=== PATIENT | female | born 1945 | race Caucasian/White ===

== ENCOUNTER 2019-03-18 15:30 | Observation (INO) | payer MEDICARE, SELFPAY ==
--- NOTE | 2019-03-18 | DI.RAD.S_ITS ---
PROCEDURE: XR CHEST 1V INDICATIONS: SOB, COPD TECHNIQUE: One view of the chest was acquired. COMPARISON: [facility], CR, XR CHEST 1 VIEW, 06/22/2018, 16:20. FINDINGS: Surgical changes and devices: None. Lungs and pleura: Lungs are clear. No pleural effusions or pneumothorax. Mediastinum: Mediastinal contours appear normal. Heart size is normal. Bones and chest wall: No suspicious bony lesions. Overlying soft tissues appear unremarkable. IMPRESSION: No acute cardiopulmonary findings. Dictated by: Lula Nation M.D. on 03/19/2019 at 7:17 Approved by: Lula Nation M.D. on 03/19/2019 at 7:17
[2019-03-18 16:01] VITALS: BP 115/65; PULSE 98; RESP 16; TEMP 35.9; O2SAT 94; BMI 35.5
[2019-03-18 16:50] LABS: Hematocrit 47.7 % (36-46); Hemoglobin 15.8 g/dL (12.0-16.0); Mean Corpuscular Hemoglobin 31.1 PG (26-34); Platelet Count 202 X10^3/uL (150-400); Red Blood Cell Count 5.08 X10^6/uL (4.0-5.2); Red Cell Distribution Width 14.2 % (11.6-14.8); White Blood Cell Count 6.9 X10^3/uL (4.5-11.0)
[2019-03-18 16:51] LABS: INR 1.1 (0.9-1.3); Prothrombin Time 12.3 SECONDS (10.1-12.7)
[2019-03-18 16:54] LABS: Add Manual Diff / Slide Review YES; PTT Partial Thromboplastin Tim 37 SECONDS (26.4-36.2)
[2019-03-18 16:55] LABS: Alanine Aminotransferase 43 IU/L (<35); Albumin 4.4 g/dL (3.5-5.0); Albumin Globulin Ratio 1.3 (1.0-2.8); Alkaline Phosphatase 137 U/L (38-126); Aspartate Aminotransferase 76 IU/L (14-36); BUN Creatinine Ratio 13.3 (6-22); Bilirubin Total 0.6 mg/dL (0.2-1.3); Blood Urea Nitrogen 16 mg/dL (7-17); Calcium 9.6 mg/dL (8.4-10.2); Carbon Dioxide 38 mmol/L (22-32); Chloride 88 mmol/L (98-107); Estimated Glomerular Filt Rate 43.9 mL/min (>60); Globulin 3.4 g/dL (1.7-4.1); Glucose 133 mg/dL (80-110); HEMOLYSIS < 15 (0-50); Lipase 52 U/L (23-300); Potassium 3.2 mmol/L (3.4-5.1); Sodium 136 mmol/L (137-145); Total Protein 7.8 g/dL (6.3-8.2)
[2019-03-18 17:13] LABS: Neutrophils Absolute Manual 4071 /uL (3000-5900); Total Cells Counted 100
[2019-03-18 17:14] LABS: RBC Morphology Normal Morphology
--- NOTE | 2019-03-18 17:36 | DI.US.S_ITS ---
PROCEDURE: US ABDOMEN LIMITED INDICATIONS: R quadrant pain with +funez's, nausea, fever TECHNIQUE: Real-time focused scanning was performed of the abdomen, with image documentation. COMPARISON: None. FINDINGS: Slightly nodular liver contour is seen. No discrete hepatic lesion is noted. 7 x 6 x 7 mm cyst is seen in medial right hepatic lobe. Numerous stones are seen filling gallbladder lumen withe through acoustic shadowing. There is asymmetric gallbladder wall thickening measures up to 5 mm in thickness. No pericholecystic fluid. Positive sonographic Funez's sign is noted during the study. Common bile duct size is in the upper limits of normal and measures 7 mm in diameter. No intrahepatic biliary ductal dilatation. Pancreas is obscured by overlying bowel gas. IMPRESSION: Cholelithiasis with sonographic evidence suggestive of acute cholecystitis. No definite biliary ductal dilatation. Dictated by: Nathaniel Muse M.D. on 03/18/2019 at 19:40 Approved by: Nathaniel Muse M.D. on 03/18/2019 at 19:42
[2019-03-18] MEDS: ONDANSETRON 4 MG/2 ML INJ IV (18:34)
[2019-03-18] MEDS: SODIUM CHLORIDE 0.9% 1,000 ML 1000 ML IV (18:34)
[2019-03-18] MEDS: MORPHINE 2 MG/ML INJ IV ×4 (18:34→23:30)
--- NOTE | 2019-03-18 19:38 | ED.ABDPAIN ---
HPI - Abdominal Pain <Ramy JOSSUE Pike - Last Filed: 03/18/19 21:35> General Chief Complaint: Abdominal Pain Stated Complaint: LOTS OF PAIN RIGHT LOWER PAIN TOWARDS BACK Time Seen by Provider: 03/18/19 16:55 Source: patient Mode of arrival: Wheelchair Limitations: no limitations History of Present Illness HPI narrative: This is a 73-year-old female, former smoker, who presents to ED with chief complain of right upper and mid quadrant pain which is radiating to under the rib cage and back for last 3 days. Patient had fever last couple of days with T-max of 102? last night. She reports nausea without vomiting. Patient has decreased appetite for solids but has been hydrating herself well with water. Patient has history of left sleeve surgery about 10 years ago. Patient reports pain is shooting in character and rates from constant 5 to 8/10. Patient denies diarrhea and had normal bowel movements today. Patient also has mild erythematous macular lesion on right upper quadrant region. Patient has history of AFib and on anticoagulants, Xarelto and COPD. Related Data Home Medications Medication Instructions Recorded Confirmed Anoro Ellipta 1 inh INHALATION DAILY 03/18/19 03/18/19 Azopt 1 % OPHTHALMIC (EYE) DAILY 03/18/19 03/18/19 Cequa 1 % OPHTHALMIC (EYE) BID 03/18/19 03/18/19 Cranberry W/D Mannose 1 cap PO DAILY 03/18/19 03/18/19 Florajen3 1 cap PO DAILY 03/18/19 03/18/19 Home Oxygen 03/18/19 03/18/19 Lumigan 1 % OPHTHALMIC (EYE) DAILY 03/18/19 03/18/19 Xarelto 20 mg PO DAILY 03/18/19 03/18/19 albuterol sulfate [ProAir HFA] 2 puff INHALATION BID 03/18/19 03/18/19 alprazolam 0.5 mg PO DAILY 03/18/19 03/18/19 ascorbic acid (vitamin C) [Vitamin 500 mg PO DAILY 03/18/19 03/18/19 C] cholecalciferol (vitamin D3) 1,000 unit PO DAILY 03/18/19 03/18/19 [Vitamin D3] cholecalciferol (vitamin D3) 2,000 unit PO DAILY 03/18/19 03/18/19 [Vitamin D3] dicyclomine 10 mg PO DAILY 03/18/19 03/18/19 duloxetine [Cymbalta] 60 mg PO BID 03/18/19 03/18/19 estradiol 1 mg PO DAILY 03/18/19 03/18/19 ferrous sulfate 325 mg PO DAILY 03/18/19 03/18/19 flecainide 50 mg PO Q12H 03/18/19 03/18/19 ipratropium bromide 2 puff INHALATION QID 03/18/19 03/18/19 magnesium oxide 400 mg PO DAILY 03/18/19 03/18/19 multivitamin 2 tab PO DAILY 03/18/19 03/18/19 omeprazole 40 mg PO DAILY 03/18/19 03/18/19 ranitidine HCl 300 mg PO BEDTIME 03/18/19 03/18/19 torsemide 20 mg PO BID 03/18/19 03/18/19 tramadol 50 mg PO Q4H PRN 03/18/19 03/18/19 trazodone 100 mg PO BEDTIME PRN 03/18/19 03/18/19 Previous Rx's Medication Instructions Recorded acetaminophen 650 mg PO Q6HR PRN #30 tab 03/21/19 Allergies Allergy/AdvReac Type Severity Reaction Status Date / Time oxycodone Allergy Mild makes her Verified 03/20/19 08:04 'loopy' ceftriaxone Allergy Unknown Rash Verified 03/20/19 08:04 clarithromycin Allergy Unknown Rash Verified 03/20/19 08:04 Review of Systems <JOSSUE Escudero - Last Filed: 03/18/19 21:35> Review of Systems Narrative: General: See HPI HEENT: Denies sinus pain, ear pain, sore throat, difficulty swallowing, dizziness. Respiratory: Denies dyspnea, cough, wheezing, hemoptysis, sputum. Cardiovascular: Denies chest pain, palpitations, orthopnea, edema. Gastrointestinal: See HPI : Denies dysuria, frequency, incontinence, hematuria, urinary retention. Musculoskeletal: Denies weakness, joint pain or bony pain. Skin: Denies rash, skin lesions, or other. Neurologic: Denies weakness, headache, numbness, change in speech, confusion, seizures, incoordination. Psychiatric: No concerning psychosocial issues. 12-point review of systems is negative except for those stated above. Patient History <AMELIA EscuderoP - Last Filed: 03/18/19 21:35> Medical History Chronic kidney disease, stage III (moderate) (Acute) COPD (chronic obstructive pulmonary disease) (Inactive) Depression (Acute) Glaucoma (Acute) Lung nodule (Acute) Obesity (BMI 30-39.9) (Acute) Osteoarthritis (Acute) Paroxysmal atrial fibrillation (Acute) Surgical History H/O foot surgery (Acute) H/O neck surgery (Acute) H/O rotator cuff surgery (Acute) History of hysterectomy (Acute) Hx of cataract surgery (Acute) Knee joint replacement by other means (Acute) S/P laparoscopic sleeve gastrectomy (Acute) Family History Father Alcoholic Mother Arthritis Renal failure Cancer Brother Alcoholic Social History household members: spouse Smoking Status: Former smoker alcohol intake: current Smoking Status: Unknown if ever smoked alcohol intake frequency: holidays/special occasions only Substance Use Type: does not use Exam <AMELIA EscuderoP - Last Filed: 03/18/19 21:35> Narrative Exam Narrative: GEN: Alert, oriented x 3, well appearing and nourished, and appears to be in discomfort and restless. Head: Normal cephalic, atraumatic. No scalp or temporal tenderness, palpable mass or rash. EYES: Pupils are equal, round, and reactive to light and accommodation. Extraocular muscles are intact bilaterally. There is no subconjunctival hemorrhage, exudate and sclera non-icteric. ENT: Bilateral auditory canals and tympanic membranes clear. Hearing grossly intact. Nose without bleeding, purulent discharge or deviation. Facial sinuses nontender to palpate. Mucous membrane moist, no mucosal lesion. Throat without erythema, tonsillar hypertrophy or exudate. Uvula in midline, airway patent. Neck: Trachea in midline. No JVD, non-tender without lymphadenopathy. No masses or thyroid megaly. Supple, non-tender and no meningeal signs. CARDIAC: Normal regular rate and rhythm without murmurs, gallops, or rubs. No chest wall tenderness. No peripheral edema, cyanosis or pallor. Capillary refill is less than 2 seconds. RESPIRATORY: Lungs are clear to auscultate bilaterally. No cough, wheezes, rales, or rhonchi. No stridor, respiratory distress, increase work of breathing, or accessary muscle used. ABD: Very tender to palpate in right upper quadrant with positive Funez's sign. Abdomen soft and non-distended. No guarding or rebound tenderness to palpate. Bowel sounds are normal in all 4 quadrants. There is no palpable masses or organomegaly. EXT: Full painless ROM of all extremities with no loss of sensation, strength, effusion or edema. SKIN: erythematous macules on RUQ in abdomen. Warm, dry, normal color for patient. No erythema, lesions or rash over visible areas. BACK: Nontender without deformity or crepitance. No flank tenderness. NEUROLOGICAL: Alert and oriented to place, time and person. Sensation and motor function intact bilaterally. No facial droops, dysphasia. PSYCHIATRIC: Good judgement and reason, without hallucinations, abnormal affect or abnormal behaviors during the examination. Initial Vital Signs Initial Vital Signs: Vital Signs Temperature 96.7 F L 03/18/19 16:01 Pulse Rate 98 H 03/18/19 16:01 Respiratory Rate 16 03/18/19 16:01 Blood Pressure 115/65 03/18/19 16:01 Pulse Oximetry 94 03/18/19 16:01 <Jenna Pacheco DO - Last Filed: 03/23/19 01:17> Initial Vital Signs Initial Vital Signs: Vital Signs Temperature 96.7 F L 03/18/19 16:01 Pulse Rate 98 H 03/18/19 16:01 Respiratory Rate 16 03/18/19 16:01 Blood Pressure 115/65 03/18/19 16:01 Pulse Oximetry 94 03/18/19 16:01 Course <JOSSUE Escudero - Last Filed: 03/18/19 21:35> Course Decision to Admit Date: 03/18/19 Decision to Admit time: 20:00 Orders Ordered: Discontinued Medications Acetaminophen (Tylenol) 650 mg PO Q6HR PRN PRN Reason: Fever/Mild Pain (1-3) Hydrocodone Bitart/Acetaminophen ([place] 5/325) 1 tab PO Q6HR PRN PRN Reason: Pain, Moderate (4-6) Last Admin: 03/21/19 09:07 Dose: 1 tab Documented by: EVARISTO Albuterol (Ventolin) 2.5 mg INH [id number] PRN PRN Reason: Shortness Of Breath Albuterol/Ipratropium (Duoneb) 3 ml INH RTBID REBECCA Last Admin: 03/21/19 07:13 Dose: 3 ml Documented by: Admin: 03/20/19 20:27 Dose: 3 ml Documented by: Admin: 03/20/19 09:33 Dose: Not Given Documented by: Admin: 03/19/19 14:31 Dose: 3 ml Documented by: Admin: 03/19/19 09:53 Dose: 3 ml Documented by: CHARISSE Alprazolam (Xanax) 0.5 mg PO DAILY [facility] Last Admin: 03/21/19 09:03 Dose: 0.5 mg Documented by: Admin: 03/20/19 12:16 Dose: Not Given Documented by: Admin: 03/19/19 10:52 Dose: 0.5 mg Documented by: GUDELIA Alprazolam (Xanax) 0.5 mg PO NOW ONE Stop: 03/19/19 20:14 Last Admin: 03/19/19 21:05 Dose: 0.5 mg Documented by: MARIA R Bacitracin (Bacitracin) 1 applic TOP NOW ONE Stop: 03/20/19 09:17 Last Admin: 03/20/19 09:16 Dose: 1 applic Documented by: GISEL Bimatoprost (Lumigan 0.01% Ophth Soln) 1 drops EYE-BOTH DAILY [facility] Last Admin: 03/21/19 09:06 Dose: Not Given Documented by: Admin: 03/20/19 12:17 Dose: Not Given Documented by: Admin: 03/19/19 18:16 Dose: Not Given Documented by: MARJORIE Bisoprolol Fumarate (Zebeta) 10 mg PO DAILY [facility] Last Admin: 03/21/19 09:05 Dose: Not Given Documented by: Admin: 03/20/19 13:49 Dose: Not Given Documented by: Admin: 03/19/19 10:53 Dose: 10 mg Documented by: GUDELIA Brinzolamide (Azopt) 1 drops EYE-BOTH DAILY [facility] Last Admin: 03/21/19 09:06 Dose: 1 drops Documented by: Admin: 03/20/19 12:17 Dose: Not Given Documented by: Admin: 03/19/19 18:17 Dose: Not Given Documented by: MARJORIE Bupivacaine HCl/Epinephrine Bitart (Sensorcaine 0.5% W/ Epi (Pf)) 20 ml INJ NOW ONE Stop: 03/20/19 09:07 Last Admin: 03/20/19 09:06 Dose: 20 ml Documented by: GISEL Dicyclomine HCl (Bentyl) 10 mg PO DAILY [facility] Last Admin: 03/21/19 09:04 Dose: Not Given Documented by: Admin: 03/20/19 13:49 Dose: Not Given Documented by: Admin: 03/19/19 10:56 Dose: 10 mg Documented by: GUDELIA Duloxetine HCl (Cymbalta) 60 mg PO BID [facility] Last Admin: 03/21/19 09:03 Dose: Not Given Documented by: Admin: 03/20/19 21:55 Dose: 60 mg Documented by: Admin: 03/20/19 13:50 Dose: Not Given Documented by: Admin: 03/19/19 20:05 Dose: 60 mg Documented by: Admin: 03/19/19 10:54 Dose: 60 mg Documented by: Admin: 03/18/19 23:28 Dose: 60 mg Documented by: HILTON Fentanyl (Sublimaze) 0 mcg IV Q5M PRN PRN Reason: Pain, Moderate (4-6) Flecainide Acetate (Tambocor) 50 mg PO Q12H [facility] Last Admin: 03/19/19 01:19 Dose: Not Given Documented by: MARCIN Flecainide Acetate (Tambocor) 50 mg PO 2100 [facility] Last Admin: 03/20/19 21:56 Dose: 50 mg Documented by: Admin: 03/19/19 20:07 Dose: 50 mg Documented by: MARJORIE Flecainide Acetate (Tambocor) 25 mg PO 0900 [facility] Last Admin: 03/21/19 09:03 Dose: 25 mg Documented by: Admin: 03/20/19 13:50 Dose: Not Given Documented by: Admin: 03/19/19 10:57 Dose: 25 mg Documented by: GUDELIA Furosemide (Lasix) 40 mg IV NOW ONE Stop: 03/21/19 05:15 Last Admin: 03/21/19 05:31 Dose: 40 mg Documented by: MELL Heparin Sodium (Porcine) (Heparin) 5,000 unit SUBCUT BID REBECCA Last Admin: 03/21/19 09:07 Dose: 5,000 unit Documented by: Admin: 03/20/19 21:55 Dose: 5,000 unit Documented by: Admin: 03/20/19 12:18 Dose: Not Given Documented by: Admin: 03/19/19 20:05 Dose: 5,000 unit Documented by: Admin: 03/19/19 08:47 Dose: 5,000 unit Documented by: GUDELIA Hydromorphone HCl (Dilaudid) 0.5 mg IV NOW ONE Stop: 03/19/19 01:16 Last Admin: 03/19/19 02:09 Dose: 0.5 mg Documented by: MARCIN Hydromorphone HCl (Dilaudid) 0 mg IV Q5M PRN PRN Reason: Pain, Moderate (4-6) Last Admin: 03/20/19 09:49 Dose: 0.5 mg Documented by: MIGUELANGELUNGILMAR Sodium Chloride (Normal Saline 0.9%) 1,000 mls @ 1,000 mls/hr IV BOLUS ONE Stop: 03/18/19 18:29 Last Infusion: 03/18/19 21:29 Dose: 0 mls/hr Documented by: ANMOLOTEEmerald Admin: 03/18/19 18:34 Dose: 1,000 mls/hr Documented by: MEGAONEMaikol Piperacillin/Tazobactam/Dextrose (Zosyn) 3.375 gm in 50 mls @ 100 mls/hr IV Q6H [facility] Last Admin: 03/18/19 21:29 Dose: Not Given Documented by: SHAHANA Piperacillin/Tazobactam/Dextrose (Zosyn) 2.25 gm in 50 mls @ 100 mls/hr IV Q6H [facility] Last Infusion: 03/18/19 21:16 Dose: 0 mls/hr Documented by: Admin: 03/18/19 20:36 Dose: 100 mls/hr Documented by: BTONER Lactated Ringer's (Lactated Ringers) 1,000 mls @ 100 mls/hr IV CONT REBECCA Last Admin: 03/18/19 23:34 Dose: Not Given Documented by: GPEREZ Sodium Chloride (Normal Saline 0.9%) 1,000 mls @ 75 mls/hr IV CONT REBECCA Last Infusion: 03/21/19 06:00 Dose: 75 mls/hr Documented by: Admin: 03/21/19 05:11 Dose: 75 mls/hr Documented by: Infusion: 03/21/19 03:15 Dose: 75 mls/hr Documented by: Admin: 03/20/19 13:55 Dose: 75 mls/hr Documented by: Infusion: 03/20/19 01:22 Dose: 75 mls/hr Documented by: Admin: 03/19/19 12:02 Dose: 75 mls/hr Documented by: Infusion: 03/19/19 11:19 Dose: 75 mls/hr Documented by: Admin: 03/18/19 23:28 Dose: 100 mls/hr Documented by: GPERELaw Piperacillin/Tazobactam/Dextrose (Zosyn) 3.375 gm in 50 mls @ 100 mls/hr IV Q6H REBECCA Last Admin: 03/21/19 09:33 Dose: Not Given Documented by: Infusion: 03/21/19 03:00 Dose: 0 mls/hr Documented by: Admin: 03/21/19 02:12 Dose: 100 mls/hr Documented by: Infusion: 03/20/19 22:24 Dose: 100 mls/hr Documented by: Admin: 03/20/19 21:54 Dose: 100 mls/hr Documented by: Infusion: 03/20/19 14:25 Dose: 100 mls/hr Documented by: Admin: 03/20/19 13:55 Dose: 100 mls/hr Documented by: Infusion: 03/20/19 08:20 Dose: 0 mls/hr Documented by: Admin: 03/20/19 08:18 Dose: 100 mls/hr Documented by: Infusion: 03/20/19 03:51 Dose: 100 mls/hr Documented by: Admin: 03/20/19 03:02 Dose: 100 mls/hr Documented by: Infusion: 03/19/19 21:19 Dose: 0 mls/hr Documented by: MARIA R Admin: 03/19/19 20:04 Dose: 100 mls/hr Documented by: Infusion: 03/19/19 15:20 Dose: 100 mls/hr Documented by: Admin: 03/19/19 14:50 Dose: 100 mls/hr Documented by: Infusion: 03/19/19 10:36 Dose: 0 mls/hr Documented by: Admin: 03/19/19 08:57 Dose: 100 mls/hr Documented by: Infusion: 03/19/19 02:40 Dose: 0 mls/hr Documented by: Admin: 03/19/19 02:10 Dose: 100 mls/hr Documented by: MARCIN Potassium Chloride 40 meq/ (Sodium Chloride) 520 mls @ 130 mls/hr IV NOW ONE Stop: 03/19/19 23:10 Last Admin: 03/19/19 21:16 Dose: 130 mls/hr Documented by: MARIA R Cosigned by: RHEENAN Lactated Ringer's (Lactated Ringers) 1,000 mls @ 42 mls/hr IV CONT REBECCA Last Infusion: 03/20/19 10:22 Dose: 0 mls/hr Documented by: Admin: 03/20/19 09:16 Dose: 42 mls/hr Documented by: Infusion: 03/20/19 09:16 Dose: 42 mls/hr Documented by: Admin: 03/20/19 08:03 Dose: 42 mls/hr Documented by: KAMILLA Metoprolol Tartrate (Lopressor) 5 mg IV NOW ONE Stop: 03/19/19 00:46 Last Admin: 03/19/19 01:07 Dose: Not Given Documented by: MARCIN Morphine Sulfate (Morphine) 2 mg IV NOW ONE Stop: 03/18/19 17:37 Last Admin: 03/18/19 18:34 Dose: 2 mg Documented by: RONIT Morphine Sulfate (Morphine) 2 mg IV NOW ONE Stop: 03/18/19 19:34 Last Admin: 03/18/19 19:43 Dose: 2 mg Documented by: RONIT Morphine Sulfate (Morphine) 2 mg IV NOW ONE Stop: 03/18/19 20:05 Last Admin: 03/18/19 20:36 Dose: 2 mg Documented by: RONIT Morphine Sulfate (Morphine) 2 mg IV Q4HR PRN PRN Reason: Pain, Moderate (4-6) Last Admin: 03/21/19 04:00 Dose: 2 mg Documented by: Admin: 03/20/19 22:08 Dose: 2 mg Documented by: Admin: 03/20/19 03:18 Dose: 2 mg Documented by: Admin: 03/19/19 08:48 Dose: 2 mg Documented by: Admin: 03/19/19 04:42 Dose: 2 mg Documented by: Admin: 03/18/19 23:30 Dose: 2 mg Documented by: HILTON Morphine Sulfate (Morphine) 4 mg IV Q4HR PRN PRN Reason: Pain, Severe (7-10) Naloxone HCl (Narcan) 0.2 mg IV Q2MIN PRN PRN Reason: Opiate Reversal Cyclosporine [Cequa] (1 %) 1 % EYE-BOTH BID REBECCA Last Admin: 03/21/19 09:07 Dose: Not Given Documented by: Admin: 03/20/19 21:58 Dose: Not Given Documented by: Admin: 03/20/19 14:01 Dose: Not Given Documented by: Admin: 03/20/19 14:01 Dose: Not Given Documented by: Admin: 03/20/19 13:49 Dose: Not Given Documented by: MORA Nystatin (Nystop) 1 applic TOP BID PRN PRN Reason: Rash Last Admin: 03/19/19 00:56 Dose: 1 applic Documented by: MARCIN Ondansetron HCl (Zofran) 4 mg IV NOW ONE Stop: 03/18/19 17:37 Last Admin: 03/18/19 18:34 Dose: 4 mg Documented by: RONIT Ondansetron HCl (Zofran) 4 mg IV Q8HR PRN PRN Reason: Nausea And Vomiting Last Admin: 03/20/19 10:47 Dose: 4 mg Documented by: DEQUAN Ondansetron HCl (Zofran) 4 mg IV NOW PRN PRN Reason: Nausea And Vomiting Pantoprazole Sodium (Protonix) 20 mg IV BID [facility] Last Admin: 03/19/19 08:47 Dose: 20 mg Documented by: Admin: 03/19/19 00:53 Dose: 20 mg Documented by: MARCIN Pantoprazole Sodium (Protonix) 40 mg PO 0700 [facility] Last Admin: 03/20/19 07:00 Dose: Not Given Documented by: MICHAEL Pantoprazole Sodium (Protonix) 40 mg PO 0700 [facility] Last Admin: 03/21/19 06:37 Dose: 40 mg Documented by: MELL Potassium Chloride (Klor-Con M20) 40 meq PO NOW ONE Stop: 03/18/19 19:39 Last Admin: 03/18/19 19:46 Dose: 40 meq Documented by: RONIT Sodium Chloride (Normal Saline 0.9% Flush) 10 ml IV PRN PRN PRN Reason: Flush Last Admin: 03/19/19 04:41 Dose: 10 ml Documented by: MARCIN Sodium Chloride (Normal Saline 0.9% Flush) 10 ml IV BID [facility] Last Admin: 03/19/19 08:00 Dose: Not Given Documented by: GUDELIA Torsemide (Demadex) 20 mg PO BID [facility] Umeclidinium/Vilanterol (Anoro Ellipta 62.5-25 Mcg Inh) 1 puff INH DAILY [facility] Last Admin: 03/21/19 07:12 Dose: 1 puff Documented by: Admin: 03/20/19 09:33 Dose: Not Given Documented by: Admin: 03/19/19 09:54 Dose: Not Given Documented by: CHARISSE Reevaluation(s) Reevaluation #1: pain recurring Time: 19:25 Reevaluation #2: pain mildly improved Time: 19:50 Consultations Consultation #1: Dr. Prabhakar-IV Zosyn 3.375mg Q6hr, surgical intervention in 2-3 days due to pt currently on Xarelto. Admit patient under medical services due to chronic medical hx. Will eval the patient tomorrow for consult. Time: 20:10 Consultation #2: Hospitalist RAYA Hadley kindly accepted the patient's care for inpt status with tele Time: 21:00 Vital Signs Vital signs: Vital Signs - 8 hr 03/18/19 16:01 03/18/19 20:38 Temperature 96.7 F L Pulse Rate 98 H 94 H Respiratory Rate 16 17 Blood Pressure 115/65 Blood Pressure [Right Arm] 152/68 H Pulse Oximetry 94 94 <Jenna Pacheco, DO - Last Filed: 03/23/19 01:17> Orders Ordered: Discontinued Medications Acetaminophen (Tylenol) 650 mg PO Q6HR PRN PRN Reason: Fever/Mild Pain (1-3) Hydrocodone Bitart/Acetaminophen ([place] 5/325) 1 tab PO Q6HR PRN PRN Reason: Pain, Moderate (4-6) Last Admin: 03/21/19 09:07 Dose: 1 tab Documented by: EVARISTO Albuterol (Ventolin) 2.5 mg INH [id number] PRN PRN Reason: Shortness Of Breath Albuterol/Ipratropium (Duoneb) 3 ml INH RTBID [facility] Last Admin: 03/21/19 07:13 Dose: 3 ml Documented by: Admin: 03/20/19 20:27 Dose: 3 ml Documented by: Admin: 03/20/19 09:33 Dose: Not Given Documented by: Admin: 03/19/19 14:31 Dose: 3 ml Documented by: Admin: 03/19/19 09:53 Dose: 3 ml Documented by: CHARISSE Alprazolam (Xanax) 0.5 mg PO DAILY [facility] Last Admin: 03/21/19 09:03 Dose: 0.5 mg Documented by: Admin: 03/20/19 12:16 Dose: Not Given Documented by: Admin: 03/19/19 10:52 Dose: 0.5 mg Documented by: GUDELIA Alprazolam (Xanax) 0.5 mg PO NOW ONE Stop: 03/19/19 20:14 Last Admin: 03/19/19 21:05 Dose: 0.5 mg Documented by: MARIA R Bacitracin (Bacitracin) 1 applic TOP NOW ONE Stop: 03/20/19 09:17 Last Admin: 03/20/19 09:16 Dose: 1 applic Documented by: GISEL Bimatoprost (Lumigan 0.01% Oph Soln) 1 drops EYE-BOTH DAILY [facility] Last Admin: 03/21/19 09:06 Dose: Not Given Documented by: Admin: 03/20/19 12:17 Dose: Not Given Documented by: Admin: 03/19/19 18:16 Dose: Not Given Documented by: MARJORIE Bisoprolol Fumarate (Zebeta) 10 mg PO DAILY [facility] Last Admin: 03/21/19 09:05 Dose: Not Given Documented by: Admin: 03/20/19 13:49 Dose: Not Given Documented by: Admin: 03/19/19 10:53 Dose: 10 mg Documented by: GUDELIA Brinzolamide (Azopt) 1 drops EYE-BOTH DAILY [facility] Last Admin: 03/21/19 09:06 Dose: 1 drops Documented by: Admin: 03/20/19 12:17 Dose: Not Given Documented by: Admin: 03/19/19 18:17 Dose: Not Given Documented by: MARJORIE Bupivacaine HCl/Epinephrine Bitart (Sensorcaine 0.5% W/ Epi (Pf)) 20 ml INJ NOW ONE Stop: 03/20/19 09:07 Last Admin: 03/20/19 09:06 Dose: 20 ml Documented by: GISEL Dicyclomine HCl (Bentyl) 10 mg PO DAILY [facility] Last Admin: 03/21/19 09:04 Dose: Not Given Documented by: Admin: 03/20/19 13:49 Dose: Not Given Documented by: Admin: 03/19/19 10:56 Dose: 10 mg Documented by: GUDELIA Duloxetine HCl (Cymbalta) 60 mg PO BID [facility] Last Admin: 03/21/19 09:03 Dose: Not Given Documented by: Admin: 03/20/19 21:55 Dose: 60 mg Documented by: Admin: 03/20/19 13:50 Dose: Not Given Documented by: Admin: 03/19/19 20:05 Dose: 60 mg Documented by: Admin: 03/19/19 10:54 Dose: 60 mg Documented by: Admin: 03/18/19 23:28 Dose: 60 mg Documented by: HILTON Fentanyl (Sublimaze) 0 mcg IV Q5M PRN PRN Reason: Pain, Moderate (4-6) Flecainide Acetate (Tambocor) 50 mg PO Q12H [facility] Last Admin: 03/19/19 01:19 Dose: Not Given Documented by: MARCIN Flecainide Acetate (Tambocor) 50 mg PO 2100 [facility] Last Admin: 03/20/19 21:56 Dose: 50 mg Documented by: Admin: 03/19/19 20:07 Dose: 50 mg Documented by: MARJORIE Flecainide Acetate (Tambocor) 25 mg PO 0900 [facility] Last Admin: 03/21/19 09:03 Dose: 25 mg Documented by: Admin: 03/20/19 13:50 Dose: Not Given Documented by: Admin: 03/19/19 10:57 Dose: 25 mg Documented by: GUDELIA Furosemide (Lasix) 40 mg IV NOW ONE Stop: 03/21/19 05:15 Last Admin: 03/21/19 05:31 Dose: 40 mg Documented by: MELL Heparin Sodium (Porcine) (Heparin) 5,000 unit SUBCUT BID [facility] Last Admin: 03/21/19 09:07 Dose: 5,000 unit Documented by: Admin: 03/20/19 21:55 Dose: 5,000 unit Documented by: Admin: 03/20/19 12:18 Dose: Not Given Documented by: Admin: 03/19/19 20:05 Dose: 5,000 unit Documented by: Admin: 03/19/19 08:47 Dose: 5,000 unit Documented by: GUDELIA Hydromorphone HCl (Dilaudid) 0.5 mg IV NOW ONE Stop: 03/19/19 01:16 Last Admin: 03/19/19 02:09 Dose: 0.5 mg Documented by: MARCIN Hydromorphone HCl (Dilaudid) 0 mg IV Q5M PRN PRN Reason: Pain, Moderate (4-6) Last Admin: 03/20/19 09:49 Dose: 0.5 mg Documented by: AKUNGILMAR Sodium Chloride (Normal Saline 0.9%) 1,000 mls @ 1,000 mls/hr IV BOLUS ONE Stop: 03/18/19 18:29 Last Infusion: 03/18/19 21:29 Dose: 0 mls/hr Documented by: Admin: 03/18/19 18:34 Dose: 1,000 mls/hr Documented by: RONIT Piperacillin/Tazobactam/Dextrose (Zosyn) 3.375 gm in 50 mls @ 100 mls/hr IV Q6H REBECCA Last Admin: 03/18/19 21:29 Dose: Not Given Documented by: SHAHANA Piperacillin/Tazobactam/Dextrose (Zosyn) 2.25 gm in 50 mls @ 100 mls/hr IV Q6H REBECCA Last Infusion: 03/18/19 21:16 Dose: 0 mls/hr Documented by: Admin: 03/18/19 20:36 Dose: 100 mls/hr Documented by: RONIT Lactated Ringer's (Lactated Ringers) 1,000 mls @ 100 mls/hr IV CONT REBECCA Last Admin: 03/18/19 23:34 Dose: Not Given Documented by: KIMEREZ Sodium Chloride (Normal Saline 0.9%) 1,000 mls @ 75 mls/hr IV CONT REBECCA Last Infusion: 03/21/19 06:00 Dose: 75 mls/hr Documented by: Admin: 03/21/19 05:11 Dose: 75 mls/hr Documented by: Infusion: 03/21/19 03:15 Dose: 75 mls/hr Documented by: Admin: 03/20/19 13:55 Dose: 75 mls/hr Documented by: Infusion: 03/20/19 01:22 Dose: 75 mls/hr Documented by: Admin: 03/19/19 12:02 Dose: 75 mls/hr Documented by: Infusion: 03/19/19 11:19 Dose: 75 mls/hr Documented by: Admin: 03/18/19 23:28 Dose: 100 mls/hr Documented by: KIMERELaw Piperacillin/Tazobactam/Dextrose (Zosyn) 3.375 gm in 50 mls @ 100 mls/hr IV Q6H REBECCA Last Admin: 03/21/19 09:33 Dose: Not Given Documented by: Infusion: 03/21/19 03:00 Dose: 0 mls/hr Documented by: Admin: 03/21/19 02:12 Dose: 100 mls/hr Documented by: Infusion: 03/20/19 22:24 Dose: 100 mls/hr Documented by: Admin: 03/20/19 21:54 Dose: 100 mls/hr Documented by: Infusion: 03/20/19 14:25 Dose: 100 mls/hr Documented by: Admin: 03/20/19 13:55 Dose: 100 mls/hr Documented by: Infusion: 03/20/19 08:20 Dose: 0 mls/hr Documented by: Admin: 03/20/19 08:18 Dose: 100 mls/hr Documented by: Infusion: 03/20/19 03:51 Dose: 100 mls/hr Documented by: Admin: 03/20/19 03:02 Dose: 100 mls/hr Documented by: Infusion: 03/19/19 21:19 Dose: 0 mls/hr Documented by: MARIA R Admin: 03/19/19 20:04 Dose: 100 mls/hr Documented by: Infusion: 03/19/19 15:20 Dose: 100 mls/hr Documented by: Admin: 03/19/19 14:50 Dose: 100 mls/hr Documented by: Infusion: 03/19/19 10:36 Dose: 0 mls/hr Documented by: Admin: 03/19/19 08:57 Dose: 100 mls/hr Documented by: Infusion: 03/19/19 02:40 Dose: 0 mls/hr Documented by: Admin: 03/19/19 02:10 Dose: 100 mls/hr Documented by: MARCIN Potassium Chloride 40 meq/ (Sodium Chloride) 520 mls @ 130 mls/hr IV NOW ONE Stop: 03/19/19 23:10 Last Admin: 03/19/19 21:16 Dose: 130 mls/hr Documented by: MARIA R Cosigned by: RHEENAN Lactated Ringer's (Lactated Ringers) 1,000 mls @ 42 mls/hr IV CONT REBECCA Last Infusion: 03/20/19 10:22 Dose: 0 mls/hr Documented by: Admin: 03/20/19 09:16 Dose: 42 mls/hr Documented by: Infusion: 03/20/19 09:16 Dose: 42 mls/hr Documented by: Admin: 03/20/19 08:03 Dose: 42 mls/hr Documented by: KAMILLA Metoprolol Tartrate (Lopressor) 5 mg IV NOW ONE Stop: 03/19/19 00:46 Last Admin: 03/19/19 01:07 Dose: Not Given Documented by: MARCIN Morphine Sulfate (Morphine) 2 mg IV NOW ONE Stop: 03/18/19 17:37 Last Admin: 03/18/19 18:34 Dose: 2 mg Documented by: RONIT Morphine Sulfate (Morphine) 2 mg IV NOW ONE Stop: 03/18/19 19:34 Last Admin: 03/18/19 19:43 Dose: 2 mg Documented by: RONIT Morphine Sulfate (Morphine) 2 mg IV NOW ONE Stop: 03/18/19 20:05 Last Admin: 03/18/19 20:36 Dose: 2 mg Documented by: RONIT Morphine Sulfate (Morphine) 2 mg IV Q4HR PRN PRN Reason: Pain, Moderate (4-6) Last Admin: 03/21/19 04:00 Dose: 2 mg Documented by: Admin: 03/20/19 22:08 Dose: 2 mg Documented by: Admin: 03/20/19 03:18 Dose: 2 mg Documented by: Admin: 03/19/19 08:48 Dose: 2 mg Documented by: Admin: 03/19/19 04:42 Dose: 2 mg Documented by: Admin: 03/18/19 23:30 Dose: 2 mg Documented by: HILTON Morphine Sulfate (Morphine) 4 mg IV Q4HR PRN PRN Reason: Pain, Severe (7-10) Naloxone HCl (Narcan) 0.2 mg IV Q2MIN PRN PRN Reason: Opiate Reversal Cyclosporine [Cequa] (1 %) 1 % EYE-BOTH BID REBECCA Last Admin: 03/21/19 09:07 Dose: Not Given Documented by: Admin: 03/20/19 21:58 Dose: Not Given Documented by: Admin: 03/20/19 14:01 Dose: Not Given Documented by: Admin: 03/20/19 14:01 Dose: Not Given Documented by: Admin: 03/20/19 13:49 Dose: Not Given Documented by: MORA Nystatin (Nystop) 1 applic TOP BID PRN PRN Reason: Rash Last Admin: 03/19/19 00:56 Dose: 1 applic Documented by: MARCIN Ondansetron HCl (Zofran) 4 mg IV NOW ONE Stop: 03/18/19 17:37 Last Admin: 03/18/19 18:34 Dose: 4 mg Documented by: RONIT Ondansetron HCl (Zofran) 4 mg IV Q8HR PRN PRN Reason: Nausea And Vomiting Last Admin: 03/20/19 10:47 Dose: 4 mg Documented by: DEQUAN Ondansetron HCl (Zofran) 4 mg IV NOW PRN PRN Reason: Nausea And Vomiting Pantoprazole Sodium (Protonix) 20 mg IV BID [facility] Last Admin: 03/19/19 08:47 Dose: 20 mg Documented by: Admin: 03/19/19 00:53 Dose: 20 mg Documented by: MARCIN Pantoprazole Sodium (Protonix) 40 mg PO 0700 [facility] Last Admin: 03/20/19 07:00 Dose: Not Given Documented by: MICHAEL Pantoprazole Sodium (Protonix) 40 mg PO 0700 [facility] Last Admin: 03/21/19 06:37 Dose: 40 mg Documented by: MELL Potassium Chloride (Klor-Con M20) 40 meq PO NOW ONE Stop: 03/18/19 19:39 Last Admin: 03/18/19 19:46 Dose: 40 meq Documented by: RONIT Sodium Chloride (Normal Saline 0.9% Flush) 10 ml IV PRN PRN PRN Reason: Flush Last Admin: 03/19/19 04:41 Dose: 10 ml Documented by: MARICN Sodium Chloride (Normal Saline 0.9% Flush) 10 ml IV BID [facility] Last Admin: 03/19/19 08:00 Dose: Not Given Documented by: GUDELIA Torsemide (Demadex) 20 mg PO BID [facility] Umeclidinium/Vilanterol (Anoro Ellipta 62.5-25 Mcg Inh) 1 puff INH DAILY [facility] Last Admin: 03/21/19 07:12 Dose: 1 puff Documented by: Admin: 03/20/19 09:33 Dose: Not Given Documented by: Admin: 03/19/19 09:54 Dose: Not Given Documented by: CHARISSE Vital Signs Vital signs: Vital Signs - 8 hr 03/18/19 16:01 03/18/19 20:38 Temperature 96.7 F L Pulse Rate 98 H 94 H Respiratory Rate 16 17 Blood Pressure 115/65 Blood Pressure [Right Arm] 152/68 H Pulse Oximetry 94 94 MDM - Abdominal Pain <Ramy Do-JOSSUE John - Last Filed: 03/18/19 21:35> Differential Diagnosis Differential diagnosis: Likely pancreatitis, small bowel obstruction and other (Cholecystitis, [place]) Medical Records Attestation: I reviewed the patient's medical records. Lab Data Attestation: I reviewed the patient's lab results. Result diagrams: 03/19/19 05:35 03/19/19 05:35 Labs: Lab Results 03/18/19 03/18/19 03/18/19 Range/Units 16:35 16:35 16:35 WBC 6.9 (4.5-11.0) X10^3/uL RBC 5.08 (4.0-5.2) X10^6/uL Hgb 15.8 (12.0-16.0) g/dL Hct 47.7 H (36-46) % MCV 94.0 (80-100) fL MCH 31.1 (26-34) PG MCHC 33.0 (30-36) % RDW 14.2 (11.6-14.8) % Plt Count 202 (150-400) X10^3/uL Neut % (Auto) Not Reportable Lymph % (Auto) Not Reportable [place] % (Auto) Not Reportable Eos % (Auto) Not Reportable Baso % (Auto) Not Reportable Lymph # (Auto) Not Reportable [place] # (Auto) Not Reportable Baso # (Auto) Not Reportable Total Counted 100 Seg Neutrophils % 58.0 (38-70) % Band Neutrophils % 1.0 L (3-7) % Lymphocytes % (Manual) 15.0 L (25-45) % Atypical Lymphs % 3.0 H ( - 0) % Monocytes % (Manual) 12.0 H (2-11) % Eosinophils % (Manual) 10.0 H (2-4) % Basophils % (Manual) 1.0 (0-1) % Neutrophils # (Manual) 4071 (3709-2964) /uL RBC Morphology Normal morphology PT 12.3 (10.1-12.7) SECONDS INR 1.1 (0.9-1.3) APTT 37 H (26.4-36.2) SECONDS Sodium 136 L (137-145) mmol/L Potassium 3.2 L (3.4-5.1) mmol/L Chloride 88 L (98-107) mmol/L Carbon Dioxide 38 H (22-32) mmol/L BUN 16 (7-17) mg/dL Creatinine 1.20 H (0.52-1.04) mg/dL Estimated GFR 43.9 L (>60) mL/min BUN/Creatinine Ratio 13.3 (6-22) Glucose 133 H (80-110) mg/dL Calcium 9.6 (8.4-10.2) mg/dL Magnesium (1.6-2.3) mg/dL Total Bilirubin 0.6 (0.2-1.3) mg/dL AST 76 H (14-36) IU/L ALT 43 H (<35) IU/L Alkaline Phosphatase 137 H (38-126) U/L Total Protein 7.8 (6.3-8.2) g/dL Albumin 4.4 (3.5-5.0) g/dL Globulin 3.4 (1.7-4.1) g/dL Albumin/Globulin Ratio 1.3 (1.0-2.8) Lipase 52 (23-300) U/L // Range/Units 16:35 WBC (4.5-11.0) X10^3/uL RBC (4.0-5.2) X10^6/uL Hgb (12.0-16.0) g/dL Hct (36-46) % MCV (80-100) fL MCH (26-34) PG MCHC (30-36) % RDW (11.6-14.8) % Plt Count (150-400) X10^3/uL Neut % (Auto) Lymph % (Auto) [place] % (Auto) Eos % (Auto) Baso % (Auto) Lymph # (Auto) [place] # (Auto) Baso # (Auto) Total Counted Seg Neutrophils % (38-70) % Band Neutrophils % (3-7) % Lymphocytes % (Manual) (25-45) % Atypical Lymphs % ( - 0) % Monocytes % (Manual) (2-11) % Eosinophils % (Manual) (2-4) % Basophils % (Manual) (0-1) % Neutrophils # (Manual) (6790-7327) /uL RBC Morphology PT (10.1-12.7) SECONDS INR (0.9-1.3) APTT (26.4-36.2) SECONDS Sodium (137-145) mmol/L Potassium (3.4-5.1) mmol/L Chloride (98-107) mmol/L Carbon Dioxide (22-32) mmol/L BUN (7-17) mg/dL Creatinine (0.52-1.04) mg/dL Estimated GFR (>60) mL/min BUN/Creatinine Ratio (6-22) Glucose (80-110) mg/dL Calcium (8.4-10.2) mg/dL Magnesium 2.1 (1.6-2.3) mg/dL Total Bilirubin (0.2-1.3) mg/dL AST (14-36) IU/L ALT (<35) IU/L Alkaline Phosphatase (38-126) U/L Total Protein (6.3-8.2) g/dL Albumin (3.5-5.0) g/dL Globulin (1.7-4.1) g/dL Albumin/Globulin Ratio (1.0-2.8) Lipase (23-300) U/L Point of care testing: Urine Dip Bedside Urine Glucose Negative Bedside Urine Bilirubin - Negative Bedside Urine Ketone - Negative Urine Specific [place] 1.015 Bedside Urine Occult Blood - Negative Bedside Urine pH 6.0 Bedside Urine Protein - Negative Bedside Urine Urobilinogen - Negative Bedside Urine Nitrite - Negative Bedside Urine Leukocytes - Negative Esterase Imaging Data US-Abdomen: Radiologist's impression: [address] [address] Ultrasound Report Signed Patient: Hemant Ayala#: [id number] : 5Acct:[id number] Age/Sex: 73 / FDate of Service: 03/18/19 Loc: ED Accession Number: [id number] Procedure: US abdomen limited Ordering Provider: Ramy Pike PROCEDURE: US ABDOMEN LIMITED INDICATIONS: R quadrant pain with +funez's, nausea, fever TECHNIQUE: Real-time focused scanning was performed of the abdomen, with image documentation. COMPARISON: None. FINDINGS: Slightly nodular liver contour is seen. No discrete hepatic lesion is noted. 7 x 6 x 7 mm cyst is seen in medial right hepatic lobe. Numerous stones are seen filling gallbladder lumen withe through acoustic shadowing. There is asymmetric gallbladder wall thickening measures up to 5 mm in thickness. No pericholecystic fluid. Positive sonographic Funez's sign is noted during the study. Common bile duct size is in the upper limits of normal and measures 7 mm in diameter. No intrahepatic biliary ductal dilatation. Pancreas is obscured by overlying bowel gas. IMPRESSION: Cholelithiasis with sonographic evidence suggestive of acute cholecystitis. No definite biliary ductal dilatation. Dictated by: Nathaniel Muse M.D. on 03/18/2019 at 19:40 Approved by: Nathaniel Muse M.D. on 03/18/2019 at 19:42 ECG Data Attestation: I personally reviewed and interpreted this ECG as follows: Prior ECG tracings: not available for review Interpretation: AFib rate at 95 Normal [place]. Normal QRS duration, QT/QTC 371/424 Nonspecific T-wave normalty MDM Narrative Medical decision making narrative: This is a 73-year-old female who presents to ED with 3 day duration of right upper quadrant pain radiating to back with fever, nausea, and chills. Patient has chronic medical conditions such as COPD, AFib who's on Xarelto, stage 3 kidney disease, s/p sleeve gastrectomy. Patient was referred from Dr. Gonzales for further evaluation for possible cholecystitis. Physical exam was consistent with cholecystitis with positive Funez's sound and right upper quadrant pain radiating to back. EKG showed AFib rate in 96. There was no leukocytosis today or left shift but increase in eosinophil of 10 . Patient reports T-max at home was 103. Sodium was 136 with chloride of 88. Potassium was 3.2 with CO2 of 38. Patient received 1 L of normal saline and treated with 40 mEq of potassium chloride p.o.. Creatinine today was 1.2 with GFR of 43.9. Patient was not able to provide urine sample while in ED. PTT of 37 with normal INR and PT. Ultrasound test indicated multiple gallstones with 5 mm thickening of without pericholecystic fluid. There was no definite biliary ductal dilatation appreciated. Patient was medicated with 2 mg morphine x3 doses and IV Zofran. Patient felt improve. Dr. Prabhakar was consulted and advised Zosyn 3.375 mg Q6hr and to keep the patient on NPO and patient will be evaluated in the morning. He suggested admitting patient under the medical service due to patient's chronic medical conditions. RAYA Hadley was contacted and he kindly accepted patient's care for admission with tele monitor. <Jenna Pacheco, DO - Last Filed: 03/23/19 01:17> Lab Data Labs: Lab Results 03/18/19 03/18/19 03/18/19 Range/Units 16:35 16:35 16:35 WBC 6.9 (4.5-11.0) X10^3/uL RBC 5.08 (4.0-5.2) X10^6/uL Hgb 15.8 (12.0-16.0) g/dL Hct 47.7 H (36-46) % MCV 94.0 (80-100) fL MCH 31.1 (26-34) PG MCHC 33.0 (30-36) % RDW 14.2 (11.6-14.8) % Plt Count 202 (150-400) X10^3/uL Neut % (Auto) Not Reportable Lymph % (Auto) Not Reportable [place] % (Auto) Not Reportable Eos % (Auto) Not Reportable Baso % (Auto) Not Reportable Lymph # (Auto) Not Reportable [place] # (Auto) Not Reportable Baso # (Auto) Not Reportable Total Counted 100 Seg Neutrophils % 58.0 (38-70) % Band Neutrophils % 1.0 L (3-7) % Lymphocytes % (Manual) 15.0 L (25-45) % Atypical Lymphs % 3.0 H ( - 0) % Monocytes % (Manual) 12.0 H (2-11) % Eosinophils % (Manual) 10.0 H (2-4) % Basophils % (Manual) 1.0 (0-1) % Neutrophils # (Manual) 4071 (8014-3845) /uL RBC Morphology Normal morphology PT 12.3 (10.1-12.7) SECONDS INR 1.1 (0.9-1.3) APTT 37 H (26.4-36.2) SECONDS Sodium 136 L (137-145) mmol/L Potassium 3.2 L (3.4-5.1) mmol/L Chloride 88 L (98-107) mmol/L Carbon Dioxide 38 H (22-32) mmol/L BUN 16 (7-17) mg/dL Creatinine 1.20 H (0.52-1.04) mg/dL Estimated GFR 43.9 L (>60) mL/min BUN/Creatinine Ratio 13.3 (6-22) Glucose 133 H (80-110) mg/dL Calcium 9.6 (8.4-10.2) mg/dL Magnesium (1.6-2.3) mg/dL Total Bilirubin 0.6 (0.2-1.3) mg/dL AST 76 H (14-36) IU/L ALT 43 H (<35) IU/L Alkaline Phosphatase 137 H (38-126) U/L Total Protein 7.8 (6.3-8.2) g/dL Albumin 4.4 (3.5-5.0) g/dL Globulin 3.4 (1.7-4.1) g/dL Albumin/Globulin Ratio 1.3 (1.0-2.8) Lipase 52 (23-300) U/L 12/13/19 Range/Units 16:35 WBC (4.5-11.0) X10^3/uL RBC (4.0-5.2) X10^6/uL Hgb (12.0-16.0) g/dL Hct (36-46) % MCV (80-100) fL MCH (26-34) PG MCHC (30-36) % RDW (11.6-14.8) % Plt Count (150-400) X10^3/uL Neut % (Auto) Lymph % (Auto) [place] % (Auto) Eos % (Auto) Baso % (Auto) Lymph # (Auto) [place] # (Auto) Baso # (Auto) Total Counted Seg Neutrophils % (38-70) % Band Neutrophils % (3-7) % Lymphocytes % (Manual) (25-45) % Atypical Lymphs % ( - 0) % Monocytes % (Manual) (2-11) % Eosinophils % (Manual) (2-4) % Basophils % (Manual) (0-1) % Neutrophils # (Manual) (1386-6585) /uL RBC Morphology PT (10.1-12.7) SECONDS INR (0.9-1.3) APTT (26.4-36.2) SECONDS Sodium (137-145) mmol/L Potassium (3.4-5.1) mmol/L Chloride (98-107) mmol/L Carbon Dioxide (22-32) mmol/L BUN (7-17) mg/dL Creatinine (0.52-1.04) mg/dL Estimated GFR (>60) mL/min BUN/Creatinine Ratio (6-22) Glucose (80-110) mg/dL Calcium (8.4-10.2) mg/dL Magnesium 2.1 (1.6-2.3) mg/dL Total Bilirubin (0.2-1.3) mg/dL AST (14-36) IU/L ALT (<35) IU/L Alkaline Phosphatase (38-126) U/L Total Protein (6.3-8.2) g/dL Albumin (3.5-5.0) g/dL Globulin (1.7-4.1) g/dL Albumin/Globulin Ratio (1.0-2.8) Lipase (23-300) U/L Point of care testing: Urine Dip Bedside Urine Glucose Negative Bedside Urine Bilirubin - Negative Bedside Urine Ketone - Negative Urine Specific [place] 1.015 Bedside Urine Occult Blood - Negative Bedside Urine pH 6.0 Bedside Urine Protein - Negative Bedside Urine Urobilinogen - Negative Bedside Urine Nitrite - Negative Bedside Urine Leukocytes - Negative Esterase ECG Data Attestation: I personally reviewed and interpreted this ECG as follows: Prior ECG tracings: not available for review Interpretation: Atrial fibrillation rate [address] changes Discharge Plan Departure Patient Disposition: Admitted As Inpatient Clinical Impression: Acute cholecystitis Discharge Date/Time: 03/18/19 22:00 Admit Date/Time: 03/18/19 20:59 Admit Provider: Gerry Hadley
[2019-03-18] MEDS: POTASSIUM CHLORIDE 20 MEQ TAB 40 MEQ PO (19:46)
[2019-03-18] MEDS: PIPERACILLIN-TAZO 2.25 GM/50 ML FROZ.PIGGY IV (20:36)
[2019-03-18 20:38] VITALS: BP 152/68; PULSE 94; RESP 17; O2SAT 94
[2019-03-18 22:05] VITALS: BP 146/82; PULSE 113; RESP 22; TEMP 37.1; O2SAT 75
--- NOTE | 2019-03-18 22:22 | PC.NURSE ---
Pt arrived to room 219 at approx 2200. A/O. VSS. 2L NC applied sats 94-96%. NS with small amt of IVF left. Infusion set to pump to complete. Oriented to room and call system. Hospitalist in for rounding. Bed alarm on. Call light within reach.
[2019-03-18 22:26] LABS: Magnesium 2.1 mg/dL (1.6-2.3)
[2019-03-18 22:43] VITALS: BMI 35.4
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
[2019-03-18] MEDS: SODIUM CHLORIDE 0.9% 1,000 ML 100 ML IV (23:28)
[2019-03-18] MEDS: DULOXETINE 30 MG CAPSULE 60 MG PO (23:28)
[2019-03-19] VITALS (12 sets, daily range): BP systolic 101–136; BP diastolic 58–84; PULSE 70–105; RESP 16–20; TEMP 36.1–36.9; O2SAT 87–97
[2019-03-19] MEDS: PANTOPRAZOLE 40 MG VIAL 20 MG IV ×2 (00:53→08:47)
[2019-03-19] MEDS: NYSTATIN POWDER 30 GM 1 APPLIC TOP (00:56)
[2019-03-19] MEDS: HYDROMORPHONE 0.5 MG INJ IV (02:09)
[2019-03-19] MEDS: PIPERACILLIN-TAZO 3.375 GM/50 ML FROZ.PIGGY IV ×4 (02:10→20:04)
[2019-03-19] MEDS: SODIUM CHLORIDE 0.9% FLUSH 10 ML IV (04:41)
[2019-03-19] MEDS: MORPHINE 2 MG/ML INJ IV ×2 (04:42→08:48)
[2019-03-19 06:15] LABS: Alanine Aminotransferase 36 IU/L (<35); Albumin 3.6 g/dL (3.5-5.0); Albumin Globulin Ratio 1.2 (1.0-2.8); Alkaline Phosphatase 111 U/L (38-126); Aspartate Aminotransferase 61 IU/L (14-36); BUN Creatinine Ratio 11.8 (6-22); Bilirubin Total 0.5 mg/dL (0.2-1.3); Blood Urea Nitrogen 13 mg/dL (7-17); Calcium 8.9 mg/dL (8.4-10.2); Carbon Dioxide 35 mmol/L (22-32); Chloride 98 mmol/L (98-107); Estimated Glomerular Filt Rate 48.6 mL/min (>60); Globulin 2.9 g/dL (1.7-4.1); Glucose 112 mg/dL (80-110); HEMOLYSIS < 15 (0-50); Potassium 3.4 mmol/L (3.4-5.1); Sodium 140 mmol/L (137-145); Total Protein 6.5 g/dL (6.3-8.2)
[2019-03-19 06:29] LABS: Procalcitonin 0.16 ng/mL (<0.5)
--- NOTE | 2019-03-19 06:30 | PC.NURSE ---
Pt reports ongoing pain to RUQ radiating to back, rates 7/10. Necessitated IV dilaudid x1 for breakthru pain which pt stated she found effective. Pt reported no uncontrolled pain. Pain at each reassessment improved with pt satisfaction. Strict NPO. Plan for General Surgery consult this AM. Xarelto on hold, SQ prophylaxis heparin BID. Hx Afib, none overnight on tele. Sinus tach with 1st AVB, BBB. Denies chest pain or feelings of palpitations. Pt to start Fecainide this morning, pt reported unable to tolerate beta blockers, they make me dizzy for days. IVF of NS at 100cc/hr. Nystatin for groin, under breasts rash. Denies nausea. Fall precautions reinforced, bed alarm on. OOB with 1 person SBA to BSC.
[2019-03-19 06:37] LABS: Hematocrit 41.4 % (36-46); Hemoglobin 13.9 g/dL (12.0-16.0); Mean Corpuscular HGB Conc 33.7 % (30-36); Mean Corpuscular Hemoglobin 31.4 PG (26-34); Mean Corpuscular Volume 93.2 fL (80-100); Platelet Count 154 X10^3/uL (150-400); Red Blood Cell Count 4.44 X10^6/uL (4.0-5.2); Red Cell Distribution Width 14.1 % (11.6-14.8); White Blood Cell Count 7.6 X10^3/uL (4.5-11.0)
[2019-03-19 06:38] LABS: Add Manual Diff / Slide Review YES
[2019-03-19 06:51] LABS: Neutrophils Absolute Manual 4332 /uL (3000-5900); Total Cells Counted 100
[2019-03-19 06:52] LABS: RBC Morphology Normal Morphology
[2019-03-19] MEDS: HEPARIN 5,000 UNIT/ML VIAL 5000 UNIT SUBCUT ×2 (08:47→20:05)
[2019-03-19] MEDS: ALBUTEROL/IPRATROPIUM 3 ML AMPUL INH ×2 (09:53→14:31)
[2019-03-19] MEDS: ALPRAZolam 0.5 MG TABLET PO ×2 (10:52→21:05)
[2019-03-19] MEDS: BISOPROLOL 5 MG TABLET 10 MG PO (10:53)
[2019-03-19] MEDS: DULOXETINE 30 MG CAPSULE 60 MG PO ×2 (10:54→20:05)
[2019-03-19] MEDS: DICYCLOMINE 10 MG CAPSULE PO (10:56)
--- NOTE | 2019-03-19 10:56 | PM.CN ---
History of Present Illness Consult details Date Patient Seen: 03/19/19 Time Patient Seen: 10:56 Chief complaint: LOTS OF PAIN RIGHT LOWER PAIN TOWARDS BACK Narrative: 73-year-old white female patient who has suffered from morbid obesity and has had a sleeve gastrectomy years ago. She comes in with a 3 day history of right upper quadrant abdominal pain nausea and fever at home. Ultrasound done in the emergency department confirms cholelithiasis with acute cholecystitis indicated by gallbladder wall thickening. There is no pericholecystic fluid. The patient continues to have right subcostal pain. [facility] Medical History Chronic kidney disease, stage III (moderate) (Acute) COPD (chronic obstructive pulmonary disease) (Inactive) Depression (Acute) Glaucoma (Acute) Lung nodule (Acute) Obesity (BMI 30-39.9) (Acute) Osteoarthritis (Acute) Paroxysmal atrial fibrillation (Acute) Surgical History H/O foot surgery (Acute) H/O neck surgery (Acute) H/O rotator cuff surgery (Acute) History of hysterectomy (Acute) Hx of cataract surgery (Acute) Knee joint replacement by other means (Acute) S/P laparoscopic sleeve gastrectomy (Acute) Family History Father Alcoholic Mother Arthritis Renal failure Cancer Brother Alcoholic Social History household members: spouse Smoking Status: Former smoker alcohol intake: current Meds Home Medications and Allergies Home Medications Medication Instructions Recorded Confirmed Type Cranberry W/D Mannose 1 cap PO DAILY 03/18/19 03/18/19 History Home Oxygen 03/18/19 03/18/19 History L.acidoph-B.lactis-B.longum 1 cap PO DAILY 03/18/19 03/18/19 History [Florajen3] albuterol sulfate [ProAir HFA] 2 puff INHALATION BID 03/18/19 03/18/19 History alprazolam 0.5 mg PO DAILY 03/18/19 03/18/19 History ascorbic acid (vitamin C) [Vitamin 500 mg PO DAILY 03/18/19 03/18/19 History C] bimatoprost [Lumigan] 1 % OPHTHALMIC (EYE) DAILY 03/18/19 03/18/19 History brinzolamide [Azopt] 1 % OPHTHALMIC (EYE) DAILY 03/18/19 03/18/19 History cholecalciferol (vitamin D3) 1,000 unit PO DAILY 03/18/19 03/18/19 History [Vitamin D3] cholecalciferol (vitamin D3) 2,000 unit PO DAILY 03/18/19 03/18/19 History [Vitamin D3] cyclosporine [Cequa] 1 % OPHTHALMIC (EYE) BID 03/18/19 03/18/19 History dicyclomine 10 mg PO DAILY 03/18/19 03/18/19 History duloxetine [Cymbalta] 60 mg PO BID 03/18/19 03/18/19 History estradiol 1 mg PO DAILY 03/18/19 03/18/19 History ferrous sulfate 325 mg PO DAILY 03/18/19 03/18/19 History flecainide 50 mg PO Q12H 03/18/19 03/18/19 History ipratropium bromide 2 puff INHALATION QID 03/18/19 03/18/19 History magnesium oxide 400 mg PO DAILY 03/18/19 03/18/19 History multivitamin 2 tab PO DAILY 03/18/19 03/18/19 History omeprazole 40 mg PO DAILY 03/18/19 03/18/19 History ranitidine HCl 300 mg PO BEDTIME 03/18/19 03/18/19 History rivaroxaban [Xarelto] 20 mg PO DAILY 03/18/19 03/18/19 History torsemide 20 mg PO BID 03/18/19 03/18/19 History tramadol 50 mg PO Q4H PRN 03/18/19 03/18/19 History trazodone 100 mg PO BEDTIME PRN 03/18/19 03/18/19 History umeclidinium-vilanterol [Anoro 1 inh INHALATION DAILY 03/18/19 03/18/19 History Ellipta] Allergies Allergy/AdvReac Type Severity Reaction Status Date / Time oxycodone Allergy Mild makes her Verified 03/18/19 16:01 'loopy' ceftriaxone Allergy Unknown Verified 03/18/19 16:01 clarithromycin Allergy Unknown Verified 03/18/19 16:01 Exam Vital Signs (past 8 hours): - 03/19/19 03:42 03/19/19 08:00 03/19/19 09:35 Temperature 96.9 F L 98.5 F Pulse Rate 105 H 102 H Respiratory Rate 16 18 Blood Pressure 136/84 134/72 Pulse Oximetry 94 92 92 03/19/19 09:36 03/19/19 09:53 Temperature Pulse Rate 101 H Respiratory Rate 16 Blood Pressure Pulse Oximetry 92 91 Oxygen Delivery Method Nasal Cannula Oxygen Flow Rate 1.5 Narrative Exam Narrative: Patient is afebrile he is resting comfortably in bed but complains of right subcostal abdominal pain. Patient has ongoing morbid obesity BMI is 36 Abdominal exam reveals right subcostal tenderness without signs of peritonitis. Minimal guarding certainly no rebound tenderness. Objective Labs Result Diagrams: 03/19/19 05:35 03/19/19 05:35 Labs: Laboratory Results - last 24 hr 03/18/19 03/18/19 03/18/19 16:35 16:35 16:35 WBC 6.9 RBC 5.08 Hgb 15.8 Hct 47.7 H MCV 94.0 MCH 31.1 MCHC 33.0 RDW 14.2 Plt Count 202 Neut % (Auto) Not Reportable Lymph % (Auto) Not Reportable [place] % (Auto) Not Reportable Eos % (Auto) Not Reportable Baso % (Auto) Not Reportable Lymph # (Auto) Not Reportable [place] # (Auto) Not Reportable Baso # (Auto) Not Reportable Total Counted 100 Seg Neutrophils % 58.0 Band Neutrophils % 1.0 L Lymphocytes % (Manual) 15.0 L Atypical Lymphs % 3.0 H Monocytes % (Manual) 12.0 H Eosinophils % (Manual) 10.0 H Basophils % (Manual) 1.0 Neutrophils # (Manual) 4071 RBC Morphology Normal morphology PT 12.3 INR 1.1 APTT 37 H Sodium 136 L Potassium 3.2 L Chloride 88 L Carbon Dioxide 38 H BUN 16 Creatinine 1.20 H Estimated GFR 43.9 L BUN/Creatinine Ratio 13.3 Glucose 133 H Calcium 9.6 Magnesium Total Bilirubin 0.6 AST 76 H ALT 43 H Alkaline Phosphatase 137 H Total Protein 7.8 Albumin 4.4 Globulin 3.4 Albumin/Globulin Ratio 1.3 Lipase 52 Procalcitonin 03/18/19 03/19/19 03/19/19 16:35 05:35 05:35 WBC 7.6 RBC 4.44 Hgb 13.9 Hct 41.4 MCV 93.2 MCH 31.4 MCHC 33.7 RDW 14.1 Plt Count 154 Neut % (Auto) Not Reportable Lymph % (Auto) Not Reportable [place] % (Auto) Not Reportable Eos % (Auto) Not Reportable Baso % (Auto) Not Reportable Lymph # (Auto) Not Reportable [place] # (Auto) Not Reportable Baso # (Auto) Not Reportable Total Counted 100 Seg Neutrophils % 56.0 Band Neutrophils % 1.0 L Lymphocytes % (Manual) 23.0 L Atypical Lymphs % 2.0 H Monocytes % (Manual) 9.0 Eosinophils % (Manual) 8.0 H Basophils % (Manual) 1.0 Neutrophils # (Manual) 4332 RBC Morphology Normal morphology PT INR APTT Sodium Potassium Chloride Carbon Dioxide BUN Creatinine Estimated GFR BUN/Creatinine Ratio Glucose Calcium Magnesium 2.1 Total Bilirubin AST ALT Alkaline Phosphatase Total Protein Albumin Globulin Albumin/Globulin Ratio Lipase Procalcitonin 0.16 03/19/19 05:35 WBC RBC Hgb Hct MCV MCH MCHC RDW Plt Count Neut % (Auto) Lymph % (Auto) [place] % (Auto) Eos % (Auto) Baso % (Auto) Lymph # (Auto) [place] # (Auto) Baso # (Auto) Total Counted Seg Neutrophils % Band Neutrophils % Lymphocytes % (Manual) Atypical Lymphs % Monocytes % (Manual) Eosinophils % (Manual) Basophils % (Manual) Neutrophils # (Manual) RBC Morphology PT INR APTT Sodium 140 Potassium 3.4 Chloride 98 Carbon Dioxide 35 H BUN 13 Creatinine 1.10 H Estimated GFR 48.6 L BUN/Creatinine Ratio 11.8 Glucose 112 H Calcium 8.9 Magnesium Total Bilirubin 0.5 AST 61 H ALT 36 H Alkaline Phosphatase 111 Total Protein 6.5 Albumin 3.6 Globulin 2.9 Albumin/Globulin Ratio 1.2 Lipase Procalcitonin Assessment & Plan Assessment & Plan narrative: This is a complex patient who has COPD atrial fibrillation and is on Xarelto. She is also morbidly obese. She has had a sleeve gastrectomy done laparoscopically some years ago. She has evidence of acute cholecystitis slight elevation of liver chemistries normal bilirubin normal alk-phos normal lipase normal white count. The patient last took Xarelto approximately 36 hours ago. I have discussed the half life of Xarelto with the pharmacist. it would appear that if we wait till tomorrow that is another 24 hours that she would be at minimal risk for added bleeding from the effects of Xarelto. Of course the patient's COPD and obesity maker a high risk patient. She does have gallbladder wall thickening and persistent pain and my opinion is that she will ultimately need cholecystectomy. The patient and her understand the complexity of her condition and agree to laparoscopic cholecystectomy to be done 24 hours from now. They understand the associated risks and want to proceed.
[2019-03-19] MEDS: FLECAINIDE 100 MG TABLET 25 MG PO (10:57)
--- NOTE | 2019-03-19 11:28 | PC.NURSE ---
Day Shift- Pt A&OX4, able to make needs known using call light. Slightly anxious regarding plan for possible surgery, support provided. NPO, mouth moisturizer and mouth swabs provided to pt. Dr. Prabhakar in to see pt, plan for surgery tomorrow 03/20 around 0800, Clear liquids today, NPO after midnight, IVF decreased to 75ml/hr at 1120. Pt aware of plan, consent for surgery signed and placed in chart. Pt tolerating ice water, denies nausea. Pain to RUQ abd radiating to back 6/10, decreased with PRN Morphine IV last given at 0845 with good effect.
[2019-03-19] MEDS: SODIUM CHLORIDE 0.9% 1,000 ML 75 ML IV (12:02)
--- NOTE | 2019-03-19 14:11 | P.PN_ITS ---
Subjective Subjective Date Patient Seen: 03/19/19 Interval history: Patient is a 73-year-old female with a history of chronic atrial fibrillation on Xarelto, chronic respiratory failure secondary to COPD on oxygen, admitted to the hospital with acute cholecystitis. The patient had difficulty sleeping last evening. She continues to have right upper quadrant pain. She is relieved to be able to have clear liquids. She has no nausea or vomiting. She notes without movement her pain has improved. She was seen in consultation with Dr. Prabhakar. Plans are underway for surgical treatment in the morning. Patient reports her COPD has been well controlled. She has noted to have some wheezing here in the hospital. Exam Vital Signs (past 8 hours): - 03/19/19 08:00 03/19/19 09:35 03/19/19 09:36 Temperature 98.5 F Pulse Rate 102 H Respiratory Rate 18 Blood Pressure 134/72 Pulse Oximetry 92 92 92 03/19/19 09:53 03/19/19 12:00 Temperature 98.1 F Pulse Rate 101 H 76 Respiratory Rate 16 18 Blood Pressure 118/60 Pulse Oximetry 91 91 Oxygen Delivery Method Nasal Cannula Oxygen Flow Rate 1 Narrative Exam Narrative: Pleasant female resting comfortably in no obvious distress Lungs: Decreased breath sounds with occasional end-expiratory wheezing Cardiac exam: Regular rate and rhythm normal S1-S2 Abdomen: Soft, tender in the right upper quadrant, no rebound tenderness, no board-like rigidity, Extremities: No edema Objective Labs Result Diagrams: 03/19/19 05:35 03/19/19 05:35 Labs: Laboratory Results - last 24 hr 03/18/19 03/18/19 03/18/19 16:35 16:35 16:35 WBC 6.9 RBC 5.08 Hgb 15.8 Hct 47.7 H MCV 94.0 MCH 31.1 MCHC 33.0 RDW 14.2 Plt Count 202 Neut % (Auto) Not Reportable Lymph % (Auto) Not Reportable [place] % (Auto) Not Reportable Eos % (Auto) Not Reportable Baso % (Auto) Not Reportable Lymph # (Auto) Not Reportable [place] # (Auto) Not Reportable Baso # (Auto) Not Reportable Total Counted 100 Seg Neutrophils % 58.0 Band Neutrophils % 1.0 L Lymphocytes % (Manual) 15.0 L Atypical Lymphs % 3.0 H Monocytes % (Manual) 12.0 H Eosinophils % (Manual) 10.0 H Basophils % (Manual) 1.0 Neutrophils # (Manual) 4071 RBC Morphology Normal morphology PT 12.3 INR 1.1 APTT 37 H Sodium 136 L Potassium 3.2 L Chloride 88 L Carbon Dioxide 38 H BUN 16 Creatinine 1.20 H Estimated GFR 43.9 L BUN/Creatinine Ratio 13.3 Glucose 133 H Calcium 9.6 Magnesium Total Bilirubin 0.6 AST 76 H ALT 43 H Alkaline Phosphatase 137 H Total Protein 7.8 Albumin 4.4 Globulin 3.4 Albumin/Globulin Ratio 1.3 Lipase 52 Procalcitonin 03/18/19 03/19/19 03/19/19 16:35 05:35 05:35 WBC 7.6 RBC 4.44 Hgb 13.9 Hct 41.4 MCV 93.2 MCH 31.4 MCHC 33.7 RDW 14.1 Plt Count 154 Neut % (Auto) Not Reportable Lymph % (Auto) Not Reportable [place] % (Auto) Not Reportable Eos % (Auto) Not Reportable Baso % (Auto) Not Reportable Lymph # (Auto) Not Reportable [place] # (Auto) Not Reportable Baso # (Auto) Not Reportable Total Counted 100 Seg Neutrophils % 56.0 Band Neutrophils % 1.0 L Lymphocytes % (Manual) 23.0 L Atypical Lymphs % 2.0 H Monocytes % (Manual) 9.0 Eosinophils % (Manual) 8.0 H Basophils % (Manual) 1.0 Neutrophils # (Manual) 4332 RBC Morphology Normal morphology PT INR APTT Sodium Potassium Chloride Carbon Dioxide BUN Creatinine Estimated GFR BUN/Creatinine Ratio Glucose Calcium Magnesium 2.1 Total Bilirubin AST ALT Alkaline Phosphatase Total Protein Albumin Globulin Albumin/Globulin Ratio Lipase Procalcitonin 0.16 03/19/19 05:35 WBC RBC Hgb Hct MCV MCH MCHC RDW Plt Count Neut % (Auto) Lymph % (Auto) [place] % (Auto) Eos % (Auto) Baso % (Auto) Lymph # (Auto) [place] # (Auto) Baso # (Auto) Total Counted Seg Neutrophils % Band Neutrophils % Lymphocytes % (Manual) Atypical Lymphs % Monocytes % (Manual) Eosinophils % (Manual) Basophils % (Manual) Neutrophils # (Manual) RBC Morphology PT INR APTT Sodium 140 Potassium 3.4 Chloride 98 Carbon Dioxide 35 H BUN 13 Creatinine 1.10 H Estimated GFR 48.6 L BUN/Creatinine Ratio 11.8 Glucose 112 H Calcium 8.9 Magnesium Total Bilirubin 0.5 AST 61 H ALT 36 H Alkaline Phosphatase 111 Total Protein 6.5 Albumin 3.6 Globulin 2.9 Albumin/Globulin Ratio 1.2 Lipase Procalcitonin Assessment & Plan Assessment & Plan narrative: 1. Acute cholecystitis. Patient admitted [facility] the [facility] with right upper quadrant pain. Ultrasound of the gallbladder confirms gallbladder wall thickening, as well as cholelithiasis. Patient to continue on IV Zosyn, surgical consultation obtained. Patient will be taken to the operating room tomorrow for definitive surgery. Pain well controlled. Xarelto has been held 2. Chronic respiratory failure, secondary to COPD, patient is on 1 to 1.5 L at home. She has noted to have some intermittent wheezing here. Will continue with nebulizer treatments in anticipation for surgery tomorrow 3. Obesity, patient has had a gastric bypass surgery previously. 4. GERD, continue PPI 5. Anxiety, continue usual home medication Plan anticipate surgery tomorrow as discussed above.
--- NOTE | 2019-03-19 15:32 | CM.DANOTE ---
Patient is a 73 year old female who was admitted OBS on 03/18/19 for Pain Lower Abd. Pt has MCR and [employer] for insurance and her PCP is not listed. EMR was reviewed. Per MD, Surgeon Consult ordered due to pt's pain and medical hx. Per Dr. Amanda, plan for Lap Archana tomorrow 03/20/19 around 0800. SW met bedside with pt and explained role and updated white board and pt confirms she lives at home with her spouse in [facility] and is Independent with ADL's at baseline and drives. Pt has family living in [place] and her DPOA is her spouse. Pt denies any hx of HH or SNF and is hopeful to d/c home after surgery. Plan: SW to follow after surgery in the morning to determine if pt will be safe for d/c home with spouse when stable and any further identified discharge planning needs. ALCIDES Delgado Discharge Planning/Care Management CM Discharge Assessment Start: 03/19/19 15:31 Freq: Status: Active Protocol: Document 03/19/19 15:31 BF (Rec: 03/19/19 15:32 BF [id number]) Discharge Planning Assessment Assigned Fuse Coiler ALCIDES Jackson DPOA/Assigned Designee Name Gerry Contact Information [phone] Advance Directives? Yes History Provided By Patient,Medical Record Has Patient been admitted in last 30 No days? Prior Living Arrangements House Household Members spouse Type of transporation used prior to Drives own vehicle admit Independent with ADL's Yes Is patient alert and oriented? Yes Caregiver for Another No Comment Waiting for surgery to determine d/c planning needs Discharge Plan Home Transportation Arrangement Likely spouse if pt safe for home at d/c Whiteboard Updated in Patient Room with Yes name and ext. # of Fuse Coiler Review Status In Process Please Provide Date Initial DC 03/19/19 Assessment Was Performed Next Review Type Continued Stay Review
[2019-03-19] MEDS: FLECAINIDE 100 MG TABLET 50 MG PO (20:07)
[2019-03-19] MEDS: POTASSIUM CHLORIDE 40 MEQ in SODIUM CHLORIDE 0.9% 500 ML 130 ML IV (21:16)
[2019-03-20] VITALS (17 sets, daily range): BP systolic 102–138; BP diastolic 53–86; PULSE 76–100; RESP 15–25; TEMP 36.2–37.3; O2SAT 87–97; BMI 37.0
--- NOTE | 2019-03-20 | PATH_ITS ---
[facility] Accession Number: [id number] . 01 Material submitted: . gallbladder - GALLBLADDER AND CONTENTS . 01 Clinical history: . LOTS OF PAIN RIGHT LOWER PAIN TOWARDS BACK . 02 Diagnosis: Gallbladder And Contents, Cholecystectomy: Chronic cholecystitis with cholelithiasis. Negative for dysplasia and malignancy. [facility] 03/23/2019 1440 Local . 02 Electronically signed: . Maryuri Montoya MD, Pathologist NPI- [id number] . 01 Gross description: . Received in formalin, labeled gallbladder and contents, is an intact gallbladder (length-9.5 cm, diameter-3.2 cm) with green smooth shiny serosa and a patent cystic duct. No lymph nodes are identified. The lumen contains green gelatinous bile and multiple yellow solid smooth hard calculi (7.8 x 3.5 x 2.5 cm in aggregate) with karlene cut surfaces. The mucosa is green, smooth and flat. The wall is up to 0.1 cm thick. No nodules, masses or lesions are identified. Section code: (A1) cystic duct reaction margin and two serial sections from the body; (A2) two longitudinal sections from the fundus. ([id number]) /MRV 03/22/2019 1314 Local . 02 Pathologist provided ICD-10: K80.60 . 02 CPT . 934962 Performed at: 01 [facility] [address], [place], [place] [id number] MD Bartolo Munoz MD Phone: [phone] Performed at: 02 [facility] [address] [place], [place] [id number] MD Maryuri Montoya MD Phone: [phone]
[2019-03-20] MEDS: PIPERACILLIN-TAZO 3.375 GM/50 ML FROZ.PIGGY IV ×4 (03:02→21:54)
[2019-03-20] MEDS: MORPHINE 2 MG/ML INJ IV ×2 (03:18→22:08)
--- NOTE | 2019-03-20 06:57 | PC.NURSE ---
Pt has been confused this night. Patient has had virtually no sleep that I have seen and is very tired, but afraid to sleep. Patient has been impulsive and requires a bed alarm at this time, if up in the chair. Patient previously had not been impulsive and it wasn't required. Patient has shown an increase in confusion over the night. Patient has pain 8/10, relieved to 7/10 w/ 2mg morphine Q4, denies nausea. Patient is to have surgery at 0800, NPO after midnight.
[2019-03-20] MEDS: LACTATED RINGERS 1,000 ML 42 ML IV ×2 (08:03→09:16)
--- NOTE | 2019-03-20 08:55 | SUR.OPER ---
Supine on padded OR bed, head on pillow, safety belt at thigh, left arm padded and tucked at side. Right arm secured on padded arm oard <90 degrees abduction. Legs uncrossed. Padded footboard in place. Tape over blanket to secure lower legs.
[2019-03-20] MEDS: BUPIVACAINE 0.5% W/ EPI (PF) 10 ML VIAL 20 ML INJ (09:06)
[2019-03-20] MEDS: BACITRACIN OINT 0.9 GM PCKT 1 APPLIC TOP (09:16)
--- NOTE | 2019-03-20 09:31 | PM.OP.1 ---
Operative Date/Time/Diagnoses Date of procedure: 03/20/19 Time of procedure: 09:32 Pre-op diagnosis: Acute cholecystitis cholelithiasis Post-op diagnosis: same Procedure & Clinicians Procedure: Laparoscopic cholecystectomy Same procedure as scheduled: Yes Surgeon: Darrick Prabhakar Click Yes if Unassisted: Yes Anesthesia Type: General Operative Notes Findings: Acute cholecystitis cholelithiasis Closure Type: primary Specimen(s): other (Gallbladder and stone) Estimated Blood Loss (mL): 50 Blood products transfused: none Procedure in detail: The patient was properly identified during surgical pause. She was prepped and draped in a sterile fashion exposure of the right upper abdomen under general endotracheal anesthesia. A 5 mm incision made to the right of the umbilicus and using a direct vision optical port direct entered the peritoneal cavity was obtained under direct vision and a pneumoperitoneum safely established. Three right subcostal ports were placed under direct vision. There was no visceral injury. Gallbladder was markedly distended and acutely inflamed it was grasped and elevated toward the patient's right shoulder. Noted is the patient does have extensive fatty infiltration of the liver. The cholecystoduodenal ligament dissected down the critical view of Calot's triangle clearly showing cystic duct cystic artery and Calot's node. Cystic duct isolated and closed with multiple clips divided leaving several with the patient there was no bile leak. Cystic artery closed with multiple clips divided leaving several with the patient there was no bleeding. Gallbladder was then able to be elevated further toward the patient's right shoulder and using the Bovie electric cautery the gallbladder was dissected away from the liver bed with meticulous hemostasis was with minimal bleeding. Gallbladder its contents removed I did have to extend the epigastric incision in order to remove the specimen. Operative site irrigated with a L of sterile saline aspirated dry the was no bleeding the ana are intact trocars removed under direct vision there was no bleeding epigastric fascia closed with 0 Vicryl the skin stable in all incisions start dressings applied procedure was well tolerated Complications: none Post-operative Condition: stable Disposition: PACU
[2019-03-20] MEDS: HYDROMORPHONE 2 MG INJ IV (09:49)
--- NOTE | 2019-03-20 09:52 | SUR.PHASEI ---
Pt mildly confused. Oriented to self and birthdate but not place and situation. Patient is calm and cooperative.
--- NOTE | 2019-03-20 09:58 | SUR.PHASEI ---
Patient verbalized pain improving
--- NOTE | 2019-03-20 10:10 | SUR.PHASEI ---
Dr. Amanda notified patient mildly confused.
--- NOTE | 2019-03-20 10:16 | SUR.PHASEI ---
Report called to Nicole
--- NOTE | 2019-03-20 10:37 | SUR.PHASEI ---
Patient transferred to the floor on o2. VS stable. Report given to Nicole. IV saline locked. Dressings checked with RN.
[2019-03-20] MEDS: ONDANSETRON 4 MG/2 ML INJ IV (10:47)
--- NOTE | 2019-03-20 10:52 | PC.NURSE ---
Pt is A&Ox3, she was given dilaudid 2mg po and helpful for about 2.5 hours. She can have her next dose at 1108. Dressing to r.knee with aquacel dressing. She does have 1+ edema to knee. Pt is up with 1 PA to use commode. She is working with physical therapy and is supportive with patients care. She may be discharging to SNF in [place], possibly tomorrow.
--- NOTE | 2019-03-20 11:23 | CM.MNRNOTE ---
Addendum entered by Nicole Chowdhury R.N. 03/20/19 11:27: Pt does have quite a few skin issues. Please see under skin assessment. Original Note: Pt back from surgery after having a lap wayne. She has 4 puncture sites that are covered with small dressings and tegaderm. All are cdi. Pt is groggy and a bit confused. is at bedside. Pt complained of having some nausea so zofran given. She denies pain or discomfort at this time and is has normal saline infusing at 75cc/hr.
[2019-03-20] MEDS: SODIUM CHLORIDE 0.9% 1,000 ML 75 ML IV (13:55)
--- NOTE | 2019-03-20 16:40 | PM.PN.1 ---
Subjective Subjective Date Patient Seen: 03/20/19 Interval history: The patient is a 73-year-old female who is status post laparoscopic cholecystectomy for acute cholecystitis and choledocholithiasis. Patient also has a history of atrial fibrillation on Xarelto, chronic respiratory failure secondary to COPD, anxiety, depression, GERD. Patient does report some surgical pain. She states she has some minimal pain but is improved since prior to surgery. She is resting comfortably, she has no shortness of breath, she has no other complaints Exam Vital Signs (past 8 hours): - 03/20/19 09:37 03/20/19 09:42 03/20/19 09:47 Temperature 97.1 F L Pulse Rate 76 79 84 Respiratory Rate 25 H 15 Blood Pressure 130/58 L 126/56 L 105/60 Pulse Oximetry 91 92 94 03/20/19 09:52 03/20/19 10:03 03/20/19 10:17 Temperature 98.1 F Pulse Rate 82 86 88 Respiratory Rate 16 19 15 Blood Pressure 138/65 133/72 118/59 L Pulse Oximetry 89 L 92 92 03/20/19 10:30 03/20/19 11:00 03/20/19 11:30 Temperature 98.8 F 98.8 F 98.6 F Pulse Rate 89 89 86 Respiratory Rate 20 20 18 Blood Pressure 121/86 121/63 120/58 L Pulse Oximetry 92 94 93 03/20/19 12:30 03/20/19 13:30 03/20/19 15:50 Temperature 98.5 F 98.0 F 98.4 F Pulse Rate 93 H 100 H 90 Respiratory Rate 18 16 16 Blood Pressure 137/74 102/63 135/68 Pulse Oximetry 95 97 94 Oxygen Delivery Method Nasal Cannula Oxygen Flow Rate 2 Narrative Exam Narrative: Pleasant female resting comfortably in no obvious distress Lungs: Clear to auscultation Cardiac exam: Irregularly irregular normal S1-S2 with a 2/6 systolic ejection murmur Abdomen: Soft, mildly tender, dressings in place over laparoscopic insertion sites Extremities: No edema Objective Labs Result Diagrams: 03/19/19 05:35 03/19/19 05:35 Assessment & Plan Assessment & Plan narrative: Impression 1. 73-year-old female status post laparoscopic cholecystectomy for cholelithiasis. She is recovering quite wel Per surgery the patient's diet is as tolerated Will discontinue IV fluids as the patient will be able to take in volume orally 2. Chronic atrial fibrillation, on Xarelto, this is still on hold. -will resume Xarelto at discharge 3. Chronic respiratory failure, secondary to COPD -patient to continue on her usual home oxygen and her usual inhalers 4. GERD -continue PPI 5. Depression Resume duloxetine Plan home when okay with surgery
[2019-03-20] MEDS: ALBUTEROL/IPRATROPIUM 3 ML AMPUL INH (20:27)
[2019-03-20] MEDS: HEPARIN 5,000 UNIT/ML VIAL 5000 UNIT SUBCUT (21:55)
[2019-03-20] MEDS: DULOXETINE 30 MG CAPSULE 60 MG PO (21:55)
[2019-03-20] MEDS: FLECAINIDE 100 MG TABLET 50 MG PO (21:56)
[2019-03-21 01:59] VITALS: BP 152/78; PULSE 96; RESP 16; TEMP 36.7; O2SAT 95
[2019-03-21] MEDS: PIPERACILLIN-TAZO 3.375 GM/50 ML FROZ.PIGGY IV (02:12)
[2019-03-21] MEDS: MORPHINE 2 MG/ML INJ IV (04:00)
[2019-03-21 05:00] VITALS: BP 128/56; PULSE 96; RESP 16; TEMP 36.9; O2SAT 95
[2019-03-21] MEDS: SODIUM CHLORIDE 0.9% 1,000 ML 75 ML IV (05:11)
[2019-03-21] MEDS: FUROSEMIDE 40 MG/4 ML VIAL IV (05:31)
[2019-03-21] MEDS: PANTOPRAZOLE 40 MG TABLET PO (06:37)
[2019-03-21 07:09] VITALS: PULSE 107; RESP 14; O2SAT 88
[2019-03-21] MEDS: UMECLIDINIUM/VILANTEROL 62.5/2 14 PUFF INHALER INH (07:12)
[2019-03-21] MEDS: ALBUTEROL/IPRATROPIUM 3 ML AMPUL INH (07:13)
[2019-03-21 08:00] VITALS: BP 131/63; PULSE 103; RESP 18; TEMP 36.4; O2SAT 92
--- NOTE | 2019-03-21 08:38 | P.DS_ITS ---
History of Present Illness History of Present Illness Date Patient Seen: 03/18/19 Chief complaint: LOTS OF PAIN RIGHT LOWER PAIN TOWARDS BACK Narrative: Written by Gerry MARCUM: Ms. Colleen Ayala is a 73-year-old female with a history significant for atrial fibrillation on Xarelto, COPD on home oxygen, anxiety and depression, GERD and glaucoma presents to the ER with abdominal pain. The patient states she developed right lower quadrant abdominal pain 3 days ago. The pain became progressive radiating to the back and she developed fevers with a T max of 103 with nausea but no vomiting. She rates her pain upon arrival at 8/10. She describes pain as constant sharp aching. She denies complaints of urinary symptoms. She denies headaches or dizziness and had no nails congestion or sore throat. She has had no complaints of chest pain and has chronic shortness of breath related to her COPD. She uses oxygen at night and as needed during the day at 1.5 liters/minute. She reports she had a bad pneumonia and was treated with antibiotics that resulted in kidney injury. She underwent biopsy finding a reversible condition and was translated on dialysis. She has a history of heartburn and denies complaints of constipation or diarrhea. She denies urgency or burning on urination but states she drinks a lot a water and voids frequently. Upon arrival to the ER the patient is afebrile with temperature 96.7?, heart rate of 98 blood pressure 115/65, respiratory rate is 16 saturating 94% on 2 L nasal cannula. Abdominal ultrasound is obtained finding cholelithiasis with asymmetrical gallbladder wall thickening consistent with cholecystitis without antonella cholestatic fluid, no ductal dilatation noted positive Funez sign. On laboratory analysis the patient has white count of 6.9, hemoglobin of 15.8 hematocrit 47.7 and platelets of 202. Patient has a sodium of 136 and a potassium of 3.2, chloride is 88 and CO is 38. Her BUN is 16 with a creatinine 1.2. Her nonfasting glucose is 133. She has bilirubin of 0.6, AST of 76, ALT of 43 and alkaline phosphatase of 137. Her PT is 12.3 with an INR 1.1 and PTT of 37. A surgical consult with Dr. Prabhakar is obtained through the ER. The patient is admitted to the medicine service due to her multiple comorbid conditions with surgery consult and tentative plan for surgery. Discharge Providers Provider Date of admission: 03/18/19 20:59 Discharge Date: 03/21/19 Consults: 03/18/19 20:23 Consult to General Surgery Stat Comment: Consulting Provider: Darrick Prabhakar Reason for consultation: R side abd pain, US-cholecystitis Has provider been notified: Yes 03/18/19 22:10 Consult to Discharge Planning Routine Comment: Consult to Physician Routine Comment: Consulting Provider: Darrick Prabhakar Reason for consultation: Abdominal pain, cholecystitis, wayne lithiasis Has provider been notified: Yes 03/18/19 22:15 Consult to Respiratory Therapy Evaluate & Treat Comment: COPD, home oxygen dependent Physician Instructions: Evaluate and treat Discharge provider: Dennise Hernández DO Summary Hospital Course Discharge Diagnosis: 1. Acute cholecystitis, status post laparoscopic cholecystectomy, present on admission. Resolved. 2. Paroxysmal atrial fibrillation, chronic, present on admission, active 3. Chronic obstructive pulmonary disease, emphysema, present on admission, active. 4. Chronic kidney disease stage III, present on admission. Stable. 5. Osteoarthritis, multiple joints, chronic, present on admission. Stable. 6. Glaucoma, both eyes, chronic, stable 7. GERD, chronic, present on admission. Stable. 8. Depression and anxiety, chronic, present on admission. Stable. Hospital Course: Colleen Ayala is a 73-year-old female with a past medical history significant f or atrial fibrillation on Xarelto, COPD on home oxygen, anxiety and depression, GERD and glaucoma who presented to the ED with abdominal pain for 3 days ago. 1. Acute cholecystitis, status post laparoscopic cholecystectomy, present on admission. Resolved. -Patient presented with right lower quadrant abdominal pain and nausea for 3 days. -Abdominal ultrasound demonstrated cholelithiasis with asymmetrical gallbladder wall thickening without antonella cholestatic fluid consistent with cholecystitis. -Received Zosyn 3.375 g every 6 hours until time of discharge. -Continued IV fluids until adequately hydrated then discontinued. -General surgery was consulted, Dr. Prabhakar, who performed laparoscopic cholecystectomy. Plan for follow-up with [facility] in 2 weeks. -Advanced diet as tolerated for which the patient tolerated well. -Continued supportive care with acetaminophen 650 mg every 6 hours as needed for pain. 2. Paroxysmal atrial fibrillation, chronic, present on admission, active -Held Xarelto for pending surgery and restarted at time of discharge. -Continued home flecainide 50 mg twice daily. -Continued to monitor electrolytes closely and replete as necessary. Continued magnesium oxide 400 mg daily. Received potassium chloride 40 mEq PO x1 for potassium level of 3.2.. 3. Chronic obstructive pulmonary disease, emphysema, present on admission, active. -Patient denies changes in shortness of breath, limits activity and is on home O2 1.5 L at night and as needed during the day. -Consulted respiratory therapy for evaluation treatment. Continued supplemental oxygen as needed to maintain saturation 88-92%. Continued DuoNeb twice daily, albuterol nebs every 2 hours as needed for shortness of breath and Annoro Elipta inhaler once daily. 4. Chronic kidney disease stage III, present on admission. Stable. -Patient previously sustained renal injury from antibiotics for treatment of pneumonia and was transiently treated with dialysis following biopsy demonstrating reversible condition. -Initial creatinine 1.2. -Continued to avoid nephrotoxic agents. -Continued to monitor renal function. 5. Osteoarthritis, multiple joints, chronic, present on admission. Stable. -Patient with arthritic joints of the hands and has undergone bilateral total knee arthroplasty. -Continue acetaminophen 650 mg every 6 hours as needed and tramadol for arthritic pain at time of discharge. 6. Glaucoma, both eyes, chronic, stable -Continued home regimen of bimatoprost 1% OU once daily, Brinsolamide 1% OU once daily and cyclosporin 1% OU twice daily. 7. GERD, chronic, present on admission. Stable. -Continued Protonix 40 mg daily. 8. Depression and anxiety, chronic, present on admission. Stable. -Continued duloxetine 60 mg twice daily. Exam Vital Signs (past 8 hours): - 03/21/19 01:59 03/21/19 05:00 03/21/19 07:09 Temperature 98.0 F 98.5 F Pulse Rate 96 H 96 H 107 H Respiratory Rate 16 16 14 Blood Pressure 152/78 H 128/56 L Pulse Oximetry 95 95 88 L Oxygen Delivery Method Room Air Oxygen Flow Rate 1 Narrative Exam Narrative: General: Older female lying in bed and in no acute distress, well-developed, well-nourished, appropriately interactive. HEENT: Normocephalic, atraumatic. External ears without defect. Pupils equal, round, and reactive to light. Anicteric sclerae, moist conjunctivae, and no lid lag. Neck: Supple with full range of motion. No jugular venous distension. No lymphadenopathy or thyromegaly. Cardiovascular: Regular rate and rhythm without murmurs, rubs, or gallops appreciated Pulmonary: Clear to auscultation bilaterally without crackles, wheezes, or rhonchi. Normal respiratory effort with no use of accessory muscles. Abdomen: Soft, bowel sounds present, mild tenderness to palpation right upper quadrant as anticipated, nondistended. Three dressings in place and superior dressing with serosanguineous drainage otherwise C/D/I. Ecchymosis on abdomen healing well. No hepatosplenomegaly or masses appreciated. Extremities: No clubbing, cyanosis, or edema. Skin: Normal temperature, turgor, and texture; no rash, ulcers, or subcutaneous nodules appreciated. Neurological: Cranial nerves grossly intact. Psychiatric: Mildly anxious mood and normal affect. Alert and oriented to person, place, and time. Mild intermittent confusion which patient is aware of and corrects herself. Objective Labs Result Diagrams: 03/19/19 05:35 03/19/19 05:35 Discharge Plan Discharge Plan Patient Disposition: Home Discharge comment: You are being discharged home. You had a gallbladder infection and your gallbladder has been removed. You may use Tylenol as needed for pain. You may restart your Xarelto. Please follow-up with [facility] in 2 weeks. Discharge orders & Medications Prescriptions: New acetaminophen 325 mg Tablet 650 mg PO Q6HR PRN (Reason: Fever/Mild Pain (1-3)) Qty: 30 RF: 0 Continued ascorbic acid (vitamin C) [Vitamin C] 1,000 mg Tablet 500 mg PO DAILY RF: 0 torsemide 20 mg Tablet 20 mg PO BID RF: 0 Azopt 1 % Drops,Suspension 1 % OPHTHALMIC (EYE) DAILY RF: 0 omeprazole 40 mg Capsule,Delayed Release(Dr/Ec) 40 mg PO DAILY RF: 0 tramadol 50 mg Tablet 50 mg PO Q4H PRN (Reason: Pain (Scale Score 1-3)) RF: 0 alprazolam 0.5 mg Tablet 0.5 mg PO DAILY RF: 0 estradiol 1 mg Tablet 1 mg PO DAILY RF: 0 trazodone 100 mg Tablet 100 mg PO BEDTIME PRN (Reason: Sleep) RF: 0 ferrous sulfate 325 mg (65 mg iron) Tablet 325 mg PO DAILY RF: 0 ranitidine HCl 300 mg Capsule 300 mg PO BEDTIME RF: 0 flecainide 50 mg Tablet 50 mg PO Q12H RF: 0 albuterol sulfate [ProAir HFA] 90 mcg/actuation Hfa Aerosol Inhaler 2 puff INHALATION BID RF: 0 dicyclomine 10 mg Capsule 10 mg PO DAILY RF: 0 multivitamin Tablet,Chewable 2 tab PO DAILY RF: 0 duloxetine [Cymbalta] 60 mg Capsule,Delayed Release(Dr/Ec) 60 mg PO BID RF: 0 ipratropium bromide 17 mcg/actuation Hfa Aerosol Inhaler 2 puff INHALATION QID RF: 0 cholecalciferol (vitamin D3) [Vitamin D3] 2,000 unit Tablet 2,000 unit PO DAILY RF: 0 cholecalciferol (vitamin D3) [Vitamin D3] 1,000 unit Tablet,Chewable 1,000 unit PO DAILY RF: 0 Lumigan 0.01 % Drops 1 % OPHTHALMIC (EYE) DAILY RF: 0 Florajen3 460 mg (7.5-6- 1.5 bill. cell) Capsule 1 cap PO DAILY RF: 0 Xarelto 20 mg Tablet 20 mg PO DAILY RF: 0 magnesium oxide 400 mg magnesium Capsule 400 mg PO DAILY RF: 0 Anoro Ellipta 62.5-25 mcg/actuation Blister With Device 1 inh INHALATION DAILY RF: 0 Cequa 0.09 % Dropperette 1 % OPHTHALMIC (EYE) BID RF: 0 Cranberry W/D Mannose 1 cap PO DAILY RF: 0 (DME) Home Oxygen RF: 0 Follow up/Referrals: Darrick Prabhakar MD [Physician] - 04/05/19 9:00 am (appt:04/05 @ 9:[address] hernandez [phone] please arrive 15 minutes prior to your scheduled appointment ) Diet/Activity/Treatments Diet: Diet as Tolerated, Low-fat, Low-sodium and Low-cholesterol Activity: Activity as tolerated Visit Report/Discharge Packet Instructions: DI for Cholecystectomy, DI for Laparoscopy, [facility]: Wound Care Discharge Data Attending Provider: Gerry Hadley Admit Date/Time: 03/18/19 20:59
[2019-03-21] MEDS: FLECAINIDE 100 MG TABLET 25 MG PO (09:03)
[2019-03-21] MEDS: ALPRAZolam 0.5 MG TABLET PO (09:03)
[2019-03-21] MEDS: BRINZOLAMIDE OPHTH 10 ML 1 DROPS EYE-BOTH (09:06)
[2019-03-21] MEDS: HYDROCODONE/ACET 5/325 TABLET 1 TAB PO (09:07)
[2019-03-21] MEDS: HEPARIN 5,000 UNIT/ML VIAL 5000 UNIT SUBCUT (09:07)
--- NOTE | 2019-03-21 12:07 | PC.NURSE ---
Discharge Pt states pain improved with pain medication. Unfortunately, she is convinced someone is getting in the hospital. She is hallucinating. states this has happened with medication in the past. She received 1 norco, morphine, and anesthesia from procedure. Notified Dr Hernández, she states as long as pt and feel ok going home, medication effects should wear off. Spoke with spouse, he is comfortable, notified to f/u with PCP should reaction continue. d/c instructions provided to pt and her . Aware of f/u apt on 04/[address] Prabhakar. Will contact surgeon for any additional questions or concerns r/t lap wayne. Dressing changed on upper lap site without issue. Pt and took all belongings with them. pt left in w/c with RN escort to car with .
== END 2019-03-21 11:25 | disposition home or self-care (01) ==
LOC: ED 16:55 → AC 21:31
PROVIDERS: Emergency Medicine; Surgery; Admitting Provider Nurse Practitioner Adult Health; Emergency Provider Nurse Practitioner Family; Visit Provider Nurse Practitioner Adult Health
PROC: 0FT44ZZ Resection of Gallbladder, Percutaneous Endoscopic Approach (ICD-10-PCS; CPT 47562; principal; 2019-03-20 08:00)
DX: K80.00 Calculus of gallbladder with acute cholecystitis without obstruction (principal); R10.31 Right lower quadrant pain; I48.0 Paroxysmal atrial fibrillation; Z79.01 Long term (current) use of anticoagulants; J43.9 Emphysema, unspecified; N18.3 Chronic kidney disease, stage 3 (moderate); E66.9 Obesity, unspecified; Z68.35 Body mass index [BMI] 35.0-35.9, adult
CPT/HCPCS: 47562; 36415; 71045; 76705; 80053; 81003; 83690; 83735; 84145; 85025; 85610; 85730; 93005; 93010; 94640; 94760; 94762; 96361; 96365; 96372; 96375; 96376; 99219; 99284; 99285; G0378; C9113; J0330; J1100; J1170; J1644; J1940; J2270; J2405; J2543; J2704; J3010; J3480

== ENCOUNTER → 2019-03-28 15:12 | Outpatient (CLI) | payer MEDICARE, SELFPAY ==
[2019-03-18 22:43] VITALS: BMI 35.4
--- NOTE | 2019-03-28 15:15 | DI.CT.S_ITS ---
PROCEDURE: CT ABDOMEN PELVIS W CON INDICATIONS: post lap choly fever,pain, n/v TECHNIQUE: After the administration of oral and intravenous contrast, 5 mm thick sections acquired from the diaphragms to the symphysis. 5 mm thick coronal and sagittal reformats were performed. For radiation dose reduction, the following was used: automated exposure control, adjustment of mA and/or kV according to patient size. COMPARISON: [facility], CR, XR CHEST 1V, 03/18/2019, 22:28. [facility], US, US ABDOMEN LIMITED, 03/18/2019, 18:52. [facility], US, US RENAL COMPLETE, 01/22/2018, 18:43. Report but no images from a CT of the abdomen and pelvis with contrast from 11/04/16. FINDINGS: Image quality: Excellent. ABDOMEN: Lung bases: Lung bases are clear. Heart size is normal. There is calcified plaque of the mitral valve. Solid organs: The liver enhances normally. There are small subcentimeter hypoattenuating foci within the liver which are most too small to fully characterize on this exam but most consistent with intrahepatic cysts or hemangiomas. There are postsurgical changes of recent laparoscopic cholecystectomy with surgical clips identified in the gallbladder fossa and anterior right abdominal wall at the laparoscopic trocar insertion sites. There is mild inflammatory fat stranding within the gallbladder fossa and along the anterior right abdominal wall most consistent with residual postsurgical inflammation. Low-grade inflammation secondary to infection could appear similar, but there is no significant phlegmon no drainable abscess/fluid collection identified within the abdomen and pelvis on this exam. No CT evidence of bile leak is identified on this exam. The pancreas is unremarkable. The spleen is unremarkable. There is a 1.2 cm bulky calcification within a 2.3 cm oval circumscribed cystic lesion (with the cystic lesion measuring simple in attenuation at 9 Hounsfield units) in the left upper quadrant/retroperitoneum which appears to originate from the anterior limb of the left adrenal gland. This is close to but does not appear to directly communicate with the splenic vein. There are multiple bilateral renal cysts, the largest measuring up to 2.5 cm in the left kidney. No hydronephrosis or nephrolithiasis. Peritoneum and bowel: There is a small hiatal hernia with post surgical changes of the stomach suggestive of prior partial gastrectomy. Normal appendix best seen on axial image 45 of series 2. There is colonic diverticulosis without evidence of acute diverticulitis. Nodes and vessels: No retroperitoneal or mesenteric adenopathy. Aorta and inferior vena cava are normal in caliber. There is severe calcified plaque of the abdominal aorta and branch vessels. Miscellaneous: There are postsurgical changes of the anterior right abdominal wall at the laparoscopic trocar insertion sites. There is a small 2.5 x 1.8 x 1.5 cm anterior abdominal wall fascial defect through which there is a resultant small anterior herniation of mesenteric fat. This fat demonstrates mild inflammatory fat stranding. PELVIS: Genitourinary: Bladder wall thickness is normal. Miscellaneous: No inguinal hernias or adenopathy. Bones: There are moderate multilevel degenerative changes of the imaged lower thoracic and lumbar spine with mild broad dextrocurvature centered at L3. There are postsurgical changes of posterior spinal fusion at L4-L5. IMPRESSION: 1. Postsurgical changes of recent laparoscopic cholecystectomy predominantly within the gallbladder fossa and anterior right abdominal wall. Mild inflammatory fat stranding within the gallbladder fossa and along the anterior right abdominal wall is most consistent with residual postsurgical inflammation. Low-grade inflammation secondary to infection could appear similar, but there is no significant phlegmon and no drainable abscess/fluid collection identified. No CT evidence of bile leak is identified on this exam. 2. Small 2.5 x 1.8 x 1.5 cm right anterior abdominal wall fascial defect (thought to be at a laparoscopic cholecystectomy trocar insertion site), through which there is a small anterior herniation of mesenteric fat. This fat demonstrates mild inflammatory fat stranding and could represent a source of pain. 3. 1.2 cm bulky calcification within a 2.3 cm oval circumscribed cystic lesion in the left upper quadrant/retroperitoneum which appears to originate from the anterior limb of the left adrenal gland. This is close to but does not directly appear to communicate with the splenic vein. This likely represents a complicated cyst. A follow-up CT in 3-6 months is recommended to demonstrate stability and exclude malignancy. These findings were discussed with the referring provider Dr. Ronaldo Basilio in person at approximately 4:45 PM on 03/28/19 and again by telephone at approximately 5:00 PM on 03/28/[address] Baird. Dictated by: Joe Baird M.D. on 03/28/2019 at 16:46 Approved by: Joe Baird M.D. on 03/28/2019 at 17:31
[2019-03-28 15:30] LABS: Add Manual Diff / Slide Review NO; Basophils Absolute Auto 0 /uL (0-100); Basophils Percent Auto 0.4 % (0-2); Eosinophils Absolute Auto 700 /uL (0-450); Eosinophils Percent Auto 7.5 % (2-4); Hematocrit 42.3 % (36-46); Hemoglobin 14.5 g/dL (12.0-16.0); Lymphocytes Absolute Auto 2500 /uL (1100-4500); Lymphocytes Percent Auto 26.2 % (25-40); Mean Corpuscular HGB Conc 34.2 % (30-36); Mean Corpuscular Hemoglobin 31.2 PG (26-34); Mean Corpuscular Volume 91.4 fL (80-100); Monocytes Absolute Auto 800 /uL (0-900); Monocytes Percent Auto 8.4 % (3-14); Neutrophils Absolute Auto 5400 /uL (1500-7000); Neutrophils Percent Auto 57.5 % (50-75); Platelet Count 381 X10^3/uL (150-400); Red Blood Cell Count 4.63 X10^6/uL (4.0-5.2); Red Cell Distribution Width 14.2 % (11.6-14.8); White Blood Cell Count 9.4 X10^3/uL (4.5-11.0)
[2019-03-28 15:40] LABS: Alanine Aminotransferase 22 IU/L (<35); Albumin 4.1 g/dL (3.5-5.0); Albumin Globulin Ratio 1.1 (1.0-2.8); Alkaline Phosphatase 139 U/L (38-126); Aspartate Aminotransferase 29 IU/L (14-36); Bilirubin Total 0.6 mg/dL (0.2-1.3); Blood Urea Nitrogen 15 mg/dL (7-17); Calcium 9.6 mg/dL (8.4-10.2); Carbon Dioxide 36 mmol/L (22-32); Chloride 95 mmol/L (98-107); Estimated Glomerular Filt Rate 54.2 mL/min (>60); Globulin 3.6 g/dL (1.7-4.1); Glucose 122 mg/dL (80-110); HEMOLYSIS < 15 (0-50); Potassium 3.9 mmol/L (3.4-5.1); Sodium 139 mmol/L (137-145); Total Protein 7.7 g/dL (6.3-8.2)
== END ==
PROVIDERS: Visit Provider Specialist
DX: R50.82 Postprocedural fever (principal); R11.2 Nausea with vomiting, unspecified; R10.84 Generalized abdominal pain; K57.90 Diverticulosis of intestine, part unspecified, without perforation or abscess without bleeding; K44.9 Diaphragmatic hernia without obstruction or gangrene; I70.0 Atherosclerosis of aorta; M47.814 Spondylosis without myelopathy or radiculopathy, thoracic region; M47.816 Spondylosis without myelopathy or radiculopathy, lumbar region; N28.1 Cyst of kidney, acquired; Z98.890 Other specified postprocedural states; Z98.1 Arthrodesis status
CPT/HCPCS: 36415; 74177; 80053; 85025

== ENCOUNTER → 2019-05-11 18:37 | Outpatient (CLI) | payer MEDICARE, SELFPAY ==
--- NOTE | 2019-05-11 18:40 | DI.RAD.S_ITS ---
PROCEDURE: XR CERVICAL SPINE 2V OR 3V INDICATIONS: RIGHT CERVICAL RADICULOPATHY TECHNIQUE: 4 view(s) of the cervical spine were acquired. COMPARISON: [facility], CR, XR CERVICAL SPINE 2 OR 3 VIEWS, 03/10/2017, 14:56. FINDINGS: Bones: No fractures or dislocations to the C7 level. Straightening of the normal lordotic curvature. Trace anterolisthesis of C3 on C4. Post surgical changes related to interbody cage grass at C5-C6 and C6-C7 with anterior retaining pins. There appears to be osseous fusion at both levels. Mild disc space narrowing at the remainder of the cervical spine. Multilevel degenerative endplate sclerosis and spurring. Diffuse facet arthropathy. Minimal dextrocurvature Soft tissues: No prevertebral soft tissue swelling. IMPRESSION: Postsurgical lower cervical changes as above. Mild cervical spondylosis at the remaining cervical spine. Diffuse facet arthropathy. No definite interval change since 03/10/17 Straightening of the normal lordotic curvature. Dictated by: Olivier Mallory M.D. on 05/12/2019 at 10:24 Approved by: Olivier Mallory M.D. on 05/12/2019 at 10:27
== END ==
PROVIDERS: Referring Provider Internal Medicine; Visit Provider Internal Medicine
DX: M47.22 Other spondylosis with radiculopathy, cervical region (principal)
CPT/HCPCS: 72040

== ENCOUNTER → 2019-11-15 17:53 | Outpatient (CLI) | payer MEDICARE, SELFPAY ==
--- NOTE | 2019-11-15 | DI.RAD.S_ITS ---
PROCEDURE: XR KNEE LT 3V INDICATIONS: LEFT KNEE PAIN/TENDENITIS TECHNIQUE: 3 views of the knee were acquired. COMPARISON: None. FINDINGS: Bones: Patient is status post total knee arthroplasty. Subtle lucency is noted along femoral portion prosthesis. No acute fracture or dislocation. Soft tissues: There is trace heterotopic calcification and scattered soft tissue vascular calcifications. IMPRESSION: No acute radiographic findings. Trace lucency of the femoral prosthesis which may be associated with loosening. Dictated by: Lula Nation M.D. on 11/16/2019 at 8:27 Approved by: Lula Nation M.D. on 11/16/2019 at 8:59
== END ==
PROVIDERS: PCP Internal Medicine; Referring Provider Internal Medicine; Visit Provider Internal Medicine
DX: M25.562 Pain in left knee (principal); M76.9 Unspecified enthesopathy, lower limb, excluding foot; Z96.652 Presence of left artificial knee joint
CPT/HCPCS: 73562

== ENCOUNTER → 2019-11-21 11:38 | Outpatient (CLI) | payer MEDICARE, SELFPAY ==
--- NOTE | 2019-11-21 | DI.NM.S_ITS ---
PROCEDURE: NM BONE 3 PHASE RADIOPHARMACEUTICAL: 21.4 mCi Tc-99m MDP IV. INDICATIONS: Presence of left artificial knee joint TECHNIQUE: Multiple bone scintigrams were obtained after intravenous injection of Tc-99m MDP, including flow, blood pool, and delayed images centered to the region of interest. COMPARISON: None. FINDINGS: There is expected symmetric blood flow and blood pool imaging after radioisotope administration, and on the delayed bone scan imaging a slight degree of greater tibial plateau isotope deposition is present on the right when compared to that on the left. This is a subtle finding, and not to the degree that would be expected if definite loosening or underlying infection was present. IMPRESSION: Minimal asymmetric increased bone scan deposition during the delayed bone scan phase of the study, involving the tibial plateau on the right. Underlying infection or definite loosening is not identified, however. No elevated blood flow or blood pool abnormality is seen. Dictated by: Jomar Aragon M.D. on 11/21/2019 at 15:53 Approved by: Jomar Aragon M.D. on 11/21/2019 at 15:55
== END ==
PROVIDERS: PCP Internal Medicine; Referring Provider Internal Medicine; Visit Provider Internal Medicine
DX: M25.562 Pain in left knee (principal); Z96.652 Presence of left artificial knee joint
CPT/HCPCS: 78315; A9503

== ENCOUNTER 2019-12-16 17:10 | Emergency (ER) | payer MEDICARE, SELFPAY ==
[2019-12-16 17:26] VITALS: BP 114/69; PULSE 53; RESP 22; TEMP 36.5; O2SAT 96; BMI 36.8
--- NOTE | 2019-12-16 17:26 | DI.CT.S_ITS ---
PROCEDURE: CT CERVICAL SPINE WO CON INDICATIONS: pain sp glf TECHNIQUE: Noncontrast 3 mm thick sections acquired from the skull base to the T4 level. Sagittal and coronal reformats were then constructed. For radiation dose reduction, the following was used: automated exposure control, adjustment of mA and/or kV according to patient size. COMPARISON: None. FINDINGS: Image quality: Excellent. Bones: No fractures or dislocations. There are severe degenerative changes at the right craniocervical junction, a dental interval, and in the facet joints two through four bilaterally. There are surgical changes at the C5-6 and C6-7 disc spaces resulting in anterior and nearly posterior ankylosis of the vertebral bodies. There is trace, probably degenerative anterolisthesis of C2-3, C3-4, and C4-5.. Visualized superior ribs are intact. Soft tissues: Prevertebral soft tissues are normal in thickness. No paravertebral hematomas. No apical pneumothoraces. There is heavy carotid bifurcation calcification bilaterally. IMPRESSION: 1. No CT evidence of acute cervical spine trauma. 2. Postsurgical and degenerative changes throughout the cervical spine as described. 3. Heavy carotid calcification incidentally noted. Dictated by: Lashaun Cancino M.D. on 12/16/2019 at 18:47 Approved by: Lashaun Cancino M.D. on 12/16/2019 at 18:51
--- NOTE | 2019-12-16 17:26 | DI.CT.S_ITS ---
PROCEDURE: CT HEAD/BRAIN WO CON INDICATIONS: sp glf, on thinners TECHNIQUE: Noncontrast 4.5 mm thick angled axial sections acquired from the foramen magnum to the vertex, with coronal and sagittal reformats. For radiation dose reduction, the following was used: automated exposure control, adjustment of mA and/or kV according to patient size. COMPARISON: None. FINDINGS: Image quality: Excellent. CSF spaces: Basal cisterns are patent. No extra-axial fluid collections. The ventricles are symmetric in size and shape. Brain: No intracranial bleeds or masses. There is cerebral volume loss for age, with resultant ventricular and sulcal prominence. There are periventricular and deep white matter chronic small vessel ischemic changes. There is intracranial internal carotid artery atherosclerosis. Skull and face: There is a moderate-sized focal hematoma in the left lateral frontal region measuring about 1.5 x 2.4 x 1.7 cm. Soft tissue thickening extends anteriorly and inferiorly. No underlying fracture of the calvarium. Sinuses: Visualized sinuses and mastoids are clear. IMPRESSION: 1. No CT evidence of acute intracranial trauma. 2. Left lateral frontal subcutaneous hematoma without underlying fracture. 3. Age-appropriate exam. Dictated by: Lashaun Cancino M.D. on 12/16/2019 at 18:40 Approved by: Lashaun Cancino M.D. on 12/16/2019 at 18:43
--- NOTE | 2019-12-16 17:26 | DI.CT.S_ITS ---
PROCEDURE: CT FACIAL BONES WO CON INDICATIONS: pain sp glf on thinners TECHNIQUE: Noncontrast 2.5 mm thick axial images acquired from the mandible through the frontal sinuses, with coronal and sagittal reformatting. For radiation dose reduction, the following was used: automated exposure control, adjustment of mA and/or kV according to patient size. COMPARISON: None. FINDINGS: Image quality: Excellent. Bones and teeth: Orbital givens are intact. Sinus givens show no fracture or deformity. Nasal bones and septum are intact. Visualized portions of the mandible demonstrate no fractures or subluxation. Zygomatic arches are intact. Pterygoid plates are intact. Visualized portions of the skull base and auditory canals are intact. Sinuses: Paranasal sinuses are aerated, without fluid levels, mucosal thickening, or mucoceles. Mastoid air cells are aerated. Soft tissues: Left lateral frontal soft tissue hematoma with thickening of the tissue extending caudally. No edema, masses, or fluid collections. No enlarged lymph nodes. No soft tissue lacerations or debris. Vascular: Visualized vascular structures appear normal in the absence of contrast. Bony vascular foramina and canals are intact. IMPRESSION: 1. No facial bone fractures. 2. Left frontal subcutaneous hematoma without underlying calvarial fracture. Dictated by: Lashaun Cancino M.D. on 12/16/2019 at 18:44 Approved by: Lashaun Cancino M.D. on 12/16/2019 at 18:47
--- NOTE | 2019-12-16 17:27 | DI.RAD.S_ITS ---
PROCEDURE: XR CHEST 1V INDICATIONS: syncope TECHNIQUE: One view of the chest was acquired. COMPARISON: [facility], CR, XR CHEST 1V, 03/18/2019, 22:28. FINDINGS: Surgical changes and devices: None. Lungs and pleura: Lungs are demonstrate slight coarsening of the interstitial markings but are otherwise clear. No pleural effusions or pneumothorax. Mediastinum: Mediastinal contours appear normal. Heart size is normal. Bones and chest wall: No suspicious bony lesions. Overlying soft tissues appear unremarkable. IMPRESSION: No acute cardiopulmonary disease. Dictated by: Lashaun Cancino M.D. on 12/16/2019 at 18:51 Approved by: Lashaun Cancino M.D. on 12/16/2019 at 18:54
[2019-12-16 18:33] LABS: Add Manual Diff / Slide Review NO; Basophils Absolute Auto 100 /uL (0-100); Eosinophils Absolute Auto 400 /uL (0-450); Hematocrit 43.1 % (36-46); Hemoglobin 14.2 g/dL (12.0-16.0); Lymphocytes Absolute Auto 2300 /uL (1100-4500); Lymphocytes Percent Auto 25.9 % (25-40); Mean Corpuscular Hemoglobin 31.3 PG (26-34); Mean Corpuscular Volume 94.8 fL (80-100); Monocytes Absolute Auto 900 /uL (0-900); Monocytes Percent Auto 9.8 % (3-14); Neutrophils Absolute Auto 5100 /uL (1500-7000); Neutrophils Percent Auto 58.3 % (50-75); Platelet Count 274 X10^3/uL (150-400); Red Blood Cell Count 4.54 X10^6/uL (4.0-5.2); Red Cell Distribution Width 13.7 % (11.6-14.8); White Blood Cell Count 8.8 X10^3/uL (4.5-11.0)
[2019-12-16 18:41] LABS: INR 1.1 (0.9-1.3); Prothrombin Time 12.3 SECONDS (10.1-12.7)
--- NOTE | 2019-12-16 19:09 | ED_ITS ---
HPI - Fall <Rosario Mckee GANG SAWYER-BC - Last Filed: 12/16/19 20:15> General Chief Complaint: Trauma Stated Complaint: fall 1 week ago, head injury, on blood thinners Time Seen by Provider: 12/16/19 17:16 Source: patient and family Mode of arrival: Wheelchair Limitations: no limitations History of Present Illness HPI Narrative: The patient is a 74-year-old female former smoker with history of atrial fibrillation on blood thinners who presents with a chief complaint of ground level fall last Thursday where she hit her head. She states she is not sure exactly where she fell, she may have fallen trying to get into her spinning chair, though has no recollection of the event. She thinks she lost consciousness, her found her on the floor at 1:00 a.m.. She denies any chest pain or shortness of breath. She did not seek any help care immediately after the accident. She saw her primary care provider today who referred her to the emergency department due to swelling on her head, concern of Kvng. She has some nausea, no vomiting, no lightheadedness or dizziness. She does compla in of some C-spine neck pain, but otherwise no neck pain. Denies any neurological changes or numbness or tingling. She states that she has ecchymosis and hematoma on the left side of her face, which is actually improved over a week. Given that the patient was a ground level fall on blood thinners with suspected injury over the age of 65, modified trauma was activated upon patient arrival. Related Data Home Medications Medication Instructions Recorded Confirmed Anoro Ellipta 1 inh INHALATION DAILY 03/18/19 04/05/19 Azopt 1 % OPHTHALMIC (EYE) DAILY 03/18/19 04/05/19 Cequa 1 % OPHTHALMIC (EYE) BID 03/18/19 04/05/19 Cranberry W/D Mannose 1 cap PO DAILY 03/18/19 04/05/19 Florajen3 1 cap PO DAILY 03/18/19 04/05/19 Home Oxygen 03/18/19 04/05/19 Lumigan 1 % OPHTHALMIC (EYE) DAILY 03/18/19 04/05/19 Xarelto 20 mg PO DAILY 03/18/19 04/05/19 albuterol sulfate [ProAir HFA] 2 puff INHALATION BID 03/18/19 04/05/19 alprazolam 0.5 mg PO DAILY 03/18/19 04/05/19 ascorbic acid (vitamin C) [Vitamin 500 mg PO DAILY 03/18/19 04/05/19 C] cholecalciferol (vitamin D3) 1,000 unit PO DAILY 03/18/19 04/05/19 [Vitamin D3] cholecalciferol (vitamin D3) 2,000 unit PO DAILY 03/18/19 04/05/19 [Vitamin D3] dicyclomine 10 mg PO DAILY 03/18/19 04/05/19 duloxetine [Cymbalta] 60 mg PO BID 03/18/19 04/05/19 estradiol 1 mg PO DAILY 03/18/19 04/05/19 ferrous sulfate 325 mg PO DAILY 03/18/19 04/05/19 flecainide 50 mg PO Q12H 03/18/19 04/05/19 ipratropium bromide 2 puff INHALATION QID 03/18/19 04/05/19 magnesium oxide 400 mg PO DAILY 03/18/19 04/05/19 multivitamin 2 tab PO DAILY 03/18/19 04/05/19 omeprazole 40 mg PO DAILY 03/18/19 04/05/19 ranitidine HCl 300 mg PO BEDTIME 03/18/19 04/05/19 torsemide 20 mg PO BID 03/18/19 04/05/19 tramadol 50 mg PO Q4H PRN 03/18/19 04/05/19 trazodone 100 mg PO BEDTIME PRN 03/18/19 04/05/19 Previous Rx's Medication Instructions Recorded acetaminophen 650 mg PO Q6HR PRN #30 tab 03/21/19 ondansetron 8 mg disintegrating 8 mg PO Q8H PRN #7 tab 03/28/19 tablet fluconazole 150 mg tablet 150 mg PO ONCE #1 tab 03/31/19 Allergies Allergy/AdvReac Type Severity Reaction Status Date / Time oxycodone Allergy Mild makes her Verified 12/16/19 17:26 'loopy' ceftriaxone Allergy Unknown Rash Verified 12/16/19 17:26 clarithromycin Allergy Unknown Rash Verified 12/16/19 17:26 Review of Systems <TONNY Odonnell - Last Filed: 12/16/19 20:15> Review of Systems Narrative: GENERAL: Denies chills, fatigue, malaise, fever, sweats. HEENT: Denies sinus pain, ear pain, sore throat, difficulty swallowing, dizziness. RESPIRATORY: Denies dyspnea, cough, wheezing, hemoptysis, sputum. CARDIOVASCULAR: Denies chest pain, palpitations, orthopnea, edema, GASTROINTESTINAL: Denies nausea, vomiting, abdominal pain, diarrhea, constipation, melena. : Denies dysuria, frequency, incontinence, hematuria, urinary retention. MUSCULOSKELETAL: See HPI SKIN: Denies rash, skin lesions, or other NEUROLOGIC: See HPI PSYCHIATRIC: See HPI 12 point review of systems is negative except for those stated above Patient History <TONNY Odonnell - Last Filed: 12/16/19 20:15> Medical History Chronic kidney disease, stage III (moderate) (Acute) COPD (chronic obstructive pulmonary disease) (Inactive) Depression (Acute) Glaucoma (Acute) Lung nodule (Acute) Obesity (BMI 30-39.9) (Acute) Osteoarthritis (Acute) Paroxysmal atrial fibrillation (Acute) Surgical History H/O foot surgery (Acute) H/O neck surgery (Acute) H/O rotator cuff surgery (Acute) History of hysterectomy (Acute) Hx of cataract surgery (Acute) Knee joint replacement by other means (Acute) S/P laparoscopic sleeve gastrectomy (Acute) Family History Father Alcoholic Mother Arthritis Renal failure Cancer Brother Alcoholic Social History household members: spouse Smoking Status: Former smoker alcohol intake: current Smoking Status: Former smoker alcohol intake frequency: holidays/special occasions only Substance Use Type: does not use Exam <TONNY Odonnell - Last Filed: 12/16/19 20:15> Narrative Exam Narrative: GENERAL: This is a well-nourished, well-developed patient, in no acute distress HEAD: See skin exam. Airway and ecchymosis noted left side, left-sided forehead hematoma. EYES: Pupils equal round and reactive. Extraocular motions intact. No scleral icterus. No injection or drainage. ENT: Nose without bleeding, purulent drainage or septal hematoma. Throat without erythema, tonsillar hypertrophy or exudate. Uvula midline. Airway patent. NECK: Trachea midline. No JVD or lymphadenopathy. Supple, nontender, no meningeal signs. CARDIOVASCULAR: Regular rate and rhythm RESPIRATORY: Clear to auscultation. Breath sounds equal bilaterally. No wheezes, rales, or rhonchi. No cough. No increased respiratory effort. No accessory muscle use. The GASTROINTESTINAL: Abdomen soft, non-tender, nondistended. No hepato- splenomegaly, or palpable masses. No guarding. EXTREMITIES: No clubbing, cyanosis, or edema. No joint tenderness, effusion, or edema noted. BACK: T and L-spine are nontender without deformity or crepitance. No flank tenderness. Pain to midline C-spine palpation. NEURO: AOx3. Using all extremities equally. SKIN: No Paredes signs noted on exam, left-sided periorbital ecchymosis noted, left-sided scalp hematoma noted. No active bleeding no abrasion or laceration noted. A 4 cm circular area of ecchymosis noted on lateral aspect of left hum erus. Initial Vital Signs Initial Vital Signs: Vital Signs Temperature 97.7 F 12/16/19 17:26 Pulse Rate 53 L 12/16/19 17:26 Respiratory Rate 22 12/16/19 17:26 Blood Pressure 114/69 12/16/19 17:26 Pulse Oximetry 96 12/16/19 17:26 <Nicolas Rajan MD - Last Filed: 12/24/19 04:58> Initial Vital Signs Initial Vital Signs: Vital Signs Temperature 97.7 F 12/16/19 17:26 Pulse Rate 53 L 12/16/19 17:26 Respiratory Rate 22 12/16/19 17:26 Blood Pressure 114/69 12/16/19 17:26 Pulse Oximetry 96 12/16/19 17:26 Scores <TONNY Odonnell - Last Filed: 12/16/19 20:15> GCS Alea coma scale eye opening: Spontaneous [place] coma scale verbal response: Orientated [place] coma scale motor response: Obey commands [place] coma scale total score: 15 Nexus Score for C-Spine Focal Neurologic deficit present: No Midline spinal tenderness present: Yes Altered level of conciousness present: No Intoxication present: No Distracting Injury Present: Yes Nexus Criteria for C-spine: 2 Course <TONNY Odonnell - Last Filed: 12/16/19 20:15> Orders Ordered: ED Orders 12/16/19 17:26 CT cervical spine wo con Stat CT facial bones wo con Stat CT head/brain wo con Stat 12/16/19 17:27 XR chest 1V Stat 12/16/19 17:29 EKG-12 Lead Stat 12/16/19 18:15 Complete Blood Count AUTO DIFF Stat Prothrombin Time INR Stat 12/16/19 18:55 Comprehensive Metabolic Panel Stat Magnesium Stat NT-proBNP (BNP-Adult 18+) Stat Troponin & CK Cardiac Panel Stat Vital Signs Vital signs: Vital Signs - 8 hr 12/16/19 17:26 12/16/19 19:17 12/16/19 19:19 Temperature 97.7 F Pulse Rate 53 L 76 Respiratory Rate 22 22 Blood Pressure 114/69 140/63 Pulse Oximetry 96 94 <Nicolas Rajan MD - Last Filed: 12/24/19 04:58> Orders Ordered: ED Orders 12/16/19 17:26 CT cervical spine wo con Stat CT facial bones wo con Stat CT head/brain wo con Stat 12/16/19 17:27 XR chest 1V Stat 12/16/19 17:29 EKG-12 Lead Stat 12/16/19 18:15 Complete Blood Count AUTO DIFF Stat Prothrombin Time INR Stat 12/16/19 18:55 Comprehensive Metabolic Panel Stat Magnesium Stat NT-proBNP (BNP-Adult 18+) Stat Troponin & CK Cardiac Panel Stat Vital Signs Vital signs: Vital Signs - 8 hr 12/16/19 17:26 12/16/19 19:17 12/16/19 19:19 Temperature 97.7 F Pulse Rate 53 L 76 Respiratory Rate 22 22 Blood Pressure 114/69 140/63 Pulse Oximetry 96 94 MDM - Fall <TONNY Odonnell - Last Filed: 12/16/19 20:15> Lab Data Attestation: I reviewed the patient's lab results. Result diagrams: 12/16/19 18:15 12/16/19 18:55 Labs: Lab Results 12/16/19 12/16/19 12/16/19 Range/Units 18:15 18:15 18:55 WBC 8.8 (4.5-11.0) X10^3/uL RBC 4.54 (4.0-5.2) X10^6/uL Hgb 14.2 (12.0-16.0) g/dL Hct 43.1 (36-46) % MCV 94.8 (80-100) fL MCH 31.3 (26-34) PG MCHC 33.0 (30-36) % RDW 13.7 (11.6-14.8) % Plt Count 274 (150-400) X10^3/uL Neut % (Auto) 58.3 (50-75) % Lymph % (Auto) 25.9 (25-40) % [place] % (Auto) 9.8 (3-14) % Eos % (Auto) 5.0 H (2-4) % Baso % (Auto) 1.0 (0-2) % Neut # (Auto) 5100 (7873-5660) /uL Lymph # (Auto) 2300 (4691-4494) /uL [place] # (Auto) 900 (0-900) /uL Eos # (Auto) 400 (0-450) /uL Baso # (Auto) 100 (0-100) /uL PT 12.3 (10.1-12.7) SECONDS INR 1.1 (0.9-1.3) Sodium (137-145) mmol/L Potassium (3.4-5.1) mmol/L Chloride (98-107) mmol/L Carbon Dioxide (22-32) mmol/L BUN (7-17) mg/dL Creatinine (0.52-1.04) mg/dL Estimated GFR (>60) mL/min BUN/Creatinine Ratio (6-22) Glucose (80-110) mg/dL Calcium (8.4-10.2) mg/dL Magnesium 2.4 H (1.6-2.3) mg/dL Total Bilirubin (0.2-1.3) mg/dL AST (14-36) IU/L ALT (<35) IU/L Alkaline Phosphatase (38-126) U/L Total Creatine Kinase (30-135) U/L CK-MB (CK-2) CK-MB (CK-2) Rel Index Troponin I (0.01-0.034) ng/mL NT-Pro-B Natriuret Pep 1250 H (<450) pg/mL Total Protein (6.3-8.2) g/dL Albumin (3.5-5.0) g/dL Globulin (1.7-4.1) g/dL Albumin/Globulin Ratio (1.0-2.8) 12/16/19 Range/Units 18:55 WBC (4.5-11.0) X10^3/uL RBC (4.0-5.2) X10^6/uL Hgb (12.0-16.0) g/dL Hct (36-46) % MCV (80-100) fL MCH (26-34) PG MCHC (30-36) % RDW (11.6-14.8) % Plt Count (150-400) X10^3/uL Neut % (Auto) (50-75) % Lymph % (Auto) (25-40) % [place] % (Auto) (3-14) % Eos % (Auto) (2-4) % Baso % (Auto) (0-2) % Neut # (Auto) (3667-1273) /uL Lymph # (Auto) (4019-9322) /uL [place] # (Auto) (0-900) /uL Eos # (Auto) (0-450) /uL Baso # (Auto) (0-100) /uL PT (10.1-12.7) SECONDS INR (0.9-1.3) Sodium 137 (137-145) mmol/L Potassium 3.8 (3.4-5.1) mmol/L Chloride 99 (98-107) mmol/L Carbon Dioxide 35 H (22-32) mmol/L BUN 17 (7-17) mg/dL Creatinine 0.98 (0.52-1.04) mg/dL Estimated GFR 55.3 L (>60) mL/min BUN/Creatinine Ratio 17.3 (6-22) Glucose 103 (80-110) mg/dL Calcium 8.8 (8.4-10.2) mg/dL Magnesium (1.6-2.3) mg/dL Total Bilirubin 0.4 (0.2-1.3) mg/dL AST 19 (14-36) IU/L ALT 8 (<35) IU/L Alkaline Phosphatase 70 (38-126) U/L Total Creatine Kinase 23 L (30-135) U/L CK-MB (CK-2) TNP CK-MB (CK-2) Rel Index TNP Troponin I < 0.012 (0.01-0.034) ng/mL NT-Pro-B Natriuret Pep (<450) pg/mL Total Protein 7.2 (6.3-8.2) g/dL Albumin 3.9 (3.5-5.0) g/dL Globulin 3.3 (1.7-4.1) g/dL Albumin/Globulin Ratio 1.2 (1.0-2.8) Imaging Data Chest x-ray: Radiologist's Impression: [address] [place] [id number] XRay Report Signed Patient: Colleen Ayala KMR#: [id number] : 5Acct:[id number] Age/Sex: 74 / FDate of Service: 12/16/19 Loc: ED Accession Number: [id number] Procedure: XR chest 1V Ordering Provider: Rosario Mckee GANG SAWYER- PROCEDURE: XR CHEST 1V INDICATIONS: syncope TECHNIQUE: One view of the chest was acquired. COMPARISON: [facility], , XR CHEST 1V, 03/18/2019, 22:28. FINDINGS: Surgical changes and devices: None. Lungs and pleura: Lungs are demonstrate slight coarsening of the interstitial markings but are otherwise clear. No pleural effusions or pneumothorax. Mediastinum: Mediastinal contours appear normal. Heart size is normal. Bones and chest wall: No suspicious bony lesions. Overlying soft tissues appear unremarkable. IMPRESSION: No acute cardiopulmonary disease. Dictated by: Lashaun Cancino M.D. on 12/16/2019 at 18:51 Approved by: Lashaun Cancino M.D. on 12/16/2019 at 18:54 CT scan - head: Radiologist's Impression: [address] [place] [id number] Scan Report Signed Patient: Colleen Ayala KMR#: [id number] : 5Acct:[id number] Age/Sex: 74 / FDate of Service: 12/16/19 Loc: ED Accession Number: [id number] Procedure: CT head/brain wo con Ordering Provider: Rosario Mckee GANG SAWYER- PROCEDURE: CT HEAD/BRAIN WO CON INDICATIONS: sp glf, on thinners TECHNIQUE: Noncontrast 4.5 mm thick angled axial sections acquired from the foramen magnum to the vertex, with coronal and sagittal reformats. For radiation dose reduction, the following was used: automated exposure control, adjustment of mA and/or kV according to patient size. COMPARISON: None. FINDINGS: Image quality: Excellent. CSF spaces: Basal cisterns are patent. No extra-axial fluid collections. The ventricles are symmetric in size and shape. Brain: No intracranial bleeds or masses. There is cerebral volume loss for age, with resultant ventricular and sulcal prominence. There are periventricular and deep white matter chronic small vessel ischemic changes. There is intracranial internal carotid artery atherosclerosis. Skull and face: There is a moderate-sized focal hematoma in the left lateral frontal region measuring about 1.5 x 2.4 x 1.7 cm. Soft tissue thickening extends anteriorly and inferiorly. No underlying fracture of the calvarium. Sinuses: Visualized sinuses and mastoids are clear. IMPRESSION: 1. No CT evidence of acute intracranial trauma. 2. Left lateral frontal subcutaneous hematoma without underlying fracture. 3. Age-appropriate exam. Dictated by: Lashaun Cancino M.D. on 12/16/2019 at 18:40 Approved by: Lashaun Cancino M.D. on 12/16/2019 at 18:43 CT - cervical spine: Radiologist's Impression: [address] [place] [address] CT Scan Report Signed Patient: Colleen Ayala KMR#: [id number] : 5Acct:[id number] Age/Sex: 74 / FDate of Service: 12/16/19 Loc: ED Accession Number: [id number] Procedure: CT cervical spine wo con Ordering Provider: Rosario Mckee- PROCEDURE: CT CERVICAL SPINE WO CON INDICATIONS: pain sp glf TECHNIQUE: Noncontrast 3 mm thick sections acquired from the skull base to the T4 level. Sagittal and coronal reformats were then constructed. For radiation dose reduction, the following was used: automated exposure control, adjustment of mA and/or kV according to patient size. COMPARISON: None. FINDINGS: Image quality: Excellent. Bones: No fractures or dislocations. There are severe degenerative changes at the right craniocervical junction, a dental interval, and in the facet joints two through four bilaterally. There are surgical changes at the C5-6 and C6-7 disc spaces resulting in anterior and nearly posterior ankylosis of the vertebral bodies. There is trace, probably degenerative anterolisthesis of C2-3, C3-4, and C4-5.. Visualized superior ribs are intact. Soft tissues: Prevertebral soft tissues are normal in thickness. No paravertebral hematomas. No apical pneumothoraces. There is heavy carotid bifurcation calcification bilaterally. IMPRESSION: 1. No CT evidence of acute cervical spine trauma. 2. Postsurgical and degenerative changes throughout the cervical spine as described. 3. Heavy carotid calcification incidentally noted. Dictated by: Lashaun Cancino M.D. on 12/16/2019 at 18:47 Approved by: Lashaun Cancino M.D. on 12/16/2019 at 18:[address]: Radiologist's Impression: [address] [place] [address] CT Scan Report Signed Patient: Colleen Ayala KMR#: [id number] : 5Acct:[id number] Age/Sex: 74 / FDate of Service: 12/16/19 Loc: ED Accession Number: [id number] Procedure: CT facial bones wo con Ordering Provider: Rosario Mckee PROCEDURE: CT FACIAL BONES WO CON INDICATIONS: pain sp glf on thinners TECHNIQUE: Noncontrast 2.5 mm thick axial images acquired from the mandible through the fr ontal sinuses, with coronal and sagittal reformatting. For radiation dose reduction, the following was used: automated exposure control, adjustment of mA and/or kV according to patient size. COMPARISON: None. FINDINGS: Image quality: Excellent. Bones and teeth: Orbital givens are intact. Sinus gievns show no fracture or deformity. Nasal bones and septum are intact. Visualized portions of the mandible demonstrate no fractures or subluxation. Zygomatic arches are intact. Pterygoid plates are intact. Visualized portions of the skull base and auditory canals are intact. Sinuses: Paranasal sinuses are aerated, without fluid levels, mucosal thickening, or mucoceles. Mastoid air cells are aerated. Soft tissues: Left lateral frontal soft tissue hematoma with thickening of the tissue extending caudally. No edema, masses, or fluid collections. No enlarged lymph nodes. No soft tissue lacerations or debris. Vascular: Visualized vascular structures appear normal in the absence of contrast. Bony vascular foramina and canals are intact. IMPRESSION: 1. No facial bone fractures. 2. Left frontal subcutaneous hematoma without underlying calvarial fracture. Dictated by: Lashaun Cancino M.D. on 12/16/2019 at 18:44 Approved by: Lashaun Cancino M.D. on 12/16/2019 at 18:47 ECG Data Attestation: I personally reviewed and interpreted this ECG as follows: Interpretation: Atrial fibrillation. Ventricular rate 66. QRS 106.seen by Dr Rajan MDM Narrative Medical decision making narrative: The patient is a 74-year-old female who had a ground level fall a week ago on blood thinners hit her head with a large hematoma in her scalp. She was referred to the emergency department by her primary care provider, modified trauma activated upon arrival. She is not sure whether the fall was mechanical or syncope, her thinks that it was when she was trying to get into her spinning chair. Thus we did do EKG and blood work which came back grossly normal, negative troponin, EKG of AFib which is expected for this patient. Given her facial trauma, we did obtain a face CT as well as a head CT to help rule out any bleed given that she is over 65 on blood thinners. This came back negative. Given her C-spine tenderness to palpation, we did do a CT of her C-spine to rule out any acute spinal cord injury in this came back negative. Patient states she has full range of motion of her left shoulder and does not need x-rays of her left shoulder. I did discuss at length the importance of follow-up with primary care provider in the next few days as well as come back to the ER for any acute concerns such as neurological changes etcetera. I discussed that she needs to be seen immediately rather than wait a week after the such a large trauma. The patient has been of no questions or concerns upon discharge and state understanding of return precautions as well as follow-up care. <Nicolas Rajan MD - Last Filed: 12/24/19 04:58> Lab Data Labs: Lab Results 12/16/19 12/16/19 12/16/19 Range/Units 18:15 18:15 18:55 WBC 8.8 (4.5-11.0) X10^3/uL RBC 4.54 (4.0-5.2) X10^6/uL Hgb 14.2 (12.0-16.0) g/dL Hct 43.1 (36-46) % MCV 94.8 (80-100) fL MCH 31.3 (26-34) PG MCHC 33.0 (30-36) % RDW 13.7 (11.6-14.8) % Plt Count 274 (150-400) X10^3/uL Neut % (Auto) 58.3 (50-75) % Lymph % (Auto) 25.9 (25-40) % [place] % (Auto) 9.8 (3-14) % Eos % (Auto) 5.0 H (2-4) % Baso % (Auto) 1.0 (0-2) % Neut # (Auto) 5100 (5880-7849) /uL Lymph # (Auto) 2300 (0674-3184) /uL [place] # (Auto) 900 (0-900) /uL Eos # (Auto) 400 (0-450) /uL Baso # (Auto) 100 (0-100) /uL PT 12.3 (10.1-12.7) SECONDS INR 1.1 (0.9-1.3) Sodium (137-145) mmol/L Potassium (3.4-5.1) mmol/L Chloride (98-107) mmol/L Carbon Dioxide (22-32) mmol/L BUN (7-17) mg/dL Creatinine (0.52-1.04) mg/dL Estimated GFR (>60) mL/min BUN/Creatinine Ratio (6-22) Glucose (80-110) mg/dL Calcium (8.4-10.2) mg/dL Magnesium 2.4 H (1.6-2.3) mg/dL Total Bilirubin (0.2-1.3) mg/dL AST (14-36) IU/L ALT (<35) IU/L Alkaline Phosphatase (38-126) U/L Total Creatine Kinase (30-135) U/L CK-MB (CK-2) CK-MB (CK-2) Rel Index Troponin I (0.01-0.034) ng/mL NT-Pro-B Natriuret Pep 1250 H (<450) pg/mL Total Protein (6.3-8.2) g/dL Albumin (3.5-5.0) g/dL Globulin (1.7-4.1) g/dL Albumin/Globulin Ratio (1.0-2.8) 12/16/19 Range/Units 18:55 WBC (4.5-11.0) X10^3/uL RBC (4.0-5.2) X10^6/uL Hgb (12.0-16.0) g/dL Hct (36-46) % MCV (80-100) fL MCH (26-34) PG MCHC (30-36) % RDW (11.6-14.8) % Plt Count (150-400) X10^3/uL Neut % (Auto) (50-75) % Lymph % (Auto) (25-40) % [place] % (Auto) (3-14) % Eos % (Auto) (2-4) % Baso % (Auto) (0-2) % Neut # (Auto) (8432-1529) /uL Lymph # (Auto) (4074-6508) /uL [place] # (Auto) (0-900) /uL Eos # (Auto) (0-450) /uL Baso # (Auto) (0-100) /uL PT (10.1-12.7) SECONDS INR (0.9-1.3) Sodium 137 (137-145) mmol/L Potassium 3.8 (3.4-5.1) mmol/L Chloride 99 (98-107) mmol/L Carbon Dioxide 35 H (22-32) mmol/L BUN 17 (7-17) mg/dL Creatinine 0.98 (0.52-1.04) mg/dL Estimated GFR 55.3 L (>60) mL/min BUN/Creatinine Ratio 17.3 (6-22) Glucose 103 (80-110) mg/dL Calcium 8.8 (8.4-10.2) mg/dL Magnesium (1.6-2.3) mg/dL Total Bilirubin 0.4 (0.2-1.3) mg/dL AST 19 (14-36) IU/L ALT 8 (<35) IU/L Alkaline Phosphatase 70 (38-126) U/L Total Creatine Kinase 23 L (30-135) U/L CK-MB (CK-2) TNP CK-MB (CK-2) Rel Index TNP Troponin I < 0.012 (0.01-0.034) ng/mL NT-Pro-B Natriuret Pep (<450) pg/mL Total Protein 7.2 (6.3-8.2) g/dL Albumin 3.9 (3.5-5.0) g/dL Globulin 3.3 (1.7-4.1) g/dL Albumin/Globulin Ratio 1.2 (1.0-2.8) Discharge Plan Departure Patient Disposition: Home Clinical Impression: Fall from ground level, Hematoma Periorbital ecchymosis of left eye Qualifiers: Encounter type: initial encounter Qualified Code(s): S00.12XA - Contusion of left eyelid and periocular area, initial encounter Concussion Qualifiers: Encounter type: initial encounter Loss of consciousness presence/duration: with LOC of unspecified duration Qualified Code(s): S06.0X9A - Concussion with loss of consciousness of unspecified duration, initial encounter Discharge Date/Time: 12/16/19 20:30 Instructions: DI for Concussion, DI for Eye Contusion, DI for Hematoma (Bruise), How to Prevent Falls Activity Restrictions/Additional Instructions: Thank you for trusting us with your care today As I discussed if you have another ground level fall and hit her head please come to the emergency department immediately rather than waiting a week We did lots of imaging and blood work today, everything came back well. However I do believe that you have a concussion. Please rest her brain over the next few days. Please follow-up with primary care provider in the next few days. I will call Thursday to help schedule of appointment for ER follow-up. Please come back to the emergency department for any acute concerns Prescriptions: No Action fluconazole 150 mg tablet 150 mg PO ONCE Qty: 1 RF: 0 ondansetron 8 mg tablet,disintegrating 8 mg PO Q8H PRN (Reason: nausea and vomiting) Qty: 7 RF: 0 ascorbic acid (vitamin C) [Vitamin C] 1,000 mg Tablet 500 mg PO DAILY RF: 0 torsemide 20 mg Tablet 20 mg PO BID RF: 0 Azopt 1 % Drops,Suspension 1 % OPHTHALMIC (EYE) DAILY RF: 0 omeprazole 40 mg Capsule,Delayed Release(Dr/Ec) 40 mg PO DAILY RF: 0 tramadol 50 mg Tablet 50 mg PO Q4H PRN (Reason: Pain (Scale Score 1-3)) RF: 0 alprazolam 0.5 mg Tablet 0.5 mg PO DAILY RF: 0 estradiol 1 mg Tablet 1 mg PO DAILY RF: 0 trazodone 100 mg Tablet 100 mg PO BEDTIME PRN (Reason: Sleep) RF: 0 ferrous sulfate 325 mg (65 mg iron) Tablet 325 mg PO DAILY RF: 0 ranitidine HCl 300 mg Capsule 300 mg PO BEDTIME RF: 0 flecainide 50 mg Tablet 50 mg PO Q12H RF: 0 albuterol sulfate [ProAir HFA] 90 mcg/actuation Hfa Aerosol Inhaler 2 puff INHALATION BID RF: 0 dicyclomine 10 mg Capsule 10 mg PO DAILY RF: 0 multivitamin Tablet,Chewable 2 tab PO DAILY RF: 0 duloxetine [Cymbalta] 60 mg Capsule,Delayed Release(Dr/Ec) 60 mg PO BID RF: 0 ipratropium bromide 17 mcg/actuation Hfa Aerosol Inhaler 2 puff INHALATION QID RF: 0 cholecalciferol (vitamin D3) [Vitamin D3] 2,000 unit Tablet 2,000 unit PO DAILY RF: 0 cholecalciferol (vitamin D3) [Vitamin D3] 1,000 unit Tablet,Chewable 1,000 unit PO DAILY RF: 0 Lumigan 0.01 % Drops 1 % OPHTHALMIC (EYE) DAILY RF: 0 Florajen3 460 mg (7.5-6- 1.5 bill. cell) Capsule 1 cap PO DAILY RF: 0 Xarelto 20 mg Tablet 20 mg PO DAILY RF: 0 magnesium oxide 400 mg magnesium Capsule 400 mg PO DAILY RF: 0 Anoro Ellipta 62.5-25 mcg/actuation Blister With Device 1 inh INHALATION DAILY RF: 0 Cequa 0.09 % Dropperette 1 % OPHTHALMIC (EYE) BID RF: 0 Cranberry W/D Mannose 1 cap PO DAILY RF: 0 (DME) Home Oxygen RF: 0 acetaminophen 325 mg Tablet 650 mg PO Q6HR PRN (Reason: Fever/Mild Pain (1-3)) Qty: 30 RF: 0 Referrals: Jose Gonzales MD [Primary Care Provider] - <Nicolas Rajan MD - Last Filed: 12/24/19 04:58> Cosign ED Attending Cosignature Attestation: I was immediately available in the department for consultation. This documentation has been reviewed and I agree with assessment and plan. Supervised by Nicolas Rajan MD
[2019-12-16 19:17] VITALS: PULSE 76; RESP 22; O2SAT 94
[2019-12-16 19:18] LABS: Magnesium 2.4 mg/dL (1.6-2.3)
[2019-12-16 19:19] VITALS: BP 140/63
[2019-12-16 19:19] LABS: Alanine Aminotransferase 8 IU/L (<35); Albumin 3.9 g/dL (3.5-5.0); Albumin Globulin Ratio 1.2 (1.0-2.8); Alkaline Phosphatase 70 U/L (38-126); Aspartate Aminotransferase 19 IU/L (14-36); BUN Creatinine Ratio 17.3 (6-22); Bilirubin Total 0.4 mg/dL (0.2-1.3); Blood Urea Nitrogen 17 mg/dL (7-17); Calcium 8.8 mg/dL (8.4-10.2); Carbon Dioxide 35 mmol/L (22-32); Chloride 99 mmol/L (98-107); Creatine Kinase 23 U/L (30-135); Estimated Glomerular Filt Rate 55.3 mL/min (>60); Globulin 3.3 g/dL (1.7-4.1); Glucose 103 mg/dL (80-110); HEMOLYSIS < 15 (0-50); Potassium 3.8 mmol/L (3.4-5.1); Sodium 137 mmol/L (137-145); Total Protein 7.2 g/dL (6.3-8.2)
[2019-12-16 19:27] LABS: NT-proBNP (BNP-Adult 18+) 1250 pg/mL (<450)
[2019-12-16 19:30] VITALS: BP 143/64; PULSE 75; RESP 16; O2SAT 93
[2019-12-16 19:30] LABS: Troponin I < 0.012 ng/mL (0.01-0.034)
[2019-12-16 20:00] VITALS: BP 145/63; PULSE 73; RESP 11; TEMP 36.9; O2SAT 94
== END 2019-12-16 20:30 | disposition home or self-care (01) ==
PROVIDERS: Emergency Provider Nurse Practitioner Family; PCP Internal Medicine; Referring Provider Student in an Organized Health Care Education/Training Program
DX: S00.12XA Contusion of left eyelid and periocular area, initial encounter (principal); S06.0X9A Concussion with loss of consciousness of unspecified duration, initial encounter; S00.03XA Contusion of scalp, initial encounter; R55 Syncope and collapse; W19.XXXA Unspecified fall, initial encounter
CPT/HCPCS: 36415; 70450; 70486; 71045; 72125; 80053; 82550; 83735; 83880; 84484; 85025; 85610; 93005; 99284

== ENCOUNTER 2021-06-14 15:33 | Inpatient (IN) | payer MEDICARE, SELFPAY ==
[2021-06-14] VITALS (19 sets, daily range): BP systolic 96–126; BP diastolic 48–58; PULSE 80–116; RESP 18–49; TEMP 36.9–37.1; O2SAT 85–99; BMI 42.3
--- NOTE | 2021-06-14 15:42 | DI.RAD.S_ITS ---
PROCEDURE: XR CHEST 1V INDICATIONS: shortness of breath TECHNIQUE: One view of the chest was acquired. COMPARISON: [facility], CR, XR CHEST 1V, 12/16/2019, 17:40. FINDINGS: Surgical changes and devices: None. Lungs and pleura: Patchy interstitial and airspace opacity in the left mid lung and left lung base as well as in the right lung base. No pleural effusions or pneumothorax. Mediastinum: Mediastinal contours appear normal. Heart size is normal. Bones and chest wall: No suspicious bony lesions. Overlying soft tissues appear unremarkable. IMPRESSION: Patchy bilateral interstitial and airspace opacities. Findings may be infectious or reflect pulmonary edema. Dictated by: Mike Eng M.D. on 06/14/2021 at 16:24 Approved by: Mike Eng M.D. on 06/14/2021 at 16:24
[2021-06-14 15:52] LABS: Add Manual Diff / Slide Review NO; Basophils Absolute Auto 100 /uL (0-100); Basophils Percent Auto 0.5 % (0-2); Eosinophils Absolute Auto 100 /uL (0-450); Eosinophils Percent Auto 0.4 % (2-4); Hematocrit 31.4 % (36-46); Lymphocytes Absolute Auto 1800 /uL (1100-4500); Lymphocytes Percent Auto 8.5 % (25-40); Mean Corpuscular HGB Conc 31.9 % (30-36); Mean Corpuscular Hemoglobin 28.2 PG (26-34); Mean Corpuscular Volume 88.4 fL (80-100); Monocytes Absolute Auto 2000 /uL (0-900); Monocytes Percent Auto 9.3 % (3-14); Neutrophils Absolute Auto 17500 /uL (1500-7000); Neutrophils Percent Auto 81.3 % (50-75); Platelet Count 224 X10^3/uL (150-400); Red Blood Cell Count 3.55 X10^6/uL (4.0-5.2); Red Cell Distribution Width 14.8 % (11.6-14.8); White Blood Cell Count 21.5 X10^3/uL (4.5-11.0)
[2021-06-14 17:00] LABS: Creatine Kinase 45 U/L (30-135); Lactate (Lactic Acid) 1.5 mmol/L (0.7-2.1)
[2021-06-14 17:01] LABS: Alanine Aminotransferase 9 IU/L (<35); Albumin 3.7 g/dL (3.5-5.0); Albumin Globulin Ratio 1.2 (1.0-2.8); Alkaline Phosphatase 40 U/L (38-126); Aspartate Aminotransferase 21 IU/L (14-36); Bilirubin Total 0.4 mg/dL (0.2-1.3); Blood Urea Nitrogen 14 mg/dL (7-17); Calcium 8.6 mg/dL (8.4-10.2); Chloride 95 mmol/L (98-107); Estimated Glomerular Filt Rate 53.8 mL/min (>60); Globulin 3.1 g/dL (1.7-4.1); Glucose 142 mg/dL (80-110); HEMOLYSIS < 15 (0-50); Potassium 4.1 mmol/L (3.4-5.1); Sodium 138 mmol/L (137-145); Total Protein 6.8 g/dL (6.3-8.2)
[2021-06-14 17:08] LABS: Carbon Dioxide 39 mmol/L (22-32)
[2021-06-14 17:12] LABS: COVID19 -Nasal RAPID Negative (Negative)
[2021-06-14 17:13] LABS: NT-proBNP (BNP-Adult 18+) 4100 pg/mL (<450); Troponin I < 0.012 ng/mL (0.01-0.034)
--- NOTE | 2021-06-14 17:24 | ED.SOB ---
HPI - SOB/Dyspnea General Chief Complaint: Shortness of Breath/Dyspnea Stated Complaint: SOB Time Seen by Provider: 06/14/21 15:48 Source: patient and EMS Mode of arrival: EMS Limitations: no limitations History of Present Illness HPI Narrative: Patient is a 76-year-old female history of atrial fibrillation on Xarelto COPD on home oxygen anxiety and depression presenting today with increasing shortness of breath. She has a last 3 days she has had shortness of breath. She usually only wears oxygen at night but has needed it more frequently. She has been using her nebulizers at home without much relief. She denies any chest pain or palpitations. She has not had any productive sputum or cough. She says now in the emergency department she actually is feeling a bit better but she definitely gets more short of breath with very little exertion Related Data Home Medications Medication Instructions Recorded Confirmed Cranberry W/D Mannose 1 cap PO DAILY 03/18/19 04/05/19 Home Oxygen 03/18/19 04/05/19 L.acidophilus-B.animalis-B.longum 1 cap PO DAILY 03/18/19 04/05/19 15 billion cell capsule (Florajen3) albuterol sulfate 90 mcg/actuation 2 puff INHALATION BID 03/18/19 04/05/19 aerosol inhaler (ProAir HFA) alprazolam 0.5 mg tablet 0.5 mg PO DAILY 03/18/19 04/05/19 ascorbic acid (vitamin C) 1,000 mg 500 mg PO DAILY 03/18/19 04/05/19 tablet (Vitamin C) bimatoprost 0.01 % eye drops 1 % OPHTHALMIC (EYE) DAILY 03/18/19 04/05/19 (Lumigan) brinzolamide 1 % eye 1 % OPHTHALMIC (EYE) DAILY 03/18/19 04/05/19 drops,suspension (Azopt) cholecalciferol (vitamin D3) 25 1,000 unit PO DAILY 03/18/19 04/05/19 mcg (1,000 unit) chewable tablet (Vitamin D3) cholecalciferol (vitamin D3) 50 2,000 unit PO DAILY 03/18/19 04/05/19 mcg (2,000 unit) tablet (Vitamin D3) cyclosporine 0.09 % eye drops in a 1 % OPHTHALMIC (EYE) BID 03/18/19 04/05/19 dropperette (Cequa) dicyclomine 10 mg capsule 10 mg PO DAILY 03/18/19 04/05/19 duloxetine 60 mg capsule,delayed 60 mg PO BID 03/18/19 04/05/19 release (Cymbalta) estradiol 1 mg tablet 1 mg PO DAILY 03/18/19 04/05/19 ferrous sulfate 325 mg (65 mg 325 mg PO DAILY 03/18/19 04/05/19 iron) tablet flecainide 50 mg tablet 50 mg PO Q12H 03/18/19 04/05/19 ipratropium bromide 17 2 puff INHALATION QID 03/18/19 04/05/19 mcg/actuation HFA aerosol inhaler magnesium oxide 400 mg PO DAILY 03/18/19 04/05/19 multivitamin 2 tab PO DAILY 03/18/19 04/05/19 omeprazole 40 mg capsule,delayed 40 mg PO DAILY 03/18/19 04/05/19 release ranitidine HCl 300 mg capsule 300 mg PO BEDTIME 03/18/19 04/05/19 rivaroxaban 20 mg tablet (Xarelto) 20 mg PO DAILY 03/18/19 04/05/19 torsemide 20 mg tablet 20 mg PO BID 03/18/19 04/05/19 tramadol 50 mg tablet 50 mg PO Q4H PRN 03/18/19 04/05/19 trazodone 100 mg tablet 100 mg PO BEDTIME PRN 03/18/19 04/05/19 umeclidinium 62.5 mcg-vilanterol 1 inh INHALATION DAILY 03/18/19 04/05/19 25 mcg/actuation powdr for inhalation (Anoro Ellipta) Previous Rx's Medication Instructions Recorded acetaminophen 325 mg tablet 650 mg PO Q6HR PRN #30 tab 03/21/19 ondansetron 8 mg disintegrating 8 mg PO Q8H PRN #7 tab 03/28/19 tablet fluconazole 150 mg tablet 150 mg PO ONCE #1 tab 03/31/19 Allergies Allergy/AdvReac Type Severity Reaction Status Date / Time oxycodone Allergy Mild makes her Verified 06/14/21 16:34 'loopy' ceftriaxone Allergy Unknown Rash Verified 06/14/21 16:34 clarithromycin Allergy Unknown Rash Verified 06/14/21 16:34 Review of Systems Review of Systems Narrative: GENERAL: Denies chills, fatigue, malaise, fever, sweats, travel HEENT: Denies sinus pain, ear pain, sore throat, difficulty swallowing, neck pain RESPIRATORY: See HPI CARDIOVASCULAR: Denies chest pain, palpitations, orthopnea, edema GASTROINTESTINAL: Denies nausea, vomiting, abdominal pain, diarrhea, constipation, melena. : Denies dysuria, frequency, incontinence, hematuria, urinary retention, flank pain. MUSCULOSKELETAL: Denies weakness, joint pain, or bony pain SKIN: No rash, no erythema, no pruritus NEUROLOGIC: Denies weakness, dizziness, headache, numbness, change in speech, confusion PSYCHIATRIC: No concerning psychosocial issues. 12 point review of systems is negative except for those stated above and HPI Patient History Medical History (Updated 06/14/21 @ 19:37 by Jenna Pacheco DO) Chronic kidney disease, stage III (moderate) COPD (chronic obstructive pulmonary disease) Depression Glaucoma Lung nodule Obesity (BMI 30-39.9) Osteoarthritis Paroxysmal atrial fibrillation Surgical History H/O foot surgery H/O neck surgery H/O rotator cuff surgery History of hysterectomy Hx of cataract surgery Knee joint replacement by other means S/P laparoscopic sleeve gastrectomy Family History Father Alcoholic Mother Arthritis Renal failure Cancer Brother Alcoholic Social History household members: spouse Smoking Status: Former smoker alcohol intake: current Smoking Status: Former smoker alcohol intake frequency: holidays/special occasions only Substance Use Type: does not use Exam Initial Vital Signs Initial Vital Signs: Vital Signs Temperature 98.8 F 06/14/21 15:20 Pulse Rate 86 06/14/21 15:20 Respiratory Rate 18 06/14/21 15:20 Blood Pressure 117/55 L 06/14/21 15:20 Pulse Oximetry 96 06/14/21 15:20 GENERAL: Alert well-appearing 76-year-old female HEENT: Head atraumatic,EOMI, pupils reactive, face symmetric, moist mucous membranes CARDIOVASCULAR: Regular rate and rhythm without murmurs, rubs or gallops. RESPIRATORY: On oxygen has no respiratory distress lying down appears comfortable speaks in full sentences slight expiratory wheeze bilaterally without tachypnea ABDOMEN: Soft, nontender. Normoactive bowel sounds all 4 quadrants. No guarding or rebound. EXTREMITIES: Normal range of motion, no clubbing or edema. Neurovascularly intact NEUROLOGICAL: Alert and oriented x4.Normal gait and speech. SKIN: Warm, dry, no laceration, no petechiae, no rashes or lesions. Course Orders Ordered: ED Orders 06/14/21 15:40 Complete Blood Count AUTO DIFF Stat 06/14/21 15:42 XR chest 1V Stat EKG-12 Lead Stat Measure peak expiratory flow ONCE RT Consult Eval and Treat Now 06/14/21 16:20 COVID19 -Nasal swab/Pre-Proc Stat 06/14/21 16:40 BNP [NT-proBNP (BNP-Adult 18+)] Stat Comprehensive Metabolic Panel Stat Lactate (Lactic Acid) Stat Procalcitonin Stat Troponin & CK Cardiac Panel Stat Discontinued Medications Alprazolam (Alprazolam 0.5 Mg Tablet) 0.5 mg PO NOW ONE Stop: 06/14/21 19:13 Last Admin: 06/14/21 19:21 Dose: 0.5 mg Documented by: KIRK Al Hydrox/Mg Hydrox/Simethicone 20 ml/ Lidocaine HCl 15 ml 0 ml PO NOW ONE Stop: 06/14/21 19:13 Last Admin: 06/14/21 19:21 Dose: 20 ml Documented by: KIRK Furosemide (Furosemide 40 Mg/4 Ml Vial) 40 mg IV NOW ONE Stop: 06/14/21 17:25 Last Admin: 06/14/21 18:03 Dose: 40 mg Documented by: FLORENTIN Vital Signs Vital signs: Vital Signs - 8 hr 06/14/21 15:20 06/14/21 16:18 06/14/21 16:30 Temperature 98.8 F Pulse Rate 86 83 80 Respiratory Rate 18 28 H 24 Blood Pressure 117/55 L Pulse Oximetry 96 96 99 06/14/21 16:31 06/14/21 17:00 06/14/21 17:30 Temperature Pulse Rate 84 84 86 Respiratory Rate 28 H 33 H 31 H Blood Pressure 126/56 L 117/57 L 114/55 L Pulse Oximetry 99 99 97 06/14/21 18:00 06/14/21 18:01 06/14/21 18:30 Temperature Pulse Rate 90 88 91 H Respiratory Rate 26 H 29 H 32 H Blood Pressure 110/53 L Pulse Oximetry 98 98 96 MDM - SOB/Dyspnea Lab Data Result diagrams: 06/14/21 15:40 06/14/21 16:40 Labs: Lab Results 06/14/21 06/14/21 06/14/21 Range/Units 15:40 16:20 16:40 WBC 21.5 H (4.5-11.0) X10^3/uL RBC 3.55 L (4.0-5.2) X10^6/uL Hgb 10.0 L (12.0-16.0) g/dL Hct 31.4 L (36-46) % MCV 88.4 (80-100) fL MCH 28.2 (26-34) PG MCHC 31.9 (30-36) % RDW 14.8 (11.6-14.8) % Plt Count 224 (150-400) X10^3/uL Neut % (Auto) 81.3 H (50-75) % Lymph % (Auto) 8.5 L (25-40) % [place] % (Auto) 9.3 (3-14) % Eos % (Auto) 0.4 L (2-4) % Baso % (Auto) 0.5 (0-2) % Neut # (Auto) 75116 H (1747-6603) /uL Lymph # (Auto) 1800 (2056-8688) /uL [place] # (Auto) 2000 H (0-900) /uL Eos # (Auto) 100 (0-450) /uL Baso # (Auto) 100 (0-100) /uL Sodium 138 (137-145) mmol/L Potassium 4.1 (3.4-5.1) mmol/L Chloride 95 L (98-107) mmol/L Carbon Dioxide 39 H (22-32) mmol/L BUN 14 (7-17) mg/dL Creatinine 1.00 (0.52-1.04) mg/dL Estimated GFR 53.8 L (>60) mL/min BUN/Creatinine Ratio 14.0 (6-22) Glucose 142 H (80-110) mg/dL Lactate (0.7-2.1) mmol/L Calcium 8.6 (8.4-10.2) mg/dL Total Bilirubin 0.4 (0.2-1.3) mg/dL AST 21 (14-36) IU/L ALT 9 (<35) IU/L Alkaline Phosphatase 40 (38-126) U/L Total Creatine Kinase (30-135) U/L CK-MB (CK-2) CK-MB (CK-2) Rel Index Troponin I (0.01-0.034) ng/mL NT-Pro-B Natriuret Pep (<450) pg/mL Total Protein 6.8 (6.3-8.2) g/dL Albumin 3.7 (3.5-5.0) g/dL Globulin 3.1 (1.7-4.1) g/dL Albumin/Globulin Ratio 1.2 (1.0-2.8) Procalcitonin (<0.5) ng/mL SARS-CoV-2 (PCR) Negative (Negative) 06/14/21 06/14/21 06/14/21 Range/Units 16:40 16:40 16:40 WBC (4.5-11.0) X10^3/uL RBC (4.0-5.2) X10^6/uL Hgb (12.0-16.0) g/dL Hct (36-46) % MCV (80-100) fL MCH (26-34) PG MCHC (30-36) % RDW (11.6-14.8) % Plt Count (150-400) X10^3/uL Neut % (Auto) (50-75) % Lymph % (Auto) (25-40) % [place] % (Auto) (3-14) % Eos % (Auto) (2-4) % Baso % (Auto) (0-2) % Neut # (Auto) (6286-2233) /uL Lymph # (Auto) (4970-3097) /uL [place] # (Auto) (0-900) /uL Eos # (Auto) (0-450) /uL Baso # (Auto) (0-100) /uL Sodium (137-145) mmol/L Potassium (3.4-5.1) mmol/L Chloride (98-107) mmol/L Carbon Dioxide (22-32) mmol/L BUN (7-17) mg/dL Creatinine (0.52-1.04) mg/dL Estimated GFR (>60) mL/min BUN/Creatinine Ratio (6-22) Glucose (80-110) mg/dL Lactate 1.5 (0.7-2.1) mmol/L Calcium (8.4-10.2) mg/dL Total Bilirubin (0.2-1.3) mg/dL AST (14-36) IU/L ALT (<35) IU/L Alkaline Phosphatase (38-126) U/L Total Creatine Kinase 45 (30-135) U/L CK-MB (CK-2) TNP CK-MB (CK-2) Rel Index TNP Troponin I < 0.012 (0.01-0.034) ng/mL NT-Pro-B Natriuret Pep 4100 H (<450) pg/mL Total Protein (6.3-8.2) g/dL Albumin (3.5-5.0) g/dL Globulin (1.7-4.1) g/dL Albumin/Globulin Ratio (1.0-2.8) Procalcitonin 0.11 (<0.5) ng/mL SARS-CoV-2 (PCR) (Negative) Imaging Data Chest x-ray: Radiologist's Impression: PROCEDURE:? XR CHEST 1V ? INDICATIONS:? shortness of breath ? TECHNIQUE:? One view of the chest was acquired.? ? COMPARISON:? [facility], , XR CHEST 1V, 12/16/2019, 17:40. ? FINDINGS:? ? Surgical changes and devices:? None.? ? Lungs and pleura:? Patchy interstitial and airspace opacity in the left mid lung and left lung base as well as in the right lung base.? No pleural effusions or pneumothorax.? ? Mediastinum:? Mediastinal contours appear normal.? Heart size is normal.? ? Bones and chest wall:? No suspicious bony lesions.? Overlying soft tissues appear unremarkable.? ? IMPRESSION:? Patchy bilateral interstitial and airspace opacities.? Findings may be infectious or reflect pulmonary edema.? ? ? Dictated by: Mike Eng M.D. on 06/14/2021 at 16:24 ? ? Approved by: Mike Eng M.D. on 06/14/2021 at 16:24 ? ECG Data Interpretation: Sinus rhythm with PVC rate 84 GA interval 186 QRS [address] changes or T-wave inversions, previous EKG does show atrial fibrillation MDM Narrative Medical decision making narrative: Patient is on oxygen at home but not all the time. She is clearly media all the time. BNP is elevated 4100 is no prior history of congestive heart failure but on torsemide. He is given a dose of Lasix in the emergency department and does urinate. However with very little exertion of getting in and out of bed despite being on 2 L of oxygen her O2 dropped to 84% she becomes tachypneic. Patient is unlikely to have pulmonary embolism she is on Xarelto she has COPD and elevated BNP at this time will hold off on CT angio. She also is found to have a 21,000 white count. She denies any fever x-ray does not show any pneumonia lactic acid is negative procalcitonin is negative. She is not on prednisone. Dr. Rooney updated on patient's symptoms and test results and accepts patient request antibiotics be given along with blood cultures. Discharge Plan Departure Patient Disposition: Admitted as Observation Clinical Impression: Congestive heart failure Admit Date/Time: 06/14/21 19:41
[2021-06-14] MEDS: FUROSEMIDE 40 MG/4 ML VIAL IV (18:03)
[2021-06-14 19:14] LABS: Procalcitonin 0.11 ng/mL (<0.5)
[2021-06-14] MEDS: MAG HYDROX/ALUMINUM/SIMETH SUS 20 ML, LIDOCAINE VISCOUS 2% 15 ML PO (19:21)
[2021-06-14] MEDS: ALPRAZolam 0.5 MG TABLET PO (19:21)
[2021-06-14] MEDS: levoFLOXacin 750 MG/150 ML PIGGYBACK 100 MG IV (20:13)
--- NOTE | 2021-06-14 20:27 | PC.NURSE ---
pt c/o itiching at the IV site shortly after infusion of abx started, infusion stopped, MD notified. 6.1mL infused prior to complaint
[2021-06-14 20:41] LABS: Appearance Urine UA CLEAR; Bilirubin Urine UA NEGATIVE (NEGATIVE); Color Urine UA YELLOW; Glucose Urine UA NEGATIVE (Negative); Ketones Urine UA NEGATIVE (NEGATIVE); Leukocyte Esterase Urine UA NEGATIVE (NEGATIVE); Nitrite Urine UA NEGATIVE (Negative); Occult Blood Urine UA NEGATIVE (Negative); Protein Urine UA NEGATIVE (Negative); Specific Gravity Urine UA <=1.005 (1.000-1.035); Urobilinogen Urine UA 0.2 E.U./dL (0.2)
[2021-06-14 20:42] LABS: pH Urine UA 6.5 (4.5-8.0)
[2021-06-14 20:53] LABS: Bacteria Urine None Seen; Culture Indicated Urine Cult Not Indicated; RBC Urine None Seen (0-5/HPF); Urine Comments Microscopic Normal; WBC Urine None Seen (0-5/HPF)
[2021-06-14 21:01] LABS: Magnesium 2.1 mg/dL (1.6-2.3)
[2021-06-14 21:34] LABS: Thyroid Stimulating Hormone 0.839 uIU/mL (0.47-4.68)
[2021-06-14 22:22] LABS: Free T4, Direct Thyroxine 1.12 ng/dL (0.78-2.19)
--- NOTE | 2021-06-14 22:31 | P.HP_ITS ---
History of Present Illness History of Present Illness Date Patient Seen: 06/14/21 Time Patient Seen: 22:31 Chief complaint: SOB Narrative: Ms. Colleen Ayala is a 73-year-old home oxygen dependent female with a history significant for atrial fibrillation on Xarelto, COPD on home oxygen, anxiety and depression, GERD and glaucoma presented to the ED with a 3-day history of increasing shortness of breath. She normally uses oxygen 1.5 liters at night, but has been having to use it all day as well. She does endorse having a subjective fever, productive cough w/green sputem, dizzy and feeling faint. She has not been sleeping due to not being able to breathe. She does endorse right leg swelling on and off for the past few weeks. Denies nausea or vomiting, chest pain, abdominal pain, dysuria, diarrhea or constipation. She states a number of allergies to antibiotics and states when she has been treated for pneumonia in the past, they have prescibed penicillin and steroids for her. She is a bit vague as to her reactions to ceftriaxone and clarithromycin, and she developed itching in the ED when she was administered Levaquin and this was discontinued. Chest x-ray ordered in the ED indicated patchy bilateral interstitial and airspace opacities, possibly infectious or pulmonary edema. Patient's current temperature is 98.8?, blood pressure 113/58, heart rate 99, respiratory rate 35, 96% on room air, she weighs 98.2 kg with a BMI of 42.3. She is afebrile, blood pressure 113/58, heart rate 99, respiratory rate 35, oxygen saturation of 96% on room air she weighs 98.2 kg with a BMI of 42.3. Her WBC is 21.5 RBC 3.55 hemoglobin 10 hematocrit 31.4 neutrophil significant left shift of 79,500, sodium 138, point potassium 4.1, chloride 95, bicarb 39, BUN 14, creatinine 1.0 with an EGFR 53.8, glucose 142, lactate is normal, liver enzymes are within no rmal limits, she has a proBNP of 4100, troponin negative procalcitonin is 0.11, TSH is 0.839 with a free T4 1.12 both normal, UA is negative for UTI and COVID- 19 PCR is negative. Patient History Medical History Chronic kidney disease, stage III (moderate) COPD (chronic obstructive pulmonary disease) Depression Glaucoma Lung nodule Morbid obesity with BMI of 40.0-44.9, adult Osteoarthritis Paroxysmal atrial fibrillation Surgical History H/O foot surgery H/O neck surgery H/O rotator cuff surgery History of hysterectomy Hx of cataract surgery Knee joint replacement by other means S/P laparoscopic sleeve gastrectomy Status post cholecystectomy Family & Social History Family History Father Alcoholic Mother Arthritis Renal failure Cancer Brother Alcoholic Social History: household members spouse Safety & Behavioral: Feels Safe in Current Yes Environment Been Physically Hurt or No Threatened By a Person Tobacco & Substance use: Smoking Status Former smoker alcohol intake current alcohol intake frequency holiday/special occasion Substance Use Type does not use Meds Home Medications and Allergies Home Medications Medication Instructions Recorded Confirmed Type Cranberry W/D Mannose 1 cap PO DAILY 03/18/19 04/05/19 History Home Oxygen 03/18/19 04/05/19 History L.acidophilus-B.animalis-B.longum 1 cap PO DAILY 03/18/19 04/05/19 History 15 billion cell capsule (Florajen3) albuterol sulfate 90 mcg/actuation 2 puff INHALATION BID 03/18/19 04/05/19 History aerosol inhaler (ProAir HFA) alprazolam 0.5 mg tablet 0.5 mg PO DAILY 03/18/19 04/05/19 History ascorbic acid (vitamin C) 1,000 mg 500 mg PO DAILY 03/18/19 04/05/19 History tablet (Vitamin C) bimatoprost 0.01 % eye drops 1 % OPHTHALMIC (EYE) DAILY 03/18/19 04/05/19 History (Lumigan) brinzolamide 1 % eye 1 % OPHTHALMIC (EYE) DAILY 03/18/19 04/05/19 History drops,suspension (Azopt) cholecalciferol (vitamin D3) 25 1,000 unit PO DAILY 03/18/19 04/05/19 History mcg (1,000 unit) chewable tablet (Vitamin D3) cholecalciferol (vitamin D3) 50 2,000 unit PO DAILY 03/18/19 04/05/19 History mcg (2,000 unit) tablet (Vitamin D3) cyclosporine 0.09 % eye drops in a 1 % OPHTHALMIC (EYE) BID 03/18/19 04/05/19 History dropperette (Cequa) dicyclomine 10 mg capsule 10 mg PO DAILY 03/18/19 04/05/19 History duloxetine 60 mg capsule,delayed 60 mg PO BID 03/18/19 04/05/19 History release (Cymbalta) estradiol 1 mg tablet 1 mg PO DAILY 03/18/19 04/05/19 History ferrous sulfate 325 mg (65 mg 325 mg PO DAILY 03/18/19 04/05/19 History iron) tablet flecainide 50 mg tablet 50 mg PO Q12H 03/18/19 04/05/19 History ipratropium bromide 17 2 puff INHALATION QID 03/18/19 04/05/19 History mcg/actuation HFA aerosol inhaler magnesium oxide 400 mg PO DAILY 03/18/19 04/05/19 History multivitamin 2 tab PO DAILY 03/18/19 04/05/19 History omeprazole 40 mg capsule,delayed 40 mg PO DAILY 03/18/19 04/05/19 History release ranitidine HCl 300 mg capsule 300 mg PO BEDTIME 03/18/19 04/05/19 History rivaroxaban 20 mg tablet (Xarelto) 20 mg PO DAILY 03/18/19 04/05/19 History torsemide 20 mg tablet 20 mg PO BID 03/18/19 04/05/19 History tramadol 50 mg tablet 50 mg PO Q4H PRN 03/18/19 04/05/19 History trazodone 100 mg tablet 100 mg PO BEDTIME PRN 03/18/19 04/05/19 History umeclidinium 62.5 mcg-vilanterol 1 inh INHALATION DAILY 03/18/19 04/05/19 History 25 mcg/actuation powdr for inhalation (Anoro Ellipta) acetaminophen 325 mg tablet 650 mg PO Q6HR PRN #30 tab 03/21/19 04/05/19 Rx ondansetron 8 mg disintegrating 8 mg PO Q8H PRN #7 tab 03/28/19 04/05/19 Rx tablet fluconazole 150 mg tablet 150 mg PO ONCE #1 tab 03/31/19 04/05/19 Rx Allergies Allergy/AdvReac Type Severity Reaction Status Date / Time oxycodone Allergy Mild makes her Verified 06/14/21 16:34 'loopy' ceftriaxone Allergy Unknown Rash Verified 06/14/21 16:34 clarithromycin Allergy Unknown Rash Verified 06/14/21 16:34 Review of Systems Review of Systems ROS: Yes All systems reviewed with the patient and are negative except as otherwise documented Exam Vital Signs (past 8 hours): - 06/14/21 15:20 06/14/21 16:18 06/14/21 16:30 Temperature 98.8 F Pulse Rate 86 83 80 Respiratory Rate 18 28 H 24 Blood Pressure 117/55 L Pulse Oximetry 96 96 99 06/14/21 16:31 06/14/21 17:00 06/14/21 17:30 Temperature Pulse Rate 84 84 86 Respiratory Rate 28 H 33 H 31 H Blood Pressure 126/56 L 117/57 L 114/55 L Pulse Oximetry 99 99 97 06/14/21 18:00 06/14/21 18:01 06/14/21 18:30 Temperature Pulse Rate 90 88 91 H Respiratory Rate 26 H 29 H 32 H Blood Pressure 110/53 L Pulse Oximetry 98 98 96 06/14/21 19:00 06/14/21 19:01 06/14/21 19:30 Temperature Pulse Rate 88 88 111 H Respiratory Rate 28 H 34 H 49 H Blood Pressure 115/55 L Pulse Oximetry 96 96 91 06/14/21 19:31 06/14/21 20:00 06/14/21 20:30 Temperature Pulse Rate 116 H 98 H 97 H Respiratory Rate 49 H 36 H 39 H Blood Pressure 96/56 L 109/58 L Pulse Oximetry 85 L 94 95 06/14/21 20:31 06/14/21 21:00 06/14/21 21:30 Temperature Pulse Rate 97 H 97 H 99 H Respiratory Rate 39 H 34 H 35 H Blood Pressure 113/58 L Pulse Oximetry 95 95 96 Oxygen Delivery Method Room Air Narrative Exam Narrative: Gen: Alert, oriented, morbidly obese 76 y.o. female, mildly anxious HEENT: normocephalic, atraumatic, conjunctiva clear, sclera non-icteric, oral mucosa pink and moist Neck: supple, full ROM, no JVD, trachea is midline Resp: Lungs bilateral wheezes, non-labored breathing CV: RRR, no murmur or rubs Abd: soft, non-tender, normoactive BTs Skin: surgical scars over both knees, no lesions or rashes, dry and intact Neuro: Alert and oriented X 4 w/no focal deficits. Speech clear and coherent. Extremities: +2 non-pitting edema of the upper portion of the lower extremities, she has tenting of the skin over her feet, moves all 4 extremities, is ambulatory, negative Paulina?s sign Psyche: normal mood and affect. Objective Labs Result Diagrams: 06/14/21 15:40 06/14/21 16:40 Labs: Laboratory Results - last 24 hr 06/14/21 06/14/21 06/14/21 15:40 16:20 16:40 WBC 21.5 H RBC 3.55 L Hgb 10.0 L Hct 31.4 L MCV 88.4 MCH 28.2 MCHC 31.9 RDW 14.8 Plt Count 224 Neut % (Auto) 81.3 H Lymph % (Auto) 8.5 L Brown % (Auto) 9.3 Eos % (Auto) 0.4 L Baso % (Auto) 0.5 Neut # (Auto) 36313 H Lymph # (Auto) 1800 Brown # (Auto) 2000 H Eos # (Auto) 100 Baso # (Auto) 100 Sodium 138 Potassium 4.1 Chloride 95 L Carbon Dioxide 39 H BUN 14 Creatinine 1.00 Estimated GFR 53.8 L BUN/Creatinine Ratio 14.0 Glucose 142 H Lactate Calcium 8.6 Magnesium Total Bilirubin 0.4 AST 21 ALT 9 Alkaline Phosphatase 40 Total Creatine Kinase CK-MB (CK-2) CK-MB (CK-2) Rel Index Troponin I NT-Pro-B Natriuret Pep Total Protein 6.8 Albumin 3.7 Globulin 3.1 Albumin/Globulin Ratio 1.2 Procalcitonin TSH Free T4 Urine Color Urine Appearance Urine pH Ur Specific Burnham Urine Protein Urine Glucose (UA) Urine Ketones Urine Occult Blood Urine Nitrate Urine Bilirubin Urine Urobilinogen Ur Leukocyte Esterase Urine RBC Urine WBC Urine Bacteria Ur Culture Indicated? Micro UA Comment SARS-CoV-2 (PCR) Negative 06/14/21 06/14/21 06/14/21 16:40 16:40 16:40 WBC RBC Hgb Hct MCV MCH MCHC RDW Plt Count Neut % (Auto) Lymph % (Auto) Brown % (Auto) Eos % (Auto) Baso % (Auto) Neut # (Auto) Lymph # (Auto) Brown # (Auto) Eos # (Auto) Baso # (Auto) Sodium Potassium Chloride Carbon Dioxide BUN Creatinine Estimated GFR BUN/Creatinine Ratio Glucose Lactate 1.5 Calcium Magnesium Total Bilirubin AST ALT Alkaline Phosphatase Total Creatine Kinase 45 CK-MB (CK-2) TNP CK-MB (CK-2) Rel Index TNP Troponin I < 0.012 NT-Pro-B Natriuret Pep 4100 H Total Protein Albumin Globulin Albumin/Globulin Ratio Procalcitonin 0.11 TSH Free T4 Urine Color Urine Appearance Urine pH Ur Specific Burnham Urine Protein Urine Glucose (UA) Urine Ketones Urine Occult Blood Urine Nitrate Urine Bilirubin Urine Urobilinogen Ur Leukocyte Esterase Urine RBC Urine WBC Urine Bacteria Ur Culture Indicated? Micro UA Comment SARS-CoV-2 (PCR) 06/14/21 06/14/21 06/14/21 16:40 16:40 19:50 WBC RBC Hgb Hct MCV MCH MCHC RDW Plt Count Neut % (Auto) Lymph % (Auto) Brown % (Auto) Eos % (Auto) Baso % (Auto) Neut # (Auto) Lymph # (Auto) Brown # (Auto) Eos # (Auto) Baso # (Auto) Sodium Potassium Chloride Carbon Dioxide BUN Creatinine Estimated GFR BUN/Creatinine Ratio Glucose Lactate Calcium Magnesium 2.1 Total Bilirubin AST ALT Alkaline Phosphatase Total Creatine Kinase CK-MB (CK-2) CK-MB (CK-2) Rel Index Troponin I NT-Pro-B Natriuret Pep Total Protein Albumin Globulin Albumin/Globulin Ratio Procalcitonin TSH 0.839 Free T4 1.12 Urine Color Yellow Urine Appearance Clear Urine pH 6.5 Ur Specific Burnham <=1.005 Urine Protein Negative Urine Glucose (UA) Negative Urine Ketones Negative Urine Occult Blood Negative Urine Nitrate Negative Urine Bilirubin Negative Urine Urobilinogen 0.2 Ur Leukocyte Esterase Negative Urine RBC None seen Urine WBC None seen Urine Bacteria None seen Ur Culture Indicated? Cult not indicated Micro UA Comment Microscopic normal SARS-CoV-2 (PCR) Assessment & Plan Assessment & Plan narrative: Colleen Ayala will be admitted for further evaluation and management of what ap pears to be new onset congestive heart failure and bilateral pneumonia. 1. Community-acquired pneumonia, acute, present on admission * Even though her procalcitonin and vitals would not necessarily indicate a pneumonia she does have an elevated white count and a significant left shift and will be treated empirically * Patient did report productive sputum and cough * She had been administered Levaquin in the emergency department and started to itch and this was discontinued. I have started her on IV doxycycline 100 mg b.i.d.. * Recheck a procalcitonin in the morning * Albuterol and DuoNebs Q 3 hours as needed for shortness of breath * Pulmicort nebulizers twice daily 2. New onset CHF suspected, present on admission * Patient has a history of atrial fibrillation, treated initially with cardiover mandi, ablation and now anticoagulated * Patient likely has had CHF chronically over longer than known. * I have scheduled a complete echocardiogram for her in the morning. * Continous cardiac monitoring * ProBNP is 4100 and she will be placed on a fluid restricted cardiac diet 3. Atrial fibrillation anticoagulated on rivaroxaban * Continue home dose of rivaroxaban 20 mg p.o. daily 4. Essential hypertension, currently she is normotensive * She appears to take flecainide 50 mg q.12 hours and this will be held until her blood pressure normalizes 5. Morbid obesity, chronic * Appears she failed a gastric sleeve procedure over time * Her weight puts her at greater risk for overall poorer outcomes. VTE Prophylaxis: Wells risk score 1.5 [X] Bilateral SCDs [X] Patient is currently anticoagulated on rivaroxaban. Patient is admitted to the inpatient service due to the severity of disease, risks of further disease progression and this stay is expected to exceed 2 midnights. FEN: IV fluids: saline lock, diet: cardiac with 1200 ml fluid restriction, labs: CBC, C/BMP, liver enzymes, Mag, PT/INR Consultants None Dispo: Unknown at this time Code status: Full code as discussed with the patient who identifies her Gerry Ayala as her surrogate and POA. [X] I have utilized all available immediate resources to obtain, update, or review of the patient's current medications COVID-19 COVID-19 status: Negative Result date/Date tested (Pos, Neg/Pending): 06/14/21 Time Spent With Patient Critical Care time: I spent a total of [] minutes of critical care time on this patient's care today; this time is exclusive of procedural time. Scores Wells' Criteria for PE Clinical signs and symptoms of DVT: No PE is #1 Dx or equally likely: No Heart rate > 100: Yes Immobilization at least 3 days or surg in previous 4 weeks: No History of PE or DVT: No Hemoptysis: No Malignancy w/Treatment within 6 months or palliative: No Wells' PE Score total: 1.5 Quality VTE Deep Vein Thrombosis/Pulmonary Embolism Present on Admission: No MIPS - Admit I confirm the patient?s Advance Care Plan is present, Code status is documented, Surrogate decision maker is in patient?s record [If Yes, STOP here]: Yes MIPS - DC A. The patient was prescribed or already taking an Angiotensin-Converting Enzyme (SAMINA) Inhibitor, or Angiotensin Receptor Elieser (ARB).: No
[2021-06-14] MEDS: FLECAINIDE 100 MG TABLET 50 MG PO (23:21)
[2021-06-14] MEDS: RIVAROXABAN 10 MG TABLET 20 MG PO (23:22)
[2021-06-14] MEDS: DULOXETINE 30 MG CAPSULE 60 MG PO (23:22)
[2021-06-14] MEDS: ACETAMINOPHEN 325 MG TABLET 650 MG PO (23:23)
[2021-06-14] MEDS: DOXYCYCLINE 100 MG in SODIUM CHLORIDE 0.9% 100 ML IV (23:24)
[2021-06-15] VITALS (9 sets, daily range): BP systolic 106–154; BP diastolic 43–67; PULSE 56–104; RESP 18–24; TEMP 36.2–37.6; O2SAT 94–99
--- NOTE | 2021-06-15 | DI.ECHO.S_ITS ---
[facility] +---------+ [facility] +---------+ : : [address] : : : : [id number] : : : : Phone: [phone] Echocardiogram Report + + :Name: GERALD CORONADO Study Date: 06/15/2021 Height: 60 in : :[facility] ReadingLocation: Weight: 216 lb: : Gender: Female BSA: 1.9 m2 : :: 1945 Age: 76 yrs : :Reason For Study: Dyspnea : :Ordering Physician: ALAN : :YORDY Performed By: Jamee Isabel : :Referring: YORDY PHILLIPS : + + Interpretation Summary Afib with heart rate 75-107 bpm. Normal LV size and wall thickness; normal wall motion and LV systolic function. EF is 50-55%. Severe biatrial enlargement. Moderate MAC with severe associated mitral stenosis; mean gradient is 9-15 mm Hg. Aortic valve is a trileaflet and moderately calcified and thickened structure with mild associated aortic stenosis. Mean gradient is 18 mm Hg; peak velocity is 2.5 m/sec. There is elevated PA systolic pressure estimated at 43 mm Hg assuming RA pressure of 3 mm Hg. No prior study available for comparison. Procedure: A two-dimensional transthoracic echocardiogram with color flow and Doppler was performed. The study quality was technically difficult. Images from the parasternal window were difficult to obtain and are suboptimal in quality. Patient was uncomfortable and not able to tolerate exam well. There is no prior echocardiogram noted for this patient. The heart rate ranged between 75-107 bpm during the study. Left Ventricle: The left ventricle is normal in size and wall thickness. There is mild proximal septal thickening noted. The ejection fraction is estimated to be 50-55%. Right Ventricle: The right ventricle is normal in size and function. Atria: There is severe biatrial enlargement. Right atrial size is normal. There is no Doppler evidence for an interatrial shunt. Mitral Valve: The mitral valve leaflets are moderately calcified. There is severe mitral annular calcification. There is severe mitral stenosis. The mitral valve mean gradient is 10 mmHg. There is mild mitral regurgitation. There are multiple regurgitant jets present. Aortic Valve: The aortic valve is mildly calcified. There is mildly reduced leaflet mobility. The peak aortic velocity is 2.5 m/sec. The aortic valve mean gradient is 16.1 mmHg. There is mild aortic stenosis. There is trace aortic regurgitation. Tricuspid Valve: The tricuspid valve is normal in structure and function. There is mild tricuspid regurgitation. The right ventricular systolic pressure is estimated to be at least 43 mmHg based on an estimated right atrial pressure of 3 mm Hg. Pulmonic Valve: The pulmonic valve is not well visualized. Great Vessels: The aortic root is not well visualized. The ascending aorta could not be visualized. The pulmonary artery is not well visualized, but is probably normal size. The IVC is of normal diameter and collapses greater than 50% with a sniff. This suggests a low right atrial pressure of 3 mm Hg. Pericardium/ Pleura There is no pericardial effusion. MMode/2D Measurements & Calculations LVIDd: 4.3 cm LVOT diam: 1.8 cm LVIDs: 2.3 cm FS: 47.0 % IVSd: 1.0 cm LVPWd: 0.87 cm LV [place]. diameter/BSA (cm/m^2): 2.2 LV sys. diameter/BSA (cm/m^2): 1.2 LA A2 area: 26.3 cm2 RA long axis: 5.1 cm LA A4 area: 25.8 cm2 RA area: 15.7 cm2 LA length (vol): 6.1 cm RA vol: 41.3 ml LA vol: 94.7 ml RA : 21.4 ml/m2 LA vol index: 49.1 ml/m2 IVC diam: 1.8 cm RVD1 (basal): 3.6 cm TAPSE: 2.1 cm Doppler Measurements & Calculations Ao V2 max: 250.3 cm/sec LVOT Max Alvarez: 107.2 cm/sec Ao V2 mean: 193.5 cm/sec LV V1 max P.6 mmHg Ao max P.1 mmHg LV V1 VTI: 23.9 cm Ao mean P.1 mmHg SUMMER(I,D): 1.1 cm2 Ao V2 VTI: 56.6 cm SUMMER(V,D): 1.2 cm2 sev ratio: 0.42 SUMMER indexed to BSA (cm^2/m^2): 0.59 MV E max alvarez: 151.3 cm/sec TR max alvarez: 315.9 cm/sec MV A max alvarez: 150.6 cm/sec TR max P.0 mmHg MV E/A: 1.0 Med Peak E' Alvarez: 6.1 cm/sec E/E' med: 24.8 Lat Peak E' Alvarez: 4.2 cm/sec E/E' lat: 35.9 E/e' average: 30.4 MVA(VTI): 1.1 cm2 MV V2 mean: 141.9 cm/sec SV(LVOT): 64.3 ml MV mean P.0 mmHg MV V2 VTI: 57.6 cm Electronically signed by: Betsey Castrejon M.D. on Reading Physician:06/15/2021 05:27 PM
[2021-06-15] MEDS: ACETAMINOPHEN 325 MG TABLET 650 MG PO ×4 (05:31→23:40)
[2021-06-15 06:53] LABS: Add Manual Diff / Slide Review NO; Basophils Absolute Auto 100 /uL (0-100); Basophils Percent Auto 0.6 % (0-2); Eosinophils Absolute Auto 200 /uL (0-450); Eosinophils Percent Auto 2.2 % (2-4); Hematocrit 27.2 % (36-46); Hemoglobin 8.7 g/dL (12.0-16.0); Lymphocytes Absolute Auto 2400 /uL (1100-4500); Lymphocytes Percent Auto 21.8 % (25-40); Mean Corpuscular HGB Conc 32.1 % (30-36); Mean Corpuscular Hemoglobin 28.5 PG (26-34); Mean Corpuscular Volume 88.8 fL (80-100); Monocytes Absolute Auto 1600 /uL (0-900); Monocytes Percent Auto 14.5 % (3-14); Neutrophils Absolute Auto 6600 /uL (1500-7000); Neutrophils Percent Auto 60.9 % (50-75); Platelet Count 176 X10^3/uL (150-400); Red Blood Cell Count 3.07 X10^6/uL (4.0-5.2); Red Cell Distribution Width 14.7 % (11.6-14.8); White Blood Cell Count 10.9 X10^3/uL (4.5-11.0)
[2021-06-15 07:11] LABS: Alanine Aminotransferase 7 IU/L (<35); Albumin 3.6 g/dL (3.5-5.0); Albumin Globulin Ratio 1.2 (1.0-2.8); Alkaline Phosphatase 42 U/L (38-126); Aspartate Aminotransferase 21 IU/L (14-36); Bilirubin Total 0.5 mg/dL (0.2-1.3); Bilirubin Unconjugated 0.3 mg/dL (0.0-1.1); Blood Urea Nitrogen 12 mg/dL (7-17); Calcium 8.3 mg/dL (8.4-10.2); Chloride 96 mmol/L (98-107); Estimated Glomerular Filt Rate 59.2 mL/min (>60); Globulin 3.1 g/dL (1.7-4.1); Glucose 111 mg/dL (80-110); HEMOLYSIS < 15 (0-50); Magnesium 2.1 mg/dL (1.6-2.3); Potassium 3.2 mmol/L (3.4-5.1); Sodium 137 mmol/L (137-145); Total Protein 6.7 g/dL (6.3-8.2)
[2021-06-15 07:18] LABS: Carbon Dioxide 42 mmol/L (22-32)
[2021-06-15 07:35] LABS: Procalcitonin 0.12 ng/mL (<0.5)
--- NOTE | 2021-06-15 07:57 | P.PN_ITS ---
Subjective Subjective Date Patient Seen: 06/15/21 Time Patient Seen: 15:12 Interval history: She is seen in her room here today to follow-up her congestive heart failure, possible pneumonia and anxiety. She is still audibly dyspneic and begins tearfully complaining about anxiety related to being in the hospital, wanting to go home, wanting to take her alprazolam which she says Dr. Mejia allows her 1 per day of. She has the typical benzodiazepine dependency tone in her voice when she asks for this medication. She is tearful. She is also asking for Tums for her heartburn. Her antibiotics will be stopped as her white blood count has come down to 10.9 from 21.5. Her hemoglobin is low at 8.7. Her potassium is low at 3.2. The creatinine is 0.92. The BNP was 4100 yesterday. The echocardiogram was just done and will be resulted in the next few hours. The procalcitonin is only 0.12. Exam Vital Signs (past 8 hours): - 06/15/21 05:33 Temperature 97.2 F L Pulse Rate 81 Respiratory Rate 18 Blood Pressure 109/54 L Pulse Oximetry 99 Oxygen Delivery Method Nasal Cannula Narrative Exam Narrative: She is alert and oriented x3. She had in mild distress from chronic anxiety exacerbated by the hospital stay. Heart is regular rate and rhythm without murmur Diminished breath sounds bilaterally No ankle edema Objective Labs Result Diagrams: 06/15/21 06:45 06/15/21 06:45 Labs: Laboratory Results - last 24 hr 06/14/21 06/14/21 06/14/21 15:40 16:20 16:40 WBC 21.5 H RBC 3.55 L Hgb 10.0 L Hct 31.4 L MCV 88.4 MCH 28.2 MCHC 31.9 RDW 14.8 Plt Count 224 Neut % (Auto) 81.3 H Lymph % (Auto) 8.5 L [place] % (Auto) 9.3 Eos % (Auto) 0.4 L Baso % (Auto) 0.5 Neut # (Auto) 26079 H Lymph # (Auto) 1800 [place] # (Auto) 2000 H Eos # (Auto) 100 Baso # (Auto) 100 Sodium 138 Potassium 4.1 Chloride 95 L Carbon Dioxide 39 H BUN 14 Creatinine 1.00 Estimated GFR 53.8 L BUN/Creatinine Ratio 14.0 Glucose 142 H Lactate Calcium 8.6 Magnesium Total Bilirubin 0.4 Conjugated Bilirubin Unconjugated Bilirubin AST 21 ALT 9 Alkaline Phosphatase 40 Total Creatine Kinase CK-MB (CK-2) CK-MB (CK-2) Rel Index Troponin I NT-Pro-B Natriuret Pep Total Protein 6.8 Albumin 3.7 Globulin 3.1 Albumin/Globulin Ratio 1.2 Procalcitonin TSH Free T4 Urine Color Urine Appearance Urine pH Ur Specific [place] Urine Protein Urine Glucose (UA) Urine Ketones Urine Occult Blood Urine Nitrate Urine Bilirubin Urine Urobilinogen Ur Leukocyte Esterase Urine RBC Urine WBC Urine Bacteria Ur Culture Indicated? Micro UA Comment SARS-CoV-2 (PCR) Negative 06/14/21 06/14/21 06/14/21 16:40 16:40 16:40 WBC RBC Hgb Hct MCV MCH MCHC RDW Plt Count Neut % (Auto) Lymph % (Auto) [place] % (Auto) Eos % (Auto) Baso % (Auto) Neut # (Auto) Lymph # (Auto) [place] # (Auto) Eos # (Auto) Baso # (Auto) Sodium Potassium Chloride Carbon Dioxide BUN Creatinine Estimated GFR BUN/Creatinine Ratio Glucose Lactate 1.5 Calcium Magnesium Total Bilirubin Conjugated Bilirubin Unconjugated Bilirubin AST ALT Alkaline Phosphatase Total Creatine Kinase 45 CK-MB (CK-2) TNP CK-MB (CK-2) Rel Index TNP Troponin I < 0.012 NT-Pro-B Natriuret Pep 4100 H Total Protein Albumin Globulin Albumin/Globulin Ratio Procalcitonin 0.11 TSH Free T4 Urine Color Urine Appearance Urine pH Ur Specific [place] Urine Protein Urine Glucose (UA) Urine Ketones Urine Occult Blood Urine Nitrate Urine Bilirubin Urine Urobilinogen Ur Leukocyte Esterase Urine RBC Urine WBC Urine Bacteria Ur Culture Indicated? Micro UA Comment SARS-CoV-2 (PCR) 06/14/21 06/14/21 06/14/21 16:40 16:40 19:50 WBC RBC Hgb Hct MCV MCH MCHC RDW Plt Count Neut % (Auto) Lymph % (Auto) [place] % (Auto) Eos % (Auto) Baso % (Auto) Neut # (Auto) Lymph # (Auto) [place] # (Auto) Eos # (Auto) Baso # (Auto) Sodium Potassium Chloride Carbon Dioxide BUN Creatinine Estimated GFR BUN/Creatinine Ratio Glucose Lactate Calcium Magnesium 2.1 Total Bilirubin Conjugated Bilirubin Unconjugated Bilirubin AST ALT Alkaline Phosphatase Total Creatine Kinase CK-MB (CK-2) CK-MB (CK-2) Rel Index Troponin I NT-Pro-B Natriuret Pep Total Protein Albumin Globulin Albumin/Globulin Ratio Procalcitonin TSH 0.839 Free T4 1.12 Urine Color Yellow Urine Appearance Clear Urine pH 6.5 Ur Specific [place] <=1.005 Urine Protein Negative Urine Glucose (UA) Negative Urine Ketones Negative Urine Occult Blood Negative Urine Nitrate Negative Urine Bilirubin Negative Urine Urobilinogen 0.2 Ur Leukocyte Esterase Negative Urine RBC None seen Urine WBC None seen Urine Bacteria None seen Ur Culture Indicated? Cult not indicated Micro UA Comment Microscopic normal SARS-CoV-2 (PCR) 06/15/21 06/15/21 06/15/21 06:45 06:45 06:45 WBC 10.9 RBC 3.07 L Hgb 8.7 L Hct 27.2 L MCV 88.8 MCH 28.5 MCHC 32.1 RDW 14.7 Plt Count 176 Neut % (Auto) 60.9 D Lymph % (Auto) 21.8 L [place] % (Auto) 14.5 H Eos % (Auto) 2.2 Baso % (Auto) 0.6 Neut # (Auto) 6600 Lymph # (Auto) 2400 [place] # (Auto) 1600 H Eos # (Auto) 200 Baso # (Auto) 100 Sodium 137 Potassium 3.2 L Chloride 96 L Carbon Dioxide 42 H* BUN 12 Creatinine 0.92 Estimated GFR 59.2 L BUN/Creatinine Ratio 13.0 Glucose 111 H Lactate Calcium 8.3 L Magnesium 2.1 Total Bilirubin 0.5 Conjugated Bilirubin 0.0 Unconjugated Bilirubin 0.3 AST 21 ALT 7 Alkaline Phosphatase 42 Total Creatine Kinase CK-MB (CK-2) CK-MB (CK-2) Rel Index Troponin I NT-Pro-B Natriuret Pep Total Protein 6.7 Albumin 3.6 Globulin 3.1 Albumin/Globulin Ratio 1.2 Procalcitonin 0.12 TSH Free T4 Urine Color Urine Appearance Urine pH Ur Specific [place] Urine Protein Urine Glucose (UA) Urine Ketones Urine Occult Blood Urine Nitrate Urine Bilirubin Urine Urobilinogen Ur Leukocyte Esterase Urine RBC Urine WBC Urine Bacteria Ur Culture Indicated? Micro UA Comment SARS-CoV-2 (PCR) [facility] Medical History Chronic kidney disease, stage III (moderate) COPD (chronic obstructive pulmonary disease) Depression Glaucoma Lung nodule Morbid obesity with BMI of 40.0-44.9, adult Osteoarthritis Paroxysmal atrial fibrillation Surgical History H/O foot surgery H/O neck surgery H/O rotator cuff surgery History of hysterectomy Hx of cataract surgery Knee joint replacement by other means S/P laparoscopic sleeve gastrectomy Status post cholecystectomy Family History Father Alcoholic Mother Arthritis Renal failure Cancer Brother Alcoholic Social History household members: spouse Smoking Status: Former smoker alcohol intake: former Assessment & Plan Assessment & Plan narrative: Colleen Ayala was admitted for further evaluation and management of what appears to be new onset congestive heart failure and bilateral pneumonia. 1. Community-acquired pneumonia, acute, present on admission * Even though her procalcitonin and vitals did not necessarily indicate a pneumonia she did have an elevated white count and a significant left shift and was treated empirically * Patient did report productive sputum and cough * She had been administered Levaquin in the emergency department and started to itch and this was discontinued.? She was then given IV doxycycline 100 mg b.i.d. * with a normal follow up WBC of 10.9 and a negative procalcitonin on 06/15 the Doxycycline was stopped. * Albuterol and DuoNebs Q 3 hours as needed for shortness of breath * Pulmicort nebulizers twice daily 2. New onset CHF suspected, present on admission * Patient has a history of atrial fibrillation, treated initially with cardioversion, ablation and now anticoagulated * Patient likely has had CHF chronically over longer than known.? * Echo report pending 06/15 * Continous cardiac monitoring * ProBNP is 4100 and she will be continued on a fluid restricted cardiac diet 3. Atrial fibrillation anticoagulated on rivaroxaban * Continue home dose of rivaroxaban 20 mg p.o. daily * Continue Flecainide 4. Essential hypertension, currently she is normotensive 5. Morbid obesity, chronic * Appears she failed a gastric sleeve procedure over time * Her weight puts her at greater risk for overall poorer outcomes. 6. Anemia -Hgb 10.0 on admission, MCV 88 -Hgb 8.7 on 06/15, follow and assess/treat as inpatient if continues to drop or as outpatient if stabilizes. -B12 and Iron levels ordered VTE Prophylaxis: Wells risk score 1.5 [X] Bilateral SCDs [X] Patient is currently anticoagulated on rivaroxaban. Code status: Full code as discussed with the patient who identifies her Gerry Ayala as her surrogate and POA. Time Spent With Patient Critical Care time: I spent a total of [] minutes of critical care time on this patient's care today; this time is exclusive of procedural time. Quality VTE Deep Vein Thrombosis/Pulmonary Embolism Present on Admission: No
[2021-06-15] MEDS: ALBUTEROL/IPRATROPIUM 3 ML AMPUL INH (08:02)
[2021-06-15] MEDS: BUDESONIDE 0.5 MG/2 ML NEB INH ×2 (08:02→19:12)
[2021-06-15] MEDS: POTASSIUM CHLORIDE 10 MEQ TAB PO ×2 (09:21→18:20)
[2021-06-15] MEDS: RIVAROXABAN 10 MG TABLET 20 MG PO (09:21)
[2021-06-15] MEDS: DULOXETINE 30 MG CAPSULE 60 MG PO ×2 (09:21→20:31)
[2021-06-15] MEDS: FLECAINIDE 100 MG TABLET 50 MG PO ×2 (09:27→20:31)
[2021-06-15] MEDS: CALCIUM CARBONATE 500 MG TAB PO ×2 (15:55→20:31)
[2021-06-15] MEDS: FUROSEMIDE 40 MG TABLET PO (15:55)
[2021-06-15] MEDS: ALPRAZolam 0.25 MG TABLET PO ×2 (15:55→20:31)
--- NOTE | 2021-06-15 16:02 | PC.NURSE ---
Pt resting @ intervals. Denies discomfort. Lungs clear, SpO2 97% 2L O2 SL LAC intact/patent. Tele shpowing NSR/first degree AVB per ICU staff. ECHO completed this afternoon. Requested tums for heartburn w/good relief. Call light w/in reach, sitting in chair currently. Continue w/abbie n of care,
[2021-06-15 22:38] LABS: HEMOLYSIS < 15 (0-50); Iron 17 ug/dL (37-170)
[2021-06-15 22:45] LABS: Transferrin 284 mg/dL (206-381)
[2021-06-15 22:55] LABS: Percent Iron Saturation 4 % (15-50); Total Iron Binding Capacity 379 ug/dL (265-497)
[2021-06-16] VITALS (10 sets, daily range): BP systolic 116–144; BP diastolic 41–59; PULSE 49–106; RESP 16–22; TEMP 35.9–36.9; O2SAT 94–99
[2021-06-16] MEDS: TRAMADOL 50 MG TABLET PO (00:50)
[2021-06-16] MEDS: TRAZODONE 100 MG TABLET PO (00:50)
[2021-06-16 01:55] LABS: Enterococcus species Not Detected (Not Detect); Listeria monocytogenes Not Detected (Not Detect)
[2021-06-16 01:56] LABS: Acinetobacter baumannii Not Detected (Not Detect); Candida albicans Not Detected (Not Detect); Candida glabrata Not Detected (Not Detect); E. coli Not Detected (Not Detect); Enterobacter cloacae complex Not Detected (Not Detect); Enterobacteriaceae species Not Detected (Not Detect); Haemophilus influenzae Not Detected (Not Detect); Methicillin-resistant gene Detected (Not Detect); Neisseria meningitidis Not Detected (Not Detect); Proteus species Not Detected (Not Detect); Pseudomonas aeruginosa Not Detected (Not Detect); Serratia marcescens Not Detected (Not Detect); Streptococcus agalactiae (Gr B Not Detected (Not Detect); Streptococcus pneumonia Not Detected (Not Detect); Streptococcus pyogenes (Gr A) Not Detected (Not Detect)
[2021-06-16 01:57] LABS: Candida krusei Not Detected (Not Detect); Candida parapsilosis Not Detected (Not Detect); Candida tropicalis Not Detected (Not Detect); Staphylococcus species Detected (Not Detect)
[2021-06-16 01:58] LABS: Streptococcus species Detected (Not Detect)
[2021-06-16 06:09] LABS: Add Manual Diff / Slide Review NO; Basophils Absolute Auto 100 /uL (0-100); Basophils Percent Auto 0.6 % (0-2); Eosinophils Absolute Auto 200 /uL (0-450); Eosinophils Percent Auto 2.1 % (2-4); Hematocrit 29.9 % (36-46); Hemoglobin 9.1 g/dL (12.0-16.0); Lymphocytes Absolute Auto 2100 /uL (1100-4500); Lymphocytes Percent Auto 19.4 % (25-40); Mean Corpuscular HGB Conc 30.4 % (30-36); Mean Corpuscular Hemoglobin 27.9 PG (26-34); Mean Corpuscular Volume 91.9 fL (80-100); Monocytes Absolute Auto 1500 /uL (0-900); Monocytes Percent Auto 13.7 % (3-14); Neutrophils Absolute Auto 6900 /uL (1500-7000); Neutrophils Percent Auto 64.2 % (50-75); Platelet Count 186 X10^3/uL (150-400); Red Blood Cell Count 3.25 X10^6/uL (4.0-5.2); Red Cell Distribution Width 14.6 % (11.6-14.8); White Blood Cell Count 10.8 X10^3/uL (4.5-11.0)
[2021-06-16] MEDS: ACETAMINOPHEN 325 MG TABLET 650 MG PO ×3 (06:43→17:22)
[2021-06-16 08:14] LABS: Alanine Aminotransferase 9 IU/L (<35); Albumin Globulin Ratio 1.2 (1.0-2.8); Alkaline Phosphatase 53 U/L (38-126); Aspartate Aminotransferase 26 IU/L (14-36); BUN Creatinine Ratio 15.9 (6-22); Bilirubin Total 0.4 mg/dL (0.2-1.3); Bilirubin Unconjugated 0.3 mg/dL (0.0-1.1); Blood Urea Nitrogen 13 mg/dL (7-17); Calcium 8.9 mg/dL (8.4-10.2); Carbon Dioxide 39 mmol/L (22-32); Chloride 98 mmol/L (98-107); Estimated Glomerular Filt Rate > 60.0 mL/min (>60); Globulin 3.3 g/dL (1.7-4.1); Glucose 122 mg/dL (80-110); HEMOLYSIS < 15 (0-50); Magnesium 2.3 mg/dL (1.6-2.3); Potassium 3.6 mmol/L (3.4-5.1); Sodium 140 mmol/L (137-145); Total Protein 7.3 g/dL (6.3-8.2)
[2021-06-16 08:32] LABS: NT-proBNP (BNP-Adult 18+) 2520 pg/mL (<450)
[2021-06-16 09:10] LABS: Vitamin B12 312 pg/mL (239-931)
[2021-06-16] MEDS: DULOXETINE 30 MG CAPSULE 60 MG PO ×2 (09:15→19:55)
[2021-06-16] MEDS: METOPROLOL ER 25 MG TABLET PO ×2 (09:15→12:08)
[2021-06-16] MEDS: RIVAROXABAN 10 MG TABLET 20 MG PO (09:15)
[2021-06-16] MEDS: POTASSIUM CHLORIDE 10 MEQ TAB PO ×2 (09:16→17:24)
[2021-06-16] MEDS: FUROSEMIDE 40 MG TABLET PO (09:16)
[2021-06-16] MEDS: ALBUTEROL/IPRATROPIUM 3 ML AMPUL INH ×2 (09:58→21:18)
[2021-06-16] MEDS: BUDESONIDE 0.5 MG/2 ML NEB INH ×2 (10:03→21:17)
[2021-06-16] MEDS: FLECAINIDE 100 MG TABLET 50 MG PO ×2 (12:06→19:54)
[2021-06-16] MEDS: FUROSEMIDE 40 MG/4 ML VIAL IV (12:09)
[2021-06-16] MEDS: ALPRAZolam 0.25 MG TABLET PO (12:37)
--- NOTE | 2021-06-16 13:36 | CM.DANOTE ---
DCP: Case received, EMR reviewed and met with patient. Patient was sleeping, but spouse, Gerry, was at bedside. Introduced self and role. Was able to obtain information regarding patient's baseline activity status prior to hospitalization. DCP assessment completed with information currently available. Patient is a 76 year old female who admitted on 06/14 to the care of the hospitalist team. PCP: Dr. Child. Payer: confirmed: Medicare/[employer]. Patient came to the hospital via ambulance secondary to having increased shortness of breath. Patient was diagnosed with Pneumonia, as well as CHF. Patient has history of COPD, and confirmed with spouse that she is on home oxygen. Attempted to meet with patient but she was sleeping. Spouse, Gerry, was in the room at bedside. Confirmed that they both reside in [facility], and she does not drive. Spouse takes her to appointments. She uses a walker at baseline. P: DCP to continue to check in for any needs. Plan is home when medically stable. Jyothi Betancourt RN/Operating Room Surgical Technician Discharge Planning/Care Management CM Discharge Assessment Start: 06/16/21 13:35 Freq: Status: Active Protocol: Document 06/16/21 13:35 (Rec: 06/16/21 13:36 [id number]) Discharge Planning Assessment Assigned Resident Care Aide Jyothi Betancourt RN/Operating Room Surgical Technician Advance Directives? Yes Advance Directives on File No History Provided By Patient,Family Member,Medical Record Prior Living Arrangements House Household Members spouse Type of transporation used prior to Relies on Others admit Independent with ADL's Yes Is patient alert and oriented? Yes DME Already Rented / Owned FWW / Walker Barriers to Discharge No Discharge Plan Home Transportation Arrangement Likely spouse if pt safe for home at d/c Referrals Initiated None needed Whiteboard Updated in Patient Room with Yes name and ext. # of Resident Care Aide Review Status In Process Next Review Type Continued Stay Review
--- NOTE | 2021-06-16 15:56 | PM.PN.1 ---
Subjective Subjective Date Patient Seen: 06/16/21 Time Patient Seen: 08:00 Interval history: She continues to remain fatigued and short of breath today. Blood cultures growing staph and strep. Exam Vital Signs (past 8 hours): - 06/16/21 09:58 06/16/21 10:03 06/16/21 11:00 Temperature 97.5 F L Pulse Rate 102 H 106 H 49 L Respiratory Rate 22 22 20 Blood Pressure 117/58 L Pulse Oximetry 96 98 06/16/21 15:00 Temperature 98.4 F Pulse Rate 82 Respiratory Rate 19 Blood Pressure 116/47 L Pulse Oximetry 98 Fraction of Inspired Oxygen 28 Oxygen Delivery Method Nasal Cannula Oxygen Flow Rate 2 Narrative Exam Narrative: GEN: alert and oriented CV regular rate and rhythm without murmur PULM: Diminished breath sounds bilaterally EXT: No ankle edema Objective Labs Result Diagrams: 06/16/21 05:20 06/16/21 05:20 Labs: Laboratory Results - last 24 hr 06/14/21 06/15/21 06/15/21 19:50 06:45 06:45 WBC RBC Hgb Hct MCV MCH MCHC RDW Plt Count Neut % (Auto) Lymph % (Auto) [place] % (Auto) Eos % (Auto) Baso % (Auto) Neut # (Auto) Lymph # (Auto) [place] # (Auto) Eos # (Auto) Baso # (Auto) Sodium Potassium Chloride Carbon Dioxide BUN Creatinine Estimated GFR BUN/Creatinine Ratio Glucose Calcium Magnesium Iron 17 L TIBC 379 % Saturation 4 L Transferrin 284 Total Bilirubin Conjugated Bilirubin Unconjugated Bilirubin AST ALT Alkaline Phosphatase NT-Pro-B Natriuret Pep Total Protein Albumin Globulin Albumin/Globulin Ratio Vitamin B12 312 A. baumannii (PCR) Not detected Cornelia albicans (PCR) Not detected C. glabrata (PCR) Not detected C. krusei (PCR) Not detected C. parapsilosis (PCR) Not detected C. tropicalis (PCR) Not detected Enterobacteriac sp PCR Not detected E. cloacae complex PCR Not detected Enterococcus sp PCR Not detected E. coli (PCR) Not detected H. influenzae (PCR) Not detected Klebsiella oxytoca PCR Not detected Klebsiella pneumoniae Not detected List. monocytogenes PCR Not detected N. meningitidis (PCR) Not detected Proteus species (PCR) Not detected Serratia marcescens PCR Not detected Staphylococcus sp PCR Detected H Staph aureus (PCR) Not detected mecA-Methicil Res Gene Detected H Streptococcus sp PCR Detected H Group A Strep (PCR) Not detected Strep agalactiae (PCR) Not detected Strep pneumoniae (PCR) Not detected P. aeruginosa (PCR) Not detected Lucas/B-Vanco Res Genes Not Reportable KPC-Carbap Res Gene PCR Not Reportable 06/16/21 06/16/21 06/16/21 05:20 05:20 05:20 WBC 10.8 RBC 3.25 L Hgb 9.1 L Hct 29.9 L MCV 91.9 D MCH 27.9 MCHC 30.4 RDW 14.6 Plt Count 186 Neut % (Auto) 64.2 Lymph % (Auto) 19.4 L [place] % (Auto) 13.7 Eos % (Auto) 2.1 Baso % (Auto) 0.6 Neut # (Auto) 6900 Lymph # (Auto) 2100 [place] # (Auto) 1500 H Eos # (Auto) 200 Baso # (Auto) 100 Sodium 140 Potassium 3.6 Chloride 98 Carbon Dioxide 39 H BUN 13 Creatinine 0.82 Estimated GFR > 60.0 BUN/Creatinine Ratio 15.9 Glucose 122 H Calcium 8.9 Magnesium 2.3 Iron TIBC % Saturation Transferrin Total Bilirubin 0.4 Conjugated Bilirubin 0.0 Unconjugated Bilirubin 0.3 AST 26 ALT 9 Alkaline Phosphatase 53 NT-Pro-B Natriuret Pep 2520 H Total Protein 7.3 Albumin 4.0 Globulin 3.3 Albumin/Globulin Ratio 1.2 Vitamin B12 A. baumannii (PCR) Cornelia albicans (PCR) C. glabrata (PCR) C. krusei (PCR) C. parapsilosis (PCR) C. tropicalis (PCR) Enterobacteriac sp PCR E. cloacae complex PCR Enterococcus sp PCR E. coli (PCR) H. influenzae (PCR) Klebsiella oxytoca PCR Klebsiella pneumoniae List. monocytogenes PCR N. meningitidis (PCR) Proteus species (PCR) Serratia marcescens PCR Staphylococcus sp PCR Staph aureus (PCR) mecA-Methicil Res Gene Streptococcus sp PCR Group A Strep (PCR) Strep agalactiae (PCR) Strep pneumoniae (PCR) P. aeruginosa (PCR) Lucas/B-Vanco Res Genes KPC-Carbap Res Gene PCR [facility] Medical History (Updated 06/15/21 @ 17:38 by Finesse Aparicio MD) Chronic kidney disease, stage III (moderate) COPD (chronic obstructive pulmonary disease) Depression Glaucoma Lung nodule Morbid obesity with BMI of 40.0-44.9, adult Osteoarthritis Paroxysmal atrial fibrillation Severe mitral valve stenosis Surgical History H/O foot surgery H/O neck surgery H/O rotator cuff surgery History of hysterectomy Hx of cataract surgery Knee joint replacement by other means S/P laparoscopic sleeve gastrectomy Status post cholecystectomy Family History Father Alcoholic Mother Arthritis Renal failure Cancer Brother Alcoholic Social History household members: spouse Smoking Status: Former smoker alcohol intake: former Assessment & Plan Assessment & Plan narrative: Colleen Ayala was admitted for further evaluation and management of what appears to be new onset congestive heart failure and bilateral pneumonia. 1. Community-acquired pneumonia, acute, present on admission -Even though her procalcitonin and vitals did not necessarily indicate a pneumonia she did have an elevated white count and a significant left shift and was treated empirically -Patient did report productive sputum and cough -She had been administered Levaquin in the emergency department and started to itch and this was discontinued.? She was then given IV doxycycline 100 mg b.i.d. -with a normal follow up WBC of 10.9 and a negative procalcitonin on 06/15 the Doxycycline was stopped. -Albuterol and DuoNebs Q 3 hours as needed for shortness of breath -Pulmicort nebulizers twice daily 2. Bacteremia -follow up blood cultures show staph and strep, unclear if from pneumonia or other source, restarted antibiotics on 06/16 with vanco -blood culture positive in both anaerobic and aerobic bottles but only in one draw so possibly a contaminant -repeat blood culture 2. New onset CHF suspected, present on admission -Patient has a history of atrial fibrillation, treated initially with cardioversion, ablation and now anticoagulated -Patient likely has had CHF chronically over longer than known.? -Echo report pending 06/15 -Continous cardiac monitoring -ProBNP is 4100 and she will be continued on a fluid restricted cardiac diet 3. Atrial fibrillation anticoagulated on rivaroxaban -Continue home dose of rivaroxaban 20 mg p.o. daily -Continue Flecainide 4. Essential hypertension, currently she is normotensive 5. Morbid obesity, chronic -Appears she failed a gastric sleeve procedure over time -Her weight puts her at greater risk for overall poorer outcomes. 6. Anemia -Hgb 10.0 on admission, MCV 88 -Hgb 8.7 on 06/15, follow and assess/treat as inpatient if continues to drop or as outpatient if stabilizes.? -B12 and Iron levels ordered Time Spent With Patient Critical Care time: I spent a total of [] minutes of critical care time on this patient's care today; this time is exclusive of procedural time. Quality VTE Deep Vein Thrombosis/Pulmonary Embolism Present on Admission: No
[2021-06-16] MEDS: VANCOMYCIN 1,500 MG/300 ML PIGGYBACK 200 MG IV (17:22)
[2021-06-16] MEDS: WARFARIN 5 MG TABLET PO (17:24)
[2021-06-16] MEDS: CALCIUM CARBONATE 500 MG TAB PO (19:55)
--- NOTE | 2021-06-16 23:14 | PC.NURSE ---
Addendum entered by Estrellita Godoy R.N. 06/17/21 06:43: Pt restless most of the night, sob when up to the BSC, lung sounds diminished AND sating in the mid 90's on 2 L NC, pt voiding frequently after lasix iV given tonight. Pt asking, when am I going to get better, Am I going to . Pt had one dose of alprazolam tonight. will continue to monitor. Original Note: Pt normally takes 0.5 mg of alprazolam at home daily. TAPPER BIT Mohamud aware, no new orders given.
[2021-06-17] MEDS: FUROSEMIDE 40 MG/4 ML VIAL IV (00:43)
[2021-06-17] MEDS: SODIUM CHLORIDE 0.9% FLUSH 10 ML IV ×2 (00:43→10:14)
[2021-06-17] MEDS: ACETAMINOPHEN 325 MG TABLET 650 MG PO ×3 (00:43→11:41)
[2021-06-17] MEDS: ALBUTEROL 2.5 MG/3 ML NEB (ADULT) INH (01:23)
[2021-06-17 01:24] VITALS: PULSE 95; RESP 20; O2SAT 95
[2021-06-17] MEDS: ALPRAZolam 0.25 MG TABLET PO (01:46)
[2021-06-17 04:15] VITALS: BP 118/49; PULSE 91; RESP 18; TEMP 37.1; O2SAT 97
[2021-06-17 05:35] LABS: Add Manual Diff / Slide Review NO; Basophils Absolute Auto 100 /uL (0-100); Basophils Percent Auto 0.6 % (0-2); Eosinophils Absolute Auto 400 /uL (0-450); Eosinophils Percent Auto 2.9 % (2-4); Hematocrit 28.6 % (36-46); Hemoglobin 8.9 g/dL (12.0-16.0); Lymphocytes Absolute Auto 1500 /uL (1100-4500); Lymphocytes Percent Auto 11.8 % (25-40); Mean Corpuscular HGB Conc 31.2 % (30-36); Mean Corpuscular Hemoglobin 27.8 PG (26-34); Mean Corpuscular Volume 89.2 fL (80-100); Monocytes Absolute Auto 1400 /uL (0-900); Neutrophils Absolute Auto 9500 /uL (1500-7000); Neutrophils Percent Auto 73.7 % (50-75); Platelet Count 216 X10^3/uL (150-400); Red Blood Cell Count 3.21 X10^6/uL (4.0-5.2); Red Cell Distribution Width 14.8 % (11.6-14.8); White Blood Cell Count 12.8 X10^3/uL (4.5-11.0)
[2021-06-17 05:38] LABS: INR 1.1 (0.9-1.3); Prothrombin Time 12.3 SECONDS (10.1-12.7)
[2021-06-17 05:47] LABS: BUN Creatinine Ratio 13.4 (6-22); Blood Urea Nitrogen 11 mg/dL (7-17); Calcium 8.8 mg/dL (8.4-10.2); Chloride 94 mmol/L (98-107); Estimated Glomerular Filt Rate > 60.0 mL/min (>60); Glucose 117 mg/dL (80-110); HEMOLYSIS < 15 (0-50); Potassium 3.2 mmol/L (3.4-5.1); Sodium 142 mmol/L (137-145)
[2021-06-17 06:15] LABS: Carbon Dioxide 40 mmol/L (22-32)
[2021-06-17 08:20] VITALS: BP 130/56; PULSE 97; RESP 20; TEMP 36.9; O2SAT 96
--- NOTE | 2021-06-17 08:43 | PM.DS.1 ---
History of Present Illness History of Present Illness Chief complaint: SOB Narrative: Fermín Mallory: Ms. Colleen Ayala is a 73-year-old home oxygen dependent female with a history significant for atrial fibrillation on Xarelto, COPD on home oxygen, anxiety and depression, GERD and glaucoma presented to the ED with a 3-day history of increasing shortness of breath. She normally uses oxygen 1.5 liters at night, but has been having to use it all day as well. She does endorse having a subjective fever, productive cough w/green sputem, dizzy and feeling faint. She has not been sleeping due to not being able to breathe.? She does endorse right leg swelling on and off for the past few weeks. Denies nausea or vomiting, chest pain, abdominal pain, dysuria, diarrhea or constipation. She states a number of allergies to antibiotics and states when she has been treated for pneumonia in the past, they have prescibed penicillin and steroids for her. She is a bit vague as to her reactions to ceftriaxone and clarithromycin, and she developed itching in the ED when she was administered Levaquin and this was discontinued.? Chest x-ray ordered in the ED indicated patchy bilateral interstitial and airspace opacities, possibly infectious or pulmonary edema. Patient's current temperature is 98.8?, blood pressure 113/58, heart rate 99, respiratory rate 35, 96% on room air, she weighs 98.2 kg with a BMI of 42.3.? She is afebrile, blood pressure 113/58, heart rate 99, respiratory rate 35, oxygen saturation of 96% on room air she weighs 98.2 kg with a BMI of 42.3.? Her WBC is 21.5 RBC 3.55 hemoglobin 10 hematocrit 31.4 neutrophil significant left shift of 79,500, sodium 138, point potassium 4.1, chloride 95, bicarb 39, BUN 14, creatinine 1.0 with an EGFR 53.8, glucose 142, lactate is normal, liver enzymes are within normal limits, she has a proBNP of 4100, troponin negative procalcitonin is 0.11, TSH is 0.839 with a free T4 1.12 both normal, UA is negative for UTI and COVID-19 PCR is negative. Discharge Providers Provider Date of admission: 06/14/21 19:41 Discharge Date: 06/17/21 Primary care physician: Maryuri Child MD Consults: 06/15/21 17:37 Consult to Pharmacy Routine Comment: Initiate Warfarin with INR goal of 2-3 Discharge provider: Law Humphreys MD Summary Hospital Course Discharge Diagnosis: 1. Acute CHF exacerbation, preserved EF 2. Severe mitral stenosis 3. History of atrial fibrillation 4. Pneumonia 5. Positive blood culture, probable contaminant 6. Hypertension 7. Morbid obesity 8. Anemia 9. Chronic respiratory failure on home O2 Hospital Course: Ms. Ayala was admitted with shortness of breath. She was found to have an acute CHF exacerbation and probable pneumonia. She improved with antibioticsx and diuresis. In workup she was found to have significant mitral stenosis, she was started on beta-blockers to reduce her heart rate. She likely had valvular afib and because of this was switched from xarelto to coumadin. She was noted to have a positive blood culture on initial draw with staph and strep growing, and was one antibiotics for one day. However blood culture draw from later in the day and the following day were negative and the initial blood culture was likely contaminated and antibiotics were stopped. She was recommended to follow closely with cardiology for CHF and mitral stenosis. She should follow closely with her PCP in 2-3 days to check and INR. Discharge time 35 minutes Exam Vital Signs (past 8 hours): Fraction of Inspired Oxygen 28 Oxygen Delivery Method Room Air Oxygen Flow Rate 2 Narrative Exam Narrative: GEN: alert and oriented CV regular rate and rhythm without murmur PULM: Diminished breath sounds bilaterally EXT: No ankle edema Objective Labs Result Diagrams: 06/17/21 05:15 06/17/21 05:15 Labs: Laboratory Results - last 24 hr 06/17/21 06/17/21 06/17/21 05:15 05:15 05:15 WBC 12.8 H RBC 3.21 L Hgb 8.9 L Hct 28.6 L MCV 89.2 MCH 27.8 MCHC 31.2 RDW 14.8 Plt Count 216 Neut % (Auto) 73.7 Lymph % (Auto) 11.8 L [place] % (Auto) 11.0 Eos % (Auto) 2.9 Baso % (Auto) 0.6 Neut # (Auto) 9500 H Lymph # (Auto) 1500 [place] # (Auto) 1400 H Eos # (Auto) 400 Baso # (Auto) 100 PT 12.3 INR 1.1 Sodium 142 Potassium 3.2 L Chloride 94 L Carbon Dioxide 40 H* BUN 11 Creatinine 0.82 Estimated GFR > 60.0 BUN/Creatinine Ratio 13.4 Glucose 117 H Calcium 8.8 Magnesium 2.0 PFSH Medical History (Updated 06/15/21 @ 17:38 by Finesse Aparicio MD) Chronic kidney disease, stage III (moderate) COPD (chronic obstructive pulmonary disease) Depression Glaucoma Lung nodule Morbid obesity with BMI of 40.0-44.9, adult Osteoarthritis Paroxysmal atrial fibrillation Severe mitral valve stenosis Surgical History H/O foot surgery H/O neck surgery H/O rotator cuff surgery History of hysterectomy Hx of cataract surgery Knee joint replacement by other means S/P laparoscopic sleeve gastrectomy Status post cholecystectomy Family History Father Alcoholic Mother Arthritis Renal failure Cancer Brother Alcoholic Social History household members: spouse Smoking Status: Former smoker alcohol intake: former Discharge Plan Discharge Plan Patient Disposition: Home Provider Discharge Comment: Ms. Ayala came in with shortness of breath. She was found to have significant mitral valve stenosis. She was switched to warfarin for her blood thinner as this is better for mitral stenosis. She was given an antibiotic for concern for pneumonia and had medication given in the hospital to remove fluid. She felt improved and wanted to go home. She should limit salt in her food, and she should avoid drinking significant amounts of liquids. She should follow up with her PCP within a few days and check her coumadin level. Discharge orders & Medications Prescriptions: New metoprolol succinate 50 mg Tablet Extended Release 24 Hr 50 mg PO BID Qty: 60 0RF warfarin 5 mg Tablet 4 mg PO DAILY@1700 Qty: 30 0RF amoxicillin-pot clavulanate 875-125 mg tablet 1 tab PO BID Qty: 14 0RF Continued ondansetron 8 mg tablet,disintegrating 8 mg PO Q8H PRN (Reason: nausea and vomiting) Qty: 7 0RF ascorbic acid (vitamin C) [Vitamin C] 1,000 mg Tablet 500 mg PO DAILY 0RF torsemide 20 mg Tablet 20 mg PO BID 0RF brinzolamide [Azopt] 1 % Drops,Suspension 1 % OPHTHALMIC (EYE) DAILY 0RF omeprazole 40 mg Capsule,Delayed Release(Dr/Ec) 40 mg PO DAILY 0RF tramadol 50 mg Tablet 50 mg PO Q4H PRN (Reason: Pain (Scale Score 1-3)) 0RF alprazolam 0.5 mg Tablet 0.5 mg PO DAILY 0RF estradiol 1 mg Tablet 1 mg PO DAILY 0RF trazodone 100 mg Tablet 100 mg PO BEDTIME PRN (Reason: Sleep) 0RF ferrous sulfate 325 mg (65 mg iron) Tablet 325 mg PO DAILY 0RF ranitidine HCl 300 mg Capsule 300 mg PO BEDTIME 0RF flecainide 50 mg Tablet 50 mg PO Q12H 0RF Rx Instructions: 1/2 tab am and 1 tab pm albuterol sulfate [ProAir HFA] 90 mcg/actuation Hfa Aerosol Inhaler 2 puff INHALATION BID 0RF dicyclomine 10 mg Capsule 10 mg PO DAILY 0RF multivitamin Tablet,Chewable 2 tab PO DAILY 0RF duloxetine [Cymbalta] 60 mg Capsule,Delayed Release(Dr/Ec) 60 mg PO BID 0RF ipratropium bromide 17 mcg/actuation Hfa Aerosol Inhaler 2 puff INHALATION QID 0RF cholecalciferol (vitamin D3) [Vitamin D3] 2,000 unit Tablet 2,000 unit PO DAILY 0RF cholecalciferol (vitamin D3) [Vitamin D3] 1,000 unit Tablet,Chewable 1,000 unit PO DAILY 0RF Lumigan 0.01 % Drops 1 % OPHTHALMIC (EYE) DAILY 0RF Florajen3 460 mg (7.5-6- 1.5 bill. cell) Capsule 1 cap PO DAILY 0RF magnesium oxide 400 mg magnesium Capsule 400 mg PO DAILY 0RF Anoro Ellipta 62.5-25 mcg/actuation Blister With Device 1 inh INHALATION DAILY 0RF Cequa 0.09 % Dropperette 1 % OPHTHALMIC (EYE) BID 0RF Cranberry W/D Mannose 1 cap PO DAILY 0RF (DME) Home Oxygen 0RF acetaminophen 325 mg Tablet 650 mg PO Q6HR PRN (Reason: Fever/Mild Pain (1-3)) Qty: 30 0RF fluconazole 150 mg tablet 150 mg PO ONCE Qty: 1 0RF Rx Instructions: as a single dose Discontinued Xarelto 20 mg Tablet 20 mg PO DAILY 0RF Follow up/Referrals: Maryuri Child MD [Primary Care Provider] - Diet/Activity/Treatments Diet: Low-sodium Diet comment: 2L fluid restriction Visit Report/Discharge Packet Instructions: DI for Heart Failure, DI for Pneumonia -- Adult, DI for Warfarin Therapy Discharge Data Primary Care Provider: Maryuri Child Quality VTE Deep Vein Thrombosis/Pulmonary Embolism Present on Admission: No
[2021-06-17] MEDS: BUDESONIDE 0.5 MG/2 ML NEB INH (09:32)
[2021-06-17 09:33] VITALS: PULSE 95; RESP 18; O2SAT 97
[2021-06-17] MEDS: DULOXETINE 30 MG CAPSULE 60 MG PO (10:10)
[2021-06-17] MEDS: FLECAINIDE 100 MG TABLET 50 MG PO (10:11)
[2021-06-17] MEDS: POTASSIUM CHLORIDE 10 MEQ TAB PO (10:11)
[2021-06-17 11:41] VITALS: PULSE 94
[2021-06-17] MEDS: METOPROLOL ER 50 MG TABLET PO (11:41)
[2021-06-17] MEDS: POTASSIUM CHLORIDE 20 MEQ TAB 40 MEQ PO (11:41)
[2021-06-17] MEDS: CALCIUM CARBONATE 500 MG TAB PO (11:41)
[2021-06-17 12:00] VITALS: BP 138/60; PULSE 69; RESP 18; TEMP 37.1; O2SAT 98
--- NOTE | 2021-06-17 12:39 | PC.NURSE ---
PIV infiltrated with tenderness at site this morning. Unable to secure new PIV site. Dr. Humphreys notified, with request for need for midline or other secure access for antibiotics and lasix as currently ordered. Dr. Humphreys reports he will see patient, and he is unsure at this time for need for midline, will continue to follow.
[2021-06-17] MEDS: WARFARIN 5 MG TABLET PO (16:09)
--- NOTE | 2021-06-17 16:22 | PC.NURSE ---
Discharge instructions and home care handouts reviewed with patient, including warfarin/anticoagulation therapy instructions. Patient took her 1700 dose today at 1605 prior to leaving as she was no sure if she could get prescription for todays dose filled in time from pharmacy. 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 Escorted out via wheelchair with all her belongings to home with her .
== END 2021-06-17 16:15 | disposition home or self-care (01) | DRG 291 ==
LOC: ED 19:37 → AC 06-15 12:55
PROVIDERS: Family Medicine; Internal Medicine; Admitting Provider Nurse Practitioner Family; Emergency Provider Emergency Medicine; PCP Family Medicine; Visit Provider Nurse Practitioner Family
DX: I13.0 Hypertensive heart and chronic kidney disease with heart failure and stage 1 through stage 4 chronic kidney disease, or unspecified chronic kidney disease (principal); J18.9 Pneumonia, unspecified organism; I50.31 Acute diastolic (congestive) heart failure; Z68.41 Body mass index [BMI] 40.0-44.9, adult; J96.10 Chronic respiratory failure, unspecified whether with hypoxia or hypercapnia; D64.9 Anemia, unspecified; E66.01 Morbid (severe) obesity due to excess calories; N18.30 Chronic kidney disease, stage 3 unspecified; I05.0 Rheumatic mitral stenosis; I48.91 Unspecified atrial fibrillation; H40.9 Unspecified glaucoma; F41.9 Anxiety disorder, unspecified; J44.9 Chronic obstructive pulmonary disease, unspecified; F32.A Depression, unspecified; K21.9 Gastro-esophageal reflux disease without esophagitis; Z87.891 Personal history of nicotine dependence; Z79.01 Long term (current) use of anticoagulants; Z99.81 Dependence on supplemental oxygen; Z20.822 Contact with and (suspected) exposure to COVID-19
CPT/HCPCS: 36415; 71045; 80048; 80053; 80076; 81001; 82550; 82607; 83540; 83550; 83605; 83735; 83880; 84145; 84439; 84443; 84484; 85025; 85610; 87040; 87150; 87186; 87205; 87635; 93005; 93010; 93306; 94640; 94760; 94762; 96374; 99284; C9803; J1940; J1956; J7613

== ENCOUNTER 2021-11-26 03:46 | Emergency (ER) | payer MEDICARE, SELFPAY ==
[2021-06-14 22:28] VITALS: BMI 42.3
[2021-11-26 03:56] VITALS: BP 140/59; PULSE 104; RESP 17; TEMP 36.4; O2SAT 99; BMI 34.0
--- NOTE | 2021-11-26 04:01 | DI.CT.S_ITS ---
PROCEDURE: CT HEAD/BRAIN WO CON INDICATIONS: fall on thinners TECHNIQUE: Noncontrast 4.5 mm thick angled axial sections acquired from the foramen magnum to the vertex, with coronal and sagittal reformats. For radiation dose reduction, the following was used: automated exposure control, adjustment of mA and/or kV according to patient size. COMPARISON: [facility], CT, CT HEAD WITHOUT CONTRAST, 07/02/2021, 21:59. [facility], CT, CT HEAD WITHOUT CONTRAST, 08/24/2021, 14:18. FINDINGS: Image quality: Excellent. CSF spaces: Basal cisterns are patent. No extra-axial fluid collections. The ventricles are symmetric in size and shape. Brain: No intracranial bleeds or masses. There is cerebral volume loss for age, with resultant ventricular and sulcal prominence. There are periventricular and deep white matter chronic small vessel ischemic changes. There is intracranial internal carotid artery atherosclerosis. Skull and face: Calvarium and visualized facial bones appear intact, without suspicious lesions. Sinuses: Visualized sinuses and mastoids are clear. IMPRESSION: No acute intracranial abnormality. No significant change from preliminary report. Dictated by: Mike Eng M.D. on 11/26/2021 at 8:02 Approved by: Mike Eng M.D. on 11/26/2021 at 8:05
--- NOTE | 2021-11-26 04:21 | ED_ITS ---
HPI - Fall General Chief Complaint: Fall Stated Complaint: Glf - on thinners Time Seen by Provider: 11/26/21 03:58 Source: patient and EMS Mode of arrival: EMS History of Present Illness HPI Narrative: 76-year-old woman on Plavix and aspirin after a Watchman procedure for her atrial fibrillation, history of COPD with home oxygen mostly in the evenings and depression presents after a ground level fall where she hit her head. She states that somehow she fell sideways with the ER overhead landing on the side table. There is a loss of consciousness. She was unable to get off the floor and because her worsening medical issues he was not able to assist. She called 911 for assistance. She does note that she has not been able to get off the floor unassisted for an extended number of years this is not simply because of the fall. She does not describe any neck pain or pain in upper or lower lower extremities. She describes no significant recent fevers, cough, chills, abdominal pain, vomiting, diarrhea. She states that she has been in her usual health otherwise. Related Data Home Medications Medication Instructions Recorded Confirmed Cranberry W/D Mannose 1 cap PO DAILY 03/18/19 04/05/19 Home Oxygen 03/18/19 04/05/19 L.acidophilus-B.animalis-B.longum 1 cap PO DAILY 03/18/19 04/05/19 15 billion cell capsule (Florajen3) albuterol sulfate 90 mcg/actuation 2 puff inhalation BID 03/18/19 04/05/19 aerosol inhaler (ProAir HFA) alprazolam 0.5 mg tablet 0.5 mg PO DAILY 03/18/19 04/05/19 ascorbic acid (vitamin C) 1,000 mg 500 mg PO DAILY 03/18/19 04/05/19 tablet (Vitamin C) bimatoprost 0.01 % eye drops 1 % ophthalmic (eye) DAILY 03/18/19 04/05/19 (Lumigan) brinzolamide 1 % eye 1 % ophthalmic (eye) DAILY 03/18/19 04/05/19 drops,suspension (Azopt) cholecalciferol (vitamin D3) 25 1,000 unit PO DAILY 03/18/19 04/05/19 mcg (1,000 unit) chewable tablet (Vitamin D3) cholecalciferol (vitamin D3) 50 2,000 unit PO DAILY 03/18/19 04/05/19 mcg (2,000 unit) tablet (Vitamin D3) cyclosporine 0.09 % eye drops in a 1 % ophthalmic (eye) BID 03/18/19 04/05/19 dropperette (Cequa) dicyclomine 10 mg capsule 10 mg PO DAILY 03/18/19 04/05/19 duloxetine 60 mg capsule,delayed 60 mg PO BID 03/18/19 04/05/19 release (Cymbalta) estradiol 1 mg tablet 1 mg PO DAILY 03/18/19 04/05/19 ferrous sulfate 325 mg (65 mg 325 mg PO DAILY 03/18/19 04/05/19 iron) tablet flecainide 50 mg tablet 50 mg PO Q12H 03/18/19 04/05/19 ipratropium bromide 17 2 puff inhalation QID 03/18/19 04/05/19 mcg/actuation HFA aerosol inhaler magnesium oxide 400 mg PO DAILY 03/18/19 04/05/19 multivitamin 2 tab PO DAILY 03/18/19 04/05/19 omeprazole 40 mg capsule,delayed 40 mg PO DAILY 03/18/19 04/05/19 release ranitidine HCl 300 mg capsule 300 mg PO BEDTIME 03/18/19 04/05/19 torsemide 20 mg tablet 20 mg PO BID 03/18/19 04/05/19 tramadol 50 mg tablet 50 mg PO Q4H PRN Pain (Scale Score 03/18/19 04/05/19 1-3) trazodone 100 mg tablet 100 mg PO BEDTIME PRN Sleep 03/18/19 04/05/19 umeclidinium 62.5 mcg-vilanterol 1 inh inhalation DAILY 03/18/19 04/05/19 25 mcg/actuation powdr for inhalation (Anoro Ellipta) Previous Rx's Medication Instructions Recorded acetaminophen 325 mg tablet 650 mg PO Q6HR PRN Fever/Mild Pain 03/21/19 (1-3) #30 tabs ondansetron 8 mg disintegrating 8 mg PO Q8H PRN nausea and 03/28/19 tablet vomiting #7 tabs amoxicillin 875 mg-potassium 1 tab PO BID #14 tabs 06/17/21 clavulanate 125 mg tablet fluconazole 150 mg tablet 150 mg PO ONCE #1 tab 06/17/21 metoprolol succinate 50 mg 50 mg PO BID #60 tabs 06/17/21 tablet,extended release 24 hr warfarin 5 mg tablet 4 mg PO DAILY@1700 #30 tabs 06/17/21 Allergies Allergy/AdvReac Type Severity Reaction Status Date / Time oxycodone Allergy Mild makes her Verified 06/14/21 16:34 'loopy' ceftriaxone Allergy Unknown Rash Verified 06/14/21 16:34 clarithromycin Allergy Unknown Rash Verified 06/14/21 16:34 Review of Systems Review of Systems Narrative: Remainder of complete review of systems is otherwise unremarkable except for that included in the HPI. Patient History Medical History Chronic kidney disease, stage III (moderate) COPD (chronic obstructive pulmonary disease) Depression Glaucoma Lung nodule Morbid obesity with BMI of 40.0-44.9, adult Osteoarthritis Paroxysmal atrial fibrillation Severe mitral valve stenosis Surgical History H/O foot surgery H/O neck surgery H/O rotator cuff surgery History of hysterectomy Hx of cataract surgery Knee joint replacement by other means S/P laparoscopic sleeve gastrectomy Status post cholecystectomy Family History Father Alcoholic Mother Arthritis Renal failure Cancer Brother Alcoholic Social History household members: spouse Smoking Status: Former smoker alcohol intake: former Smoking Status: Former smoker alcohol intake frequency: holidays/special occasions only Substance Use Type: does not use Exam Initial Vital Signs Initial Vital Signs: Vital Signs Temperature 97.5 F L 11/26/21 03:56 Pulse Rate 104 H 11/26/21 03:56 Respiratory Rate 17 11/26/21 03:56 Blood Pressure 140/59 L 11/26/21 03:56 Pulse Oximetry 99 11/26/21 03:56 Oxygen Delivery Method 11/26/21 03:56 Oxygen Flow Rate 2 11/26/21 03:56 General: Older-appearing woman in no acute distress. HEENT: Moist mucous membranes, normal sclera with reactive pupils, no eyes atr aumatic. There are no contusions abrasions or tenderness over the occiput where she states she hit the and table with her fall Neck: No midline cervical spine tenderness, supple Respiratory: Lungs are clear to auscultation, no wheezing no rales no rhonchi. Full and symmetrical air movement Cardiac: Regular rate and rhythm, 3/6 murmur Abdomen: Soft, nontender, good bowel tones, no flank pain Skin: Warm and dry, no rashes. Minor bruise developing over the dorsum of her right hand. There is no significant bruising over her head torso hips or legs. Neurologic: Grossly neurologically intact with no obvious asymmetries or abnormalities Extremities: No trauma, well perfused Psych: Cooperative, some minor word-finding difficulties and speech fluency abnormalities with mildly tangential speech Course Orders Ordered: ED Orders 11/26/21 04:01 CT head/brain wo con Stat Vital Signs Vital signs: Vital Signs - 8 hr 11/26/21 03:56 Temperature 97.5 F L Pulse Rate 104 H Respiratory Rate 17 Blood Pressure 140/59 L Pulse Oximetry 99 Oxygen Delivery Method Nasal Cannula Oxygen Flow Rate 2 MDM - Fall Imaging Data CT scan - head: Radiologist's Impression: No acute intracranial abnormality Janel Rowland MD [facility] Narrative Medical decision making narrative: 76-year-old woman with ground level fall currently on Plavix and aspirin states that she hit her head. She has no significant trauma to palpation or observation. She is not complaining of any significant pain. I believe her cognitive status is at its baseline. She is able to stand with assistance and again seems to be at her baseline. There is no evidence of intracranial hemorrhage, significant cervical spine thoracic or abdominal trauma. No musculoskeletal injuries to the upper lower extremities. Reassurance is given and she is felt to be safe for home discharge Discharge Plan Departure Patient Disposition: Home Clinical Impression: Fall, Contusion of head Instructions: How to Prevent Falls Activity Restrictions/Additional Instructions: Thank you for coming in today I am sorry that you fell while getting out of bed however it does appear that you did not significantly injure yourself. The CT scan of your brain was quite reassuring, there was no bleeding on the inside. Your physical exam is equally reassuring and there does not appear to be any significant bony injuries. You got sean today and did not seem to injure yourself dramatically. Please make sure that you are very careful to prevent future falls I wish you the best Prescriptions: No Action ondansetron 8 mg tablet,disintegrating 8 mg PO Q8H PRN (Reason: nausea and vomiting) Qty: 7 0RF ascorbic acid (vitamin C) [Vitamin C] 1,000 mg Tablet 500 mg PO DAILY torsemide 20 mg Tablet 20 mg PO BID brinzolamide [Azopt] 1 % Drops,Suspension 1 % OPHTHALMIC (EYE) DAILY omeprazole 40 mg Capsule,Delayed Release(Dr/Ec) 40 mg PO DAILY tramadol 50 mg Tablet 50 mg PO Q4H PRN (Reason: Pain (Scale Score 1-3)) alprazolam 0.5 mg Tablet 0.5 mg PO DAILY estradiol 1 mg Tablet 1 mg PO DAILY trazodone 100 mg Tablet 100 mg PO BEDTIME PRN (Reason: Sleep) ferrous sulfate 325 mg (65 mg iron) Tablet 325 mg PO DAILY ranitidine HCl 300 mg Capsule 300 mg PO BEDTIME flecainide 50 mg Tablet 50 mg PO Q12H Rx Instructions: 1/2 tab am and 1 tab pm albuterol sulfate [ProAir HFA] 90 mcg/actuation Hfa Aerosol Inhaler 2 puff INHALATION BID dicyclomine 10 mg Capsule 10 mg PO DAILY multivitamin Tablet,Chewable 2 tab PO DAILY duloxetine [Cymbalta] 60 mg Capsule,Delayed Release(Dr/Ec) 60 mg PO BID ipratropium bromide 17 mcg/actuation Hfa Aerosol Inhaler 2 puff INHALATION QID cholecalciferol (vitamin D3) [Vitamin D3] 2,000 unit Tablet 2,000 unit PO DAILY cholecalciferol (vitamin D3) [Vitamin D3] 1,000 unit Tablet,Chewable 1,000 unit PO DAILY Lumigan 0.01 % Drops 1 % OPHTHALMIC (EYE) DAILY Florajen3 460 mg (7.5-6- 1.5 bill. cell) Capsule 1 cap PO DAILY magnesium oxide 400 mg magnesium Capsule 400 mg PO DAILY Anoro Ellipta 62.5-25 mcg/actuation Blister With Device 1 inh INHALATION DAILY Cequa 0.09 % Dropperette 1 % OPHTHALMIC (EYE) BID Cranberry W/D Mannose 1 cap PO DAILY (DME) Home Oxygen acetaminophen 325 mg Tablet 650 mg PO Q6HR PRN (Reason: Fever/Mild Pain (1-3)) Qty: 30 0RF metoprolol succinate 50 mg Tablet Extended Release 24 Hr 50 mg PO BID Qty: 60 0RF warfarin 5 mg Tablet 4 mg PO DAILY@1700 Qty: 30 0RF amoxicillin-pot clavulanate 875-125 mg tablet 1 tab PO BID Qty: 14 0RF fluconazole 150 mg tablet 150 mg PO ONCE Qty: 1 0RF Rx Instructions: as a single dose Referrals: Maryuri Child MD [Primary Care Provider] -
[2021-11-26 04:43] VITALS: PULSE 95; RESP 21; O2SAT 100
[2021-11-26 05:00] VITALS: PULSE 92; RESP 23; O2SAT 100
[2021-11-26 05:01] VITALS: BP 152/71; PULSE 91; RESP 17; O2SAT 100
== END 2021-11-26 05:40 | disposition home or self-care (01) ==
PROVIDERS: Emergency Provider Emergency Medicine; PCP Family Medicine
DX: S00.93XA Contusion of unspecified part of head, initial encounter (principal); W19.XXXA Unspecified fall, initial encounter; Z79.01 Long term (current) use of anticoagulants
CPT/HCPCS: 70450; 99284

== ENCOUNTER 2022-04-16 09:17 | Inpatient (IN) | payer MEDICARE, SELFPAY ==
[2021-06-14 22:28] VITALS: BMI 42.3
[2022-04-16] VITALS (27 sets, daily range): BP systolic 71–135; BP diastolic 41–60; PULSE 92–122; RESP 18–22; TEMP 35.9–37.6; O2SAT 92–99; BMI 32.0
--- NOTE | 2022-04-16 09:24 | DI.RAD.S_ITS ---
PROCEDURE: XR HIP W PEL IF DONE LT 2V INDICATIONS: Left hip pain after fall TECHNIQUE: AP pelvis with lateral view(s) of the left hip(s). COMPARISON: [facility], CT, CT ABDOMEN PELVIS WITH CONTRAST, 07/02/2021, 21:59. FINDINGS: Bones: Left femoral neck fracture. No dislocations. Pelvic ring appears intact. No suspicious bony lesions. Lumbar spine pedicle screw fixation. Soft tissues: The visualized bowel gas pattern is normal. No suspicious soft tissue calcifications. IMPRESSION: Left femoral neck fracture. Dictated by: Lyndon Koehler M.D. on 04/16/2022 at 10:04 Approved by: Lyndon Koehler M.D. on 04/16/2022 at 10:05
--- NOTE | 2022-04-16 09:25 | DI.CT.S_ITS ---
PROCEDURE: CT HEAD/BRAIN WO CON INDICATIONS: Fall on blood thinners TECHNIQUE: Noncontrast 4.5 mm thick angled axial sections acquired from the foramen magnum to the vertex, with coronal and sagittal reformats. For radiation dose reduction, the following was used: automated exposure control, adjustment of mA and/or kV according to patient size. COMPARISON: [facility], CT, CT HEAD/BRAIN WO CON, 11/26/2021, 4:19. FINDINGS: Image quality: Excellent. CSF spaces: Basal cisterns are patent. No extra-axial fluid collections. The ventricles are symmetric in size and shape. Brain: No intracranial bleeds or masses. There is cerebral volume loss for age, with resultant ventricular and sulcal prominence. There are periventricular and deep white matter chronic small vessel ischemic changes. There is intracranial internal carotid artery atherosclerosis. Skull and face: Calvarium and visualized facial bones appear intact, without suspicious lesions. Sinuses: Visualized sinuses and mastoids are clear. IMPRESSION: No acute intracranial abnormality. Dictated by: Kate Baker M.D. on 04/16/2022 at 9:56 Approved by: Kate Baker M.D. on 04/16/2022 at 9:57
--- NOTE | 2022-04-16 09:26 | ED.GENADULT ---
HPI - General Adult General Chief complaint: Fall Stated complaint: GLF,L hip fracture,on thinners,mod trauma Time Seen by Provider: 04/16/22 09:24 Source: patient, family and EMS Mode of arrival: EMS Limitations: no limitations History of Present Illness HPI narrative: Patient is a 76-year-old female. Has reported to be on anticoagulation secondary to atrial fibrillation. Also has a history of COPD. Is on home oxygen. States she was getting up this morning to go to the bathroom. States she felt weak in her knees and fell to the side landing on her left hip. Has had left hip pain since then. Is shortened and internally rotated per EMS. She received 200 mcg of fentanyl by EMS prior to arrival. She does not think she hit her head but she is not sure. She reports no other injuries from the event. Prior to the fall did not have chest pain, shortness of breath, lightheadedness, dizziness or other associated symptoms. Related Data Home Medications Medication Instructions Recorded Confirmed Cranberry W/D Mann[place] 1 cap PO DAILY 03/18/19 04/16/22 Home Oxygen 03/18/19 04/05/19 albuterol sulfate 90 mcg/actuation 2 puff inhalation BID 03/18/19 04/16/22 aerosol inhaler (ProAir HFA) ascorbic acid (vitamin C) 1,000 mg 500 mg PO DAILY 03/18/19 04/16/22 tablet (Vitamin C) bimatoprost 0.01 % eye drops 1 drp ophthalmic (eye) QPM 03/18/19 04/16/22 (Lumigan) brinzolamide 1 % eye 1 drp ophthalmic (eye) DAILY 03/18/19 04/16/22 drops,suspension (Azopt) cholecalciferol (vitamin D3) 50 2,000 unit PO DAILY 03/18/19 04/16/22 mcg (2,000 unit) tablet (Vitamin D3) dicyclomine 10 mg capsule 10 mg PO TID 03/18/19 04/16/22 duloxetine 60 mg capsule,delayed 30 mg PO QPM 03/18/19 04/16/22 release (Cymbalta) estradiol 1 mg tablet 2 mg PO DAILY 03/18/19 04/16/22 ferrous sulfate 325 mg (65 mg 325 mg PO DAILY 03/18/19 04/16/22 iron) tablet flecainide 50 mg tablet 25 mg PO BID 03/18/19 04/16/22 magnesium oxide 400 mg PO DAILY 03/18/19 04/16/22 multivitamin 2 tab PO DAILY 03/18/19 04/16/22 omeprazole 40 mg capsule,delayed 40 mg PO DAILY 03/18/19 04/16/22 release tramadol 50 mg tablet 50 mg PO Q4H PRN Pain (Scale Score 03/18/19 04/16/22 1-3) umeclidinium 62.5 mcg-vilanterol 1 inh inhalation DAILY 03/18/19 04/16/22 25 mcg/actuation powdr for inhalation (Anoro Ellipta) aspirin 81 mg tablet 81 mg PO DAILY 04/16/22 04/16/22 buspirone 10 mg tablet 10 mg PO TID 04/16/22 04/16/22 clopidogrel 75 mg tablet 75 mg PO DAILY 04/16/22 04/16/22 diazepam 5 mg tablet 2.5 mg PO BID PRN Anxiety 04/16/22 04/16/22 ipratropium bromide 17 2 puff inhalation DAILY PRN 04/16/22 04/16/22 mcg/actuation HFA aerosol inhaler breathing (Atrovent HFA) potassium chloride 10 mEq 10 meq PO DAILY 04/16/22 04/16/22 capsule,extended release torsemide 40 mg tablet 40 mg PO QPM 04/16/22 04/16/22 trazodone 50 mg tablet 50 mg PO BEDTIME 04/16/22 04/16/22 ursodiol 500 mg tablet 1,000 mg PO QPM 04/16/22 04/16/22 Previous Rx's Medication Instructions Recorded warfarin 5 mg tablet 4 mg PO DAILY@1700 #30 tabs 06/17/21 Allergies Allergy/AdvReac Type Severity Reaction Status Date / Time oxycodone Allergy Mild makes her Verified 06/14/21 16:34 'loopy' ceftriaxone Allergy Unknown Rash Verified 06/14/21 16:34 clarithromycin Allergy Unknown Rash Verified 06/14/21 16:34 Review of Systems Constitutional Constitutional: Reports system reviewed and no additional complaints, except as documented Cardiovascular Cardiovascular: Reports system reviewed and no additional complaints, except as documented Respiratory Respiratory: Reports system reviewed and no additional complaints, except as documented Gastrointestinal Gastrointestinal: Reports system reviewed and no additional complaints, except as documented Musculoskeletal Musculoskeletal: Reports system reviewed and no additional complaints, except as documented Integumentary/Breasts Skin/Breast: Reports system reviewed and no additional complaints, except as documented Neurologic Neurologic: Reports system reviewed and no additional complaints, except as documented Hematologic/Lymphatic On Anticoagulants: Yes Allergic/Immunologic Allergic/Immunologic: Reports system reviewed and no additional complaints, except as documented Patient History Medical History Chronic kidney disease, stage III (moderate) COPD (chronic obstructive pulmonary disease) Depression Glaucoma Lung nodule Morbid obesity with BMI of 40.0-44.9, adult Osteoarthritis Paroxysmal atrial fibrillation Severe mitral valve stenosis Surgical History H/O foot surgery H/O neck surgery H/O rotator cuff surgery History of hysterectomy Hx of cataract surgery Knee joint replacement by other means S/P laparoscopic sleeve gastrectomy Status post cholecystectomy Family History Father Alcoholic Mother Arthritis Renal failure Cancer Brother Alcoholic Social History household members: spouse Smoking Status: Former smoker alcohol intake: former Smoking Status: Former smoker alcohol intake frequency: holidays/special occasions only Substance Use Type: does not use Exam Initial Vital Signs Initial Vital Signs: Vital Signs Temperature 98.7 F 04/16/22 09:26 Pulse Rate 119 H 04/16/22 09:26 Respiratory Rate 20 04/16/22 09:26 Blood Pressure 85/56 L 04/16/22 09:26 Pulse Oximetry 94 04/16/22 09:26 Oxygen Delivery Method 04/16/22 09:26 Oxygen Flow Rate 4 04/16/22 09:26 Const General: cooperative, comfortable and No ill appearing HENMT Head: normal to inspection and normocephalic Chest Chest: normal inspection of the chest Resp Effort & Inspection: normal respiratory effort Auscultation: clear to auscultation bilaterally Cardio Rate: regular rate Rhythm: regular rhythm GI Inspection: normal to inspection and non-distended Back/Spine/Pelvis Cervical Spine: No cervical spinal tenderness Neuro General: patient alert, patient awake, patient oriented x3 and moves all extremities Speech: speech normal Extrem Other: Bilateral upper extremities unremarkable. Has tenderness to the left hemipelvis with palpation and movement of the left leg. Her right lower extremity unremarkable. Psych Appearance: grossly normal and well kempt Scores GCS Alea coma scale eye opening: Spontaneous [place]a coma scale verbal response: Orientated [place] coma scale motor response: Obey commands [place] coma scale total score: 15 Nexus Score for C-Spine Focal Neurologic deficit present: No Midline spinal tenderness present: No Altered level of conciousness present: No Intoxication present: No Distracting Injury Present: No Nexus Criteria for C-spine: 0 Course Orders Ordered: ED Orders 04/16/22 09:24 XR hip w pel if done LT 2V Stat 04/16/22 09:25 CT head/brain wo con Stat RT Consult Eval and Treat Now 04/16/22 09:40 COVID19 -Nasal RAPID/Pre-Proc Stat 04/16/22 09:55 Basic Metabolic Panel Stat Complete Blood Count AUTO DIFF Stat Lipase Stat Partial Thromboplastin Time Stat Prothrombin Time INR Stat 04/16/22 10:54 Consult to Orthopedic Surgery Stat Acetaminophen (Acetaminophen 325 Mg Tablet) 650 mg PO Q6H PRN PRN Reason: Fever/Mild Pain (1-3) Albuterol/Ipratropium (Albuterol/Ipratropium 3 Ml Ampul) 3 ml INH RTQ4HR PRN PRN Reason: Shortness Of Breath Enoxaparin Sodium (Enoxaparin 40 Mg/0.4 Ml Syringe) 40 mg SUBCUT DAILY REBECCA Flecainide Acetate (Flecainide 100 Mg Tablet) 50 mg PO Q12H REBECCA Hydromorphone HCl (Hydromorphone 0.5 Mg Inj) 0.5 mg IV Q4H PRN PRN Reason: Pain, Moderate (4-6) Lactated Ringer's (Lactated Ringers) 1,000 mls @ 100 mls/hr IV CONT REBECCA Naloxone HCl (Naloxone 0.4 Mg/Ml Vial) 0.2 mg IV Q2MIN PRN PRN Reason: Opiate Reversal Ondansetron HCl (Ondansetron 4 Mg/2 Ml Inj) 4 mg IV Q8HR PRN PRN Reason: Nausea And Vomiting Oxycodone HCl (Oxycodone Ir 5 Mg Tablet) 5 mg PO Q3H PRN PRN Reason: Pain, Moderate (4-6) Discontinued Medications Sodium Chloride (Normal Saline 0.9%) 1,000 mls @ 125 mls/hr IV CONT REBECCA Last Admin: 04/16/22 10:00 Dose: 125 mls/hr Documented By: MADELINE Vital Signs Vital signs: Vital Signs - 8 hr 04/16/22 09:26 04/16/22 09:51 04/16/22 10:00 Temperature 98.7 F Pulse Rate 119 H 116 H Respiratory Rate 20 18 Blood Pressure 85/56 L 132/58 L Pulse Oximetry 94 98 Oxygen Delivery Method Nasal Cannula Oxygen Flow Rate 4 04/16/22 10:00 04/16/22 10:20 04/16/22 10:20 Temperature Pulse Rate 122 H 112 H Respiratory Rate Blood Pressure 95/56 L Pulse Oximetry 98 97 Oxygen Delivery Method Oxygen Flow Rate 04/16/22 10:30 04/16/22 10:31 04/16/22 10:31 Temperature Pulse Rate 112 H Respiratory Rate Blood Pressure 71/54 L Pulse Oximetry 98 99 Oxygen Delivery Method Oxygen Flow Rate 04/16/22 10:32 04/16/22 10:32 04/16/22 10:40 Temperature Pulse Rate 115 H Respiratory Rate Blood Pressure 74/50 L 78/50 L Pulse Oximetry 98 Oxygen Delivery Method Oxygen Flow Rate 04/16/22 10:40 04/16/22 10:50 04/16/22 10:50 Temperature Pulse Rate 115 H 112 H Respiratory Rate Blood Pressure 120/55 L Pulse Oximetry 98 98 Oxygen Delivery Method Oxygen Flow Rate 04/16/22 11:00 04/16/22 11:00 Temperature Pulse Rate 111 H Respiratory Rate Blood Pressure 116/56 L Pulse Oximetry 98 Oxygen Delivery Method Oxygen Flow Rate Medical Decision Making Differential Diagnosis Differential Diagnosis: Fracture, dislocation, intracranial hemorrhage and others Medical Records Medical records reviewed: Yes I reviewed the patient's medical records. Lab Data Lab results reviewed: Yes I reviewed the patient's lab results. Result diagrams: 04/16/22 09:55 04/16/22 09:55 Labs: Lab Results 04/16/22 04/16/22 04/16/22 Range/Units 09:40 09:55 09:55 WBC 16.6 H (4.5-11.0) X10^3/uL RBC 4.02 (4.0-5.2) X10^6/uL Hgb 10.7 L (12.0-16.0) g/dL Hct 34.2 L (36-46) % MCV 85.1 (80-100) fL MCH 26.5 (26-34) PG MCHC 31.1 (30-36) % RDW 17.0 H (11.6-14.8) % Plt Count 173 (150-400) X10^3/uL Neut % (Auto) 87.3 H (50-75) % Lymph % (Auto) 4.2 L (25-40) % [place] % (Auto) 7.2 (3-14) % Eos % (Auto) 0.9 L (2-4) % Baso % (Auto) 0.4 (0-2) % Neut # (Auto) 97550 H (5644-7399) /uL Lymph # (Auto) 700 L (8206-9762) /uL [place] # (Auto) 1200 H (0-900) /uL Eos # (Auto) 100 (0-450) /uL Baso # (Auto) 100 (0-100) /uL PT 11.7 (10.1-12.7) SECONDS INR 1.0 (0.9-1.3) APTT 28 (26-36) SECONDS Sodium (137-145) mmol/L Potassium (3.4-5.1) mmol/L Chloride (98-107) mmol/L Carbon Dioxide (22-32) mmol/L BUN (7-17) mg/dL Creatinine (0.52-1.04) mg/dL Estimated GFR (>60) mL/min BUN/Creatinine Ratio (6-22) Glucose (80-110) mg/dL Calcium (8.4-10.2) mg/dL Lipase (23-300) U/L SARS-CoV-2 (PCR) Negative (Negative) 04/16/22 Range/Units 09:55 WBC (4.5-11.0) X10^3/uL RBC (4.0-5.2) X10^6/uL Hgb (12.0-16.0) g/dL Hct (36-46) % MCV (80-100) fL MCH (26-34) PG MCHC (30-36) % RDW (11.6-14.8) % Plt Count (150-400) X10^3/uL Neut % (Auto) (50-75) % Lymph % (Auto) (25-40) % [place] % (Auto) (3-14) % Eos % (Auto) (2-4) % Baso % (Auto) (0-2) % Neut # (Auto) (9554-8485) /uL Lymph # (Auto) (8422-2773) /uL [place] # (Auto) (0-900) /uL Eos # (Auto) (0-450) /uL Baso # (Auto) (0-100) /uL PT (10.1-12.7) SECONDS INR (0.9-1.3) APTT (26-36) SECONDS Sodium 139 (137-145) mmol/L Potassium 3.2 L (3.4-5.1) mmol/L Chloride 95 L (98-107) mmol/L Carbon Dioxide 36 H (22-32) mmol/L BUN 12 (7-17) mg/dL Creatinine 1.01 (0.52-1.04) mg/dL Estimated GFR 57 L (>60) mL/min BUN/Creatinine Ratio 11.9 (6-22) Glucose 155 H (80-110) mg/dL Calcium 8.2 L (8.4-10.2) mg/dL Lipase 32 (23-300) U/L SARS-CoV-2 (PCR) (Negative) Imaging Data CT scan - head: Radiologist's Impression: [place] [address] CT Scan Report Signed Patient: Colleen Ayala MR#: [id number] : 1945 Acct:[id number] Age/Sex: 76 / F Date of Service: 04/16/22 Loc: ED Accession Number: [id number] ?? Procedure: CT head/brain wo con Ordering Provider: Baldomero Rouse D.O. PROCEDURE:? CT HEAD/BRAIN WO CON ? INDICATIONS:? Fall on blood thinners ? TECHNIQUE:? Noncontrast 4.5 mm thick angled axial sections acquired from the foramen magnum to the vertex, with coronal and sagittal reformats.? For radiation dose reduction, the following was used:? automated exposure control, adjustment of mA and/or kV according to patient size.? ? COMPARISON:? [facility], CT, CT HEAD/BRAIN WO CON, 11/26/2021, 4:19. ? FINDINGS:? Image quality:? Excellent.? ? CSF spaces:? Basal cisterns are patent.? No extra-axial fluid collections.? The ventricles are symmetric in size and shape.? ? Brain:? No intracranial bleeds or masses.? There is cerebral volume loss for age, with resultant ventricular and sulcal prominence.? There are periventricular and deep white matter chronic small vessel ischemic changes.? There is intracranial internal carotid artery atherosclerosis.? ? Skull and face:? Calvarium and visualized facial bones appear intact, without suspicious lesions.? ? Sinuses:? Visualized sinuses and mastoids are clear.? ? IMPRESSION:? No acute intracranial abnormality. ? ? Dictated by: Kate Baker M.D. on 04/16/2022 at 9:56 ? ? Approved by: Kate Baker M.D. on 04/16/2022 at 9:57 Extremity x-ray #1: Radiologist's Impression: [address] [address] XRay Report Signed Patient: Colleen Ayala MR#: [id number] : 1945 Acct:[id number] Age/Sex: 76 / F Date of Service: 04/16/22 Loc: ED Accession Number: [id number] ?? Procedure: XR hip w pel if done LT 2V Ordering Provider: Baldomero Rouse D.O. PROCEDURE:? XR HIP W PEL IF DONE LT 2V ? INDICATIONS:? Left hip pain after fall ? TECHNIQUE:? AP pelvis with lateral view(s) of the left hip(s).? ? COMPARISON:? [facility], CT, CT ABDOMEN PELVIS WITH CONTRAST, 07/02/2021, 21:59. ? FINDINGS:? ? Bones:? Left femoral neck fracture.? No dislocations.? Pelvic ring appears intact.? No suspicious bony lesions.? Lumbar spine pedicle screw fixation.? ? Soft tissues:? The visualized bowel gas pattern is normal.? No suspicious soft tissue calcifications.? ? ? IMPRESSION:? Left femoral neck fracture. ? Dictated by: Lyndon Koehler M.D. on 04/16/2022 at 10:04 ? ? Approved by: Lyndon Koehler M.D. on 04/16/2022 at 10:05?? MDM Narrative Medical decision making narrative: Her head CT is unremarkable. Upon further evaluation with the patient and who eventually arrived at bedside it appears that she is on Plavix and not on any other anticoagulation. She does have a left hip fracture. No other injuries found on the exam no reported by the patient. I did discuss the case with Dr. Godoy on-call for orthopedics who will see the patient upon admission. I then discussed the case with Dr. Bianchi on-call for hospitalist who will admit for further evaluation. Patient understands her injury in the need for admission. Discharge Plan Departure Patient Disposition: Admitted As Inpatient Clinical Impression: Fracture of femoral neck, Atrial fibrillation Admit Date/Time: 04/16/22 11:06 Admit Provider: Negro Bianchi
[2022-04-16] MEDS: SODIUM CHLORIDE 0.9% 1,000 ML 125 ML IV (10:00)
[2022-04-16 10:08] LABS: COVID19 -Nasal RAPID Negative (Negative)
[2022-04-16 10:10] LABS: Add Manual Diff / Slide Review NO; Basophils Absolute Auto 100 /uL (0-100); Basophils Percent Auto 0.4 % (0-2); Eosinophils Absolute Auto 100 /uL (0-450); Eosinophils Percent Auto 0.9 % (2-4); Hematocrit 34.2 % (36-46); Hemoglobin 10.7 g/dL (12.0-16.0); Lymphocytes Absolute Auto 700 /uL (1100-4500); Lymphocytes Percent Auto 4.2 % (25-40); Mean Corpuscular HGB Conc 31.1 % (30-36); Mean Corpuscular Hemoglobin 26.5 PG (26-34); Mean Corpuscular Volume 85.1 fL (80-100); Monocytes Absolute Auto 1200 /uL (0-900); Monocytes Percent Auto 7.2 % (3-14); Neutrophils Absolute Auto 14500 /uL (1500-7000); Neutrophils Percent Auto 87.3 % (50-75); Platelet Count 173 X10^3/uL (150-400); Red Blood Cell Count 4.02 X10^6/uL (4.0-5.2); White Blood Cell Count 16.6 X10^3/uL (4.5-11.0)
[2022-04-16 10:21] LABS: Prothrombin Time 11.7 SECONDS (10.1-12.7)
[2022-04-16 10:24] LABS: PTT Partial Thromboplastin Tim 28 SECONDS (26-36)
[2022-04-16 10:32] LABS: BUN Creatinine Ratio 11.9 (6-22); Blood Urea Nitrogen 12 mg/dL (7-17); Calcium 8.2 mg/dL (8.4-10.2); Carbon Dioxide 36 mmol/L (22-32); Chloride 95 mmol/L (98-107); Estimated Glomerular Filt Rate 57 mL/min (>60); Glucose 155 mg/dL (80-110); HEMOLYSIS < 15 (0-50); Lipase 32 U/L (23-300); Potassium 3.2 mmol/L (3.4-5.1); Sodium 139 mmol/L (137-145)
--- NOTE | 2022-04-16 12:24 | P.HP_ITS ---
History of Present Illness History of Present Illness Date Patient Seen: 04/16/22 Time Patient Seen: 12:00 Chief complaint: GLF,L hip fracture,on thinners,mod trauma Narrative: Ms. Ayala is a 76W with PMH CKD stage 3, COPD on 1.5L O2 at home, severe mitral stenosis, atrial fibrillation s/p watchmen device who presents to the hospital after a fall. This morning she was getting up to go to the bathroom and felt some weakness and buckling of her legs and fell and landed on her left hip. She had immediate left hip pain, and was unable to ambulate. She did not hit her head. Otherwise before this event she was feeling in her normal state of health. EMS arrived and noted she had shortened leg, she received fentanyl In the ED workup was done, vitals notable for afebrile, tachycardic in the 110s, blood pressure 80s/50s, sats in the 90s on 2L. Labs notable for WBC 16.6. hgb 10.7, plts 173, k 3.2, creatinine 1.01. INR 1.0. CT head with no acute process. Hip xray shows left femoral neck fracture. I did discuss her care with the ED physician, and did discuss with her at bedside who provided additional history. I reviewed her telemetry and noted heart rate in the 100s. She was given pain medications which were helpful, though wearing off when I saw her. She was admitted for further treatment. Patient History Medical History Chronic kidney disease, stage III (moderate) COPD (chronic obstructive pulmonary disease) Depression Glaucoma Lung nodule Morbid obesity with BMI of 40.0-44.9, adult Osteoarthritis Paroxysmal atrial fibrillation Severe mitral valve stenosis Surgical History H/O foot surgery H/O neck surgery H/O rotator cuff surgery History of hysterectomy Hx of cataract surgery Knee joint replacement by other means S/P laparoscopic sleeve gastrectomy Status post cholecystectomy Family & Social History Family History Father Alcoholic Mother Arthritis Renal failure Cancer Brother Alcoholic Social History: household members spouse Safety & Behavioral: Feels Safe in Current Yes Environment Been Physically Hurt or No Threatened By a Person Tobacco & Substance use: Smoking Status Former smoker alcohol intake former alcohol intake frequency holiday/special occasion Substance Use Type does not use Meds Home Medications and Allergies Home Medications Medication Instructions Recorded Confirmed Type Cranberry W/D Mannose 1 cap PO DAILY 03/18/19 04/05/19 History Home Oxygen 03/18/19 04/05/19 History L.acidophilus-B.animalis-B.longum 1 cap PO DAILY 03/18/19 04/05/19 History 15 billion cell capsule (Florajen3) albuterol sulfate 90 mcg/actuation 2 puff inhalation BID 03/18/19 04/05/19 History aerosol inhaler (ProAir HFA) alprazolam 0.5 mg tablet 0.5 mg PO DAILY 03/18/19 04/05/19 History ascorbic acid (vitamin C) 1,000 mg 500 mg PO DAILY 03/18/19 04/05/19 History tablet (Vitamin C) bimatoprost 0.01 % eye drops 1 % ophthalmic (eye) DAILY 03/18/19 04/05/19 History (Lumigan) brinzolamide 1 % eye 1 % ophthalmic (eye) DAILY 03/18/19 04/05/19 History drops,suspension (Azopt) cholecalciferol (vitamin D3) 25 1,000 unit PO DAILY 03/18/19 04/05/19 History mcg (1,000 unit) chewable tablet (Vitamin D3) cholecalciferol (vitamin D3) 50 2,000 unit PO DAILY 03/18/19 04/05/19 History mcg (2,000 unit) tablet (Vitamin D3) cyclosporine 0.09 % eye drops in a 1 % ophthalmic (eye) BID 03/18/19 04/05/19 History dropperette (Cequa) dicyclomine 10 mg capsule 10 mg PO DAILY 03/18/19 04/05/19 History duloxetine 60 mg capsule,delayed 60 mg PO BID 03/18/19 04/05/19 History release (Cymbalta) estradiol 1 mg tablet 1 mg PO DAILY 03/18/19 04/05/19 History ferrous sulfate 325 mg (65 mg 325 mg PO DAILY 03/18/19 04/05/19 History iron) tablet flecainide 50 mg tablet 50 mg PO Q12H 03/18/19 04/05/19 History ipratropium bromide 17 2 puff inhalation QID 03/18/19 04/05/19 History mcg/actuation HFA aerosol inhaler magnesium oxide 400 mg PO DAILY 03/18/19 04/05/19 History multivitamin 2 tab PO DAILY 03/18/19 04/05/19 History omeprazole 40 mg capsule,delayed 40 mg PO DAILY 03/18/19 04/05/19 History release ranitidine HCl 300 mg capsule 300 mg PO BEDTIME 03/18/19 04/05/19 History torsemide 20 mg tablet 20 mg PO BID 03/18/19 04/05/19 History tramadol 50 mg tablet 50 mg PO Q4H PRN Pain (Scale Score 03/18/19 04/05/19 History 1-3) trazodone 100 mg tablet 100 mg PO BEDTIME PRN Sleep 03/18/19 04/05/19 History umeclidinium 62.5 mcg-vilanterol 1 inh inhalation DAILY 03/18/19 04/05/19 History 25 mcg/actuation powdr for inhalation (Anoro Ellipta) acetaminophen 325 mg tablet 650 mg PO Q6HR PRN Fever/Mild Pain 03/21/19 04/05/19 Rx (1-3) #30 tabs ondansetron 8 mg disintegrating 8 mg PO Q8H PRN nausea and 03/28/19 04/05/19 Rx tablet vomiting #7 tabs amoxicillin 875 mg-potassium 1 tab PO BID #14 tabs 06/17/21 Rx clavulanate 125 mg tablet fluconazole 150 mg tablet 150 mg PO ONCE #1 tab 06/17/21 Rx metoprolol succinate 50 mg 50 mg PO BID #60 tabs 06/17/21 Rx tablet,extended release 24 hr warfarin 5 mg tablet 4 mg PO DAILY@1700 #30 tabs 06/17/21 Rx aspirin 81 mg tablet 81 mg PO DAILY 04/16/22 04/16/22 History buspirone 10 mg tablet 10 mg PO TID 04/16/22 04/16/22 History clopidogrel 75 mg tablet 75 mg PO DAILY 04/16/22 04/16/22 History potassium chloride 10 mEq 10 meq PO DAILY 04/16/22 04/16/22 History capsule,extended release Allergies Allergy/AdvReac Type Severity Reaction Status Date / Time oxycodone Allergy Mild makes her Verified 06/14/21 16:34 'loopy' ceftriaxone Allergy Unknown Rash Verified 06/14/21 16:34 clarithromycin Allergy Unknown Rash Verified 06/14/21 16:34 Review of Systems Review of Systems Narrative: 14 systems reviewed and negative aside from what is noted in HPI Exam Vital Signs (past 8 hours): - 04/16/22 09:26 04/16/22 09:51 04/16/22 10:00 Temperature 98.7 F Pulse Rate 119 H 116 H Respiratory Rate 20 18 Blood Pressure 85/56 L 132/58 L Pulse Oximetry 94 98 Oxygen Delivery Method Nasal Cannula Oxygen Flow Rate 4 04/16/22 10:00 04/16/22 10:20 04/16/22 10:20 Temperature Pulse Rate 122 H 112 H Respiratory Rate Blood Pressure 95/56 L Pulse Oximetry 98 97 Oxygen Delivery Method Oxygen Flow Rate 04/16/22 10:30 04/16/22 10:31 04/16/22 10:31 Temperature Pulse Rate 112 H Respiratory Rate Blood Pressure 71/54 L Pulse Oximetry 98 99 Oxygen Delivery Method Oxygen Flow Rate 04/16/22 10:32 04/16/22 10:32 04/16/22 10:40 Temperature Pulse Rate 115 H Respiratory Rate Blood Pressure 74/50 L 78/50 L Pulse Oximetry 98 Oxygen Delivery Method Oxygen Flow Rate 04/16/22 10:40 04/16/22 10:50 04/16/22 10:50 Temperature Pulse Rate 115 H 112 H Respiratory Rate Blood Pressure 120/55 L Pulse Oximetry 98 98 Oxygen Delivery Method Oxygen Flow Rate 04/16/22 11:00 04/16/22 11:00 04/16/22 11:10 Temperature Pulse Rate 111 H Respiratory Rate Blood Pressure 116/56 L 117/57 L Pulse Oximetry 98 Oxygen Delivery Method Oxygen Flow Rate 04/16/22 11:10 04/16/22 11:20 04/16/22 11:20 Temperature Pulse Rate 118 H 116 H Respiratory Rate Blood Pressure 112/54 L Pulse Oximetry 98 98 Oxygen Delivery Method Oxygen Flow Rate 04/16/22 11:30 04/16/22 11:31 04/16/22 11:31 Temperature Pulse Rate 114 H 113 H Respiratory Rate Blood Pressure 120/57 L Pulse Oximetry 98 99 Oxygen Delivery Method Oxygen Flow Rate 04/16/22 11:40 04/16/22 11:40 04/16/22 11:50 Temperature Pulse Rate 110 H Respiratory Rate Blood Pressure 119/59 L 106/54 L Pulse Oximetry 98 Oxygen Delivery Method Oxygen Flow Rate 04/16/22 11:50 04/16/22 12:00 04/16/22 12:00 Temperature Pulse Rate 108 H 106 H Respiratory Rate Blood Pressure 110/55 L Pulse Oximetry 97 96 Oxygen Delivery Method Oxygen Flow Rate 04/16/22 12:10 04/16/22 12:10 Temperature Pulse Rate 106 H Respiratory Rate Blood Pressure 108/53 L Pulse Oximetry 95 Oxygen Delivery Method Oxygen Flow Rate Oxygen Delivery Method Nasal Cannula Oxygen Flow Rate 4 Narrative Exam Narrative: GEN: in discomfort from pain HEENT: moist mucous membranes, PERRL NECK: trachea midline, no JVD PULM: clear bilaterally, no wheezes, rhonchi, rales CV: irregular tachycardic, no murmurs ABD: soft, nontender, nondistended, no organomegaly EXT: warm and well perfused, left hip tender to palpation SKIN: scattered bruises on extremities NEURO: awake, alert, no focal deficits noted Objective Labs Result Diagrams: 04/16/22 09:55 04/16/22 09:55 Labs: Laboratory Results - last 24 hr 04/16/22 04/16/22 04/16/22 09:40 09:55 09:55 WBC 16.6 H RBC 4.02 Hgb 10.7 L Hct 34.2 L MCV 85.1 MCH 26.5 MCHC 31.1 RDW 17.0 H Plt Count 173 Neut % (Auto) 87.3 H Lymph % (Auto) 4.2 L [place] % (Auto) 7.2 Eos % (Auto) 0.9 L Baso % (Auto) 0.4 Neut # (Auto) 87308 H Lymph # (Auto) 700 L [place] # (Auto) 1200 H Eos # (Auto) 100 Baso # (Auto) 100 PT 11.7 INR 1.0 APTT 28 Sodium Potassium Chloride Carbon Dioxide BUN Creatinine Estimated GFR BUN/Creatinine Ratio Glucose Calcium Lipase SARS-CoV-2 (PCR) Negative 04/16/22 09:55 WBC RBC Hgb Hct MCV MCH MCHC RDW Plt Count Neut % (Auto) Lymph % (Auto) [place] % (Auto) Eos % (Auto) Baso % (Auto) Neut # (Auto) Lymph # (Auto) [place] # (Auto) Eos # (Auto) Baso # (Auto) PT INR APTT Sodium 139 Potassium 3.2 L Chloride 95 L Carbon Dioxide 36 H BUN 12 Creatinine 1.01 Estimated GFR 57 L BUN/Creatinine Ratio 11.9 Glucose 155 H Calcium 8.2 L Lipase 32 SARS-CoV-2 (PCR) Assessment & Plan Assessment & Plan narrative: 1. Left hip fracture -occurred s/p mechanical fall -hip xray shows left hip fracture, I reviewed xray personally -patient NPO after midnight -ordered for oral and IV pain medications -orthopedic surgery is consulted -patient is medically optimized for surgery and can proceed as indicated 2. Leukocytosis -leukocytosis noted on initial labs -no fevers, chills, dysuria, cough, shortness of breath -suspect secondary to stress from fracture -check UA and chest xray to make sure no infection 3. Hypokalemia -likely secondary to diuretics -replete PRN 4. Hypotension -blood pressure noted to be in 80s briefly in ED -improved with fluids -suspect secondary to hypovolemia from diuretics -continue gentle hydration as will be NPO for surgery -infectious workup was above 4. Chronic respiratory failure from COPD -continue on O2 with goal 88-92% sats -ordered for PRN nebs -not currently in exacerbation 5. Atrial fibrillation, chronic -has watchmen device -is taking both aspirin, plavix, last took on 04/15 -continue fleicanide 6. Chronic CHFpEF -hold torsemide for now CODE: Full Proxy: Gerry Ayala, I have utilized all available resources to reconcile the patient's home med ications Time Spent With Patient Critical Care time: I spent a total of [] minutes of critical care time on this patient's care today; this time is exclusive of procedural time. Quality MIPS - Admit I confirm the patient?s Advance Care Plan is present, Code status is documented, Surrogate decision maker is in patient?s record [If Yes, STOP here]: Yes MIPS - Meds 'Current medications' to include all prescriptions, [id number] products, herbals, cannabis/cannabidiol products, and vitamin/mineral/dietary (nutritional) supplements. I have utilized all available resources to obtain, update, or review the patient?s current medications. [If Yes, STOP here]: Yes
--- NOTE | 2022-04-16 13:28 | DI.RAD.S_ITS ---
PROCEDURE: XR CHEST 1V INDICATIONS: sob TECHNIQUE: One view of the chest was acquired. COMPARISON: [facility], CR, XR CHEST 1 VIEW, 08/24/2021, 13:50. [facility], CR, XR CHEST 1V, 06/14/2021, 15:54. FINDINGS: Surgical changes and devices: None. Lungs and pleura: Chronic interstitial lung parenchymal disease is seen with increased interstitial lung markings not significantly changed from prior studies. No definite focal infiltrate. No pleural effusions or pneumothorax. Mediastinum: Tortuous thoracic aorta is seen with aortic arch calcifications. Heart size is normal. Bones and chest wall: No suspicious bony lesions. Overlying soft tissues appear unremarkable. IMPRESSION: Suggestion of chronic interstitial lung parenchymal disease. No definite focal infiltrate, pleural effusion or pneumothorax. Dictated by: Nathaniel Muse M.D. on 04/16/2022 at 14:15 Approved by: Nathaniel Muse M.D. on 04/16/2022 at 14:16
[2022-04-16] MEDS: HYDROMORPHONE 0.5 MG INJ IV ×2 (13:43→22:18)
--- NOTE | 2022-04-16 14:20 | PM.CN ---
History of Present Illness Consult details Date Patient Seen: 04/16/22 Time Patient Seen: 14:21 Chief complaint: GLF,L hip fracture,on thinners,mod trauma Narrative: 76 yo woman who woke in the middle of the night and tried to get up to go to the bathroom, resulting in a ground level fall. She has a history of atrial fibrillation and recently (within the last few weeks) had a Watchmen device placed; she is on Plavix and ASA daily, last taken 04/15 per hospitalist note. Her INR this morning is 1.0. She has a history of bilateral total knee arthroplasty and continued unsteadiness with walking despite surgery. She has a history of neck and back surgeries; unable to elucidate what was done, but hip xrays demonstrate bilateral pedicle screws and fixation rods at least at S1 and L5. She has a history of chronic pain, which has been treated with tramadol; she says this medication doesn't work well, but she is able to rate her pain based on how much she takes every day. She has a history of gastric surgery for weight loss and is not supposed to take NSAIDs. Meds Home Medications and Allergies Home Medications Medication Instructions Recorded Confirmed Type Cranberry W/D Mannose 1 cap PO DAILY 03/18/19 04/16/22 History Home Oxygen 03/18/19 04/05/19 History albuterol sulfate 90 mcg/actuation 2 puff inhalation BID 03/18/19 04/16/22 History aerosol inhaler (ProAir HFA) ascorbic acid (vitamin C) 1,000 mg 500 mg PO DAILY 03/18/19 04/16/22 History tablet (Vitamin C) bimatoprost 0.01 % eye drops 1 drp ophthalmic (eye) QPM 03/18/19 04/16/22 History (Lumigan) brinzolamide 1 % eye 1 drp ophthalmic (eye) DAILY 03/18/19 04/16/22 History drops,suspension (Azopt) cholecalciferol (vitamin D3) 50 2,000 unit PO DAILY 03/18/19 04/16/22 History mcg (2,000 unit) tablet (Vitamin D3) dicyclomine 10 mg capsule 10 mg PO TID 03/18/19 04/16/22 History duloxetine 60 mg capsule,delayed 30 mg PO QPM 03/18/19 04/16/22 History release (Cymbalta) estradiol 1 mg tablet 2 mg PO DAILY 03/18/19 04/16/22 History ferrous sulfate 325 mg (65 mg 325 mg PO DAILY 03/18/19 04/16/22 History iron) tablet flecainide 50 mg tablet 25 mg PO BID 03/18/19 04/16/22 History magnesium oxide 400 mg PO DAILY 03/18/19 04/16/22 History multivitamin 2 tab PO DAILY 03/18/19 04/16/22 History omeprazole 40 mg capsule,delayed 40 mg PO DAILY 03/18/19 04/16/22 History release tramadol 50 mg tablet 50 mg PO Q4H PRN Pain (Scale Score 03/18/19 04/16/22 History 1-3) umeclidinium 62.5 mcg-vilanterol 1 inh inhalation DAILY 03/18/19 04/16/22 History 25 mcg/actuation powdr for inhalation (Anoro Ellipta) warfarin 5 mg tablet 4 mg PO DAILY@1700 #30 tabs 06/17/21 Rx aspirin 81 mg tablet 81 mg PO DAILY 04/16/22 04/16/22 History buspirone 10 mg tablet 10 mg PO TID 04/16/22 04/16/22 History clopidogrel 75 mg tablet 75 mg PO DAILY 04/16/22 04/16/22 History diazepam 5 mg tablet 2.5 mg PO BID PRN Anxiety 04/16/22 04/16/22 History ipratropium bromide 17 2 puff inhalation DAILY PRN 04/16/22 04/16/22 History mcg/actuation HFA aerosol inhaler breathing (Atrovent HFA) potassium chloride 10 mEq 10 meq PO DAILY 04/16/22 04/16/22 History capsule,extended release torsemide 40 mg tablet 40 mg PO QPM 04/16/22 04/16/22 History trazodone 50 mg tablet 50 mg PO BEDTIME 04/16/22 04/16/22 History ursodiol 500 mg tablet 1,000 mg PO QPM 04/16/22 04/16/22 History Allergies Allergy/AdvReac Type Severity Reaction Status Date / Time oxycodone Allergy Mild makes her Verified 06/14/21 16:34 'loopy' ceftriaxone Allergy Unknown Rash Verified 06/14/21 16:34 clarithromycin Allergy Unknown Rash Verified 06/14/21 16:34 Review of Systems Review of Systems ROS: Yes All systems reviewed with the patient and are negative except as otherwise documented Exam Vital Signs (past 8 hours): - 04/16/22 09:26 04/16/22 09:51 04/16/22 10:00 Temperature 98.7 F Pulse Rate 119 H 116 H Respiratory Rate 20 18 Blood Pressure 85/56 L 132/58 L Pulse Oximetry 94 98 Oxygen Delivery Method Nasal Cannula Oxygen Flow Rate 4 04/16/22 10:00 04/16/22 10:20 04/16/22 10:20 Temperature Pulse Rate 122 H 112 H Respiratory Rate Blood Pressure 95/56 L Pulse Oximetry 98 97 Oxygen Delivery Method Oxygen Flow Rate 04/16/22 10:30 04/16/22 10:31 04/16/22 10:31 Temperature Pulse Rate 112 H Respiratory Rate Blood Pressure 71/54 L Pulse Oximetry 98 99 Oxygen Delivery Method Oxygen Flow Rate 04/16/22 10:32 04/16/22 10:32 04/16/22 10:40 Temperature Pulse Rate 115 H Respiratory Rate Blood Pressure 74/50 L 78/50 L Pulse Oximetry 98 Oxygen Delivery Method Oxygen Flow Rate 04/16/22 10:40 04/16/22 10:50 04/16/22 10:50 Temperature Pulse Rate 115 H 112 H Respiratory Rate Blood Pressure 120/55 L Pulse Oximetry 98 98 Oxygen Delivery Method Oxygen Flow Rate 04/16/22 11:00 04/16/22 11:00 04/16/22 11:10 Temperature Pulse Rate 111 H Respiratory Rate Blood Pressure 116/56 L 117/57 L Pulse Oximetry 98 Oxygen Delivery Method Oxygen Flow Rate 04/16/22 11:10 04/16/22 11:20 04/16/22 11:20 Temperature Pulse Rate 118 H 116 H Respiratory Rate Blood Pressure 112/54 L Pulse Oximetry 98 98 Oxygen Delivery Method Oxygen Flow Rate 04/16/22 11:30 04/16/22 11:31 04/16/22 11:31 Temperature Pulse Rate 114 H 113 H Respiratory Rate Blood Pressure 120/57 L Pulse Oximetry 98 99 Oxygen Delivery Method Oxygen Flow Rate 04/16/22 11:40 04/16/22 11:40 04/16/22 11:50 Temperature Pulse Rate 110 H Respiratory Rate Blood Pressure 119/59 L 106/54 L Pulse Oximetry 98 Oxygen Delivery Method Oxygen Flow Rate 04/16/22 11:50 04/16/22 12:00 04/16/22 12:00 Temperature Pulse Rate 108 H 106 H Respiratory Rate Blood Pressure 110/55 L Pulse Oximetry 97 96 Oxygen Delivery Method Oxygen Flow Rate 04/16/22 12:10 04/16/22 12:10 04/16/22 12:20 Temperature Pulse Rate 106 H 104 H Respiratory Rate 20 Blood Pressure 108/53 L Pulse Oximetry 95 95 Oxygen Delivery Method Oxygen Flow Rate 04/16/22 12:20 04/16/22 12:30 04/16/22 12:30 Temperature Pulse Rate 104 H Respiratory Rate 20 Blood Pressure 105/51 L 99/51 L Pulse Oximetry 94 Oxygen Delivery Method Oxygen Flow Rate 04/16/22 12:40 04/16/22 12:40 Temperature Pulse Rate 103 H Respiratory Rate Blood Pressure 102/50 L Pulse Oximetry 94 Oxygen Delivery Method Oxygen Flow Rate Oxygen Delivery Method Nasal Cannula Oxygen Flow Rate 4 Const General: cooperative, healthy appearing and comfortable Nutritional Appearance: obese Orientation: alert, awake and oriented x3 HENMT Head: normal to inspection, normocephalic and atraumatic Ears: hearing grossly normal bilaterally Nose: external nose normal Mouth: other Teeth and gingiva: dentures Eyes General: appearance normal, both eyes and all related structures Resp Effort & Inspection: normal respiratory effort and able to speak in complete sentences Cardio Rate: regular rate Rhythm: regular rhythm Skin Other: Skin overlying left hip intact. Minimal abrasions on left knee, ecchymosis left lateral knee. Bilateral knee incisions well-healed. Extrem Other: 3/5 hip flexors, 4/5 quadriceps and hamstrings, 5/5 DF, PF, EHL on left. Sensation to light touch intact throughout LLE. Objective Labs Result Diagrams: 04/16/22 09:55 04/16/22 09:55 Labs: Laboratory Results - last 24 hr 04/16/22 04/16/22 04/16/22 09:40 09:55 09:55 WBC 16.6 H RBC 4.02 Hgb 10.7 L Hct 34.2 L MCV 85.1 MCH 26.5 MCHC 31.1 RDW 17.0 H Plt Count 173 Neut % (Auto) 87.3 H Lymph % (Auto) 4.2 L [place] % (Auto) 7.2 Eos % (Auto) 0.9 L Baso % (Auto) 0.4 Neut # (Auto) 23954 H Lymph # (Auto) 700 L [place] # (Auto) 1200 H Eos # (Auto) 100 Baso # (Auto) 100 PT 11.7 INR 1.0 APTT 28 Sodium Potassium Chloride Carbon Dioxide BUN Creatinine Estimated GFR BUN/Creatinine Ratio Glucose Calcium Lipase SARS-CoV-2 (PCR) Negative 04/16/22 09:55 WBC RBC Hgb Hct MCV MCH MCHC RDW Plt Count Neut % (Auto) Lymph % (Auto) [place] % (Auto) Eos % (Auto) Baso % (Auto) Neut # (Auto) Lymph # (Auto) [place] # (Auto) Eos # (Auto) Baso # (Auto) PT INR APTT Sodium 139 Potassium 3.2 L Chloride 95 L Carbon Dioxide 36 H BUN 12 Creatinine 1.01 Estimated GFR 57 L BUN/Creatinine Ratio 11.9 Glucose 155 H Calcium 8.2 L Lipase 32 SARS-CoV-2 (PCR) [facility] Medical History Chronic kidney disease, stage III (moderate) COPD (chronic obstructive pulmonary disease) Depression Glaucoma Lung nodule Morbid obesity with BMI of 40.0-44.9, adult Osteoarthritis Paroxysmal atrial fibrillation Severe mitral valve stenosis Surgical History H/O foot surgery H/O neck surgery H/O rotator cuff surgery History of hysterectomy Hx of cataract surgery Knee joint replacement by other means S/P laparoscopic sleeve gastrectomy Status post cholecystectomy Family History Father Alcoholic Mother Arthritis Renal failure Cancer Brother Alcoholic Social History household members: spouse Tobacco & Substance Use Smoking Status: Former smoker alcohol intake: former Assessment & Plan Assessment and plan (1) Fracture of femoral neck: Status: Acute Plan: Displaced fx of left femoral neck. History, imaging, and physical exam findings d/w Dr Pily Godoy, on-call provider for ortho. Plan for left hip hemiarthroplasty on 04/18/2022. Continue to hold ASA and Plavix; VTE prophylaxis w/ enoxaparin until surgery ok. NPO at 00:01 on 04/18/2022 in anticipation of surgery. (2) Atrial fibrillation: Status: Acute Plan: Watchmen device. Hold ASA and Plavix, will restart postoperatively. (3) Obesity (BMI 30.0-34.9): Status: Acute Plan: H/o gastric surgery for weight loss. No NSAIDs. Time Spent With Patient Critical Care time: I spent a total of [] minutes of critical care time on this patient's care today; this time is exclusive of procedural time.
--- NOTE | 2022-04-16 15:20 | PC.NURSE ---
Addendum entered by Nicole Chowdhury R.N. 04/16/22 18:34: Patient is talking to now, is sounds like planning surgery for thursday around 1100. She denies pain and is visiting with her now. Original Note: Patient admitted from ER with a fall and fx her l.hip. She had alot of pain with transfer to bed, patient has been settled in and given 0.5mg of dilaudid which was helpful for her discomfort. Patient is lying on her r.side, skin assessment done, patient has a lot of bruising to her body, and some abrasions. She will be on ivf, and medication list is updated. at bedside.
[2022-04-16] MEDS: FLECAINIDE 100 MG TABLET 50 MG PO (15:51)
[2022-04-16 20:40] LABS: Appearance Urine UA SL CLOUDY; Bilirubin Urine UA NEGATIVE (NEGATIVE); Color Urine UA YELLOW; Glucose Urine UA NEGATIVE (Negative); Ketones Urine UA NEGATIVE (NEGATIVE); Leukocyte Esterase Urine UA NEGATIVE (NEGATIVE); Nitrite Urine UA NEGATIVE (Negative); Occult Blood Urine UA NEGATIVE (Negative); Protein Urine UA NEGATIVE (Negative); Urobilinogen Urine UA 0.2 E.U./dL (0.2)
[2022-04-16 20:48] LABS: RBC Urine 0-1/HPF (0-5/HPF); Squamous Epithelial Cell Urine None Seen (0-5/HPF); WBC Urine 5-10/HPF (0-5/HPF)
[2022-04-16 20:49] LABS: Bacteria Urine Many (>30); Culture Indicated Urine Specimen Cultured
[2022-04-16] MEDS: LUMIGAN 0.01% EYE DROPS 1 EACH EYE-BOTH (22:19)
[2022-04-16] MEDS: ONDANSETRON 4 MG/2 ML INJ IV (22:31)
[2022-04-17] VITALS (53 sets, daily range): BP systolic 74–176; BP diastolic 50–94; PULSE 88–172; RESP 16–60; TEMP 36.5; O2SAT 35–99
[2022-04-17] MEDS: FLECAINIDE 100 MG TABLET 50 MG PO (01:15)
[2022-04-17] MEDS: HYDROMORPHONE 0.5 MG INJ IV ×2 (01:16→04:15)
[2022-04-17] MEDS: ALBUTEROL/IPRATROPIUM 3 ML AMPUL INH (04:40)
--- NOTE | 2022-04-17 04:50 | DI.RAD.S_ITS ---
PROCEDURE: XR CHEST 1V INDICATIONS: sob TECHNIQUE: One view of the chest was acquired. COMPARISON: [facility], CR, XR CHEST 1V, 04/16/2022, 13:54. [facility], CR, XR CHEST 1V, 06/14/2021, 15:54. [facility], CR, XR CHEST 1V, 12/16/2019, 17:40. [facility], CR, XR CHEST 1V, 03/18/2019, 22:28. FINDINGS: Surgical changes and devices: None. Lungs and pleura: There is mild diffuse reticulonodular pulmonary opacity. No pleural effusions or pneumothorax. Mediastinum: Mediastinal contours appear normal. Heart size is normal. Bones and chest wall: No suspicious bony lesions. Overlying soft tissues appear unremarkable. IMPRESSION: Mild atypical pneumonia. Concordant with preliminary interpretation. Dictated by: Kate Baker M.D. on 04/17/2022 at 8:16 Approved by: Kate Baker M.D. on 04/17/2022 at 8:17
[2022-04-17] MEDS: NALOXONE 0.4 MG/ML VIAL IV ×2 (05:30→06:11)
[2022-04-17] MEDS: NALOXONE 0.4 MG/ML VIAL 0.2 MG IV (05:32)
--- NOTE | 2022-04-17 05:35 | PC.NURSE ---
0405am pt found to have labored breathing & high heart rate 120's to 150's with sats in the 60-70%s per pulse ox. Pt repositioned and Turned oxygen up from 2 to 8 LNC . STORE PROTECTION SPECIALIST alerted, who then put pt on NRB @ 15 L [place]. Pt was listless but responsive. Following commands. called to Room, Juliann called to room who gave verbal orders for stat ABG , Labs, cXRAy and Narcan 0.4 mg X1 now respiratory therapy got stat EKG, ABG's and patient was transferred to ICU.
[2022-04-17 05:59] LABS: Add Manual Diff / Slide Review NO; Basophils Absolute Auto 100 /uL (0-100); Basophils Percent Auto 0.6 % (0-2); Eosinophils Absolute Auto 300 /uL (0-450); Eosinophils Percent Auto 1.9 % (2-4); Hematocrit 32.6 % (36-46); Hemoglobin 10.1 g/dL (12.0-16.0); Lymphocytes Absolute Auto 2000 /uL (1100-4500); Lymphocytes Percent Auto 13.3 % (25-40); Mean Corpuscular Hemoglobin 26.7 PG (26-34); Mean Corpuscular Volume 86.1 fL (80-100); Monocytes Absolute Auto 1700 /uL (0-900); Monocytes Percent Auto 11.4 % (3-14); Neutrophils Absolute Auto 10700 /uL (1500-7000); Neutrophils Percent Auto 72.8 % (50-75); Platelet Count 209 X10^3/uL (150-400); Red Blood Cell Count 3.79 X10^6/uL (4.0-5.2); Red Cell Distribution Width 16.8 % (11.6-14.8); White Blood Cell Count 14.7 X10^3/uL (4.5-11.0)
--- NOTE | 2022-04-17 06:03 | PC.NURSE ---
Addendum entered by Erika Moran R.N. 04/17/22 06:49: 0350- No plan to intubate at this time. Will reevaluate in one hour per open tenter operator. Will monitor. Original Note: 0530- Patient moved to room 231 for closer monitoring and Bipap. Patient found by RN with high heart rate and low spo2. Patient placed on 100 NRB and [employer] notified. After evaluation it was determined that patient needed Bipap. Patient given 2 doses of Narcan. VBG obtained and patient transfered to ICU status. Labs obtained. EICU consulted.
[2022-04-17 06:09] LABS: Lactate (Lactic Acid) 1.7 mmol/L (0.7-2.1)
[2022-04-17 06:09] LABS: HCO3 ABG 35 mmol/L (22-26); PCO2 ABG 62.1 mmHg (35-45); PO2 ABG 27 mmHg (80-100); pH ABG 7.36 (7.35-7.45)
[2022-04-17 06:10] LABS: Fractionated Inspired Oxygen 100; Oxygen Saturation ABG 46 % (95-100); TCO2 ABG 37 mmol/L (21-31)
[2022-04-17 06:11] LABS: Alanine Aminotransferase 12 IU/L (<35); Albumin 3.7 g/dL (3.5-5.0); Alkaline Phosphatase 85 U/L (38-126); Aspartate Aminotransferase 19 IU/L (14-36); BUN Creatinine Ratio 11.3 (6-22); Bilirubin Total 0.5 mg/dL (0.2-1.3); Blood Urea Nitrogen 12 mg/dL (7-17); Calcium 8.3 mg/dL (8.4-10.2); Carbon Dioxide 37 mmol/L (22-32); Chloride 90 mmol/L (98-107); Estimated Glomerular Filt Rate 54 mL/min (>60); Globulin 3.8 g/dL (1.7-4.1); Glucose 144 mg/dL (80-110); HEMOLYSIS < 15 (0-50); Potassium 3.6 mmol/L (3.4-5.1); Sodium 135 mmol/L (137-145); Total Protein 7.5 g/dL (6.3-8.2)
[2022-04-17 06:22] LABS: Troponin I 0.013 ng/mL (0.01-0.034)
--- NOTE | 2022-04-17 06:23 | PM.EVENT ---
Event Note Date Patient Seen: 04/17/22 Time Patient Seen: 04:45 Event Note (Rapid Response, Code, or fall): Called by nursing staff for clinical change in patient condition. She was altered, hypoxic, in respiratory distress. She was given narcan with notable improvement in her alertness. ABG was attempted but likely VBG resulted twice. Both showed elevated pCO2. She has history of COPD. Suspect she has respiratory depression from the opiates and then resultant CO2 retention. She is transferred to ICU. Started on BIPAP. She did received two total doses of narcan. Her dilaudid is discontinued. She is ordered for aztreonam for antibiotics, and methylprednisone for COPD. Chest xray is ordered. Labs ordered. WIth narcan and bipap her mental status is improving, she is oriented, her shortness of breath is improved. If her improvement does not continue will need intubation and at that point may need CTA for further evaluation for embolism. Will continue to monitor closely.
--- NOTE | 2022-04-17 06:35 | PM.CN.EICU ---
History of Present Illness Consult details IF CAMERA ACTIVATED, patient seen via real-time interactive audiovisual communication: Camera activated Chief complaint: GLF,L hip fracture,on thinners,mod trauma Consent obtained for tele-sociocultural anthropology professor care: Yes Patient Location: ICU Provider location (State): Other participants/roles: Narrative: Lucy is a 76W with medical history of COPD on 1.5L O2 at home, severe mitral stenosis, atrial fibrillation s/p watchmen device , admitted for fall , found to have left femoral neck fracture, pt was receiving narcotics for pain, noted to develop change in mental status, respiratory distress and hypoxia, given a dose of narcan which make her more awake, placed on BiPAP, mental status still not impaired which significantly improved with a 2nd dose of Narcan per Hospitalist clinically looks better, pt transferred to ICU , when I saw ?the pt , she was awake, mental status back to base line, no respiratory distress on BiPAP 12/6/35%. 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 COPD Severe mitral stenosis Atrial fibrillation s/p watchmen device Rec: ?Continue with BiPAP at current sitting, wean off as tolerated, ABG stat and trend with VBG, closely follow respiratory and mental status in 30 min and 1 hr (low threshold for invasive ventilation and head and chest imaging with contrast if status worsens and or not continuing to improve) Discussed the AC with the hospitalist, recommend to start Lovenox after discussing Ortho, trend CBC IV PPI for GERD NPO, BS check Q6h , keep BS 120-180 Leukocytosis likely reactive, On Zosyn empirically, recommend f/u with Cx and de escalate PFSH Medical History Chronic kidney disease, stage III (moderate) COPD (chronic obstructive pulmonary disease) Depression Glaucoma Lung nodule Morbid obesity with BMI of 40.0-44.9, adult Osteoarthritis Paroxysmal atrial fibrillation Severe mitral valve stenosis Surgical History H/O foot surgery H/O neck surgery H/O rotator cuff surgery History of hysterectomy Hx of cataract surgery Knee joint replacement by other means S/P laparoscopic sleeve gastrectomy Status post cholecystectomy Family History Father Alcoholic Mother Arthritis Renal failure Cancer Brother Alcoholic Social History household members: spouse Smoking Status: Former smoker alcohol intake: former Current Medications Current Medications Medications: Home Medications Cranberry W/D Mann[place] 1 cap PO DAILY 03/18/19 [History Confirmed 04/16/22] albuterol sulfate 90 mcg/actuation aerosol inhaler (ProAir HFA) 2 puff inhalation BID 03/18/19 [History Confirmed 04/16/22] ascorbic acid (vitamin C) 1,000 mg tablet (Vitamin C) 500 mg PO DAILY 03/18/19 [History Confirmed 04/16/22] bimatoprost 0.01 % eye drops (Lumigan) 1 drp ophthalmic (eye) QPM 03/18/19 [History Confirmed 04/16/22] brinzolamide 1 % eye drops,suspension (Azopt) 1 drp ophthalmic (eye) DAILY 03/18/19 [History Confirmed 04/16/22] cholecalciferol (vitamin D3) 50 mcg (2,000 unit) tablet (Vitamin D3) 2,000 unit PO DAILY 03/18/19 [History Confirmed 04/16/22] dicyclomine 10 mg capsule 10 mg PO TID 03/18/19 [History Confirmed 04/16/22] duloxetine 60 mg capsule,delayed release (Cymbalta) 30 mg PO QPM 03/18/19 [History Confirmed 04/16/22] estradiol 1 mg tablet 2 mg PO DAILY 03/18/19 [History Confirmed 04/16/22] ferrous sulfate 325 mg (65 mg iron) tablet 325 mg PO DAILY 03/18/19 [History Confirmed 04/16/22] flecainide 50 mg tablet 25 mg PO BID 03/18/19 [History Confirmed 04/16/22] magnesium oxide 400 mg PO DAILY 03/18/19 [History Confirmed 04/16/22] multivitamin 2 tab PO DAILY 03/18/19 [History Confirmed 04/16/22] omeprazole 40 mg capsule,delayed release 40 mg PO DAILY 03/18/19 [History Confirmed 04/16/22] tramadol 50 mg tablet 50 mg PO Q4H PRN Pain (Scale Score 1-3) 03/18/19 [History Confirmed 04/16/22] umeclidinium 62.5 mcg-vilanterol 25 mcg/actuation powdr for inhalation (Anoro Ellipta) 1 inh inhalation DAILY 03/18/19 [History Confirmed 04/16/22] Systane (PF) 1 drp EYE-BOTH 4XD 04/16/22 [History Confirmed 04/16/22] aspirin 81 mg tablet 81 mg PO DAILY 04/16/22 [History Confirmed 04/16/22] buspirone 10 mg tablet 10 mg PO TID 04/16/22 [History Confirmed 04/16/22] clopidogrel 75 mg tablet 75 mg PO DAILY 04/16/22 [History Confirmed 04/16/22] diazepam 5 mg tablet 2.5 mg PO BID PRN Anxiety 04/16/22 [History Confirmed 04/16/22] ipratropium bromide 17 mcg/actuation HFA aerosol inhaler (Atrovent HFA) 2 puff inhalation DAILY PRN breathing 04/16/22 [History Confirmed 04/16/22] potassium chloride 10 mEq capsule,extended release 10 meq PO DAILY 04/16/22 [History Confirmed 04/16/22] torsemide 40 mg tablet 40 mg PO QPM 04/16/22 [History Confirmed 04/16/22] trazodone 50 mg tablet 50 mg PO BEDTIME 04/16/22 [History Confirmed 04/16/22] ursodiol 500 mg tablet 1,000 mg PO QPM 04/16/22 [History Confirmed 04/16/22] Visit Medications (administered) Generic Name Dose Route Start Last Admin Trade Name Freq PRN Reason Stop Dose Admin Albuterol/Ipratropium 3 ml 04/16/22 13:28 04/17/22 04:40 Albuterol/Ipratropium 3 Ml Ampul INH 3 ml RTQ4HR PRN Administration Shortness Of Breath Flecainide Acetate 50 mg 04/16/22 13:28 04/17/22 01:15 Flecainide 100 Mg Tablet PO 50 mg Q12H REBECCA Administration Naloxone HCl 0.2 mg 04/16/22 13:28 04/17/22 05:32 Naloxone 0.4 Mg/Ml Vial IV 0.2 mg Q2MIN PRN Administration Opiate Reversal Lum[place] 0.01% Eye 1 each 04/16/22 21:00 04/16/22 22:19 Drops EYE-BOTH 1 each BEDTIME REBECCA Administration Systane Eye Drops 1 each 04/16/22 17:00 04/16/22 22:19 EYE-BOTH 1 each QID REBECCA Administration Brinzolamide 1% Eye 1 each 04/16/22 21:00 04/16/22 22:19 Drops EYE-BOTH 1 each BID REBECCA Administration Ondansetron HCl 4 mg 04/16/22 13:28 04/16/22 22:31 Ondansetron 4 Mg/2 Ml Inj IV 4 mg Q8HR PRN Administration Nausea And Vomiting Exam Vital Signs (past 8 hours): - 04/16/22 23:00 04/17/22 06:00 04/17/22 05:22 Temperature 96.7 F L Pulse Rate 103 H 103 H Respiratory Rate 18 28 H Blood Pressure 135/56 L 154/64 H Pulse Oximetry 92 Oxygen Flow Rate 2 Fraction of Inspired Oxygen 35 04/17/22 05:25 04/17/22 05:25 04/17/22 05:30 Temperature Pulse Rate 98 H Respiratory Rate 30 H Blood Pressure 157/67 H 166/70 H Pulse Oximetry 99 Oxygen Flow Rate Fraction of Inspired Oxygen 04/17/22 05:30 Temperature Pulse Rate 98 H Respiratory Rate 60 H Blood Pressure Pulse Oximetry 98 Oxygen Flow Rate 15 Fraction of Inspired Oxygen Fraction of Inspired Oxygen 35 Oxygen Delivery Method Nasal Cannula,CPAP Oxygen Flow Rate 15 Objective Labs Result Diagrams: 04/17/22 05:42 04/17/22 05:42 Labs: Laboratory Results - last 24 hr 04/16/22 04/16/22 04/16/22 09:40 09:55 09:55 WBC 16.6 H RBC 4.02 Hgb 10.7 L Hct 34.2 L MCV 85.1 MCH 26.5 MCHC 31.1 RDW 17.0 H Plt Count 173 Neut % (Auto) 87.3 H Lymph % (Auto) 4.2 L [place] % (Auto) 7.2 Eos % (Auto) 0.9 L Baso % (Auto) 0.4 Neut # (Auto) 94259 H Lymph # (Auto) 700 L [place] # (Auto) 1200 H Eos # (Auto) 100 Baso # (Auto) 100 PT 11.7 INR 1.0 APTT 28 ABG pH ABG pCO2 ABG pO2 ABG HCO3 ABG Total CO2 ABG O2 Saturation ABG Base Excess FiO2 Sodium Potassium Chloride Carbon Dioxide BUN Creatinine Estimated GFR BUN/Creatinine Ratio Glucose Lactate Calcium Total Bilirubin AST ALT Alkaline Phosphatase Troponin I Total Protein Albumin Globulin Albumin/Globulin Ratio Lipase Urine Color Urine Appearance Urine pH Ur Specific [place] Urine Protein Urine Glucose (UA) Urine Ketones Urine Occult Blood Urine Nitrate Urine Bilirubin Urine Urobilinogen Ur Leukocyte Esterase Urine RBC Urine WBC Ur Squamous Epith Cells Urine Bacteria Ur Culture Indicated? SARS-CoV-2 (PCR) Negative 04/16/22 04/16/22 04/17/22 09:55 15:30 05:15 WBC RBC Hgb Hct MCV MCH MCHC RDW Plt Count Neut % (Auto) Lymph % (Auto) [place] % (Auto) Eos % (Auto) Baso % (Auto) Neut # (Auto) Lymph # (Auto) [place] # (Auto) Eos # (Auto) Baso # (Auto) PT INR APTT ABG pH 7.36 ABG pCO2 62.1 H* ABG pO2 27 L* ABG HCO3 35 H ABG Total CO2 37 H ABG O2 Saturation 46 L* ABG Base Excess 9.0 H FiO2 100 Sodium 139 Potassium 3.2 L Chloride 95 L Carbon Dioxide 36 H BUN 12 Creatinine 1.01 Estimated GFR 57 L BUN/Creatinine Ratio 11.9 Glucose 155 H Lactate Calcium 8.2 L Total Bilirubin AST ALT Alkaline Phosphatase Troponin I Total Protein Albumin Globulin Albumin/Globulin Ratio Lipase 32 Urine Color Yellow Urine Appearance Sl cloudy Urine pH 6.0 Ur Specific [place] 1.010 Urine Protein Negative Urine Glucose (UA) Negative Urine Ketones Negative Urine Occult Blood Negative Urine Nitrate Negative Urine Bilirubin Negative Urine Urobilinogen 0.2 Ur Leukocyte Esterase Negative Urine RBC 0-1/hpf Urine WBC 5-10/hpf H Ur Squamous Epith Cells None seen Urine Bacteria Many (>30) H Ur Culture Indicated? Specimen cultured SARS-CoV-2 (PCR) 04/17/22 04/17/22 04/17/22 05:42 05:42 05:42 WBC 14.7 H RBC 3.79 L Hgb 10.1 L Hct 32.6 L MCV 86.1 MCH 26.7 MCHC 31.0 RDW 16.8 H Plt Count 209 Neut % (Auto) 72.8 Lymph % (Auto) 13.3 L [place] % (Auto) 11.4 Eos % (Auto) 1.9 L Baso % (Auto) 0.6 Neut # (Auto) 90055 H Lymph # (Auto) 2000 [place] # (Auto) 1700 H Eos # (Auto) 300 Baso # (Auto) 100 PT INR APTT ABG pH ABG pCO2 ABG pO2 ABG HCO3 ABG Total CO2 ABG O2 Saturation ABG Base Excess FiO2 Sodium 135 L Potassium 3.6 Chloride 90 L Carbon Dioxide 37 H BUN 12 Creatinine 1.06 H Estimated GFR 54 L BUN/Creatinine Ratio 11.3 Glucose 144 H Lactate 1.7 Calcium 8.3 L Total Bilirubin 0.5 AST 19 ALT 12 Alkaline Phosphatase 85 Troponin I 0.013 Total Protein 7.5 Albumin 3.7 Globulin 3.8 Albumin/Globulin Ratio 1.0 Lipase Urine Color Urine Appearance Urine pH Ur Specific [place] Urine Protein Urine Glucose (UA) Urine Ketones Urine Occult Blood Urine Nitrate Urine Bilirubin Urine Urobilinogen Ur Leukocyte Esterase Urine RBC Urine WBC Ur Squamous Epith Cells Urine Bacteria Ur Culture Indicated? SARS-CoV-2 (PCR) Assessment & Plan Time Spent With Patient Critical Care time: I spent a total of [50] minutes of critical care time on this patient's care today; this time is exclusive of procedural time.
[2022-04-17 06:47] LABS: Magnesium 1.9 mg/dL (1.6-2.3)
[2022-04-17] MEDS: POTASSIUM CHLORIDE IN WATER 10 MEQ/100 ML PIGGYBACK 100 MEQ IV (06:57)
[2022-04-17] MEDS: methylPREDNISolone 125 MG/2 ML VIAL 60 MG IV (06:57)
--- NOTE | 2022-04-17 07:49 | DI.CT.S_ITS ---
PROCEDURE: CT ANGIO CHEST PE PROTOCOL INDICATIONS: worsening hypoxia TECHNIQUE: After the administration of intravenous contrast, 2 mm thick sections acquired from the pulmonary apices to the posterior costophrenic angles. 3-dimensional maximum intensity projection (MIP) coronal and sagittal reformats were then acquired through the thorax. For radiation dose reduction, the following was used: automated exposure control, adjustment of mA and/or kV according to patient size. COMPARISON: [facility], CR, XR CHEST 1V, 04/17/2022, 5:08. FINDINGS: Image quality: Excellent. Pulmonary arteries: Pulmonary arteries are normal in size, and demonstrate no intraluminal filling defects to suggest central pulmonary embolism. Lungs and pleura: The lungs demonstrate moderate biapical centrilobular emphysematous change. Small left pleural effusion. Irregular patchy alveolar opacity peripherally in the right posterolateral lower lung. Additionally, there is a round 1.6 cm nodule in the posterior right lower lobe, 5/210, that appears solid with slightly spiculated margin. Scattered small peripheral patches of airspace opacity are present dependently in the right upper lobe and bilaterally in the mid to lower lung zones. No pneumothorax. Mediastinum: The heart is normal size. There is mitral annular calcification and mitral valvuloplasty. Mild aortic valvular calcification. Heavy coronary artery calcification. No pericardial effusion. There is mild confluent paratracheal and periesophageal adenopathy and right hilar adenopathy. A right infrahilar node measures 12 mm. There is a moderate-sized hiatal hernia. Surgical changes of gastric sleeve creation are partially herniated. Bones and chest wall: No suspicious bony lesions. Ribs and thoracic spine appear intact throughout. Thyroid gland is unremarkable.. No axillary or supraclavicular adenopathy. Abdomen: Calcified left adrenal nodule. Upper abdominal organs are otherwise normal. Heavy atherosclerotic calcification. IMPRESSION: 1. No pulmonary embolus. 2. Right lower lobe peripheral consolidation and multifocal bilateral peripheral airspace opacities suggestive of infectious or inflammatory etiology. 3. Small left pleural effusion. 4. 1.6 cm round right lower lobe lung nodule suspicious for malignancy. Follow-up chest CT in four weeks following resolution of acute disease is recommended. 5. Right hilar and mild mediastinal adenopathy. Dictated by: Lashaun Cancino M.D. on 04/17/2022 at 8:32 Approved by: Lashaun Cancino M.D. on 04/17/2022 at 8:48
--- NOTE | 2022-04-17 08:00 | P.PN_ITS ---
Subjective Subjective Date Patient Seen: 04/17/22 Interval history: Patient overnight had resp failure likely due to pain meds and required transfer to ICU for bipap. This morning went into A-fib RVR with rate 170's and BP 85/50. Amio drip started with improvement. She is now stable and looking better. at bedside and he was updated. Exam Vital Signs (past 8 hours): - 04/17/22 06:00 04/17/22 05:22 04/17/22 05:25 Pulse Rate 103 H Respiratory Rate 28 H Blood Pressure 154/64 H 157/67 H Pulse Oximetry Oxygen Flow Rate Fraction of Inspired Oxygen 35 04/17/22 05:25 04/17/22 05:30 04/17/22 05:30 Pulse Rate 98 H 98 H Respiratory Rate 30 H 60 H Blood Pressure 166/70 H Pulse Oximetry 99 98 Oxygen Flow Rate 15 Fraction of Inspired Oxygen 04/17/22 06:00 04/17/22 06:01 04/17/22 06:01 Pulse Rate 110 H 110 H Respiratory Rate 30 H 30 H Blood Pressure 154/64 H Pulse Oximetry 95 95 Oxygen Flow Rate Fraction of Inspired Oxygen 04/17/22 06:30 04/17/22 06:30 04/17/22 07:00 Pulse Rate 104 H Respiratory Rate 17 Blood Pressure 143/61 H 155/70 H Pulse Oximetry 93 Oxygen Flow Rate Fraction of Inspired Oxygen 04/17/22 07:00 04/17/22 07:30 04/17/22 07:30 Pulse Rate 119 H 123 H Respiratory Rate 23 28 H Blood Pressure 176/77 H Pulse Oximetry 93 93 Oxygen Flow Rate Fraction of Inspired Oxygen Fraction of Inspired Oxygen 35 Oxygen Delivery Method Nasal Cannula,CPAP Oxygen Flow Rate 15 Narrative Exam Narrative: GEN: alert and oriented, bipap mask in place HEENT: moist mucous membranes, PERRL NECK: trachea midline, no JVD PULM: clear bilaterally, no wheezes, rhonchi, rales CV: irregular tachycardic, no murmurs ABD: soft, nontender, nondistended, no organomegaly EXT: warm and well perfused, left hip tender to palpation SKIN: scattered bruises on extremities NEURO: awake, alert, no focal deficits noted Objective Labs Result Diagrams: 04/17/22 12:15 04/17/22 12:15 Labs: Laboratory Results - last 24 hr 04/16/22 04/16/22 04/16/22 09:40 09:55 09:55 WBC 16.6 H RBC 4.02 Hgb 10.7 L Hct 34.2 L MCV 85.1 MCH 26.5 MCHC 31.1 RDW 17.0 H Plt Count 173 Neut % (Auto) 87.3 H Lymph % (Auto) 4.2 L [place] % (Auto) 7.2 Eos % (Auto) 0.9 L Baso % (Auto) 0.4 Neut # (Auto) 58486 H Lymph # (Auto) 700 L [place] # (Auto) 1200 H Eos # (Auto) 100 Baso # (Auto) 100 PT 11.7 INR 1.0 APTT 28 ABG pH ABG pCO2 ABG pO2 ABG HCO3 ABG Total CO2 ABG O2 Saturation ABG Base Excess FiO2 Sodium Potassium Chloride Carbon Dioxide BUN Creatinine Estimated GFR BUN/Creatinine Ratio Glucose Lactate Calcium Magnesium Total Bilirubin AST ALT Alkaline Phosphatase Troponin I Total Protein Albumin Globulin Albumin/Globulin Ratio Lipase Urine Color Urine Appearance Urine pH Ur Specific [place] Urine Protein Urine Glucose (UA) Urine Ketones Urine Occult Blood Urine Nitrate Urine Bilirubin Urine Urobilinogen Ur Leukocyte Esterase Urine RBC Urine WBC Ur Squamous Epith Cells Urine Bacteria Ur Culture Indicated? Nasal Screen MRSA (PCR) SARS-CoV-2 (PCR) Negative 04/16/22 04/16/22 04/17/22 09:55 15:30 05:15 WBC RBC Hgb Hct MCV MCH MCHC RDW Plt Count Neut % (Auto) Lymph % (Auto) [place] % (Auto) Eos % (Auto) Baso % (Auto) Neut # (Auto) Lymph # (Auto) [place] # (Auto) Eos # (Auto) Baso # (Auto) PT INR APTT ABG pH 7.36 ABG pCO2 62.1 H* ABG pO2 27 L* ABG HCO3 35 H ABG Total CO2 37 H ABG O2 Saturation 46 L* ABG Base Excess 9.0 H FiO2 100 Sodium 139 Potassium 3.2 L Chloride 95 L Carbon Dioxide 36 H BUN 12 Creatinine 1.01 Estimated GFR 57 L BUN/Creatinine Ratio 11.9 Glucose 155 H Lactate Calcium 8.2 L Magnesium Total Bilirubin AST ALT Alkaline Phosphatase Troponin I Total Protein Albumin Globulin Albumin/Globulin Ratio Lipase 32 Urine Color Yellow Urine Appearance Sl cloudy Urine pH 6.0 Ur Specific [place] 1.010 Urine Protein Negative Urine Glucose (UA) Negative Urine Ketones Negative Urine Occult Blood Negative Urine Nitrate Negative Urine Bilirubin Negative Urine Urobilinogen 0.2 Ur Leukocyte Esterase Negative Urine RBC 0-1/hpf Urine WBC 5-10/hpf H Ur Squamous Epith Cells None seen Urine Bacteria Many (>30) H Ur Culture Indicated? Specimen cultured Nasal Screen MRSA (PCR) SARS-CoV-2 (PCR) 04/17/22 04/17/22 04/17/22 05:20 05:42 05:42 WBC 14.7 H RBC 3.79 L Hgb 10.1 L Hct 32.6 L MCV 86.1 MCH 26.7 MCHC 31.0 RDW 16.8 H Plt Count 209 Neut % (Auto) 72.8 Lymph % (Auto) 13.3 L [place] % (Auto) 11.4 Eos % (Auto) 1.9 L Baso % (Auto) 0.6 Neut # (Auto) 12796 H Lymph # (Auto) 2000 [place] # (Auto) 1700 H Eos # (Auto) 300 Baso # (Auto) 100 PT INR APTT ABG pH ABG pCO2 ABG pO2 ABG HCO3 ABG Total CO2 ABG O2 Saturation ABG Base Excess FiO2 Sodium 135 L Potassium 3.6 Chloride 90 L Carbon Dioxide 37 H BUN 12 Creatinine 1.06 H Estimated GFR 54 L BUN/Creatinine Ratio 11.3 Glucose 144 H Lactate Calcium 8.3 L Magnesium Total Bilirubin 0.5 AST 19 ALT 12 Alkaline Phosphatase 85 Troponin I 0.013 Total Protein 7.5 Albumin 3.7 Globulin 3.8 Albumin/Globulin Ratio 1.0 Lipase Urine Color Urine Appearance Urine pH Ur Specific [place] Urine Protein Urine Glucose (UA) Urine Ketones Urine Occult Blood Urine Nitrate Urine Bilirubin Urine Urobilinogen Ur Leukocyte Esterase Urine RBC Urine WBC Ur Squamous Epith Cells Urine Bacteria Ur Culture Indicated? Nasal Screen MRSA (PCR) Negative for mrsa SARS-CoV-2 (PCR) 04/17/22 04/17/22 05:42 05:42 WBC RBC Hgb Hct MCV MCH MCHC RDW Plt Count Neut % (Auto) Lymph % (Auto) [place] % (Auto) Eos % (Auto) Baso % (Auto) Neut # (Auto) Lymph # (Auto) [place] # (Auto) Eos # (Auto) Baso # (Auto) PT INR APTT ABG pH ABG pCO2 ABG pO2 ABG HCO3 ABG Total CO2 ABG O2 Saturation ABG Base Excess FiO2 Sodium Potassium Chloride Carbon Dioxide BUN Creatinine Estimated GFR BUN/Creatinine Ratio Glucose Lactate 1.7 Calcium Magnesium 1.9 Total Bilirubin AST ALT Alkaline Phosphatase Troponin I Total Protein Albumin Globulin Albumin/Globulin Ratio Lipase Urine Color Urine Appearance Urine pH Ur Specific [place] Urine Protein Urine Glucose (UA) Urine Ketones Urine Occult Blood Urine Nitrate Urine Bilirubin Urine Urobilinogen Ur Leukocyte Esterase Urine RBC Urine WBC Ur Squamous Epith Cells Urine Bacteria Ur Culture Indicated? Nasal Screen MRSA (PCR) SARS-CoV-2 (PCR) [facility] Medical History Chronic kidney disease, stage III (moderate) COPD (chronic obstructive pulmonary disease) Depression Glaucoma Lung nodule Morbid obesity with BMI of 40.0-44.9, adult Osteoarthritis Paroxysmal atrial fibrillation Severe mitral valve stenosis Surgical History H/O foot surgery H/O neck surgery H/O rotator cuff surgery History of hysterectomy Hx of cataract surgery Knee joint replacement by other means S/P laparoscopic sleeve gastrectomy Status post cholecystectomy Family History Father Alcoholic Mother Arthritis Renal failure Cancer Brother Alcoholic Social History household members: spouse Smoking Status: Former smoker alcohol intake: former Assessment & Plan Assessment & Plan narrative: # Acute on chronic hypoxic and hypercapnic respiratory failure -patient has known COPD on 1.5L baseline, overnight on 04/17 developed worsening hypercapnia likely from opiates with ABG showing pCO2 68, pO2 27 and placed on bipap -wean bipap as able -continue nebs PRN -avoid narcotics -appreciate teleICU consultation -prednison x5 days # Atrial fibrillation with RVR not present on admission -morning of 04/17 developed HR 170's with BP 85/50 -continue amiodarone drip, converted to sinus at approx 1600 on 04/17 -has watchmen device, not on anticoag -is taking both aspirin, plavix, last took on 04/15 -hold flecainide for now # Left hip fracture -occurred s/p mechanical fall -hip xray shows left hip fracture -patient NPO after midnight 04/18 for possible surg -ordered for oral and IV pain medications -orthopedic surgery is consulted # CAP -CXR with mild atypical pneumonia -CTA without PE, but RLL consolidation and multifocal peripheral opacities -continue aztreonam and doxy x5 days # UTI -UA with pyuria, culture pending -abx as above # 1.6cm RLL lung nodule suspicious for malignancy -noted on CTA chest, spiculated -rec outpatient CT chest in 1 month for f/u # Hypokalemia -likely secondary to diuretics -replete PRN # Hypotension, resolved -blood pressure noted to be in 80s briefly in ED -improved with fluids -suspect secondary to hypovolemia from diuretics -continue gentle hydration as will be NPO for surgery -infectious workup was above # Chronic CHFpEF -hold torsemide for now CODE: Full Proxy: Gerry Haywood, Dispo: Pending hip fracture repair and will likely need SNF. Time Spent With Patient Critical Care time: I spent a total of [] minutes of critical care time on this patient's care today; this time is exclusive of procedural time.
--- NOTE | 2022-04-17 08:15 | P.PN_ITS ---
Subjective Subjective Date Patient Seen: 04/17/22 Time Patient Seen: 08:15 Interval history: Last night, the patient had respiratory distress and hypoxemia. She was given 2 doses of Narcan and placed on a BiPAP. She was transferred to the ICU. She is currently being treated for UTI, and blood gases are significantly abnormal. There is question that these are venous blood gas results. She has a history of atrial fibrillation and recently (within the last few weeks) had a Watchmen device placed; she is on Plavix and ASA daily, last taken 04/15 per hospitalist note.? She has a history of bilateral total knee arthroplasty and continued unsteadiness with walking despite surgery.? She has a history of neck and back surgeries; unable to elucidate what was done, but hip xrays demonstrate bilateral pedicle screws and fixation rods at least at S1 and L5.? She has a history of chronic pain, which has been treated with tramadol; she says this medication doesn't work well, but she is able to rate her pain based on how much she takes every day.? She has a history of gastric surgery for weight loss and is not supposed to take NSAIDs. Exam Vital Signs (past 8 hours): - 04/17/22 06:00 04/17/22 05:22 04/17/22 05:25 Pulse Rate 103 H Respiratory Rate 28 H Blood Pressure 154/64 H 157/67 H Pulse Oximetry Oxygen Flow Rate Fraction of Inspired Oxygen 35 04/17/22 05:25 04/17/22 05:30 04/17/22 05:30 Pulse Rate 98 H 98 H Respiratory Rate 30 H 60 H Blood Pressure 166/70 H Pulse Oximetry 99 98 Oxygen Flow Rate 15 Fraction of Inspired Oxygen 04/17/22 06:00 04/17/22 06:01 04/17/22 06:01 Pulse Rate 110 H 110 H Respiratory Rate 30 H 30 H Blood Pressure 154/64 H Pulse Oximetry 95 95 Oxygen Flow Rate Fraction of Inspired Oxygen 04/17/22 06:30 04/17/22 06:30 04/17/22 07:00 Pulse Rate 104 H Respiratory Rate 17 Blood Pressure 143/61 H 155/70 H Pulse Oximetry 93 Oxygen Flow Rate Fraction of Inspired Oxygen 04/17/22 07:00 04/17/22 07:30 04/17/22 07:30 Pulse Rate 119 H 123 H Respiratory Rate 23 28 H Blood Pressure 176/77 H Pulse Oximetry 93 93 Oxygen Flow Rate Fraction of Inspired Oxygen Fraction of Inspired Oxygen 35 Oxygen Delivery Method Nasal Cannula,CPAP Oxygen Flow Rate 15 Narrative Exam Narrative: 76-year-old female, resting in bed, actively being repositioned by nursing staff. She calls out in pain. Bilateral lower extremity: Motor functions are grossly intact. Objective Labs Result Diagrams: 04/17/22 05:42 04/17/22 05:42 Labs: Laboratory Results - last 24 hr 04/16/22 04/16/22 04/16/22 09:40 09:55 09:55 WBC 16.6 H RBC 4.02 Hgb 10.7 L Hct 34.2 L MCV 85.1 MCH 26.5 MCHC 31.1 RDW 17.0 H Plt Count 173 Neut % (Auto) 87.3 H Lymph % (Auto) 4.2 L [place] % (Auto) 7.2 Eos % (Auto) 0.9 L Baso % (Auto) 0.4 Neut # (Auto) 16144 H Lymph # (Auto) 700 L [place] # (Auto) 1200 H Eos # (Auto) 100 Baso # (Auto) 100 PT 11.7 INR 1.0 APTT 28 ABG pH ABG pCO2 ABG pO2 ABG HCO3 ABG Total CO2 ABG O2 Saturation ABG Base Excess FiO2 Sodium Potassium Chloride Carbon Dioxide BUN Creatinine Estimated GFR BUN/Creatinine Ratio Glucose Lactate Calcium Magnesium Total Bilirubin AST ALT Alkaline Phosphatase Troponin I Total Protein Albumin Globulin Albumin/Globulin Ratio Lipase Urine Color Urine Appearance Urine pH Ur Specific [place] Urine Protein Urine Glucose (UA) Urine Ketones Urine Occult Blood Urine Nitrate Urine Bilirubin Urine Urobilinogen Ur Leukocyte Esterase Urine RBC Urine WBC Ur Squamous Epith Cells Urine Bacteria Ur Culture Indicated? Nasal Screen MRSA (PCR) SARS-CoV-2 (PCR) Negative 04/16/22 04/16/22 04/17/22 09:55 15:30 05:15 WBC RBC Hgb Hct MCV MCH MCHC RDW Plt Count Neut % (Auto) Lymph % (Auto) [place] % (Auto) Eos % (Auto) Baso % (Auto) Neut # (Auto) Lymph # (Auto) [place] # (Auto) Eos # (Auto) Baso # (Auto) PT INR APTT ABG pH 7.36 ABG pCO2 62.1 H* ABG pO2 27 L* ABG HCO3 35 H ABG Total CO2 37 H ABG O2 Saturation 46 L* ABG Base Excess 9.0 H FiO2 100 Sodium 139 Potassium 3.2 L Chloride 95 L Carbon Dioxide 36 H BUN 12 Creatinine 1.01 Estimated GFR 57 L BUN/Creatinine Ratio 11.9 Glucose 155 H Lactate Calcium 8.2 L Magnesium Total Bilirubin AST ALT Alkaline Phosphatase Troponin I Total Protein Albumin Globulin Albumin/Globulin Ratio Lipase 32 Urine Color Yellow Urine Appearance Sl cloudy Urine pH 6.0 Ur Specific [place] 1.010 Urine Protein Negative Urine Glucose (UA) Negative Urine Ketones Negative Urine Occult Blood Negative Urine Nitrate Negative Urine Bilirubin Negative Urine Urobilinogen 0.2 Ur Leukocyte Esterase Negative Urine RBC 0-1/hpf Urine WBC 5-10/hpf H Ur Squamous Epith Cells None seen Urine Bacteria Many (>30) H Ur Culture Indicated? Specimen cultured Nasal Screen MRSA (PCR) SARS-CoV-2 (PCR) 04/17/22 04/17/22 04/17/22 05:20 05:42 05:42 WBC 14.7 H RBC 3.79 L Hgb 10.1 L Hct 32.6 L MCV 86.1 MCH 26.7 MCHC 31.0 RDW 16.8 H Plt Count 209 Neut % (Auto) 72.8 Lymph % (Auto) 13.3 L [place] % (Auto) 11.4 Eos % (Auto) 1.9 L Baso % (Auto) 0.6 Neut # (Auto) 60190 H Lymph # (Auto) 2000 [place] # (Auto) 1700 H Eos # (Auto) 300 Baso # (Auto) 100 PT INR APTT ABG pH ABG pCO2 ABG pO2 ABG HCO3 ABG Total CO2 ABG O2 Saturation ABG Base Excess FiO2 Sodium 135 L Potassium 3.6 Chloride 90 L Carbon Dioxide 37 H BUN 12 Creatinine 1.06 H Estimated GFR 54 L BUN/Creatinine Ratio 11.3 Glucose 144 H Lactate Calcium 8.3 L Magnesium Total Bilirubin 0.5 AST 19 ALT 12 Alkaline Phosphatase 85 Troponin I 0.013 Total Protein 7.5 Albumin 3.7 Globulin 3.8 Albumin/Globulin Ratio 1.0 Lipase Urine Color Urine Appearance Urine pH Ur Specific [place] Urine Protein Urine Glucose (UA) Urine Ketones Urine Occult Blood Urine Nitrate Urine Bilirubin Urine Urobilinogen Ur Leukocyte Esterase Urine RBC Urine WBC Ur Squamous Epith Cells Urine Bacteria Ur Culture Indicated? Nasal Screen MRSA (PCR) Negative for mrsa SARS-CoV-2 (PCR) 04/17/22 04/17/22 05:42 05:42 WBC RBC Hgb Hct MCV MCH MCHC RDW Plt Count Neut % (Auto) Lymph % (Auto) [place] % (Auto) Eos % (Auto) Baso % (Auto) Neut # (Auto) Lymph # (Auto) [place] # (Auto) Eos # (Auto) Baso # (Auto) PT INR APTT ABG pH ABG pCO2 ABG pO2 ABG HCO3 ABG Total CO2 ABG O2 Saturation ABG Base Excess FiO2 Sodium Potassium Chloride Carbon Dioxide BUN Creatinine Estimated GFR BUN/Creatinine Ratio Glucose Lactate 1.7 Calcium Magnesium 1.9 Total Bilirubin AST ALT Alkaline Phosphatase Troponin I Total Protein Albumin Globulin Albumin/Globulin Ratio Lipase Urine Color Urine Appearance Urine pH Ur Specific [place] Urine Protein Urine Glucose (UA) Urine Ketones Urine Occult Blood Urine Nitrate Urine Bilirubin Urine Urobilinogen Ur Leukocyte Esterase Urine RBC Urine WBC Ur Squamous Epith Cells Urine Bacteria Ur Culture Indicated? Nasal Screen MRSA (PCR) SARS-CoV-2 (PCR) PFSH Medical History Chronic kidney disease, stage III (moderate) COPD (chronic obstructive pulmonary disease) Depression Glaucoma Lung nodule Morbid obesity with BMI of 40.0-44.9, adult Osteoarthritis Paroxysmal atrial fibrillation Severe mitral valve stenosis Surgical History H/O foot surgery H/O neck surgery H/O rotator cuff surgery History of hysterectomy Hx of cataract surgery Knee joint replacement by other means S/P laparoscopic sleeve gastrectomy Status post cholecystectomy Family History Father Alcoholic Mother Arthritis Renal failure Cancer Brother Alcoholic Social History household members: spouse Smoking Status: Former smoker alcohol intake: former Assessment & Plan Assessment & Plan narrative: 1. Acute respiratory distress and hypoxemia. Received 2 doses of Narcan 04/16/22, placed on Bipap. Transferred to ICU, ICU team and hospitalist team are continuing to manage the patient. 2. Fracture of femoral neck: Displaced fx of left femoral neck.? History, imaging, and physical exam findings d/w Dr Pily Godoy, on-call provider for ortho.? - Plan for left hip hemiarthroplasty on 04/18/2022, if cleared by primary team.? -Continue to hold ASA and Plavix; VTE prophylaxis w/ enoxaparin until surgery ok .? NPO at 00:01 on 04/18/2022 in anticipation of surgery. Continue with multimodal pain management cautiously, as patient required 2 doses of Narcan yesterday. 3. Atrial fibrillation: recent Watchmen device placement.? Hold ASA and Plavix, will restart postoperatively. 4. Obesity (BMI 30.0-34.9): H/o gastric surgery for weight loss.? No NSAIDs. Time Spent With Patient Critical Care time: I spent a total of [] minutes of critical care time on this patient's care today; this time is exclusive of procedural time.
--- NOTE | 2022-04-17 09:57 | P.TELICUPN_ITS ---
Subjective Subjective IF CAMERA ACTIVATED, patient seen via real-time interactive audiovisual communication: Camera activated Consent obtained for tele-supervisor paint roller covers care: Yes Patient Location: ICU Provider location (State): [place] Other participants/roles: RN, RT, Pharmacy Current Medications Current Medications Medications: Home Medications Cranberry W/D [place] 1 cap PO DAILY 03/18/19 [History Confirmed 04/16/22] albuterol sulfate 90 mcg/actuation aerosol inhaler (ProAir HFA) 2 puff inhalation BID 03/18/19 [History Confirmed 04/16/22] ascorbic acid (vitamin C) 1,000 mg tablet (Vitamin C) 500 mg PO DAILY 03/18/19 [History Confirmed 04/16/22] bimatoprost 0.01 % eye drops (Lumigan) 1 drp ophthalmic (eye) QPM 03/18/19 [History Confirmed 04/16/22] brinzolamide 1 % eye drops,suspension (Azopt) 1 drp ophthalmic (eye) DAILY [History Confirmed 04/16/22] cholecalciferol (vitamin D3) 50 mcg (2,000 unit) tablet (Vitamin D3) 2,000 unit PO DAILY 03/18/19 [History Confirmed 04/16/22] dicyclomine 10 mg capsule 10 mg PO TID 03/18/19 [History Confirmed 04/16/22] duloxetine 60 mg capsule,delayed release (Cymbalta) 30 mg PO QPM 03/18/19 [History Confirmed 04/16/22] estradiol 1 mg tablet 2 mg PO DAILY 03/18/19 [History Confirmed 04/16/22] ferrous sulfate 325 mg (65 mg iron) tablet 325 mg PO DAILY 03/18/19 [History Confirmed 04/16/22] flecainide 50 mg tablet 25 mg PO BID 03/18/19 [History Confirmed 04/16/22] magnesium oxide 400 mg PO DAILY 03/18/19 [History Confirmed 04/16/22] multivitamin 2 tab PO DAILY 03/18/19 [History Confirmed 04/16/22] omeprazole 40 mg capsule,delayed release 40 mg PO DAILY 03/18/19 [History C onfirmed 04/16/22] tramadol 50 mg tablet 50 mg PO Q4H PRN Pain (Scale Score 1-3) 03/18/19 [History Confirmed 04/16/22] umeclidinium 62.5 mcg-vilanterol 25 mcg/actuation powdr for inhalation (Anoro Ellipta) 1 inh inhalation DAILY 03/18/19 [History Confirmed 04/16/22] Systane (PF) 1 drp EYE-BOTH 4XD 04/16/22 [History Confirmed 04/16/22] aspirin 81 mg tablet 81 mg PO DAILY 04/16/22 [History Confirmed 04/16/22] buspirone 10 mg tablet 10 mg PO TID 04/16/22 [History Confirmed 04/16/22] clopidogrel 75 mg tablet 75 mg PO DAILY 04/16/22 [History Confirmed 04/16/22] diazepam 5 mg tablet 2.5 mg PO BID PRN Anxiety 04/16/22 [History Confirmed 04/16/22] ipratropium bromide 17 mcg/actuation HFA aerosol inhaler (Atrovent HFA) 2 puff inhalation DAILY PRN breathing 04/16/22 [History Confirmed 04/16/22] potassium chloride 10 mEq capsule,extended release 10 meq PO DAILY 04/16/22 [History Confirmed 04/16/22] torsemide 40 mg tablet 40 mg PO QPM 04/16/22 [History Confirmed 04/16/22] trazodone 50 mg tablet 50 mg PO BEDTIME 04/16/22 [History Confirmed 04/16/22] ursodiol 500 mg tablet 1,000 mg PO QPM 04/16/22 [History Confirmed 04/16/22] Visit Medications (administered) Generic Name Dose Route Start Last Admin Trade Name Freq PRN Reason Stop Dose Admin Flecainide Acetate 50 mg 04/16/22 13:28 04/17/22 01:15 Flecainide 100 Mg Tablet PO 50 mg Q12H REBECCA Administration POTASSIUM CHLORIDE IN WATER 10 meq in 100 mls @ 100 mls/hr 04/17/22 06:30 04/17/22 06:57 Potassium Cl 10 Meq/100 Ml Paola IV 04/17/22 10:29 100 mls/hr Q1H REBECCA Administration Methylprednisolone 60 mg 04/17/22 06:20 04/17/22 06:57 Methylprednisolone 125 Mg/2 Ml Vial IV 60 mg DAILY REBECCA Administration Naloxone HCl 0.2 mg 04/16/22 13:28 04/17/22 05:32 Naloxone 0.4 Mg/Ml Vial IV 0.2 mg Q2MIN PRN Administration Opiate Reversal [place] 0.01% Eye 1 each 04/16/22 21:00 04/16/22 22:19 Drops EYE-BOTH 1 each BEDTIME REBECCA Administration Systane Eye Drops 1 each 04/16/22 17:00 04/16/22 22:19 EYE-BOTH 1 each QID REBECCA Administration Brinzolamide 1% Eye 1 each 04/16/22 21:00 04/16/22 22:19 Drops EYE-BOTH 1 each BID REBECCA Administration Ondansetron HCl 4 mg 04/16/22 13:28 04/16/22 22:31 Ondansetron 4 Mg/2 Ml Inj IV 4 mg Q8HR PRN Administration Nausea And Vomiting Objective Labs Result Diagrams: 04/17/22 05:42 04/17/22 05:42 Labs: Laboratory Results - last 24 hr 04/16/22 04/16/22 04/16/22 09:40 09:55 09:55 WBC 16.6 H RBC 4.02 Hgb 10.7 L Hct 34.2 L MCV 85.1 MCH 26.5 MCHC 31.1 RDW 17.0 H Plt Count 173 Neut % (Auto) 87.3 H Lymph % (Auto) 4.2 L [place] % (Auto) 7.2 Eos % (Auto) 0.9 L Baso % (Auto) 0.4 Neut # (Auto) 74162 H Lymph # (Auto) 700 L [place] # (Auto) 1200 H Eos # (Auto) 100 Baso # (Auto) 100 PT 11.7 INR 1.0 APTT 28 ABG pH ABG pCO2 ABG pO2 ABG HCO3 ABG Total CO2 ABG O2 Saturation ABG Base Excess FiO2 Sodium Potassium Chloride Carbon Dioxide BUN Creatinine Estimated GFR BUN/Creatinine Ratio Glucose Lactate Calcium Magnesium Total Bilirubin AST ALT Alkaline Phosphatase Troponin I Total Protein Albumin Globulin Albumin/Globulin Ratio Lipase Urine Color Urine Appearance Urine pH Ur Specific [place] Urine Protein Urine Glucose (UA) Urine Ketones Urine Occult Blood Urine Nitrate Urine Bilirubin Urine Urobilinogen Ur Leukocyte Esterase Urine RBC Urine WBC Ur Squamous Epith Cells Urine Bacteria Ur Culture Indicated? Nasal Screen MRSA (PCR) SARS-CoV-2 (PCR) Negative 04/16/22 04/16/22 04/17/22 09:55 15:30 05:15 WBC RBC Hgb Hct MCV MCH MCHC RDW Plt Count Neut % (Auto) Lymph % (Auto) [place] % (Auto) Eos % (Auto) Baso % (Auto) Neut # (Auto) Lymph # (Auto) [place] # (Auto) Eos # (Auto) Baso # (Auto) PT INR APTT ABG pH 7.36 ABG pCO2 62.1 H* ABG pO2 27 L* ABG HCO3 35 H ABG Total CO2 37 H ABG O2 Saturation 46 L* ABG Base Excess 9.0 H FiO2 100 Sodium 139 Potassium 3.2 L Chloride 95 L Carbon Dioxide 36 H BUN 12 Creatinine 1.01 Estimated GFR 57 L BUN/Creatinine Ratio 11.9 Glucose 155 H Lactate Calcium 8.2 L Magnesium Total Bilirubin AST ALT Alkaline Phosphatase Troponin I Total Protein Albumin Globulin Albumin/Globulin Ratio Lipase 32 Urine Color Yellow Urine Appearance Sl cloudy Urine pH 6.0 Ur Specific [place] 1.010 Urine Protein Negative Urine Glucose (UA) Negative Urine Ketones Negative Urine Occult Blood Negative Urine Nitrate Negative Urine Bilirubin Negative Urine Urobilinogen 0.2 Ur Leukocyte Esterase Negative Urine RBC 0-1/hpf Urine WBC 5-10/hpf H Ur Squamous Epith Cells None seen Urine Bacteria Many (>30) H Ur Culture Indicated? Specimen cultured Nasal Screen MRSA (PCR) SARS-CoV-2 (PCR) 04/17/22 04/17/22 04/17/22 05:20 05:42 05:42 WBC 14.7 H RBC 3.79 L Hgb 10.1 L Hct 32.6 L MCV 86.1 MCH 26.7 MCHC 31.0 RDW 16.8 H Plt Count 209 Neut % (Auto) 72.8 Lymph % (Auto) 13.3 L [place] % (Auto) 11.4 Eos % (Auto) 1.9 L Baso % (Auto) 0.6 Neut # (Auto) 90445 H Lymph # (Auto) 2000 [place] # (Auto) 1700 H Eos # (Auto) 300 Baso # (Auto) 100 PT INR APTT ABG pH ABG pCO2 ABG pO2 ABG HCO3 ABG Total CO2 ABG O2 Saturation ABG Base Excess FiO2 Sodium 135 L Potassium 3.6 Chloride 90 L Carbon Dioxide 37 H BUN 12 Creatinine 1.06 H Estimated GFR 54 L BUN/Creatinine Ratio 11.3 Glucose 144 H Lactate Calcium 8.3 L Magnesium Total Bilirubin 0.5 AST 19 ALT 12 Alkaline Phosphatase 85 Troponin I 0.013 Total Protein 7.5 Albumin 3.7 Globulin 3.8 Albumin/Globulin Ratio 1.0 Lipase Urine Color Urine Appearance Urine pH Ur Specific [place] Urine Protein Urine Glucose (UA) Urine Ketones Urine Occult Blood Urine Nitrate Urine Bilirubin Urine Urobilinogen Ur Leukocyte Esterase Urine RBC Urine WBC Ur Squamous Epith Cells Urine Bacteria Ur Culture Indicated? Nasal Screen MRSA (PCR) Negative for mrsa SARS-CoV-2 (PCR) 04/17/22 04/17/22 05:42 05:42 WBC RBC Hgb Hct MCV MCH MCHC RDW Plt Count Neut % (Auto) Lymph % (Auto) [place] % (Auto) Eos % (Auto) Baso % (Auto) Neut # (Auto) Lymph # (Auto) [place] # (Auto) Eos # (Auto) Baso # (Auto) PT INR APTT ABG pH ABG pCO2 ABG pO2 ABG HCO3 ABG Total CO2 ABG O2 Saturation ABG Base Excess FiO2 Sodium Potassium Chloride Carbon Dioxide BUN Creatinine Estimated GFR BUN/Creatinine Ratio Glucose Lactate 1.7 Calcium Magnesium 1.9 Total Bilirubin AST ALT Alkaline Phosphatase Troponin I Total Protein Albumin Globulin Albumin/Globulin Ratio Lipase Urine Color Urine Appearance Urine pH Ur Specific [place] Urine Protein Urine Glucose (UA) Urine Ketones Urine Occult Blood Urine Nitrate Urine Bilirubin Urine Urobilinogen Ur Leukocyte Esterase Urine RBC Urine WBC Ur Squamous Epith Cells Urine Bacteria Ur Culture Indicated? Nasal Screen MRSA (PCR) SARS-CoV-2 (PCR) Exam Vital Signs (past 8 hours): - 04/17/22 06:00 04/17/22 05:22 04/17/22 05:25 Pulse Rate 103 H Respiratory Rate 28 H Blood Pressure 154/64 H 157/67 H Pulse Oximetry Oxygen Flow Rate Fraction of Inspired Oxygen 35 04/17/22 05:25 04/17/22 05:30 04/17/22 05:30 Pulse Rate 98 H 98 H Respiratory Rate 30 H 60 H Blood Pressure 166/70 H Pulse Oximetry 99 98 Oxygen Flow Rate 15 Fraction of Inspired Oxygen 04/17/22 06:00 04/17/22 06:01 04/17/22 06:01 Pulse Rate 110 H 110 H Respiratory Rate 30 H 30 H Blood Pressure 154/64 H Pulse Oximetry 95 95 Oxygen Flow Rate Fraction of Inspired Oxygen 04/17/22 06:30 04/17/22 06:30 04/17/22 07:00 Pulse Rate 104 H Respiratory Rate 17 Blood Pressure 143/61 H 155/70 H Pulse Oximetry 93 Oxygen Flow Rate Fraction of Inspired Oxygen 04/17/22 07:00 04/17/22 07:30 04/17/22 07:30 Pulse Rate 119 H 123 H Respiratory Rate 23 28 H Blood Pressure 176/77 H Pulse Oximetry 93 93 Oxygen Flow Rate Fraction of Inspired Oxygen 04/17/22 07:00 04/17/22 08:00 04/17/22 09:00 Pulse Rate 127 H 107 H 122 H Respiratory Rate 24 20 16 Blood Pressure 156/77 H Pulse Oximetry 94 93 91 Oxygen Flow Rate 5 5 5 Fraction of Inspired Oxygen Fraction of Inspired Oxygen 35 Oxygen Delivery Method Nasal Cannula,CPAP Oxygen Flow Rate 5 Narrative Exam Narrative: Patient on 5L NC, satting 93%. Awake, alert and conversant. Mild tachypnea. Assessment & Plan Assessment & Plan narrative: 76F with a h/o of COPD on home O2, Afib s/p Watchmen admitted with L hip fracture, upgraded to ICU this morning due to AMS and respiratory failure requiring NIPPV. Suspect respiratory issues multifactorial due to opiod side effect, atelectasis complicating her baseline COPD. Consider also COPD exacerbation, pneumonia (given CT findings). No e/o PE. # Acute on Chronic Hypoxic/Hypercapnic Respiratory Failure # L Hip Fracture # Atrial Fibrillation # COPD Exacerbation # UTI N: Tylenol, Oxy for pain. Cautious with IV meds given significant response overnight. C: Continue home Flecainide. ASA, Plavix held for OR P: Continue NC as needed, titrated for an O2 sat goal of 88-92%. Would continue NIPPV during naps and overnight. If any worsening AMS/respiratory pattern would repeat blood gas. Recommend outpatient f/u given CT findings of pulm nodule - make sure patient aware of this diagnosis prior to discharge. PRN Nebs (Ipratropium only, patient preference) GI: Start PPI (home med) R: Home torsemide held. Avoid volume overload H/O: No acute issues ID: On Aztreonam. Given recent cold symptoms, CT findings would add atypical coverage (Azithromycin). Consider viral panel. E: s/p Solumedrol. Would switch to Prednisone for a total 5 day steroid-course for COPD exacerbation Pending OR with Ortho for L hip Fx VTE: Lovenox Time Spent With Patient Critical Care time: I spent a total of [] minutes of critical care time on this patient's care today; this time is exclusive of procedural time.
[2022-04-17] MEDS: AZTREONAM 1 GM in DEXTROSE 5 % IN WATER 50 ML IV ×2 (10:09→22:34)
[2022-04-17] MEDS: OXYCODONE IR 5 MG TABLET PO ×3 (10:09→21:09)
[2022-04-17] MEDS: ACETAMINOPHEN 325 MG TABLET 650 MG PO ×2 (10:09→22:34)
[2022-04-17 10:11] LABS: pH ABG 7.32 (7.35-7.45)
[2022-04-17 10:13] LABS: PO2 ABG 68 mmHg (80-100); TCO2 ABG 37 mmol/L (21-31)
[2022-04-17 10:14] LABS: HCO3 ABG 35 mmol/L (22-26); Oxygen Saturation ABG 91 % (95-100)
[2022-04-17 10:15] LABS: Fractionated Inspired Oxygen 40
[2022-04-17] MEDS: AMIODARONE 150 MG/100 ML PIGGYBACK 600 MG IV ×2 (10:32→11:23)
[2022-04-17] MEDS: AMIODARONE 360 MG/200 ML PIGGYBACK 33.33 MG IV (10:57)
--- NOTE | 2022-04-17 11:40 | DI.RAD.S_ITS ---
PROCEDURE: XR CHEST FOR PICC 1V INDICATIONS: PICC LINE COMPARISON: [facility], CR, XR CHEST 1V, 04/17/2022, 5:08. FINDINGS: PICC was placed by the intravenous therapy team from the left side. Fluoroscopic spot film demonstrates the tip of PICC projecting to the area of mid superior vena cava, 3-4 cm above the cavoatrial junction. IMPRESSION: Tip of PICC projects to the area of mid superior vena cava. Dictated by: Uriel Mo M.D. on 04/17/2022 at 11:32 Approved by: Uriel Mo M.D. on 04/17/2022 at 11:33
[2022-04-17 12:28] LABS: Add Manual Diff / Slide Review NO; Basophils Absolute Auto 0 /uL (0-100); Eosinophils Absolute Auto 0 /uL (0-450); Hematocrit 31.4 % (36-46); Lymphocytes Absolute Auto 300 /uL (1100-4500); Lymphocytes Percent Auto 2.1 % (25-40); Mean Corpuscular HGB Conc 31.8 % (30-36); Mean Corpuscular Hemoglobin 27.4 PG (26-34); Mean Corpuscular Volume 86.2 fL (80-100); Monocytes Absolute Auto 300 /uL (0-900); Monocytes Percent Auto 2.1 % (3-14); Neutrophils Absolute Auto 13300 /uL (1500-7000); Neutrophils Percent Auto 95.8 % (50-75); Platelet Count 198 X10^3/uL (150-400); Red Blood Cell Count 3.64 X10^6/uL (4.0-5.2); Red Cell Distribution Width 16.7 % (11.6-14.8); White Blood Cell Count 13.9 X10^3/uL (4.5-11.0)
[2022-04-17 12:50] LABS: Lactate (Lactic Acid) 2.2 mmol/L (0.7-2.1)
[2022-04-17 12:51] LABS: Alanine Aminotransferase 13 IU/L (<35); Albumin 3.7 g/dL (3.5-5.0); Albumin Globulin Ratio 1.1 (1.0-2.8); Alkaline Phosphatase 83 U/L (38-126); Aspartate Aminotransferase 21 IU/L (14-36); BUN Creatinine Ratio 11.5 (6-22); Bilirubin Total 0.4 mg/dL (0.2-1.3); Blood Urea Nitrogen 15 mg/dL (7-17); Calcium 8.3 mg/dL (8.4-10.2); Carbon Dioxide 31 mmol/L (22-32); Chloride 91 mmol/L (98-107); Estimated Glomerular Filt Rate 42 mL/min (>60); Globulin 3.4 g/dL (1.7-4.1); Glucose 212 mg/dL (80-110); HEMOLYSIS < 15 (0-50); Potassium 3.9 mmol/L (3.4-5.1); Sodium 134 mmol/L (137-145); Total Protein 7.1 g/dL (6.3-8.2)
--- NOTE | 2022-04-17 13:30 | PM.EICU.INT ---
Teleintensivist Intervention Date/Time Was camera activated?: Yes Issue(s) Addressed Issue(s): Arrhythmia Intervention(s) :: Patient with Afib with RVR to the 170s. BP soft, mentating but slightly confused. Amiodarone bolus and drip started. Given HR still in 150s, additional Amio bolus ordered. Recommended EKG and placing patient back on BiPAP. Levophed to be started if MAP <65.
[2022-04-17 14:25] LABS: Reflexed Lactate in 2 Hours Y
[2022-04-17] MEDS: PANTOPRAZOLE 40 MG VIAL IV (14:56)
[2022-04-17] MEDS: DOXYCYCLINE HYCLATE 100 MG TABLET PO ×2 (15:03→21:08)
[2022-04-17] MEDS: predniSONE 20 MG TABLET 40 MG PO (15:03)
--- NOTE | 2022-04-17 15:56 | CM.DANOTE ---
Initial DCP Assessment Note Pt is a 76 yo female, resident of [place], arrives after GLF, on thinners ,at home and subsequent hip fx, admitted and awaiting hip repair. Code called this morning as patient had become altered, hypoxic, in resp distress. Narcan administered and patient transferred to the ICU and started on bipap PCP: Maryuri Child Payer: MCR/[employer] Met w/patient and spouse at bedside this afternoon, introduced self and role. Patient on Bipap but appeared A+O and able to track this conversation. Patient and spouse live in [facility] and are both indp at baseline. Patient has poor activity tolerance d/t compromised resp status so uses a FWW at home when needed and a w/c outdoors for long distances (appointments). Patient has had two knee replacements and went home w/spouse and outpatient PT afterwards, no hx of HH or SNF Patient will likely need SNF upon discharge. This BUTCHER SUPERVISOR suggested to patient and spouse that CM team return after surgery and after therapy evals to review SNF choices via IPAD and patient/spouse agreeable. RN monitoring patient's heart rate very closely after it jumped to 170s this afternoon, kept this visit brief CM team will plan to follow closely for coordination of DCP; anticipate need for SNF. SNF choices can be reviewed via CM IPAD when medically appropriate ALCIDES Oshea Discharge Planning/Care Management CM Discharge Assessment Start: 04/17/22 14:47 Freq: Status: Active Protocol: Document 04/17/22 14:47 CARSON (Rec: 04/17/22 15:56 CARSON [id number]) Discharge Planning Assessment Assigned Automobile Relocation Engineer ALCIDES Cameron DPOA/Assigned Designee Name Gerry Ayala, spouse Contact Information [phone] Advance Directives? Yes Advance Directives on File No History Provided By Patient,Family Member,Medical Record Has Patient been admitted in last 30 No days? Comment ER 8.22 GLF DIS IN 3.22 SOB Prior Living Arrangements House Household Members spouse Type of transporation used prior to Relies on Others admit Independent with ADL's Yes: Poor activity tolerance, FWW vs w/c (appointments) Is patient alert and oriented? Yes Needs Assistance With Meal Prep,Home Chores / Shopping Patient/Family Preference Longterm Facility Barriers to Discharge No Comment Patient will likely need SNF upon discharge, patient has no hx w/ HH or SNF. This BUTCHER SUPERVISOR suggested to patient and spouse that CM team return after surgery and after therapy evals to review SNF choices via IPAD and patient/ spouse agreeable. RN monitoring patient's heart rate very closely after it jumped to 170s this afternoon Discharge Plan Longterm Facility Transportation Arrangement Likely w/c van vs BLS if SNF Additional Comment Awaiting patient's surgery and post operative therapy before further discussion about DCP options Medicare Choice List Provided No Comment Patient will likely need SNF but detailed conversation about SNF options did not feel appropriate today, patient on Bipap and remains medically compromised, RN managing heart rate very closely today d/t heart rate in the 170s
[2022-04-17] MEDS: AMIODARONE 360 MG/200 ML PIGGYBACK 16.7 MG IV (17:09)
--- NOTE | 2022-04-17 20:32 | PM.ICURNDS ---
- Date Patient Seen: 04/17/22 Time Patient Seen: 20:32 :: This patient was seen via real time interactive two-way audiovisual telecommunication. Note: Patient went into A fib w/ RVR earlier this afternoon and started on amiodarone gtt per protocol. Converted back to SR this evening. On amiodarone gtt 0.5 mg/min. Plan for OR tomorrow. Will repeat renal panel and CBC. D/w RN at bedside.
[2022-04-17] MEDS: LUMIGAN 0.01% EYE DROPS 1 EACH EYE-BOTH (21:08)
[2022-04-17 21:39] LABS: Add Manual Diff / Slide Review NO; Basophils Absolute Auto 0 /uL (0-100); Basophils Percent Auto 0.3 % (0-2); Eosinophils Absolute Auto 0 /uL (0-450); Hematocrit 29.6 % (36-46); Hemoglobin 9.4 g/dL (12.0-16.0); Lymphocytes Absolute Auto 500 /uL (1100-4500); Mean Corpuscular HGB Conc 31.6 % (30-36); Mean Corpuscular Volume 85.4 fL (80-100); Monocytes Absolute Auto 300 /uL (0-900); Monocytes Percent Auto 2.9 % (3-14); Neutrophils Absolute Auto 10700 /uL (1500-7000); Neutrophils Percent Auto 92.8 % (50-75); Platelet Count 180 X10^3/uL (150-400); Red Blood Cell Count 3.47 X10^6/uL (4.0-5.2); Red Cell Distribution Width 16.8 % (11.6-14.8); White Blood Cell Count 11.5 X10^3/uL (4.5-11.0)
[2022-04-17 21:46] LABS: Lactate 2HR (Lactic Acid Rflx) 2.2 mmol/L (0.7-2.1)
[2022-04-17 21:47] LABS: Albumin 3.4 g/dL (3.5-5.0); Blood Urea Nitrogen 17 mg/dL (7-17); Calcium 8.2 mg/dL (8.4-10.2); Carbon Dioxide 33 mmol/L (22-32); Chloride 92 mmol/L (98-107); Estimated Glomerular Filt Rate 50 mL/min (>60); Glucose 228 mg/dL (80-110); HEMOLYSIS < 15 (0-50); Phosphorous 2.8 mg/dL (2.8-4.1); Potassium 3.8 mmol/L (3.4-5.1); Sodium 133 mmol/L (137-145)
[2022-04-18] VITALS (54 sets, daily range): BP systolic 98–156; BP diastolic 53–86; PULSE 78–112; RESP 12–48; TEMP 31–36.7; O2SAT 91–99; BMI 32.0
[2022-04-18] MEDS: OXYCODONE IR 5 MG TABLET PO (00:23)
[2022-04-18] MEDS: OXYCODONE IR 5 MG TABLET 10 MG PO ×3 (02:07→08:26)
[2022-04-18] MEDS: AMIODARONE 180 MG/100 ML PIGGYBACK 16.7 MG IV ×2 (04:42→17:25)
[2022-04-18] MEDS: AZTREONAM 1 GM in DEXTROSE 5 % IN WATER 50 ML IV (06:38)
--- NOTE | 2022-04-18 07:53 | P.PN_ITS ---
Subjective Subjective Date Patient Seen: 04/18/22 Interval history: Patient feeling very well today and is now off Bipap and HR and BP are within normal limits. Converted to SR on amio drip on 04/17 at 1600. She is ready for hip repair surgery today and is in good spirits. Exam Vital Signs (past 8 hours): - 04/18/22 00:00 04/18/22 00:00 04/18/22 00:30 Temperature Pulse Rate 95 H 92 H Respiratory Rate 21 19 Blood Pressure 144/63 H Pulse Oximetry 94 94 Oxygen Delivery Method Oxygen Flow Rate 2.5 04/18/22 01:00 04/18/22 01:00 04/18/22 00:05 Temperature 97.5 F L Pulse Rate 93 H Respiratory Rate 19 Blood Pressure 147/66 H Pulse Oximetry 94 Oxygen Delivery Method Nasal Cannula Oxygen Flow Rate 2.5 04/18/22 01:30 04/18/22 02:00 04/18/22 02:01 Temperature Pulse Rate 93 H 90 Respiratory Rate 21 21 Blood Pressure 134/61 Pulse Oximetry 95 94 Oxygen Delivery Method Oxygen Flow Rate 04/18/22 02:01 04/18/22 02:30 04/18/22 03:00 Temperature Pulse Rate 90 91 H Respiratory Rate 17 21 Blood Pressure 127/62 Pulse Oximetry 94 95 Oxygen Delivery Method Oxygen Flow Rate 2 04/18/22 03:00 04/18/22 03:30 04/18/22 04:00 Temperature Pulse Rate 91 H 91 H Respiratory Rate 14 18 Blood Pressure 135/63 Pulse Oximetry 95 96 Oxygen Delivery Method Oxygen Flow Rate 04/18/22 04:00 04/18/22 04:30 04/18/22 05:00 Temperature 97.8 F Pulse Rate 91 H 91 H 89 Respiratory Rate 21 21 22 Blood Pressure Pulse Oximetry 97 95 95 Oxygen Delivery Method Oxygen Flow Rate 2.5 04/18/22 05:01 04/18/22 05:01 04/18/22 05:00 Temperature Pulse Rate 96 H Respiratory Rate 22 Blood Pressure 137/60 Pulse Oximetry 95 Oxygen Delivery Method Nasal Cannula Oxygen Flow Rate 04/18/22 05:30 04/18/22 06:00 04/18/22 06:00 Temperature Pulse Rate 101 H 105 H Respiratory Rate 21 26 H Blood Pressure 135/64 Pulse Oximetry 92 92 Oxygen Delivery Method Oxygen Flow Rate 2.5 04/18/22 06:30 Temperature Pulse Rate 97 H Respiratory Rate 24 Blood Pressure Pulse Oximetry 95 Oxygen Delivery Method Oxygen Flow Rate 2.5 Fraction of Inspired Oxygen 35 Oxygen Delivery Method Nasal Cannula Oxygen Flow Rate 2.5 Narrative Exam Narrative: GEN: alert and oriented, jovial today HEENT: moist mucous membranes, PERRL NECK: trachea midline, no JVD PULM: clear bilaterally, no wheezes, rhonchi, rales CV: normal rhythm and normal rate, no murmurs ABD: soft, nontender, nondistended, no organomegaly EXT: warm and well perfused, left hip tender to palpation SKIN: scattered bruises on extremities NEURO: awake, alert, no focal deficits noted Objective Labs Result Diagrams: 04/17/22 21:25 04/17/22 21:25 Labs: Laboratory Results - last 24 hr 04/17/22 04/17/22 04/17/22 09:18 12:15 12:15 WBC 13.9 H RBC 3.64 L Hgb 10.0 L Hct 31.4 L MCV 86.2 MCH 27.4 MCHC 31.8 RDW 16.7 H Plt Count 198 Neut % (Auto) 95.8 H D Lymph % (Auto) 2.1 L [place] % (Auto) 2.1 L Eos % (Auto) 0.0 L Baso % (Auto) 0.0 Neut # (Auto) 23785 H Lymph # (Auto) 300 L [place] # (Auto) 300 Eos # (Auto) 0 Baso # (Auto) 0 ABG pH 7.32 L ABG pCO2 68.6 H* ABG pO2 68 L ABG HCO3 35 H ABG Total CO2 37 H ABG O2 Saturation 91 L ABG Base Excess 9.0 H FiO2 40 Sodium 134 L Potassium 3.9 Chloride 91 L Carbon Dioxide 31 BUN 15 Creatinine 1.30 H Estimated GFR 42 L BUN/Creatinine Ratio 11.5 Glucose 212 H Lactate Calcium 8.3 L Phosphorus Total Bilirubin 0.4 AST 21 ALT 13 Alkaline Phosphatase 83 Total Protein 7.1 Albumin 3.7 Globulin 3.4 Albumin/Globulin Ratio 1.1 Procalcitonin 04/17/22 04/17/22 04/17/22 12:15 12:15 21:25 WBC RBC Hgb Hct MCV MCH MCHC RDW Plt Count Neut % (Auto) Lymph % (Auto) [place] % (Auto) Eos % (Auto) Baso % (Auto) Neut # (Auto) Lymph # (Auto) [place] # (Auto) Eos # (Auto) Baso # (Auto) ABG pH ABG pCO2 ABG pO2 ABG HCO3 ABG Total CO2 ABG O2 Saturation ABG Base Excess FiO2 Sodium Potassium Chloride Carbon Dioxide BUN Creatinine Estimated GFR BUN/Creatinine Ratio Glucose Lactate 2.2 H 2.2 H Calcium Phosphorus Total Bilirubin AST ALT Alkaline Phosphatase Total Protein Albumin Globulin Albumin/Globulin Ratio Procalcitonin 0.20 04/17/22 04/17/22 21:25 21:25 WBC 11.5 H RBC 3.47 L Hgb 9.4 L Hct 29.6 L MCV 85.4 MCH 27.0 MCHC 31.6 RDW 16.8 H Plt Count 180 Neut % (Auto) 92.8 H Lymph % (Auto) 4.0 L [place] % (Auto) 2.9 L Eos % (Auto) 0.0 L Baso % (Auto) 0.3 Neut # (Auto) 98551 H Lymph # (Auto) 500 L [place] # (Auto) 300 Eos # (Auto) 0 Baso # (Auto) 0 ABG pH ABG pCO2 ABG pO2 ABG HCO3 ABG Total CO2 ABG O2 Saturation ABG Base Excess FiO2 Sodium 133 L Potassium 3.8 Chloride 92 L Carbon Dioxide 33 H BUN 17 Creatinine 1.13 H Estimated GFR 50 L BUN/Creatinine Ratio 15.0 Glucose 228 H Lactate Calcium 8.2 L Phosphorus 2.8 Total Bilirubin AST ALT Alkaline Phosphatase Total Protein Albumin 3.4 L Globulin Albumin/Globulin Ratio Procalcitonin PFS Medical History Chronic kidney disease, stage III (moderate) COPD (chronic obstructive pulmonary disease) Depression Glaucoma Lung nodule Morbid obesity with BMI of 40.0-44.9, adult Osteoarthritis Paroxysmal atrial fibrillation Severe mitral valve stenosis Surgical History H/O foot surgery H/O neck surgery H/O rotator cuff surgery History of hysterectomy Hx of cataract surgery Knee joint replacement by other means S/P laparoscopic sleeve gastrectomy Status post cholecystectomy Family History Father Alcoholic Mother Arthritis Renal failure Cancer Brother Alcoholic Social History household members: spouse Smoking Status: Former smoker alcohol intake: former Assessment & Plan Assessment & Plan narrative: # Acute on chronic hypoxic and hypercapnic respiratory failure, improving -patient has known COPD on 1.5L baseline, overnight on 04/17 developed worsening hypercapnia likely from opiates with ABG showing pCO2 68, pO2 27 and placed on bipap -now off bipap -continue nebs PRN -avoid narcotics -appreciate teleICU consultation -prednisone x5 days -can downgrade from ICU after surgery barring any setbacks # Atrial fibrillation with RVR not present on admission, now resolved -morning of 04/17 developed HR 170's with BP 85/50 -on amiodarone drip, converted to sinus at approx 1600 on 04/17 -will transition to po amio postop -has watchmen device, not on anticoag -is taking both aspirin, plavix, last took on 04/15 -hold flecainide for now # Left hip fracture -occurred s/p mechanical fall -hip xray shows left hip fracture -surgery scheduled 04/18 -ordered for oral and IV pain medications -orthopedic surgery is consulted # CAP -CXR with mild atypical pneumonia -CTA without PE, but RLL consolidation and multifocal peripheral opacities -continue aztreonam and doxy x5 days # UTI rule out -UA with pyuria, culture with no growth # 1.6cm RLL lung nodule suspicious for malignancy -noted on CTA chest, spiculated -rec outpatient CT chest in 1 month for f/u # Hypokalemia -likely secondary to diuretics -replete PRN # Hypotension, resolved -blood pressure noted to be in 80s briefly in ED -improved with fluids -suspect secondary to hypovolemia from diuretics -continue gentle hydration as will be NPO for surgery -infectious workup was above # Chronic CHFpEF -hold torsemide for now CODE: Full Proxy: Gerry Ayala, Dispo: Pending hip fracture repair 04/18 and will likely need SNF. Time Spent With Patient Critical Care time: I spent a total of [] minutes of critical care time on this patient's care today; this time is exclusive of procedural time.
[2022-04-18] MEDS: ACETAMINOPHEN 325 MG TABLET 650 MG PO ×2 (08:25→23:29)
[2022-04-18] MEDS: predniSONE 20 MG TABLET 40 MG PO (08:25)
[2022-04-18] MEDS: DOXYCYCLINE HYCLATE 100 MG TABLET PO ×2 (08:27→21:00)
[2022-04-18] MEDS: PANTOPRAZOLE 40 MG VIAL IV (08:30)
[2022-04-18] MEDS: SODIUM CHLORIDE 0.9% 1,000 ML 100 ML IV (08:37)
[2022-04-18 08:56] LABS: Hemoglobin A1C% w Est Avg Glu 5.3 % (4.0-6.0)
--- NOTE | 2022-04-18 09:47 | P.TELICUPN_ITS ---
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 On 2L NC. Converted to sinus rhythm yesterday afternoon on Amio drip, which she is still on. Headed to OR now for L hip fracture. Current Medications Current Medications Medications: Home Medications Cranberry W/D Mannose 1 cap PO DAILY 03/18/19 [History Confirmed 04/16/22] albuterol sulfate 90 mcg/actuation aerosol inhaler (ProAir HFA) 2 puff inhalation BID 03/18/19 [History Confirmed 04/16/22] ascorbic acid (vitamin C) 1,000 mg tablet (Vitamin C) 500 mg PO DAILY 03/18/19 [History Confirmed 04/16/22] bimatoprost 0.01 % eye drops (Lumigan) 1 drp ophthalmic (eye) QPM 03/18/19 [History Confirmed 04/16/22] brinzolamide 1 % eye drops,suspension (Azopt) 1 drp ophthalmic (eye) DAILY 03/18/19 [History Confirmed 04/16/22] cholecalciferol (vitamin D3) 50 mcg (2,000 unit) tablet (Vitamin D3) 2,000 unit PO DAILY 03/18/19 [History Confirmed 04/16/22] dicyclomine 10 mg capsule 10 mg PO TID 03/18/19 [History Confirmed 04/16/22] duloxetine 60 mg capsule,delayed release (Cymbalta) 30 mg PO QPM 03/18/19 [History Confirmed 04/16/22] estradiol 1 mg tablet 2 mg PO DAILY 03/18/19 [History Confirmed 04/16/22] ferrous sulfate 325 mg (65 mg iron) tablet 325 mg PO DAILY 03/18/19 [History Confirmed 04/16/22] flecainide 50 mg tablet 25 mg PO BID 03/18/19 [History Confirmed 04/16/22] magnesium oxide 400 mg PO DAILY 03/18/19 [History Confirmed 04/16/22] multivitamin 2 tab PO DAILY 03/18/19 [History Confirmed 04/16/22] omeprazole 40 mg capsule,delayed release 40 mg PO DAILY 03/18/19 [History Confirmed 04/16/22] tramadol 50 mg tablet 50 mg PO Q4H PRN Pain (Scale Score 1-3) 03/18/19 [History Confirmed 04/16/22] umeclidinium 62.5 mcg-vilanterol 25 mcg/actuation powdr for inhalation (Anoro Ellipta) 1 inh inhalation DAILY 03/18/19 [History Confirmed 04/16/22] Systane (PF) 1 drp EYE-BOTH 4XD 04/16/22 [History Confirmed 04/16/22] aspirin 81 mg tablet 81 mg PO DAILY 04/16/22 [History Confirmed 04/16/22] buspirone 10 mg tablet 10 mg PO TID 04/16/22 [History Confirmed 04/16/22] clopidogrel 75 mg tablet 75 mg PO DAILY 04/16/22 [History Confirmed 04/16/22] diazepam 5 mg tablet 2.5 mg PO BID PRN Anxiety 04/16/22 [History Confirmed 04/16/22] ipratropium bromide 17 mcg/actuation HFA aerosol inhaler (Atrovent HFA) 2 puff inhalation DAILY PRN breathing 04/16/22 [History Confirmed 04/16/22] potassium chloride 10 mEq capsule,extended release 10 meq PO DAILY 04/16/22 [History Confirmed 04/16/22] torsemide 40 mg tablet 40 mg PO QPM 04/16/22 [History Confirmed 04/16/22] trazodone 50 mg tablet 50 mg PO BEDTIME 04/16/22 [History Confirmed 04/16/22] ursodiol 500 mg tablet 1,000 mg PO QPM 04/16/22 [History Confirmed 04/16/22] Visit Medications (administered) Generic Name Dose Route Start Last Admin Trade Name Freq PRN Reason Stop Dose Admin Acetaminophen 650 mg 04/16/22 13:28 04/18/22 08:25 Acetaminophen 325 Mg Tablet PO 650 mg Q6H PRN Administration Fever/Mild Pain (1-3) Doxycycline Hyclate 100 mg 04/17/22 10:45 04/18/22 08:27 Doxycycline Hyclate 100 Mg Tablet PO 04/22/22 10:44 100 mg BID REBECCA Administration Aztreonam 1 gm/ Dextrose 50 mls @ 100 mls/hr 04/17/22 07:00 04/18/22 06:38 IV 100 mls/hr Q8H REEBCCA Administration Amiodarone HCl/Dextrose 180 mg in 100 mls @ 16.7 mls/hr 04/18/22 04:30 04/18/22 04:42 Nexterone IV 04/18/22 10:30 16.7 mls/hr CONT REBECCA Administration Protocol Sodium Chloride 1,000 mls @ 100 mls/hr 04/18/22 08:00 04/18/22 08:37 Normal Saline 0.9% IV 04/18/22 19:59 100 mls/hr CONT REBECCA Administration Insulin Human Regular 0 unit 04/18/22 08:15 04/18/22 08:43 Insulin Regular 100 Unit/Ml 3 Ml Vial SUBCUT Not Given Q6H REBECCA Protocol Naloxone HCl 0.2 mg 04/16/22 13:28 04/17/22 05:32 Naloxone 0.4 Mg/Ml Vial IV 0.2 mg Q2MIN PRN Administration Opiate Reversal [place] 0.01% Eye 1 each 04/16/22 21:00 04/17/22 21:08 Drops EYE-BOTH 1 each BEDTIME REBECCA Administration Systane Eye Drops 1 each 04/16/22 17:00 04/18/22 08:31 EYE-BOTH 1 each QID REBECCA Administration Brinzolamide 1% Eye 1 each 04/16/22 21:00 04/18/22 08:31 Drops EYE-BOTH 1 each BID REBECCA Administration Ondansetron HCl 4 mg 04/16/22 13:28 04/16/22 22:31 Ondansetron 4 Mg/2 Ml Inj IV 4 mg Q8HR PRN Administration Nausea And Vomiting Oxycodone HCl 10 mg 04/18/22 01:48 04/18/22 08:26 Oxycodone Ir 5 Mg Tablet PO 10 mg Q3H PRN Administration Pain, Moderate (4-6) Pantoprazole Sodium 40 mg 04/17/22 10:45 04/18/22 08:30 Pantoprazole 40 Mg Vial IV 40 mg DAILY REBECCA Administration Prednisone 40 mg 04/17/22 10:45 04/18/22 08:25 Prednisone 20 Mg Tablet PO 04/21/22 10:44 40 mg DAILY REBECCA Administration Objective Labs Result Diagrams: 04/17/22 21:25 04/17/22 21:25 Labs: Laboratory Results - last 24 hr 04/17/22 04/17/22 04/17/22 09:18 12:15 12:15 WBC 13.9 H RBC 3.64 L Hgb 10.0 L Hct 31.4 L MCV 86.2 MCH 27.4 MCHC 31.8 RDW 16.7 H Plt Count 198 Neut % (Auto) 95.8 H D Lymph % (Auto) 2.1 L [place] % (Auto) 2.1 L Eos % (Auto) 0.0 L Baso % (Auto) 0.0 Neut # (Auto) 71578 H Lymph # (Auto) 300 L [place] # (Auto) 300 Eos # (Auto) 0 Baso # (Auto) 0 ABG pH 7.32 L ABG pCO2 68.6 H* ABG pO2 68 L ABG HCO3 35 H ABG Total CO2 37 H ABG O2 Saturation 91 L ABG Base Excess 9.0 H FiO2 40 Sodium 134 L Potassium 3.9 Chloride 91 L Carbon Dioxide 31 BUN 15 Creatinine 1.30 H Estimated GFR 42 L BUN/Creatinine Ratio 11.5 Glucose 212 H Hemoglobin A1c Lactate Calcium 8.3 L Phosphorus Total Bilirubin 0.4 AST 21 ALT 13 Alkaline Phosphatase 83 Total Protein 7.1 Albumin 3.7 Globulin 3.4 Albumin/Globulin Ratio 1.1 Procalcitonin 04/17/22 04/17/22 04/17/22 12:15 12:15 21:25 WBC RBC Hgb Hct MCV MCH MCHC RDW Plt Count Neut % (Auto) Lymph % (Auto) [place] % (Auto) Eos % (Auto) Baso % (Auto) Neut # (Auto) Lymph # (Auto) [place] # (Auto) Eos # (Auto) Baso # (Auto) ABG pH ABG pCO2 ABG pO2 ABG HCO3 ABG Total CO2 ABG O2 Saturation ABG Base Excess FiO2 Sodium Potassium Chloride Carbon Dioxide BUN Creatinine Estimated GFR BUN/Creatinine Ratio Glucose Hemoglobin A1c Lactate 2.2 H 2.2 H Calcium Phosphorus Total Bilirubin AST ALT Alkaline Phosphatase Total Protein Albumin Globulin Albumin/Globulin Ratio Procalcitonin 0.20 04/17/22 04/17/22 04/17/22 21:25 21:25 21:25 WBC 11.5 H RBC 3.47 L Hgb 9.4 L Hct 29.6 L MCV 85.4 MCH 27.0 MCHC 31.6 RDW 16.8 H Plt Count 180 Neut % (Auto) 92.8 H Lymph % (Auto) 4.0 L [place] % (Auto) 2.9 L Eos % (Auto) 0.0 L Baso % (Auto) 0.3 Neut # (Auto) 06122 H Lymph # (Auto) 500 L [place] # (Auto) 300 Eos # (Auto) 0 Baso # (Auto) 0 ABG pH ABG pCO2 ABG pO2 ABG HCO3 ABG Total CO2 ABG O2 Saturation ABG Base Excess FiO2 Sodium 133 L Potassium 3.8 Chloride 92 L Carbon Dioxide 33 H BUN 17 Creatinine 1.13 H Estimated GFR 50 L BUN/Creatinine Ratio 15.0 Glucose 228 H Hemoglobin A1c 5.3 Lactate Calcium 8.2 L Phosphorus 2.8 Total Bilirubin AST ALT Alkaline Phosphatase Total Protein Albumin 3.4 L Globulin Albumin/Globulin Ratio Procalcitonin Exam Vital Signs (past 8 hours): - 04/18/22 02:00 04/18/22 02:01 04/18/22 02:01 Temperature Pulse Rate 90 90 Respiratory Rate 21 17 Blood Pressure 134/61 Pulse Oximetry 94 94 Oxygen Delivery Method Oxygen Flow Rate 2 04/18/22 02:30 04/18/22 03:00 04/18/22 03:00 Temperature Pulse Rate 91 H 91 H Respiratory Rate 21 14 Blood Pressure 127/62 Pulse Oximetry 95 95 Oxygen Delivery Method Oxygen Flow Rate 04/18/22 03:30 04/18/22 04:00 04/18/22 04:00 Temperature Pulse Rate 91 H 91 H Respiratory Rate 18 21 Blood Pressure 135/63 Pulse Oximetry 96 97 Oxygen Delivery Method Oxygen Flow Rate 04/18/22 04:30 04/18/22 05:00 04/18/22 05:01 Temperature 97.8 F Pulse Rate 91 H 89 96 H Respiratory Rate 21 22 22 Blood Pressure Pulse Oximetry 95 95 95 Oxygen Delivery Method Oxygen Flow Rate 2.5 04/18/22 05:01 04/18/22 05:00 04/18/22 05:30 Temperature Pulse Rate 101 H Respiratory Rate 21 Blood Pressure 137/60 Pulse Oximetry 92 Oxygen Delivery Method Nasal Cannula Oxygen Flow Rate 04/18/22 06:00 04/18/22 06:00 04/18/22 06:30 Temperature Pulse Rate 105 H 97 H Respiratory Rate 26 H 24 Blood Pressure 135/64 Pulse Oximetry 92 95 Oxygen Delivery Method Oxygen Flow Rate 2.5 2.5 Fraction of Inspired Oxygen 35 Oxygen Delivery Method Nasal Cannula Oxygen Flow Rate 2.5 Narrative Exam Narrative: Awake, alert, conversant. VS are WNL. On home O2. Assessment & Plan Assessment & Plan narrative: 76F with a h/o of COPD on home O2, Afib s/p Watchmen admitted with L hip fracture, upgraded to ICU 04/17 due to AMS and respiratory failure requiring NIPPV, likely due to opioid side effect, COPD exacerbation, pneumonia. No PE on CTA. Afib c/b RVR on 04/17 requiring Amio bolus x 2 and drip. # Acute on Chronic Hypoxic/Hypercapnic Respiratory Failure # L Hip Fracture # Atrial Fibrillation with RVR # COPD Exacerbation # UTI # Anema N: Tylenol, Oxy for pain. Cautious with IV meds given significant response overnight. C: Continue Amio IV load, convert to PO post-op. ASA, Plavix held for OR P: Continue NC as needed, titrated for an O2 sat goal of 88-92%. Consider NIPPV overnight. If any worsening AMS/respiratory pattern would repeat blood gas. Recommend outpatient f/u given CT findings of pulm nodule - make sure patient aware of this diagnosis prior to discharge. PRN Nebs (Ipratropium only, patient preference) GI: PPI (home med) R: Home torsemide held. On NS @ 100/hour. Post-op, would hold mIVF and start diet. H/O: Repeat post-op labs. ID: On Aztreonam & Doxy, plan for 5 day course. E: Prednisone, 5 day steroid course. Sliding scale insulin, goal BG < 180 Other: OR today with Ortho for L Hip Fx. VTE: Lovenox, held for OR. Time Spent With Patient Critical Care time: I spent a total of [] minutes of critical care time on this patient's care today; this time is exclusive of procedural time.
--- NOTE | 2022-04-18 11:38 | PM.PREOP ---
Pre-operative Note COVID-19 COVID-19 status: Negative Interval Note History & Physical reviewed/Exam performed by Physician: Yes Changes to H&P: No H&P completed within 30 days and has changed as indicated here:: events of yesterday noted, awake today, stable, we will avoid iv narcotics postop
--- NOTE | 2022-04-18 11:43 | DI.RAD.S_ITS ---
PROCEDURE: XR HIP W PEL IF DONE LT 2V INDICATIONS: hip fracture left TECHNIQUE: 2 view(s) of the hip acquired. COMPARISON: [facility], [place], XR HIP W PEL IF DONE LT 2V, 04/16/2022, 9:19. FINDINGS: Bones: Patient is status post left hip arthroplasty, with hardware components in expected positions. The hip joint appears congruent. The visualized bony structures appear intact. Soft tissues: Overlying postoperative changes are noted. No suspicious soft tissue densities. IMPRESSION: Postoperative left hip arthroplasty changes. Dictated by: Phoebe Sanz M.D. on 04/18/2022 at 14:54 Approved by: Phoebe Sanz M.D. on 04/18/2022 at 14:54
[2022-04-18] MEDS: CLINDAMYCIN 900 MG/50 ML PIGGYBACK 50 MG IV (12:30)
[2022-04-18] MEDS: TRANEXAMIC ACID 1,000 MG VIAL 2000 MG INJ (12:40)
--- NOTE | 2022-04-18 12:43 | SUR.PREOP ---
Pt taken to strait OR from ICU by OR staff.
[2022-04-18] MEDS: VANCOMYCIN 1,000 MG/200 ML PIGGYBACK 200 MG IV (13:00)
--- NOTE | 2022-04-18 13:02 | SUR.OPER ---
Lateral, head on pillow, gel axillary roll in place, bottom leg bent with gel pad under knee to foot, upper leg straight and supported with pillows. Upper arm supported by pillows and secured over bottom arm to padded arm board. Hip system sales consultant used to secure patient to table.
[2022-04-18] MEDS: ALBUTEROL/IPRATROPIUM 3 ML AMPUL INH ×2 (14:18→18:40)
--- NOTE | 2022-04-18 14:26 | DI.RAD.S_ITS ---
PROCEDURE: XR CHEST 1V INDICATIONS: Aspiration TECHNIQUE: One view of the chest was acquired. COMPARISON: [facility], [place], XR CHEST FOR PICC 1V, 04/17/2022, 11:48. [facility], CR, XR CHEST 1V, 04/17/2022, 5:08. FINDINGS: Surgical changes and devices: None. Lungs and pleura: Lungs are slightly improved from 04/17/22, with residual mild alveolar infiltration at the medial left lung and [id number] alveolar infiltration over the right lung.. No pleural effusions or pneumothorax. Mediastinum: Mediastinal contours appear normal. Heart size is normal. Bones and chest wall: No suspicious bony lesions. Overlying soft tissues appear unremarkable. IMPRESSION: Improving aspiration pneumonitis. Mild interval change. Dictated by: Jomar Aragon M.D. on 04/18/2022 at 14:58 Approved by: Jomar Aragon M.D. on 04/18/2022 at 14:59
--- NOTE | 2022-04-18 14:53 | P.OP_ITS ---
Operative Date/Time/Diagnoses Date of procedure: 04/18/22 Time of procedure: 11:39 Pre-op diagnosis: Left femoral neck fracture Post-op diagnosis: same Procedure & Clinicians Procedure: Left hip unipolar arthroplasty Same procedure as scheduled: Yes Indications: The patient has had a fall with an acute left femoral neck fracture. It was mar kedly displaced and she is brought to the operating room for a left hip unipolar or partial hip replacement. The risks, benefits and alternatives to surgery were discussed with the patient prior to proceeding. Risks discussed included, but were not limited to, failure to relieve pain, leg length discrepancy, dislocation, stiffness, infection, nerve damage, deep venous thrombosis, pulmonary embolism, stroke, coma, heart attack, permanent paralysis and , as well as the potential need for eventual revision of the prosthetic. Surgeon: Pily Godoy Turbine Blade Assembler: Maryuri Ramos Anesthesia Type: Spinal Operative Notes Findings: Displaced left femoral neck fracture, soft bone, adequate stability Closure Type: primary Specimen(s): none sent Prosthetic devices, grafts, tissues, transplants, or devices: Godoy and nephew Synergy size 11 cemented prosthesis standard offset, 42 mm femoral head, +0 neck, 10 mm Synthes cementralizer, size small canal plug. Estimated Blood Loss (mL): 200 Blood products transfused: none Procedure in detail: The patient was seen in the pre-operative area, where the patient identified the left hip as the operative site and this was marked with my initials. The patient received pre-operative antibiotics and was taken to the operating room and placed on the operative table in the supine position after satisfactory anesthesia. A senior software quality analyst out was performed. Patient was placed in the lateral decubitus position and all bony prominences were carefully padded and the arms were appropriately position. The left lower extremity was prepared from the ankle to the iliac crest with ChloroPrep in the usual fashion and draped through sterile drapes. The hip was approached through posterolateral approach. Dissection was carried out down through skin and subcutaneous tissues. The fascia was opened. Gelpi retractors were placed. A Charnley retractor was placed. A small amount of inflamed bursa was resected. The piriformis was identified and protected. The other short external rotators and capsule were carefully stripped from the posterior aspect of the femur. They were tagged and carefully retracted. The femoral neck was brought up and an osteotomy was made of the residual femoral neck approximately 1 fingerbreadth above the lesser trochanter. The head was removed without difficulty. It was carefully sized. The acetabulum was meticulously irrigated with normal saline. There were [mild] changes in the acetabulum. The acetabulum was carefully protected with an E tape. The canal was opened with a box cutting osteotome, followed by a T-handled reamer and a lateralizing reamer. The tapered reamers were then used, followed by sequential broaching. A trial head and neck were then placed and the hip relocated and checked for leg length and stability. The patient was stable in the position of sleep, of squatting, and could be put through a range of motion with 45 degrees internal rotation without dislocation. At 90 degrees flexion, internal rotation to 70? was possible before dislocation. This was felt to be satisfactory and the appropriate components were opened, and the trials were removed. The femoral canal was sized and a distal cement restrictor was placed. The bone was meticulously cleaned with pulse lavage. The canal was packed with vaginal packing with epinephrine. Antibiotics cement was mixed and carefully pressurized into the femoral canal. The femoral component was placed without difficulty. A repeat trial reduction showed good range of motion and stability. We did a brief Betadine soak after the cement had hardened. Patient had good range of motion and stability. The final head and neck were placed after carefully irrigating the wound. The capsulomuscular flap was then repaired to the greater trochanter though an awl hole using the tag sutures. The short external rotators were repaired with black braided nylon. The fascia ramone was closed with black braided nylon. The subcutaneous layer was closed with interrupted 3-0 Vicryl, and the skin with a running 0 V-Lock suture and skin ana. Anesthesia was concerned about the respiratory status at the completion of the procedure. The wound was carefully stapled and a dressing was applied. An Aquacel Ag dressing. Patient was carefully transferred to the bed and stabilized in the operating room. They were then transferred to the recovery room. Postprocedure chest x-ray showed some increased shadows in the right middle lobe and lower lobe consistent with possible aspiration. Complications: none Post-operative Condition: critical Disposition: ICU Plan for aftercare: The patient will be maintained on a standard total hip replacement protocol with weight bearing as tolerated and posterior hip precautions. The patient will receive Plavix, Aspirin and sequential compression devices for DVT prophylaxis. She is currently on the medical service and did have some preoperative issues with her pulmonary system as well as her cardiac system. She is going to be transferred back to the ICU for monitoring and further stabilization. The patient will be discharged home when safe for the home environment.
[2022-04-18 15:44] LABS: Fractionated Inspired Oxygen 35; HCO3 ABG 33 mmol/L (22-26); Oxygen Saturation ABG 86 % (95-100); PCO2 ABG 75.8 mmHg (35-45); PO2 ABG 62 mmHg (80-100); TCO2 ABG 36 mmol/L (21-31)
[2022-04-18 15:45] LABS: pH ABG 7.25 (7.35-7.45)
[2022-04-18 16:39] LABS: Add Manual Diff / Slide Review NO; Basophils Absolute Auto 0 /uL (0-100); Eosinophils Absolute Auto 0 /uL (0-450); Hematocrit 28.6 % (36-46); Hemoglobin 8.9 g/dL (12.0-16.0); Lymphocytes Absolute Auto 300 /uL (1100-4500); Lymphocytes Percent Auto 1.7 % (25-40); Mean Corpuscular HGB Conc 31.1 % (30-36); Mean Corpuscular Hemoglobin 26.9 PG (26-34); Mean Corpuscular Volume 86.7 fL (80-100); Monocytes Absolute Auto 700 /uL (0-900); Monocytes Percent Auto 3.6 % (3-14); Neutrophils Absolute Auto 18600 /uL (1500-7000); Neutrophils Percent Auto 94.7 % (50-75); Platelet Count 222 X10^3/uL (150-400); Red Cell Distribution Width 16.5 % (11.6-14.8); White Blood Cell Count 19.7 X10^3/uL (4.5-11.0)
[2022-04-18 16:47] LABS: Alanine Aminotransferase 16 IU/L (<35); Alkaline Phosphatase 79 U/L (38-126); Aspartate Aminotransferase 47 IU/L (14-36); BUN Creatinine Ratio 20.6 (6-22); Bilirubin Total 0.4 mg/dL (0.2-1.3); Blood Urea Nitrogen 21 mg/dL (7-17); Calcium 8.3 mg/dL (8.4-10.2); Carbon Dioxide 28 mmol/L (22-32); Chloride 91 mmol/L (98-107); Estimated Glomerular Filt Rate 57 mL/min (>60); Glucose 207 mg/dL (80-110); HEMOLYSIS 28 (0-50); Potassium 3.7 mmol/L (3.4-5.1); Sodium 130 mmol/L (137-145); Total Protein 6.9 g/dL (6.3-8.2)
[2022-04-18 17:33] LABS: Albumin 3.4 g/dL (3.5-5.0); Globulin 3.5 g/dL (1.7-4.1)
[2022-04-18] MEDS: PIPERACILLIN/TAZO 4.5 GM in SODIUM CHLORIDE 0.9% 100 ML IV (17:35)
[2022-04-18 18:02] LABS: Lactate (Lactic Acid) 2.9 mmol/L (0.7-2.1)
[2022-04-18 18:44] LABS: Fractionated Inspired Oxygen 35; HCO3 ABG 32 mmol/L (22-26); Oxygen Saturation ABG 97 % (95-100); PCO2 ABG 60.2 mmHg (35-45); PO2 ABG 95 mmHg (80-100); TCO2 ABG 34 mmol/L (21-31); pH ABG 7.33 (7.35-7.45)
[2022-04-18 19:42] LABS: Reflexed Lactate in 2 Hours Y
[2022-04-18] MEDS: DOCUSATE 100 MG CAPSULE PO (20:59)
[2022-04-18] MEDS: ASPIRIN EC 81 MG TABLET PO (21:00)
[2022-04-18] MEDS: BUSPIRONE 5 MG TABLET 10 MG PO (21:00)
[2022-04-18] MEDS: DICYCLOMINE 10 MG CAPSULE PO (21:13)
[2022-04-18] MEDS: DORZOLAMIDE 2% OPHTH 10 ML 1 DROPS EYE-BOTH (21:13)
[2022-04-18] MEDS: PIPERACILLIN/TAZO 3.375 GM in SODIUM CHLORIDE 0.9% 100 ML IV (21:13)
--- NOTE | 2022-04-18 21:14 | P.ICUMDRN_ITS ---
- Date Patient Seen: 04/18/22 Time Patient Seen: 21:05 :: This patient was seen via real time interactive two-way audiovisual telecommunication. Note: 76F with a h/o of COPD on home O2, Afib s/p Watchmen admitted with L hip fracture, upgraded to ICU 04/17 due to AMS and respiratory failure; now POD #0 from L hip arthroplasty. Responded to e-Lert earlier this shift due to tachyarrythmia which was probably AF w/ aberrancy. At that time, chemistries and ABG sent. Also elected to continue amiodarone 0.5 mg/min until further evaluation in AM. NIPPV started. Bedside staff also reported a possible aspiration event; patient is on vanc omycin and Zosyn. Currently on NIPPV 14/6 30% with adequate oxygenation. Urine output marginal. Lab review reveals hyperglycemia. INTERVENTIONS: 1) LR @ 75 mL/hr 2) Initiated low-dose correctional Lispro
[2022-04-18] MEDS: SYSTANE 1 EACH EYE-BOTH (21:16)
[2022-04-18] MEDS: BIMATOPROST 0.01% 1 EACH EYE-BOTH (21:16)
[2022-04-18] MEDS: TRAZODONE 50 MG TABLET PO (21:19)
[2022-04-18] MEDS: LACTATED RINGERS 1,000 ML 84 ML IV (21:48)
[2022-04-18] MEDS: HYDROMORPHONE 0.5 MG INJ 0.4 MG IV (22:32)
[2022-04-18] MEDS: TRAMADOL 50 MG TABLET PO (23:29)
[2022-04-19] VITALS (40 sets, daily range): BP systolic 106–163; BP diastolic 52–116; PULSE 70–121; RESP 14–39; TEMP 31–37.6; O2SAT 93–99
[2022-04-19] MEDS: VANCOMYCIN 1,000 MG/200 ML PIGGYBACK 200 MG IV (01:36)
--- NOTE | 2022-04-19 03:18 | DI.RAD.S_ITS ---
PROCEDURE: XR CHEST 1V INDICATIONS: Eval if PICC dislodged TECHNIQUE: One view of the chest was acquired. COMPARISON: [facility], CT, CT ANGIO CHEST PE PROTOCOL, 04/17/2022, 8:03. [facility], CR, XR CHEST 1V, 04/17/2022, 5:08. [facility], CR, XR CHEST FOR PICC 1V, 04/17/2022, 11:48. [facility], CR, XR CHEST 1V, 04/18/2022, 14:29. FINDINGS: Surgical changes and devices: A left-sided PICC line has been placed. The tip is seen overlying the left medial subclavian vein. Lower cervical spine fixation hardware is seen. Lungs and pleura: Poorly defined opacity is seen at the right lung base. No pneumothorax or large pleural effusion can be seen. Mediastinum: The cardiac contours are within normal limits. The aorta demonstrates calcification and tortuosity. Bones and chest wall: No suspicious bony lesions. Age-appropriate bony degenerative changes are seen. Overlying soft tissues appear unremarkable. IMPRESSION: The tip of the left-sided PICC line can be seen overlying the medial left subclavian vein, which is significantly different than on the prior examination. Please consider repositioning. Right lower lung infiltrates are seen. Note: No significant discrepancy from the preliminary report. Dictated by: Uriel Mo M.D. on 04/19/2022 at 7:48 Approved by: Uriel Mo M.D. on 04/19/2022 at 7:50
[2022-04-19] MEDS: HYDROMORPHONE 0.5 MG INJ 0.4 MG IV (04:10)
[2022-04-19 04:42] LABS: BUN Creatinine Ratio 22.2 (6-22); Blood Urea Nitrogen 24 mg/dL (7-17); Calcium 8.3 mg/dL (8.4-10.2); Carbon Dioxide 32 mmol/L (22-32); Chloride 92 mmol/L (98-107); Estimated Glomerular Filt Rate 53 mL/min (>60); Glucose 104 mg/dL (80-110); HEMOLYSIS < 15 (0-50); Potassium 3.7 mmol/L (3.4-5.1); Sodium 132 mmol/L (137-145)
[2022-04-19 04:44] LABS: Add Manual Diff / Slide Review NO; Basophils Absolute Auto 0 /uL (0-100); Basophils Percent Auto 0.2 % (0-2); Eosinophils Absolute Auto 0 /uL (0-450); Eosinophils Percent Auto 0.2 % (2-4); Hematocrit 24.1 % (36-46); Hemoglobin 7.8 g/dL (12.0-16.0); Lymphocytes Absolute Auto 1000 /uL (1100-4500); Lymphocytes Percent Auto 6.4 % (25-40); Mean Corpuscular HGB Conc 32.1 % (30-36); Mean Corpuscular Hemoglobin 26.9 PG (26-34); Mean Corpuscular Volume 83.9 fL (80-100); Monocytes Absolute Auto 1800 /uL (0-900); Monocytes Percent Auto 10.9 % (3-14); Neutrophils Absolute Auto 13400 /uL (1500-7000); Neutrophils Percent Auto 82.3 % (50-75); Platelet Count 210 X10^3/uL (150-400); Red Blood Cell Count 2.88 X10^6/uL (4.0-5.2); Red Cell Distribution Width 17.1 % (11.6-14.8); White Blood Cell Count 16.3 X10^3/uL (4.5-11.0)
[2022-04-19] MEDS: PIPERACILLIN/TAZO 3.375 GM in SODIUM CHLORIDE 0.9% 100 ML IV ×3 (04:53→20:56)
[2022-04-19] MEDS: TRAMADOL 50 MG TABLET PO (04:58)
[2022-04-19] MEDS: PANTOPRAZOLE DR 40 MG TABLET PO (06:11)
[2022-04-19] MEDS: ACETAMINOPHEN 325 MG TABLET 650 MG PO ×2 (06:11→23:54)
[2022-04-19] MEDS: FERROUS SULFATE 325 MG TABLET PO (08:38)
[2022-04-19] MEDS: MAGNESIUM OXIDE 400 MG TABLET PO (08:38)
[2022-04-19] MEDS: BUSPIRONE 5 MG TABLET 10 MG PO ×3 (08:39→20:54)
[2022-04-19] MEDS: DOCUSATE 100 MG CAPSULE PO ×2 (08:39→20:54)
[2022-04-19] MEDS: MULTIVITAMIN 1 TABLET 2 TAB PO (08:39)
[2022-04-19] MEDS: DOXYCYCLINE HYCLATE 100 MG TABLET PO ×2 (08:39→20:55)
[2022-04-19] MEDS: ASPIRIN EC 81 MG TABLET PO ×2 (08:39→20:54)
[2022-04-19] MEDS: POTASSIUM CHLORIDE 10 MEQ TAB PO (08:39)
[2022-04-19] MEDS: ASCORBIC ACID 500 MG TABLET PO (08:39)
[2022-04-19] MEDS: CHOLECALCIFEROL (VITAMIN D3) 1,000 UNIT TABLET 2000 UNIT PO (08:39)
[2022-04-19] MEDS: predniSONE 20 MG TABLET 40 MG PO (08:39)
[2022-04-19] MEDS: DICYCLOMINE 10 MG CAPSULE PO ×3 (08:39→20:54)
[2022-04-19] MEDS: DORZOLAMIDE 2% OPHTH 10 ML 1 DROPS EYE-BOTH ×2 (08:46→20:59)
[2022-04-19] MEDS: estradioL 1 MG TABLET 2 MG PO (08:46)
--- NOTE | 2022-04-19 08:46 | P.PN_ITS ---
Subjective Subjective Date Patient Seen: 04/19/22 Time Patient Seen: 08:47 Interval history: Patient states her pain is been moderate. Denies fever or chills. No nausea or vomiting. Exam Vital Signs (past 8 hours): - 04/19/22 01:00 04/19/22 01:00 04/19/22 02:00 Temperature Pulse Rate 73 70 Respiratory Rate 16 17 Blood Pressure 110/52 L Pulse Oximetry 94 94 Oxygen Delivery Method Fraction of Inspired Oxygen 04/19/22 02:00 04/19/22 02:03 04/19/22 01:00 Temperature Pulse Rate 70 Respiratory Rate 17 Blood Pressure 106/52 L Pulse Oximetry 94 Oxygen Delivery Method BiPAP Fraction of Inspired Oxygen 04/19/22 03:20 04/19/22 03:01 04/19/22 03:01 Temperature Pulse Rate 80 Respiratory Rate 19 Blood Pressure 158/65 H Pulse Oximetry 98 Oxygen Delivery Method Fraction of Inspired Oxygen 30 04/19/22 04:00 04/19/22 04:00 04/19/22 05:00 Temperature 99.0 F Pulse Rate 83 86 Respiratory Rate 17 26 H Blood Pressure 135/61 Pulse Oximetry 97 94 Oxygen Delivery Method Fraction of Inspired Oxygen 04/19/22 05:00 04/19/22 05:22 04/19/22 05:00 Temperature Pulse Rate 79 Respiratory Rate 15 Blood Pressure 124/56 L Pulse Oximetry 96 Oxygen Delivery Method BiPAP Fraction of Inspired Oxygen 04/19/22 06:00 04/19/22 06:00 04/19/22 06:01 Temperature Pulse Rate 86 85 Respiratory Rate 18 18 Blood Pressure 156/66 H Pulse Oximetry 96 96 Oxygen Delivery Method Fraction of Inspired Oxygen 04/19/22 06:48 Temperature Pulse Rate Respiratory Rate Blood Pressure 156/66 H Pulse Oximetry Oxygen Delivery Method Fraction of Inspired Oxygen 30 Fraction of Inspired Oxygen 30 Oxygen Delivery Method BiPAP Oxygen Flow Rate 8 Narrative Exam Narrative: 76-year-old female sitting up in bed having breakfast. Patient is in no apparent distress. Sensation grossly intact to light touch bilateral lower e xtremities. Motor function is intact distal bilateral lower extremities. Left hip dressing shows scant drainage. Const General: cooperative and comfortable Nutritional Appearance: overweight Orientation: alert Resp Effort & Inspection: normal respiratory effort and able to speak in complete sentences Objective Labs Result Diagrams: 04/19/22 04:08 04/19/22 04:08 Labs: Laboratory Results - last 24 hr 04/17/22 04/18/22 04/18/22 21:25 15:19 16:00 WBC 19.7 H D RBC 3.30 L Hgb 8.9 L Hct 28.6 L MCV 86.7 MCH 26.9 MCHC 31.1 RDW 16.5 H Plt Count 222 Neut % (Auto) 94.7 H Lymph % (Auto) 1.7 L [place] % (Auto) 3.6 Eos % (Auto) 0.0 L Baso % (Auto) 0.0 Neut # (Auto) 39728 H Lymph # (Auto) 300 L [place] # (Auto) 700 Eos # (Auto) 0 Baso # (Auto) 0 ABG pH 7.25 L* ABG pCO2 75.8 H* ABG pO2 62 L ABG HCO3 33 H ABG Total CO2 36 H ABG O2 Saturation 86 L ABG Base Excess 6.0 H FiO2 35 Sodium Potassium Chloride Carbon Dioxide BUN Creatinine Estimated GFR BUN/Creatinine Ratio Glucose Hemoglobin A1c 5.3 Lactate Calcium Magnesium Total Bilirubin AST ALT Alkaline Phosphatase Total Protein Albumin Globulin Albumin/Globulin Ratio 04/18/22 04/18/22 04/18/22 16:00 16:38 17:35 WBC RBC Hgb Hct MCV MCH MCHC RDW Plt Count Neut % (Auto) Lymph % (Auto) [place] % (Auto) Eos % (Auto) Baso % (Auto) Neut # (Auto) Lymph # (Auto) [place] # (Auto) Eos # (Auto) Baso # (Auto) ABG pH ABG pCO2 ABG pO2 ABG HCO3 ABG Total CO2 ABG O2 Saturation ABG Base Excess FiO2 Sodium 130 L Potassium 3.7 Chloride 91 L Carbon Dioxide 28 BUN 21 H Creatinine 1.02 Estimated GFR 57 L BUN/Creatinine Ratio 20.6 Glucose 207 H Hemoglobin A1c Lactate 2.9 H Calcium 8.3 L Magnesium 2.0 Total Bilirubin 0.4 AST 47 H ALT 16 Alkaline Phosphatase 79 Total Protein 6.9 Albumin 3.4 L Globulin 3.5 Albumin/Globulin Ratio 1.0 04/18/22 04/18/22 04/19/22 18:21 20:10 04:08 WBC 16.3 H RBC 2.88 L Hgb 7.8 L Hct 24.1 L MCV 83.9 MCH 26.9 MCHC 32.1 RDW 17.1 H Plt Count 210 Neut % (Auto) 82.3 H Lymph % (Auto) 6.4 L [place] % (Auto) 10.9 Eos % (Auto) 0.2 L Baso % (Auto) 0.2 Neut # (Auto) 76378 H Lymph # (Auto) 1000 L [place] # (Auto) 1800 H Eos # (Auto) 0 Baso # (Auto) 0 ABG pH 7.33 L ABG pCO2 60.2 H ABG pO2 95 ABG HCO3 32 H ABG Total CO2 34 H ABG O2 Saturation 97 ABG Base Excess 6.0 H FiO2 35 Sodium Potassium Chloride Carbon Dioxide BUN Creatinine Estimated GFR BUN/Creatinine Ratio Glucose Hemoglobin A1c Lactate 3.0 H Calcium Magnesium Total Bilirubin AST ALT Alkaline Phosphatase Total Protein Albumin Globulin Albumin/Globulin Ratio 04/19/22 04:08 WBC RBC Hgb Hct MCV MCH MCHC RDW Plt Count Neut % (Auto) Lymph % (Auto) [place] % (Auto) Eos % (Auto) Baso % (Auto) Neut # (Auto) Lymph # (Auto) [place] # (Auto) Eos # (Auto) Baso # (Auto) ABG pH ABG pCO2 ABG pO2 ABG HCO3 ABG Total CO2 ABG O2 Saturation ABG Base Excess FiO2 Sodium 132 L Potassium 3.7 Chloride 92 L Carbon Dioxide 32 BUN 24 H Creatinine 1.08 H Estimated GFR 53 L BUN/Creatinine Ratio 22.2 H Glucose 104 D Hemoglobin A1c Lactate Calcium 8.3 L Magnesium Total Bilirubin AST ALT Alkaline Phosphatase Total Protein Albumin Globulin Albumin/Globulin Ratio [facility] [place] Medical History Chronic kidney disease, stage III (moderate) COPD (chronic obstructive pulmonary disease) Depression Glaucoma Lung nodule Morbid obesity with BMI of 40.0-44.9, adult Osteoarthritis Paroxysmal atrial fibrillation Severe mitral valve stenosis Surgical History H/O foot surgery H/O neck surgery H/O rotator cuff surgery History of hysterectomy Hx of cataract surgery Knee joint replacement by other means S/P laparoscopic sleeve gastrectomy Status post cholecystectomy Family History Father Alcoholic Mother Arthritis Renal failure Cancer Brother Alcoholic Social History household members: spouse Smoking Status: Former smoker alcohol intake: former Assessment & Plan Post-op Postoperative Procedures: Procedures Operation Date: 04/18/22 11:15 Actual Procedure Side Surgeon p LEFT HEMIARTHROPLASTY Left Pily Godoy MD Postoperative day: 1 Postoperative status: doing well Postoperative status narrative: Stable status post left hip unipolar arthropl asty April 18, 2022 Postoperative plan narrative: Patient will be maintained on standard total hip replacement protocol with weight-bearing as tolerated and posterior hip pre cautions Plavix, aspirin and SCDs for DVT prophylaxis Follow up with [facility]. in 2 weeks Discharge per hospitalist
[2022-04-19] MEDS: SYSTANE 1 EACH EYE-BOTH ×4 (08:47→20:59)
--- NOTE | 2022-04-19 10:36 | P.TELICUPN_ITS ---
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 INTERIM EVENTS -Glucose normal -Finished amiodarone -On [place] O2 Current Medications Current Medications Medications: Home Medications Cranberry W/D Mannose 1 cap PO DAILY 03/18/19 [History Confirmed 04/16/22] albuterol sulfate 90 mcg/actuation aerosol inhaler (ProAir HFA) 2 puff inhalation BID 03/18/19 [History Confirmed 04/16/22] ascorbic acid (vitamin C) 1,000 mg tablet (Vitamin C) 500 mg PO DAILY 03/18/19 [History Confirmed 04/16/22] bimatoprost 0.01 % eye drops (Lumigan) 1 drp ophthalmic (eye) QPM 03/18/19 [History Confirmed 04/16/22] brinzolamide 1 % eye drops,suspension (Azopt) 1 drp ophthalmic (eye) DAILY 03/18/19 [History Confirmed 04/16/22] cholecalciferol (vitamin D3) 50 mcg (2,000 unit) tablet (Vitamin D3) 2,000 unit PO DAILY 03/18/19 [History Confirmed 04/16/22] dicyclomine 10 mg capsule 10 mg PO TID 03/18/19 [History Confirmed 04/16/22] duloxetine 60 mg capsule,delayed release (Cymbalta) 30 mg PO QPM 03/18/19 [History Confirmed 04/16/22] estradiol 1 mg tablet 2 mg PO DAILY 03/18/19 [History Confirmed 04/16/22] ferrous sulfate 325 mg (65 mg iron) tablet 325 mg PO DAILY 03/18/19 [History Confirmed 04/16/22] flecainide 50 mg tablet 25 mg PO BID 03/18/19 [History Confirmed 04/16/22] magnesium oxide 400 mg PO DAILY 03/18/19 [History Confirmed 04/16/22] multivitamin 2 tab PO DAILY 03/18/19 [History Confirmed 04/16/22] omeprazole 40 mg capsule,delayed release 40 mg PO DAILY 03/18/19 [History Confirmed 04/16/22] tramadol 50 mg tablet 50 mg PO Q4H PRN Pain (Scale Score 1-3) 03/18/19 [History Confirmed 04/16/22] umeclidinium 62.5 mcg-vilanterol 25 mcg/actuation powdr for inhalation (Anoro Ellipta) 1 inh inhalation DAILY 03/18/19 [History Confirmed 04/16/22] Systane (PF) 1 drp EYE-BOTH 4XD 04/16/22 [History Confirmed 04/16/22] aspirin 81 mg tablet 81 mg PO DAILY 04/16/22 [History Confirmed 04/16/22] buspirone 10 mg tablet 10 mg PO TID 04/16/22 [History Confirmed 04/16/22] clopidogrel 75 mg tablet 75 mg PO DAILY 04/16/22 [History Confirmed 04/16/22] diazepam 5 mg tablet 2.5 mg PO BID PRN Anxiety 04/16/22 [History Confirmed 04/16/22] ipratropium bromide 17 mcg/actuation HFA aerosol inhaler (Atrovent HFA) 2 puff inhalation DAILY PRN breathing 04/16/22 [History Confirmed 04/16/22] potassium chloride 10 mEq capsule,extended release 10 meq PO DAILY 04/16/22 [History Confirmed 04/16/22] torsemide 40 mg tablet 40 mg PO QPM 04/16/22 [History Confirmed 04/16/22] trazodone 50 mg tablet 50 mg PO BEDTIME 04/16/22 [History Confirmed 04/16/22] ursodiol 500 mg tablet 1,000 mg PO QPM 04/16/22 [History Confirmed 04/16/22] Visit Medications (administered) Generic Name Dose Route Start Last Admin Trade Name Freq PRN Reason Stop Dose Admin Acetaminophen 650 mg 04/18/22 18:00 04/19/22 06:11 Acetaminophen 325 Mg Tablet PO 650 mg Q6HR REBECCA Administration Albuterol/Ipratropium 3 ml 04/18/22 19:00 04/19/22 07:35 Albuterol/Ipratropium 3 Ml Ampul INH Not Given [id number] REBECCA Ascorbic Acid 500 mg 04/19/22 09:00 04/19/22 08:39 Ascorbic Acid 500 Mg Tablet PO 500 mg DAILY [facility] Administration Aspirin 81 mg 04/18/22 21:00 04/19/22 08:39 Aspirin Ec 81 Mg Tablet PO 81 mg BID [facility] Administration Buspirone HCl 10 mg 04/18/22 15:05 04/19/22 08:39 Buspirone 5 Mg Tablet PO 10 mg TID [facility] Administration Dicyclomine HCl 10 mg 04/18/22 15:05 04/19/22 08:39 Dicyclomine 10 Mg Capsule PO 10 mg TID [facility] Administration Docusate Sodium 100 mg 04/18/22 21:00 04/19/22 08:39 Docusate 100 Mg Capsule PO 100 mg BID [facility] Administration Dorzolamide HCl 1 drops 04/18/22 21:00 04/19/22 08:46 Dorzolamide 2% Ophth 10 Ml EYE-BOTH 1 drops BID [facility] Administration Doxycycline Hyclate 100 mg 04/18/22 21:00 04/19/22 08:39 Doxycycline Hyclate 100 Mg Tablet PO 100 mg BID [facility] Administration Duloxetine HCl 30 mg 04/18/22 17:00 04/18/22 17:45 Duloxetine 30 Mg Capsule PO Not Given QPM [facility] Estradiol 2 mg 04/19/22 09:00 04/19/22 08:46 Estradiol 1 Mg Tablet PO 2 mg DAILY [facility] Administration Ferrous Sulfate 325 mg 04/19/22 09:00 04/19/22 08:38 Ferrous Sulfate 325 Mg Tablet PO 325 mg DAILY [facility] Administration Hydromorphone HCl 0.4 mg 04/18/22 16:54 04/19/22 04:10 Hydromorphone 0.5 Mg Inj IV 0.4 mg Q4H PRN Administration Pain, Moderate (4-6) Piperacillin Sod/Tazobactam 100 mls @ 25 mls/hr 04/18/22 21:00 04/19/22 04:53 Sod 3.375 gm/ Sodium Chloride IV 25 mls/hr Q8H REBECCA Administration Magnesium Oxide 400 mg 04/19/22 09:00 04/19/22 08:38 Magnesium Oxide 400 Mg Tablet PO 400 mg DAILY [facility] Administration Multivitamins 2 tab 04/19/22 09:00 04/19/22 08:39 Multivitamin 1 Tablet PO 2 tab DAILY [facility] Administration Systane (Pf) 1 Drop 1 drop 04/18/22 17:00 04/19/22 08:47 EYE-BOTH 1 drop QID REBECCA Administration Ursodiol 500 Mg 1,000 mg 04/18/22 17:00 04/18/22 17:47 Tablet PO Not Given QPM [facility] Bimatoprost [Lumigan 1 drop 04/18/22 17:00 04/18/22 21:16 ] 0.01 % Drops EYE-BOTH 1 drop QPM REBECCA Administration Pantoprazole Sodium 40 mg 04/19/22 06:00 04/19/22 06:[address] 40 Mg Tablet PO 40 mg 0600 REBECCA Administration Potassium Chloride 10 meq 04/19/22 09:00 04/19/22 08:39 Potassium Chloride 10 Meq Tab PO 10 meq DAILY REBECCA Administration Prednisone 40 mg 04/19/22 09:00 04/19/22 08:39 Prednisone 20 Mg Tablet PO 04/21/22 09:01 40 mg DAILY REBECCA Administration Tramadol HCl 50 mg 04/18/22 15:05 04/19/22 04:58 Tramadol 50 Mg Tablet PO 50 mg Q4H PRN Administration Pain (Scale Score 1-3) Trazodone HCl 50 mg 04/18/22 21:00 04/18/22 21:19 Trazodone 50 Mg Tablet PO 50 mg BEDTIME REBECCA Administration Vitamin D 2,000 unit 04/19/22 09:00 04/19/22 08:39 Cholecalciferol (Vitamin D3) 1,000 Unit Tablet PO 2,000 unit DAILY REBECCA Administration Objective Ventilator Parameters: Ventilator Settings FiO2 0.30 Labs Result Diagrams: 04/19/22 04:08 04/19/22 04:08 Labs: Laboratory Results - last 24 hr 04/18/22 04/18/22 04/18/22 15:19 16:00 16:00 WBC 19.7 H D RBC 3.30 L Hgb 8.9 L Hct 28.6 L MCV 86.7 MCH 26.9 MCHC 31.1 RDW 16.5 H Plt Count 222 Neut % (Auto) 94.7 H Lymph % (Auto) 1.7 L [place] % (Auto) 3.6 Eos % (Auto) 0.0 L Baso % (Auto) 0.0 Neut # (Auto) 93221 H Lymph # (Auto) 300 L [place] # (Auto) 700 Eos # (Auto) 0 Baso # (Auto) 0 ABG pH 7.25 L* ABG pCO2 75.8 H* ABG pO2 62 L ABG HCO3 33 H ABG Total CO2 36 H ABG O2 Saturation 86 L ABG Base Excess 6.0 H FiO2 35 Sodium 130 L Potassium 3.7 Chloride 91 L Carbon Dioxide 28 BUN 21 H Creatinine 1.02 Estimated GFR 57 L BUN/Creatinine Ratio 20.6 Glucose 207 H Lactate Calcium 8.3 L Magnesium Total Bilirubin 0.4 AST 47 H ALT 16 Alkaline Phosphatase 79 Total Protein 6.9 Albumin 3.4 L Globulin 3.5 Albumin/Globulin Ratio 1.0 04/18/22 04/18/22 04/18/22 16:38 17:35 18:21 WBC RBC Hgb Hct MCV MCH MCHC RDW Plt Count Neut % (Auto) Lymph % (Auto) [place] % (Auto) Eos % (Auto) Baso % (Auto) Neut # (Auto) Lymph # (Auto) [place] # (Auto) Eos # (Auto) Baso # (Auto) ABG pH 7.33 L ABG pCO2 60.2 H ABG pO2 95 ABG HCO3 32 H ABG Total CO2 34 H ABG O2 Saturation 97 ABG Base Excess 6.0 H FiO2 35 Sodium Potassium Chloride Carbon Dioxide BUN Creatinine Estimated GFR BUN/Creatinine Ratio Glucose Lactate 2.9 H Calcium Magnesium 2.0 Total Bilirubin AST ALT Alkaline Phosphatase Total Protein Albumin Globulin Albumin/Globulin Ratio 04/18/22 04/19/22 04/19/22 20:10 04:08 04:08 WBC 16.3 H RBC 2.88 L Hgb 7.8 L Hct 24.1 L MCV 83.9 MCH 26.9 MCHC 32.1 RDW 17.1 H Plt Count 210 Neut % (Auto) 82.3 H Lymph % (Auto) 6.4 L [place] % (Auto) 10.9 Eos % (Auto) 0.2 L Baso % (Auto) 0.2 Neut # (Auto) 07125 H Lymph # (Auto) 1000 L [place] # (Auto) 1800 H Eos # (Auto) 0 Baso # (Auto) 0 ABG pH ABG pCO2 ABG pO2 ABG HCO3 ABG Total CO2 ABG O2 Saturation ABG Base Excess FiO2 Sodium 132 L Potassium 3.7 Chloride 92 L Carbon Dioxide 32 BUN 24 H Creatinine 1.08 H Estimated GFR 53 L BUN/Creatinine Ratio 22.2 H Glucose 104 D Lactate 3.0 H Calcium 8.3 L Magnesium Total Bilirubin AST ALT Alkaline Phosphatase Total Protein Albumin Globulin Albumin/Globulin Ratio Exam Vital Signs (past 8 hours): - 04/19/22 03:20 04/19/22 03:01 04/19/22 03:01 Temperature Pulse Rate 80 Respiratory Rate 19 Blood Pressure 158/65 H Pulse Oximetry 98 Oxygen Delivery Method Fraction of Inspired Oxygen 30 04/19/22 04:00 04/19/22 04:00 04/19/22 05:00 Temperature 99.0 F Pulse Rate 83 86 Respiratory Rate 17 26 H Blood Pressure 135/61 Pulse Oximetry 97 94 Oxygen Delivery Method Fraction of Inspired Oxygen 04/19/22 05:00 04/19/22 05:22 04/19/22 05:00 Temperature Pulse Rate 79 Respiratory Rate 15 Blood Pressure 124/56 L Pulse Oximetry 96 Oxygen Delivery Method BiPAP Fraction of Inspired Oxygen 04/19/22 06:00 04/19/22 06:00 04/19/22 06:01 Temperature Pulse Rate 86 85 Respiratory Rate 18 18 Blood Pressure 156/66 H Pulse Oximetry 96 96 Oxygen Delivery Method Fraction of Inspired Oxygen 04/19/22 06:48 04/19/22 09:00 Temperature Pulse Rate Respiratory Rate Blood Pressure 156/66 H Pulse Oximetry Oxygen Delivery Method Nasal Cannula Fraction of Inspired Oxygen 30 Fraction of Inspired Oxygen 30 Oxygen Delivery Method Nasal Cannula Oxygen Flow Rate 8 Const General: cooperative and comfortable Resp Effort & Inspection: normal respiratory effort Assessment & Plan Assessment and plan (1) Fracture of femoral neck: Problem details: POD #1 from L hip arthroplasty Status: Acute Plan: -Pain control/weight-bearing as per ortho -On SCDs; change to VTE chemoprophylaxis when OK w/ orthopedics (2) Atrial fibrillation: Qualifiers: Atrial fibrillation type: unspecified Qualified Code(s): I48.91 - Unspecified atrial fibrillation Status: Acute Plan: -Now in NSR; finished amiodarone; follow Time Spent With Patient Critical Care time: I spent a total of 15 minutes of care time on this patient's care today; this time is exclusive of procedural time.
--- NOTE | 2022-04-19 11:10 | PT.IIE ---
Current Diagnoses Obesity, unspecified (04/16/22) Unspecified atrial fibrillation (04/16/22) Fracture of unspecified part of neck of unspecified femur, initial encounter for closed fracture (04/16/22) Surgery Performed Operation Date: 04/18/22 11:15 Actual Procedures p LEFT HEMIARTHROPLASTY(Left) - Pily Godoy MD Surgical History (Last Reviewed 04/19/22 @ 08:48 by Jett Iyer PA-C) H/O foot surgery H/O neck surgery H/O rotator cuff surgery History of hysterectomy Hx of cataract surgery Knee joint replacement by other means S/P laparoscopic sleeve gastrectomy Status post cholecystectomy Medical History (Last Reviewed 04/19/22 @ 08:48 by Jett Iyer PA-C) Chronic kidney disease, stage III (moderate) COPD (chronic obstructive pulmonary disease) Depression Glaucoma Lung nodule Morbid obesity with BMI of 40.0-44.9, adult Osteoarthritis Paroxysmal atrial fibrillation Severe mitral valve stenosis Physical Therapy Inpatient Evaluation/Re-Eval M1 PT/OT-IP Prior Functional Status Start: 04/19/22 12:58 Freq: NEEDED Status: Active Protocol: Document 04/19/22 11:10 AB (Rec: 04/19/22 13:10 AB [id number]) Medical Review Prior Functional Status Medical History Reviewed Yes Communication able to make needs known Mobility and Gait pt stated that she is modified independent with all mobilities and ambulation using a FWW but unable to ambulate far. stated that she does not go outside much but if she does, she uses a w/c for outdoor mobility transport Social History Household Members spouse Living Arrangements House Number of Floors (Floors) One Floor Number of Stairs To Enter/Railing? 6 steps R rail ascending to enter the house Home Environment Standard Height Toilet,Walk in Shower Home Equipment Front Wheel Walker,Shower Seat without Backrest,Hand Held Shower M2 PT-IP Current Condition Start: 04/19/22 12:58 Freq: NEEDED Status: Active Protocol: Document 04/19/22 11:10 AB (Rec: 04/19/22 13:10 AB [email or web address]) Physical Therapy Current Condition Current Condition Evaluation Date 04/19/22 Treatment Diagnosis GLF; L hip fx s/p hemiarthroplasty; difficulty in walking Onset Date 04/16/22 M3 PT-IP Subjective Start: 04/19/22 12:58 Freq: NEEDED Status: Active Protocol: Document 04/19/22 11:10 AB (Rec: 04/19/22 13:10 AB [email or web address]) Subjective Physical Therapy Visit Type Type Initial Evaluation Visit Start Time 11:10 Visit Stop Time 12:18 Total Visit Minutes 68 Notes reviewed EMR and pt with Hgb of 7.8 , Hct 24.1 . talked with hospitalist and stated that pt will not get transfusion for now and is cleared to do PT. talked to the nurse to change bedrest order. Number of WRITER PRODUCER Visits 0 Physical Therapy Visit Comments Patient Comments agreeable to do PT Therapy Pain Assessment Pain When Pain Assessed At Rest Pain Present Pain Present Pain Reported Location left hip Intensity 6 Scale Used Numeric (0 - 10) Pain Management Techniques Distraction,Modification of Treatment,Re-positioning, Timing of Activity with Medications M4 PT-IP Mobility and Gait Start: 04/19/22 12:58 Freq: NEEDED Status: Active Protocol: Document 04/19/22 11:10 AB (Rec: 04/19/22 13:10 AB [email or web address]) PT-Bed Mobility Assessment Supine to Sit Supine to Sit Maximum Assistance,1 Person Assistance,2 Person Assistance ,Head of Bed Elevated,Bedrails Scooting Scooting to Edge of Bed Maximum Assistance PT-Transfer Assessment Sit to and From Stand Sit to and from Stand Maximum Assistance,1 Person Assistance,Use of Upper Extremities Equipment Transfer Assistive Device Gait Belt,Front Wheeled Walker Orthotic/Prosthetic Devices or Brace: No Transfers Transfer Destination Chair Transfer Technique Stand Step Pivot Transfer Ability Level of Assist Maximum Assistance,1 Person Assistance,Use of Upper Extremities Comments Mobility Comments educated pt on posterior hip precautions on L hip but pt with memory issues and unable to recall. completed supine to sit max A x 1-2 and max cues. HOB elevated. pt required max A for scooting to EOB. completed sit to stand max A and max cues and step transfer to chair using FWW max a and max cues. BP monitor reflects pt on v-tach with HR of 126 and nurse is aware. with with O2 on . positioned pt on the chair. call light and table placed within reach and set up for lunch. Gait Assessment Comments Gait Comments steps during transfer PT-Balance Assessment Sitting Balance and Reactions Static Sitting Balance Ability Good Dynamic Sitting Balance Ability Fair Standing Balance and Reactions Static Standing Balance Ability Poor Dynamic Standing Balance Ability Poor Device Used FWW M5 PT-IP Objective Assessments Start: 04/19/22 12:58 Freq: NEEDED Status: Active Protocol: Document 04/19/22 11:10 AB (Rec: 04/19/22 13:10 AB [email or web address]) Orientation Orientation/Cognition Level of Alertness Confusional State Orientation Name,Place,Situation Safety Awareness Decreased Safety Awareness Memory Description Short Term Impaired,Mcc Impaired Gross Range of Motion Lower Extremity ROM Assessment Within Functional Limits Strength Lower Extremity Strength Assessment Bilaterally Impaired Comments Strength Comments LLE: 3+/5 RLE 4-/5 Sensation Assessment Sensation Gross Sensation WNL Muscle Tone Muscle Tone WNL Yes M6 PT-IP Treatment Start: 04/19/22 12:58 Freq: NEEDED Status: Active Protocol: Document 04/19/22 11:10 AB (Rec: 04/19/22 13:10 AB [email or web address]) Physical Therapy Treatment Education Education Provided Precautions,Weight Bearing Status,Post-Op Packet,Safety M7 PT-IP Assessment and Plan Start: 04/19/22 12:58 Freq: NEEDED Status: Active Protocol: Document 04/19/22 11:10 AB (Rec: 04/19/22 13:10 AB [email or web address]) PT Summary Assessment and Plan Potential Rehabilitation Potential Fair Status of Condition at Evaluation Unstable Summary Impairments Pain,ROM,Strength,Balance, Coordination,Sensation,Tone, Cognition,Bed Mobility, Transfers,Gait,Activity Tolerance Assessment Summary pt with GLF and sustained a L hip fracture and underwent hemiarthroplasty with posterior hip precautions. pt also admitted for respiratory hypoxia affecting activity tolerance. pt requires max A with mobility and unable to tolerate much activity with HR increasing to 126 . pt also has decrease safety awareness and requires max cues with all tasks for safety. pt will require SNF rehab to improve strength and mobility. Goals Bed Mobility Goal Standby Assistance Transfer Goal Standby Assistance,Front Wheeled Walker Gait Goal Standby Assistance,Front Wheel Walker Gait Distance 50 Other Goals up/down 6 steps R rail ascending CGA Days to Meet Goals 10 Frequency of Treatment Frequency Of Treatment Twice a Day Treatment Plan Physical Therapy Treatment Plan Bed Mobility Training,Transfer Training,Gait Training, Therapeutic Exercise,Balance Retraining,Post Op Education, Discharge Planning,Hot or Cold Pack,Neuromuscular Re-ed, Coordination Retraining,Manual Therapy Precautions Posterior Hip Precautions No Hip Flexion > 90 degrees,No Hip Internal Rotation,No Hip Adduction Weight Bearing Status Weight Bearing Status Weight Bear as Tolerated Allowed Weight Bearing Amount (enter % LLE WBAT or #) (%) Recommendations To Nursing Amount of Assist Needed 1 Person Assist Discharge Recommendations PT Discharge Recommendations SNF Rehab Transportation Needs at Discharge Wheelchair/Cabulance
--- NOTE | 2022-04-19 12:27 | P.PN_ITS ---
Subjective Subjective Date Patient Seen: 04/19/22 Interval history: Patient feeling very well today, no complaints of shortness of breath, palpitations. Pain is controlled this morning. No nausea or vomiting. No chest pain. Exam Vital Signs (past 8 hours): - 04/19/22 05:00 04/19/22 05:00 04/19/22 05:22 Pulse Rate 86 79 Respiratory Rate 26 H 15 Blood Pressure 124/56 L Pulse Oximetry 94 96 Oxygen Delivery Method Fraction of Inspired Oxygen 04/19/22 05:00 04/19/22 06:00 04/19/22 06:00 Pulse Rate 86 Respiratory Rate 18 Blood Pressure 156/66 H Pulse Oximetry 96 Oxygen Delivery Method BiPAP Fraction of Inspired Oxygen 04/19/22 06:01 04/19/22 06:48 04/19/22 09:00 Pulse Rate 85 Respiratory Rate 18 Blood Pressure 156/66 H Pulse Oximetry 96 Oxygen Delivery Method Nasal Cannula Fraction of Inspired Oxygen 30 Fraction of Inspired Oxygen 30 Oxygen Delivery Method Nasal Cannula Oxygen Flow Rate 8 Narrative Exam Narrative: GEN: alert and oriented, jovial today HEENT: moist mucous membranes, PERRL NECK: trachea midline, no JVD PULM: clear bilaterally, no wheezes, rhonchi, rales CV: normal rhythm and normal rate, no murmurs ABD: soft, nontender, nondistended, no organomegaly EXT: warm and well perfused, left hip tender to palpation SKIN: scattered bruises on extremities NEURO: awake, alert, no focal deficits noted Objective Labs Result Diagrams: 04/19/22 04:08 04/19/22 04:08 Labs: Laboratory Results - last 24 hr 04/18/22 04/18/22 04/18/22 15:19 16:00 16:00 WBC 19.7 H D RBC 3.30 L Hgb 8.9 L Hct 28.6 L MCV 86.7 MCH 26.9 MCHC 31.1 RDW 16.5 H Plt Count 222 Neut % (Auto) 94.7 H Lymph % (Auto) 1.7 L [place] % (Auto) 3.6 Eos % (Auto) 0.0 L Baso % (Auto) 0.0 Neut # (Auto) 54675 H Lymph # (Auto) 300 L [place] # (Auto) 700 Eos # (Auto) 0 Baso # (Auto) 0 ABG pH 7.25 L* ABG pCO2 75.8 H* ABG pO2 62 L ABG HCO3 33 H ABG Total CO2 36 H ABG O2 Saturation 86 L ABG Base Excess 6.0 H FiO2 35 Sodium 130 L Potassium 3.7 Chloride 91 L Carbon Dioxide 28 BUN 21 H Creatinine 1.02 Estimated GFR 57 L BUN/Creatinine Ratio 20.6 Glucose 207 H Lactate Calcium 8.3 L Magnesium Total Bilirubin 0.4 AST 47 H ALT 16 Alkaline Phosphatase 79 Total Protein 6.9 Albumin 3.4 L Globulin 3.5 Albumin/Globulin Ratio 1.0 04/18/22 04/18/22 04/18/22 16:38 17:35 18:21 WBC RBC Hgb Hct MCV MCH MCHC RDW Plt Count Neut % (Auto) Lymph % (Auto) [place] % (Auto) Eos % (Auto) Baso % (Auto) Neut # (Auto) Lymph # (Auto) [place] # (Auto) Eos # (Auto) Baso # (Auto) ABG pH 7.33 L ABG pCO2 60.2 H ABG pO2 95 ABG HCO3 32 H ABG Total CO2 34 H ABG O2 Saturation 97 ABG Base Excess 6.0 H FiO2 35 Sodium Potassium Chloride Carbon Dioxide BUN Creatinine Estimated GFR BUN/Creatinine Ratio Glucose Lactate 2.9 H Calcium Magnesium 2.0 Total Bilirubin AST ALT Alkaline Phosphatase Total Protein Albumin Globulin Albumin/Globulin Ratio 04/18/22 04/19/22 04/19/22 20:10 04:08 04:08 WBC 16.3 H RBC 2.88 L Hgb 7.8 L Hct 24.1 L MCV 83.9 MCH 26.9 MCHC 32.1 RDW 17.1 H Plt Count 210 Neut % (Auto) 82.3 H Lymph % (Auto) 6.4 L [place] % (Auto) 10.9 Eos % (Auto) 0.2 L Baso % (Auto) 0.2 Neut # (Auto) 87539 H Lymph # (Auto) 1000 L [place] # (Auto) 1800 H Eos # (Auto) 0 Baso # (Auto) 0 ABG pH ABG pCO2 ABG pO2 ABG HCO3 ABG Total CO2 ABG O2 Saturation ABG Base Excess FiO2 Sodium 132 L Potassium 3.7 Chloride 92 L Carbon Dioxide 32 BUN 24 H Creatinine 1.08 H Estimated GFR 53 L BUN/Creatinine Ratio 22.2 H Glucose 104 D Lactate 3.0 H Calcium 8.3 L Magnesium Total Bilirubin AST ALT Alkaline Phosphatase Total Protein Albumin Globulin Albumin/Globulin Ratio [facility], [facility] Medical History Chronic kidney disease, stage III (moderate) COPD (chronic obstructive pulmonary disease) Depression Glaucoma Lung nodule Morbid obesity with BMI of 40.0-44.9, adult Osteoarthritis Paroxysmal atrial fibrillation Severe mitral valve stenosis Surgical History H/O foot surgery H/O neck surgery H/O rotator cuff surgery History of hysterectomy Hx of cataract surgery Knee joint replacement by other means S/P laparoscopic sleeve gastrectomy Status post cholecystectomy Family History Father Alcoholic Mother Arthritis Renal failure Cancer Brother Alcoholic Social History household members: spouse Smoking Status: Former smoker alcohol intake: former Assessment & Plan Assessment & Plan narrative: # Acute on chronic hypoxic and hypercapnic respiratory failure, improving. COPD with exacerbation -patient has known COPD on 1.5L baseline, overnight on 04/17 and again after surgery on 04/18 developed worsening hypercapnia likely from opiates. Less likely aspiration but remains on antibiotics with anaerobic coverage. -now off bipap again -continue nebs -avoid narcotics as much as possible -appreciate tele ICU consultation while in ICU. -prednisone x5 days given copd -can possibly downgrade from ICU today if remains stable on nasal cannula. #paroxysmal Atrial fibrillation with RVR not present on admission, now resolved -morning of 04/17 developed HR 170's with BP 85/50 -amiodarone drip completed, converted to sinus at approx 1600 on 04/17 but reverted after OR, improved with amiodarone and bipap. -has watchmen device, not on anticoag -is taking both aspirin, plavix, last took on 04/15 -resume home flecainide this evening # Left hip fracture -occurred s/p mechanical fall -hip xray shows left hip fracture -surgery perfromed 04/18 -ordered for oral and IV pain medications -orthopedic surgery is consulted # Community acquired bacterial pneumonia -CXR with mild atypical pneumonia -CTA without PE, but RLL consolidation and multifocal peripheral opacities -continue zosyn y x5 days, MRSA screen negative so vancomycin discontinued. # UTI ruled out -UA with pyuria, culture with no growth # 1.6cm RLL lung nodule suspicious for malignancy -noted on CTA chest, spiculated -rec outpatient CT chest after discharge for follow up # Hypokalemia -likely secondary to diuretics -replete as needed # Hypotension, resolved -suspect secondary to dehydration from diuretics. Now resolved. # Chronic CHFpEF -resume toresemide tomorrow AM at 20 mg instead of home 40. CODE: Full Proxy: Gerry Ayala, Dispo: Pending hip fracture repair 04/18 and will likely need SNF. Stable for acute care floor. I spent 30 minutes providing critical care management this patient. This excludes time spent in performing separately billed procedures. Time Spent With Patient Critical Care time: I spent a total of [] minutes of critical care time on this patient's care today; this time is exclusive of procedural time.
--- NOTE | 2022-04-19 13:05 | PC.NURSE ---
Patient complains of significant heartburn throughout shift. Requests home omeprazole, brought in along with other home medications. Omeprazole sent to pharmacy. and patient understand not to take any of the medications brought in, will be sent back home with when he leaves.
[2022-04-19] MEDS: OMEPRAZOLE 40MG CAPS 1 EACH PO (13:09)
--- NOTE | 2022-04-19 13:25 | PT.IPTN ---
Current Diagnoses Obesity, unspecified (04/16/22) Unspecified atrial fibrillation (04/16/22) Fracture of unspecified part of neck of unspecified femur, initial encounter for closed fracture (04/16/22) Surgery Performed Operation Date: 04/18/22 11:15 Actual Procedures p LEFT HEMIARTHROPLASTY(Left) - Pily Godoy MD Physical Therapy Treatment Note M2 PT-IP Current Condition Start: 04/19/22 12:58 Freq: NEEDED Status: Active Protocol: Document 04/19/22 11:10 AB (Rec: 04/19/22 13:10 AB [email or web address]) Physical Therapy Current Condition Current Condition Evaluation Date 04/19/22 Treatment Diagnosis GLF; L hip fx s/p hemiarthroplasty; difficulty in walking Onset Date 04/16/22 M3 PT-IP Subjective Start: 04/19/22 12:58 Freq: NEEDED Status: Active Protocol: Document 04/19/22 13:25 AB (Rec: 04/19/22 15:30 AB [email or web address]) Subjective Physical Therapy Visit Type Type Treatment Note Visit Start Time 13:25 Visit Stop Time 14:02 Total Visit Minutes 27 Number of TIER AND DETONATOR Visits 0 Physical Therapy Visit Comments Patient Comments agreeable to do PT Therapy Pain Assessment Pain When Pain Assessed At Rest Pain Present Pain Present Pain Reported Location left hip Intensity 7 Scale Used Numeric (0 - 10) M4 PT-IP Mobility and Gait Start: 04/19/22 12:58 Freq: NEEDED Status: Active Protocol: Document 04/19/22 13:25 AB (Rec: 04/19/22 15:30 AB [id number]) PT-Bed Mobility Assessment Sit to Supine Sit to Supine Maximum Assistance,1 Person Assistance,Head of Bed Elevated,Bedrails PT-Transfer Assessment Sit to and From Stand Sit to and from Stand Maximum Assistance,1 Person Assistance,Use of Upper Extremities Equipment Transfer Assistive Device Gait Belt,Front Wheeled Walker Orthotic/Prosthetic Devices or Brace: No Transfers Transfer Destination Bed Transfer Ability Level of Assist Maximum Assistance,1 Person Assistance,Use of Upper Extremities Comments Mobility Comments pt sitting on the chair and spouse in room. pt initially refusing to ambulate. educated on importance of mobility. Talked to spouse and pt regarding SNF recommendation and agreed. pt stated that her hip pain is ok ~ 7/10 but stated that emotionally she is a 10. talked to pt and educated and gave some encouragement. informed nurse regarding pt's concerns and stated that he can give pt valium for anxiety . pt agreed. asked pt again regarding ambulating and agreed. pt completed sit to stand max A and max cues and able to ambulate ~ 2 ft using FWW max A and max cues. increase forward lean towards the end and instructed to correct posture. instructed to turn and take side stepping towards HOB before sitting on the bed and pt completed max A and max cues. completed sit to supine max A and max cues. max A for positioning in bed . c/o hip pain and nurse aware and gave pt pain meds. call light and table placed within reach. Gait Assessment Gait Gait Assistance Required: Maximum Assistance,1 Person Assist Distance (Feet) 2 Able to Maintain Weight Bearing Status Yes During Gait Assistive Devices Assistive Device Gait Belt,Front Wheeled Walker Orthotic/Prosthetic Devices or Brace: No Gait Deviations General Gait Pattern Antalgic,Decreased Stride Length,Decreased Feet Clearance,Lateral Trunk Lean, Step-to Gait Factors Limiting Gait Function Factors Limiting Gait Function Decreased Activity Tolerance, Decreased Strength,Difficulty Following Directions,Limited Range of Motion,Pain,Poor Balance,Poor Safety Awareness, Respiratory Distress M5 PT-IP Objective Assessments Start: 04/19/22 12:58 Freq: NEEDED Status: Active Protocol: Document 04/19/22 11:10 AB (Rec: 04/19/22 13:10 AB [email or web address]) Orientation Orientation/Cognition Level of Alertness Confusional State Orientation Name,Place,Situation Safety Awareness Decreased Safety Awareness Memory Description Short 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 Impaired,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 Gross Range of Motion Lower Extremity ROM Assessment Within Functional Limits Strength Lower Extremity Strength Assessment Bilaterally Impaired Comments Strength Comments LLE: 3+/5 RLE 4-/5 Sensation Assessment Sensation Gross Sensation WNL Muscle Tone Muscle Tone WNL Yes M6 PT-IP Treatment Start: 04/19/22 12:58 Freq: NEEDED Status: Active Protocol: Document 04/19/22 13:25 AB (Rec: 04/19/22 15:30 AB [email or web address]) Physical Therapy Treatment Education Education Provided Precautions,Weight Bearing Status,Safety M7 PT-IP Assessment and Plan Start: 04/19/22 12:58 Freq: NEEDED Status: Active Protocol: Document 04/19/22 13:25 AB (Rec: 04/19/22 15:30 AB [email or web address]) PT Summary Assessment and Plan Potential Rehabilitation Potential Fair Summary Impairments Pain,ROM,Strength,Balance, Coordination,Sensation,Tone, Cognition,Bed Mobility, Transfers,Gait,Activity Tolerance Progress Towards Goals Slow Progress due to Pain,Slow Progress due to Medical Issues,Slow Progress due to Activity Tolerance,Slow Progress - Other Assessment Summary pt continues to require max A for mobility and max cues for hip precautions. pt needs one step instructions with all tasks. pt will require SNF rehab to improve strength and mobility. Goals Bed Mobility Goal Standby Assistance Transfer Goal Standby Assistance,Front Wheeled Walker Gait Goal Standby Assistance,Front Wheel Walker Gait Distance 50 Other Goals up/down 6 steps R rail ascending CGA Days to Meet Goals 10 Frequency of Treatment Frequency Of Treatment Twice a Day Treatment Plan Physical Therapy Treatment Plan Bed Mobility Training,Transfer Training,Gait Training, Therapeutic Exercise,Balance Retraining,Post Op Education, Discharge Planning,Hot or Cold Pack,Neuromuscular Re-ed, Coordination Retraining,Manual Therapy Precautions Posterior Hip Precautions No Hip Flexion > 90 degrees,No Hip Internal Rotation,No Hip Adduction Weight Bearing Status Weight Bearing Status Weight Bear as Tolerated Allowed Weight Bearing Amount (enter % LLE WBAT or #) (%) Recommendations To Nursing Amount of Assist Needed 1 Person Assist Discharge Recommendations PT Discharge Recommendations SNF Rehab Transportation Needs at Discharge Wheelchair/Cabulance
--- NOTE | 2022-04-19 13:31 | PC.NURSE ---
PICC line removed from left upper extremity. Patient tolerated well.
[2022-04-19] MEDS: OXYCODONE IR 5 MG TABLET PO ×2 (13:58→20:21)
[2022-04-19] MEDS: diazePAM 5 MG TABLET 2.5 MG PO (14:05)
--- NOTE | 2022-04-19 15:11 | CM.DPNOTE ---
Discharge Planning Note: Met with patient and spouse Gerry in patient's room. Patient is POD #1 L Unipolar Arthroplasty yesterday. She had just been up with PT prior. She and spouse live in [place] and are independent at baseline. Spouse provides assistance to patient as needed at home. She has O2 available which she uses as needed at home. Reviewed SNF Rehab choices with patient and spouse using I-Pad to show their choices with the Medicare star ratings. Also provided a choice list. They will review and we will meet tomorrow to continue. Av referral sent today. Also sent referrals to [facility] and [facility] Juan Tejeda Plan: Follow up with patient tomorrow morning regarding choices and order. Aide Zaldivar RN/DCP
[2022-04-19] MEDS: DULOXETINE 30 MG CAPSULE PO (17:23)
[2022-04-19] MEDS: BIMATOPROST 0.01% 1 EACH EYE-BOTH (17:24)
[2022-04-19] MEDS: FLECAINIDE 100 MG TABLET 25 MG PO (20:55)
[2022-04-19] MEDS: TRAZODONE 50 MG TABLET PO (20:55)
[2022-04-19] MEDS: LUMIGAN 0.01% EYE DROPS 1 EACH EYE-BOTH (21:00)
--- NOTE | 2022-04-19 21:01 | PM.ICURNDS ---
- Date Patient Seen: 04/19/22 Time Patient Seen: 20:58 :: This patient was seen via real time interactive two-way audiovisual telecommunication. Note: 76F with a h/o of COPD on home O2, Afib s/p Watchmen admitted with L hip fracture, upgraded to ICU 04/17 due to AMS and respiratory failure; now POD #1 from L hip arthroplasty. Complete amiodarone. No significant change from when I saw patient earlier today. Continue present mgmt.
[2022-04-20] VITALS (10 sets, daily range): BP systolic 119–142; BP diastolic 45–63; PULSE 79–100; RESP 16–25; TEMP 36.3–37.2; O2SAT 92–97
[2022-04-20] MEDS: PIPERACILLIN/TAZO 3.375 GM in SODIUM CHLORIDE 0.9% 100 ML IV ×3 (04:40→21:09)
[2022-04-20 06:32] LABS: Add Manual Diff / Slide Review NO; Basophils Absolute Auto 0 /uL (0-100); Basophils Percent Auto 0.3 % (0-2); Eosinophils Absolute Auto 100 /uL (0-450); Hematocrit 21.7 % (36-46); Lymphocytes Absolute Auto 1400 /uL (1100-4500); Lymphocytes Percent Auto 10.9 % (25-40); Mean Corpuscular HGB Conc 32.3 % (30-36); Mean Corpuscular Hemoglobin 27.1 PG (26-34); Mean Corpuscular Volume 84.1 fL (80-100); Monocytes Absolute Auto 1300 /uL (0-900); Monocytes Percent Auto 9.9 % (3-14); Neutrophils Absolute Auto 9900 /uL (1500-7000); Neutrophils Percent Auto 77.9 % (50-75); Platelet Count 219 X10^3/uL (150-400); Red Blood Cell Count 2.59 X10^6/uL (4.0-5.2); Red Cell Distribution Width 16.9 % (11.6-14.8); White Blood Cell Count 12.7 X10^3/uL (4.5-11.0)
[2022-04-20 06:41] LABS: BUN Creatinine Ratio 21.8 (6-22); Blood Urea Nitrogen 22 mg/dL (7-17); Calcium 8.2 mg/dL (8.4-10.2); Carbon Dioxide 37 mmol/L (22-32); Chloride 97 mmol/L (98-107); Estimated Glomerular Filt Rate 57 mL/min (>60); Glucose 93 mg/dL (80-110); HEMOLYSIS < 15 (0-50); Potassium 3.7 mmol/L (3.4-5.1); Sodium 138 mmol/L (137-145)
[2022-04-20] MEDS: PANTOPRAZOLE 40 MG VIAL IV ×2 (08:34→20:55)
[2022-04-20] MEDS: estradioL 1 MG TABLET 2 MG PO (08:34)
[2022-04-20] MEDS: DOXYCYCLINE HYCLATE 100 MG TABLET PO ×2 (08:34→20:55)
[2022-04-20] MEDS: FERROUS SULFATE 325 MG TABLET PO (08:34)
[2022-04-20] MEDS: TORSEMIDE 10 MG TABLET 20 MG PO (08:35)
[2022-04-20] MEDS: BUSPIRONE 5 MG TABLET 10 MG PO ×3 (08:35→20:54)
[2022-04-20] MEDS: POTASSIUM CHLORIDE 10 MEQ TAB PO (08:35)
[2022-04-20] MEDS: MULTIVITAMIN 1 TABLET 2 TAB PO (08:35)
[2022-04-20] MEDS: ASPIRIN EC 81 MG TABLET PO ×2 (08:35→20:54)
[2022-04-20] MEDS: ASCORBIC ACID 500 MG TABLET PO (08:35)
[2022-04-20] MEDS: FLECAINIDE 100 MG TABLET 25 MG PO ×2 (08:35→20:55)
[2022-04-20] MEDS: MAGNESIUM OXIDE 400 MG TABLET PO (08:35)
[2022-04-20] MEDS: DOCUSATE 100 MG CAPSULE PO (08:36)
[2022-04-20] MEDS: CHOLECALCIFEROL (VITAMIN D3) 1,000 UNIT TABLET 2000 UNIT PO (08:36)
[2022-04-20] MEDS: predniSONE 20 MG TABLET 40 MG PO (08:36)
[2022-04-20] MEDS: DORZOLAMIDE 2% OPHTH 10 ML 1 DROPS EYE-BOTH ×2 (08:36→20:58)
[2022-04-20] MEDS: DICYCLOMINE 10 MG CAPSULE PO ×3 (08:36→20:54)
[2022-04-20] MEDS: SYSTANE 1 EACH EYE-BOTH ×4 (08:37→21:10)
--- NOTE | 2022-04-20 08:55 | PC.NURSE ---
0730 - Patient confused to place and situation, attempting to remove medical equipment and head home. Reoriented fairly well. Stated they had been hallucinating overnight.
--- NOTE | 2022-04-20 10:15 | PT-IP ANOTE ---
Pt with H&H 7.0/21.7 and currently receiving transfusion. Holding PT treatment until labs improved. Will continue to follow.
--- NOTE | 2022-04-20 12:12 | PM.PN.1 ---
Subjective Subjective Date Patient Seen: 04/20/22 Interval history: Hg dropped to 7.0 this AM, she denies chest pain, dizziness, or shortness of breath but hallucinating overnight and confused. Ordered 1 U PRBC transfusion, no obvious source of bleeding on exam today. Denies bowel movements. Started on PPI IV for now. Exam Vital Signs (past 8 hours): - 04/20/22 08:48 04/20/22 07:00 04/20/22 09:12 Temperature 97.6 F Pulse Rate 82 Respiratory Rate 22 Blood Pressure 136/63 Pulse Oximetry 92 93 Oxygen Delivery Method Nasal Cannula Nasal Cannula Oxygen Flow Rate 3 2 04/20/22 10:38 04/20/22 11:03 Temperature 98.9 F 98.7 F Pulse Rate 89 87 Respiratory Rate 25 H 22 Blood Pressure 138/63 123/56 L Pulse Oximetry Oxygen Delivery Method Oxygen Flow Rate Fraction of Inspired Oxygen 32 SaO2/FiO2 Ratio 303 Oxygen Delivery Method Nasal Cannula Oxygen Flow Rate 2 Narrative Exam Narrative: GEN: alert and oriented, fatigued HEENT: moist mucous membranes, PERRL NECK: trachea midline, no JVD PULM: clear bilaterally, no wheezes, rhonchi, rales CV: normal rhythm and normal rate, no murmurs ABD: soft, nontender, nondistended, no organomegaly EXT: warm and well perfused, b/l le non pitting edema SKIN: scattered bruises on extremities NEURO: awake, alert, no focal deficits noted Objective Labs Result Diagrams: 04/20/22 06:25 04/20/22 06:25 Labs: Laboratory Results - last 24 hr 04/20/22 04/20/22 04/20/22 06:25 06:25 06:25 WBC 12.7 H RBC 2.59 L Hgb 7.0 L Hct 21.7 L MCV 84.1 MCH 27.1 MCHC 32.3 RDW 16.9 H Plt Count 219 Neut % (Auto) 77.9 H Lymph % (Auto) 10.9 L [place] % (Auto) 9.9 Eos % (Auto) 1.0 L Baso % (Auto) 0.3 Neut # (Auto) 9900 H Lymph # (Auto) 1400 [place] # (Auto) 1300 H Eos # (Auto) 100 Baso # (Auto) 0 Sodium 138 Potassium 3.7 Chloride 97 L Carbon Dioxide 37 H BUN 22 H Creatinine 1.01 Estimated GFR 57 L BUN/Creatinine Ratio 21.8 Glucose 93 Calcium 8.2 L Blood Type O Negative Antibody Screen Negative Crossmatch See Detail [facility] Medical History Chronic kidney disease, stage III (moderate) COPD (chronic obstructive pulmonary disease) Depression Glaucoma Lung nodule Morbid obesity with BMI of 40.0-44.9, adult Osteoarthritis Paroxysmal atrial fibrillation Severe mitral valve stenosis Surgical History H/O foot surgery H/O neck surgery H/O rotator cuff surgery History of hysterectomy Hx of cataract surgery Knee joint replacement by other means S/P laparoscopic sleeve gastrectomy Status post cholecystectomy Family History Father Alcoholic Mother Arthritis Renal failure Cancer Brother Alcoholic Social History household members: spouse Smoking Status: Former smoker alcohol intake: former Assessment & Plan Assessment & Plan narrative: # Acute on chronic hypoxic and hypercapnic respiratory failure, improving. COPD with exacerbation -patient has known COPD on 1.5L baseline, overnight on 04/17 and again after surgery on 04/18 developed worsening hypercapnia likely from opiates. Less likely aspiration but remains on antibiotics with anaerobic coverage. -now off bipap again, near baseline O2 use at 2L today. -continue nebs -avoid narcotics as much as possible -prednisone x5 days given copd -now floor care. #paroxysmal Atrial fibrillation with RVR not present on admission, now resolved -morning of 04/17 developed HR 170's with BP 85/50 -amiodarone drip completed, converted to sinus at approx 1600 on 04/17 but reverted after OR, improved with amiodarone and bipap. -has watchmen device, not on anticoag -is taking both aspirin, plavix, last took on 04/15 -resumed home flecainide yesterday evening. #acute anemia with acute metabolic encephalopathy, possibly due to acute blood loss - possibly acute blood loss after surgery, no signs or symptoms of active bleeding, compartments are soft after surgery. Hg to 7.0 today, given 1U PRBC given overnight confusion, likely related to anemia. - continue to follow h/h - started PPI for possible stress ulcer. # Left hip fracture -occurred s/p mechanical fall -hip xray shows left hip fracture -surgery perfromed 04/18 -ordered for oral and IV pain medications -orthopedic surgery is consulted # Community acquired bacterial pneumonia -CXR with mild atypical pneumonia -CTA without PE, but RLL consolidation and multifocal peripheral opacities -continue zosyn y x5 days, MRSA screen negative so vancomycin discontinued. # UTI ruled out -UA with pyuria, culture with no growth. Adequately treated with above antibiotic therapies. # 1.6cm RLL lung nodule suspicious for malignancy -noted on CTA chest, spiculated -rec outpatient CT chest after discharge for follow up # Hypokalemia -likely secondary to diuretics -replete as needed # Hypotension, resolved -suspect secondary to dehydration from diuretics. Now resolved. # Chronic CHFpEF -resumed toresemide at 20 mg instead of home 40 for now. CODE: Full Proxy: Gerry Ayala, Dispo: Pending hip fracture repair 04/18 and will likely need SNF. Stable for acute care floor. Need to work with therapies but held today given PRBC transfusion. Time Spent With Patient Critical Care time: I spent a total of [] minutes of critical care time on this patient's care today; this time is exclusive of procedural time.
--- NOTE | 2022-04-20 13:25 | PM.PNPO.1 ---
Subjective Subjective Date Patient Seen: 04/20/22 Time Patient Seen: 13:25 Interval history: She is doing a little better than yesterday. She was noted to be anemic. The hospitalist Service decided to transfuse her with 1 unit of packed RBCs. She is resting comfortably in bed. She does not have significant hip pain. She is not been out of bed yet today. Her is at bedside. She is still requiring some pulmonary support. Exam Vital Signs (past 8 hours): - 04/20/22 08:48 04/20/22 07:00 04/20/22 09:12 Temperature 97.6 F Pulse Rate 82 Respiratory Rate 22 Blood Pressure 136/63 Pulse Oximetry 92 93 Oxygen Delivery Method Nasal Cannula Nasal Cannula Oxygen Flow Rate 3 2 04/20/22 10:38 04/20/22 11:03 04/20/22 12:49 Temperature 98.9 F 98.7 F 97.8 F Pulse Rate 89 87 97 H Respiratory Rate 25 H 22 20 Blood Pressure 138/63 123/56 L 133/63 Pulse Oximetry 93 Oxygen Delivery Method Oxygen Flow Rate 3 Fraction of Inspired Oxygen 32 SaO2/FiO2 Ratio 303 Oxygen Delivery Method Nasal Cannula Oxygen Flow Rate 3 Narrative Exam Narrative: She is alert she is oriented she has minimal pain with gentle range of motion in the hip, she has mild swelling in bilateral lower extremities, neurologically intact distally, her dressing is dry and intact, she has some small abrasions on the left knee which were noted preoperatively. She has minimal pain with range of motion in the knee Objective Labs Result Diagrams: 04/20/22 06:25 04/20/22 06:25 Labs: Laboratory Results - last 24 hr 04/20/22 04/20/22 04/20/22 06:25 06:25 06:25 WBC 12.7 H RBC 2.59 L Hgb 7.0 L Hct 21.7 L MCV 84.1 MCH 27.1 MCHC 32.3 RDW 16.9 H Plt Count 219 Neut % (Auto) 77.9 H Lymph % (Auto) 10.9 L [place] % (Auto) 9.9 Eos % (Auto) 1.0 L Baso % (Auto) 0.3 Neut # (Auto) 9900 H Lymph # (Auto) 1400 [place] # (Auto) 1300 H Eos # (Auto) 100 Baso # (Auto) 0 Sodium 138 Potassium 3.7 Chloride 97 L Carbon Dioxide 37 H BUN 22 H Creatinine 1.01 Estimated GFR 57 L BUN/Creatinine Ratio 21.8 Glucose 93 Calcium 8.2 L Blood Type O Negative Antibody Screen Negative Crossmatch See Detail [facility] Medical History Chronic kidney disease, stage III (moderate) COPD (chronic obstructive pulmonary disease) Depression Glaucoma Lung nodule Morbid obesity with BMI of 40.0-44.9, adult Osteoarthritis Paroxysmal atrial fibrillation Severe mitral valve stenosis Surgical History H/O foot surgery H/O neck surgery H/O rotator cuff surgery History of hysterectomy Hx of cataract surgery Knee joint replacement by other means S/P laparoscopic sleeve gastrectomy Status post cholecystectomy Family History Father Alcoholic Mother Arthritis Renal failure Cancer Brother Alcoholic Social History household members: spouse Smoking Status: Former smoker alcohol intake: former Assessment & Plan Post-op Postoperative Procedures: Procedures Operation Date: 04/18/22 11:15 Actual Procedure Side Surgeon p LEFT HEMIARTHROPLASTY Left Pily Godoy MD Postoperative day: 2 Postoperative status: doing well and anemia Postoperative plan: routine post-op care Postoperative plan narrative: She is doing reasonably well postoperatively. She still has multiple medical problems. I anticipate discharge to intermediate facility when she is stable. I would like her to follow-up orthopedically at about 2 weeks postoperatively. She can be weight-bearing as tolerated on the left lower extremity.
[2022-04-20 13:41] LABS: Hematocrit 28.7 % (36-46); Hemoglobin 9.5 g/dL (12.0-16.0)
--- NOTE | 2022-04-20 15:03 | CM.DPNOTE ---
Discharge Planning Note: Patient is POD#2 s/p left unipolar arthroplasty. Met with patient earlier this morning and she stated that she doesn't remember much of yesterday and was hallucinating last night. She was alert and conversing appropriately with me. She was found to have a low Hgb and was transfused with 1 unit of PRBCs. Spouse Gerry arrived later and reviewed SNF choice list again on I-Pad using the star ratings/Medicare Compare. The choices are [facility], [facility] and [facility]. Referrals sent. Dinora from [facility] left voicemail that they can accept patient tomorrow. However, with patient's drop in Hgb, it is unlikely she would dc tomorrow. Unable to reach [facility] this afternoon. Plan: Follow closely for needs. Call [facility], possible acceptance depending on dc date and [facility]. Complete PASSR. Aide Zaldivar RN/DCP
--- NOTE | 2022-04-20 16:23 | PT.IPTN ---
Current Diagnoses Obesity, unspecified (04/16/22) Unspecified atrial fibrillation (04/16/22) Fracture of unspecified part of neck of unspecified femur, initial encounter for closed fracture (04/16/22) Surgery Performed Operation Date: 04/18/22 11:15 Actual Procedures p LEFT HEMIARTHROPLASTY(Left) - Pily Godoy MD Physical Therapy Treatment Note M2 PT-IP Current Condition Start: 04/19/22 12:58 Freq: NEEDED Status: Active Protocol: Document 04/19/22 11:10 AB (Rec: 04/19/22 13:10 AB [id number]) Physical Therapy Current Condition Current Condition Evaluation Date 04/19/22 Treatment Diagnosis GLF; L hip fx s/p hemiarthroplasty; difficulty in walking Onset Date 04/16/22 M3 PT-IP Subjective Start: 04/19/22 12:58 Freq: NEEDED Status: Active Protocol: Document 04/20/22 16:23 AW (Rec: 04/20/22 16:41 AW [id number]) Subjective Physical Therapy Visit Type Type Treatment Note Visit Start Time 15:43 Visit Stop Time 16:23 Total Visit Minutes 40 Notes Earlier today, H&H was 7.0/21. 7. Pt received transfusion today and H&H bumped up to 9.5 /28.7 Physical Therapy Visit Comments Patient Comments Pt is willing to participate with PT Patient Goals Pt would like to use the toilet. Therapy Pain Assessment Pain When Pain Assessed During Mobility Pain Present Pain Present Pain Reported Location left hip Intensity 8 Scale Used Numeric (0 - 10) Pain Management Techniques Distraction,Modification of Treatment,Re-positioning, Timing of Activity with Medications M4 PT-IP Mobility and Gait Start: 04/19/22 12:58 Freq: NEEDED Status: Active Protocol: Document 04/20/22 16:23 AW (Rec: 04/20/22 16:41 AW [id number]) PT-Bed Mobility Assessment Supine to Sit Supine to Sit Moderate Assistance,1 Person Assistance,Head of Bed Elevated,Bedrails Scooting Scooting to Edge of Bed Moderate Assistance PT-Transfer Assessment Sit to and From Stand Sit to and from Stand Moderate Assistance,Maximum Assistance,1 Person Assistance ,Use of Upper Extremities Equipment Transfer Assistive Device Gait Belt,Front Wheeled Walker Orthotic/Prosthetic Devices or Brace: No Transfers Transfer Destination Chair,Bedside Commode Transfer Technique Stand Step Pivot Transfer Ability Level of Assist Moderate Assistance,1 Person Assistance,Use of Upper Extremities Comments Mobility Comments Pt was reclined in the bed as PT arrived. She had just been moved to [facility] from ICU. She was on 1.5 L/min O2 which is her baseline. SpO2 was 94%. With HOB elevated, pt needed mod A to sit up on the left side of the bed and to scoot forward. Pt is 5'0 and feet do not reach the ground. Pt was able to stand from the EOB mod A. She used FWW to transfer to the C mod A. She stood from the commode mod A and RN assisted to clean her up while pt stood ~90 seconds. She was able to side step toward her left with FWW and then back up to the chair mod A. Pt was positioned on the chair and left with call light in reach. Pt agreed to sit up until at least after dinner. Gait Assessment Gait Gait Assistance Required: Moderate Assistance,1 Person Assist Distance (Feet) 4 Able to Maintain Weight Bearing Status Yes During Gait Assistive Devices Assistive Device Gait Belt,Front Wheeled Walker Orthotic/Prosthetic Devices or Brace: No Gait Deviations General Gait Pattern Antalgic,Decreased Stride Length,Decreased Feet Clearance,Lateral Trunk Lean, Step-to Gait Factors Limiting Gait Function Factors Limiting Gait Function Decreased Activity Tolerance, Decreased Strength,Difficulty Following Directions,Limited Range of Motion,Pain,Poor Balance,Poor Safety Awareness, Respiratory Distress Comments Gait Comments Steps taken during transfers only. 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 Gross Range of Motion Lower Extremity ROM Assessment Within Functional Limits Strength Lower Extremity Strength Assessment Bilaterally Impaired Comments Strength Comments LLE: 3+/5 RLE 4-/5 Sensation Assessment Sensation Gross Sensation WNL Muscle Tone Muscle Tone WNL Yes M6 PT-IP Treatment Start: 04/19/22 12:58 Freq: NEEDED Status: Active Protocol: Document 04/20/22 16:23 AW (Rec: 04/20/22 16:41 AW [id number]) Physical Therapy Treatment Education Education Provided Precautions,Weight Bearing Status,Safety Other Treatments Other Treatment Performed Reviewed precautions and pt was able to recall 2/3. Switched FWW for youth-size to better accommodate pt's stature. M7 PT-IP Assessment and Plan Start: 04/19/22 12:58 Freq: NEEDED Status: Active Protocol: Document 04/20/22 16:23 AW (Rec: 04/20/22 16:41 AW [id number]) PT Summary Assessment and Plan Potential Rehabilitation Potential Good Summary Impairments Pain,ROM,Strength,Balance, Coordination,Sensation,Tone, Cognition,Bed Mobility, Transfers,Gait,Activity Tolerance Progress Towards Goals Slow Progress due to Medical Issues,Slow Progress due to Activity Tolerance Assessment Summary Pt required fewer cues for hip precautions and needed mod assist for bed mobility and transfers with FWW. SpO2 was stable today on 1.5 L/min NC which is consistent with her baseline. Pt will require SNF rehab to assist with her functional recovery and improve her strength and mobility independence. Goals Bed Mobility Goal Standby Assistance Transfer Goal Standby Assistance,Front Wheeled Walker Gait Goal Standby Assistance,Front Wheel Walker Gait Distance 50 Other Goals up/down 6 steps R rail ascending CGA Days to Meet Goals 10 Frequency of Treatment Frequency Of Treatment Twice a Day Treatment Plan Physical Therapy Treatment Plan Bed Mobility Training,Transfer Training,Gait Training, Therapeutic Exercise,Balance Retraining,Post Op Education, Discharge Planning,Hot or Cold Pack,Neuromuscular Re-ed, Coordination Retraining,Manual Therapy Other Recommendations and Next Treatment gait with chair follow Focus Precautions Posterior Hip Precautions No Hip Flexion > 90 degrees,No Hip Internal Rotation,No Hip Adduction Weight Bearing Status Weight Bearing Status Weight Bear as Tolerated Allowed Weight Bearing Amount (enter % LLE WBAT or #) (%) Recommendations To Nursing Amount of Assist Needed 1 Person Assist Discharge Recommendations PT Discharge Recommendations SNF Rehab Transportation Needs at Discharge Wheelchair/Cabulance
[2022-04-20] MEDS: ACETAMINOPHEN 325 MG TABLET 650 MG PO (17:41)
[2022-04-20] MEDS: DULOXETINE 30 MG CAPSULE PO (17:41)
[2022-04-20] MEDS: BIMATOPROST 0.01% 1 EACH EYE-BOTH (17:42)
[2022-04-20] MEDS: TRAZODONE 50 MG TABLET PO (20:55)
[2022-04-20] MEDS: ONDANSETRON 4 MG/2 ML INJ IV (20:57)
[2022-04-21] VITALS (10 sets, daily range): BP systolic 131–159; BP diastolic 48–64; PULSE 69–102; RESP 17–20; TEMP 36.2–37.3; O2SAT 91–96
[2022-04-21] MEDS: diazePAM 5 MG TABLET 2.5 MG PO ×2 (00:02→22:55)
[2022-04-21] MEDS: TRAMADOL 50 MG TABLET PO (03:55)
[2022-04-21] MEDS: CALCIUM CARBONATE 500 MG TAB 1000 MG PO (03:55)
[2022-04-21] MEDS: PIPERACILLIN/TAZO 3.375 GM in SODIUM CHLORIDE 0.9% 100 ML IV ×2 (04:19→17:44)
[2022-04-21 05:36] LABS: Add Manual Diff / Slide Review NO; Basophils Absolute Auto 0 /uL (0-100); Basophils Percent Auto 0.1 % (0-2); Eosinophils Absolute Auto 100 /uL (0-450); Eosinophils Percent Auto 0.6 % (2-4); Hemoglobin 8.1 g/dL (12.0-16.0); Lymphocytes Absolute Auto 1300 /uL (1100-4500); Lymphocytes Percent Auto 10.7 % (25-40); Mean Corpuscular HGB Conc 32.4 % (30-36); Mean Corpuscular Hemoglobin 27.3 PG (26-34); Mean Corpuscular Volume 84.5 fL (80-100); Monocytes Absolute Auto 1200 /uL (0-900); Monocytes Percent Auto 9.5 % (3-14); Neutrophils Absolute Auto 9600 /uL (1500-7000); Neutrophils Percent Auto 79.1 % (50-75); Platelet Count 249 X10^3/uL (150-400); Red Blood Cell Count 2.96 X10^6/uL (4.0-5.2); Red Cell Distribution Width 17.1 % (11.6-14.8); White Blood Cell Count 12.1 X10^3/uL (4.5-11.0)
[2022-04-21 06:07] LABS: BUN Creatinine Ratio 22.3 (6-22); Blood Urea Nitrogen 23 mg/dL (7-17); Calcium 8.2 mg/dL (8.4-10.2); Carbon Dioxide 37 mmol/L (22-32); Chloride 95 mmol/L (98-107); Estimated Glomerular Filt Rate 56 mL/min (>60); Glucose 102 mg/dL (80-110); HEMOLYSIS < 15 (0-50); Potassium 2.9 mmol/L (3.4-5.1); Sodium 137 mmol/L (137-145)
--- NOTE | 2022-04-21 07:47 | PM.PN.1 ---
Subjective Subjective Date Patient Seen: 04/21/22 Time Patient Seen: 07:00 Interval history: POD 3 status post left hip hemiarthroplasty: Patient doing well this morning. She complains of mild left hip pain that is well controlled with medication. Anemia has improved today. She remains confused, stating she woke up in a tree limb; trying to remove cords attached to her. Exam Vital Signs (past 8 hours): - 04/21/22 00:00 04/21/22 02:58 04/21/22 02:59 Temperature 98.2 F 99.1 F 98.5 F Pulse Rate 74 81 Respiratory Rate 20 19 Blood Pressure 156/64 H 159/60 H Pulse Oximetry 92 91 Oxygen Flow Rate 1 1 04/21/22 04:22 Temperature 98.4 F Pulse Rate 75 Respiratory Rate 18 Blood Pressure 150/63 H Pulse Oximetry 94 Oxygen Flow Rate 1 Fraction of Inspired Oxygen 24 SaO2/FiO2 Ratio 383 Oxygen Delivery Method Nasal Cannula Oxygen Flow Rate 1 Narrative Exam Narrative: Awake, alert, confused. Left hip bandage intact with minimal blood saturation. Minimal pain on palpation, minimal pain with gentle active range of motion of the left hip. Objective Labs Result Diagrams: 04/21/22 04:57 04/21/22 04:57 Labs: Laboratory Results - last 24 hr 04/20/22 04/20/22 04/21/22 06:25 13:35 04:57 WBC 12.1 H RBC 2.96 L Hgb 9.5 L 8.1 L Hct 28.7 L 25.0 L MCV 84.5 MCH 27.3 MCHC 32.4 RDW 17.1 H Plt Count 249 Neut % (Auto) 79.1 H Lymph % (Auto) 10.7 L Craven % (Auto) 9.5 Eos % (Auto) 0.6 L Baso % (Auto) 0.1 Neut # (Auto) 9600 H Lymph # (Auto) 1300 Craven # (Auto) 1200 H Eos # (Auto) 100 Baso # (Auto) 0 Sodium Potassium Chloride Carbon Dioxide BUN Creatinine Estimated GFR BUN/Creatinine Ratio Glucose Calcium Blood Type O Negative Antibody Screen Negative Crossmatch See Detail 04/21/22 04:57 WBC RBC Hgb Hct MCV MCH MCHC RDW Plt Count Neut % (Auto) Lymph % (Auto) Craven % (Auto) Eos % (Auto) Baso % (Auto) Neut # (Auto) Lymph # (Auto) Craven # (Auto) Eos # (Auto) Baso # (Auto) Sodium 137 Potassium 2.9 L Chloride 95 L Carbon Dioxide 37 H BUN 23 H Creatinine 1.03 Estimated GFR 56 L BUN/Creatinine Ratio 22.3 H Glucose 102 Calcium 8.2 L Blood Type Antibody Screen Crossmatch [facility] Medical History Chronic kidney disease, stage III (moderate) COPD (chronic obstructive pulmonary disease) Depression Glaucoma Lung nodule Morbid obesity with BMI of 40.0-44.9, adult Osteoarthritis Paroxysmal atrial fibrillation Severe mitral valve stenosis Surgical History H/O foot surgery H/O neck surgery H/O rotator cuff surgery History of hysterectomy Hx of cataract surgery Knee joint replacement by other means S/P laparoscopic sleeve gastrectomy Status post cholecystectomy Family History Father Alcoholic Mother Arthritis Renal failure Cancer Brother Alcoholic Social History household members: spouse Smoking Status: Former smoker alcohol intake: former Assessment & Plan Assessment & Plan narrative: Patient may be weight-bearing as tolerated. Will see Physical therapy today and recieved hinged long leg brace set to 0-10. [facility]. Patient states that Gerry gave a list of their preference of 3 SNFs for patient to discharge to. Discussed plan with social work. Follow up 2 weeks postop. Time Spent With Patient Critical Care time: I spent a total of [] minutes of critical care time on this patient's care today; this time is exclusive of procedural time.
[2022-04-21] MEDS: ONDANSETRON 4 MG/2 ML INJ IV (09:12)
[2022-04-21] MEDS: PANTOPRAZOLE 40 MG VIAL IV ×2 (09:18→21:45)
[2022-04-21] MEDS: MULTIVITAMIN 1 TABLET 2 TAB PO (09:19)
[2022-04-21] MEDS: TORSEMIDE 10 MG TABLET 20 MG PO (09:19)
[2022-04-21] MEDS: predniSONE 20 MG TABLET 40 MG PO (09:20)
[2022-04-21] MEDS: CHOLECALCIFEROL (VITAMIN D3) 1,000 UNIT TABLET 2000 UNIT PO (09:20)
[2022-04-21] MEDS: POTASSIUM CHLORIDE 10 MEQ TAB PO (09:20)
[2022-04-21] MEDS: FERROUS SULFATE 325 MG TABLET PO (09:20)
[2022-04-21] MEDS: ASPIRIN EC 81 MG TABLET PO ×2 (09:21→21:40)
[2022-04-21] MEDS: FLECAINIDE 100 MG TABLET 25 MG PO ×2 (09:21→21:40)
[2022-04-21] MEDS: DOXYCYCLINE HYCLATE 100 MG TABLET PO ×2 (09:21→21:44)
[2022-04-21] MEDS: estradioL 1 MG TABLET 2 MG PO (09:21)
[2022-04-21] MEDS: DICYCLOMINE 10 MG CAPSULE PO ×3 (09:23→21:43)
[2022-04-21] MEDS: DORZOLAMIDE 2% OPHTH 10 ML 1 DROPS EYE-BOTH ×2 (09:23→21:47)
[2022-04-21] MEDS: DOCUSATE 100 MG CAPSULE PO ×2 (09:24→21:42)
[2022-04-21] MEDS: ASCORBIC ACID 500 MG TABLET PO (09:24)
[2022-04-21] MEDS: MAGNESIUM OXIDE 400 MG TABLET PO (09:24)
[2022-04-21] MEDS: SYSTANE 1 EACH EYE-BOTH ×4 (09:30→22:08)
[2022-04-21] MEDS: BUSPIRONE 5 MG TABLET 10 MG PO ×3 (09:32→21:44)
[2022-04-21] MEDS: POTASSIUM CHLORIDE 20 MEQ/15 ML UDC 40 MEQ PO (09:32)
--- NOTE | 2022-04-21 11:35 | PT.IPTN ---
Current Diagnoses Obesity, unspecified (04/16/22) Unspecified atrial fibrillation (04/16/22) Fracture of unspecified part of neck of unspecified femur, initial encounter for closed fracture (04/16/22) Surgery Performed Operation Date: 04/18/22 11:15 Actual Procedures p LEFT HEMIARTHROPLASTY(Left) - Pily Godoy MD Physical Therapy Treatment Note M2 PT-IP Current Condition Start: 04/19/22 12:58 Freq: NEEDED Status: Active Protocol: Document 04/19/22 11:10 AB (Rec: 04/19/22 13:10 AB [id number]) Physical Therapy Current Condition Current Condition Evaluation Date 04/19/22 Treatment Diagnosis GLF; L hip fx s/p hemiarthroplasty; difficulty in walking Onset Date 04/16/22 M3 PT-IP Subjective Start: 04/19/22 12:58 Freq: NEEDED Status: Active Protocol: Document 04/21/22 11:21 AMB (Rec: 04/21/22 11:35 AMB [id number]) Subjective Physical Therapy Visit Type Type Treatment Note Visit Start Time 10:30 Visit Stop Time 11:15 Total Visit Minutes 45 Notes H&H 8.04/30. Physical Therapy Visit Comments Patient Comments Pt concerned about diarrhea. Therapy Pain Assessment Pain When Pain Assessed During Mobility Pain Present Pain Present Pain Reported Location left hip Intensity 8 Scale Used Numeric (0 - 10) Pain Management Techniques Distraction,Modification of Treatment,Re-positioning, Timing of Activity with Medications M4 PT-IP Mobility and Gait Start: 04/19/22 12:58 Freq: NEEDED Status: Active Protocol: Document 04/21/22 11:21 AMB (Rec: 04/21/22 11:35 AMB [id number]) PT-Bed Mobility Assessment Supine to Sit Supine to Sit Moderate Assistance,1 Person Assistance,Head of Bed Elevated,Bedrails PT-Transfer Assessment Sit to and From Stand Sit to and from Stand Minimal Assistance,Moderate Assistance,1 Person Assistance ,Use of Upper Extremities Equipment Transfer Assistive Device Gait Belt,Front Wheeled Walker Orthotic/Prosthetic Devices or Brace: No Transfers Transfer Destination Chair,Bedside Commode Transfer Technique Stand Step Pivot Transfer Ability Level of Assist Moderate Assistance,1 Person Assistance,Use of Upper Extremities Comments Mobility Comments Pt was in bed as PT arrived. Concerned she has had a BM. RN alerted. Pt assisted pt out of bed and RN started pericare and then GROUNDS MANAGER assisted . Pt stood for 5 min for pericare, then sat on commode. Sit to stand again Evens from commode, cues to get L leg out in front to avoid over flexing hip. Pt stands again for 5-10 minutes for pericare. Pt then needed to sit for another BM. Left pt due to time restrains with GROUNDS MANAGER, RN informed. Gait Assessment Gait Gait Assistance Required: Moderate Assistance,1 Person Assist Distance (Feet) 4 Able to Maintain Weight Bearing Status Yes During Gait Assistive Devices Assistive Device Gait Belt,Front Wheeled Walker Orthotic/Prosthetic Devices or Brace: No Gait Deviations General Gait Pattern Antalgic,Decreased Stride Length,Decreased Feet Clearance,Lateral Trunk Lean, Step-to Gait Factors Limiting Gait Function Factors Limiting Gait Function Decreased Activity Tolerance, Decreased Strength,Difficulty Following Directions,Limited Range of Motion,Pain,Poor Balance,Poor Safety Awareness, Respiratory Distress Comments Gait Comments Steps taken during transfers only. 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 Maintenance Impaired Gross Range of Motion Lower Extremity ROM Assessment Within Functional Limits Strength Lower Extremity Strength Assessment Bilaterally Impaired Comments Strength Comments LLE: 3+/5 RLE 4-/5 Sensation Assessment Sensation Gross Sensation WNL Muscle Tone Muscle Tone WNL Yes M6 PT-IP Treatment Start: 04/19/22 12:58 Freq: NEEDED Status: Active Protocol: Document 04/21/22 11:21 AMB (Rec: 04/21/22 11:35 AMB [id number]) Physical Therapy Treatment Education Education Provided Precautions,Weight Bearing Status,Safety M7 PT-IP Assessment and Plan Start: 04/19/22 12:58 Freq: NEEDED Status: Active Protocol: Document 04/21/22 11:21 AMB (Rec: 04/21/22 11:35 AMB [id number]) PT Summary Assessment and Plan Potential Rehabilitation Potential Good Summary Impairments Pain,ROM,Strength,Balance, Coordination,Sensation,Tone, Cognition,Bed Mobility, Transfers,Gait,Activity Tolerance Progress Towards Goals Slow Progress due to Medical Issues,Slow Progress due to Activity Tolerance Assessment Summary Pt limited with mobility today due to loose BMs. Did beter with sit to stand from commode , requiring only Evens, stil required ModA for sit to stand from bed. SpO2 was stable today on 1.5 L/min NC which is consistent with her baseline. Pt will require SNF rehab to assist with her functional recovery and improve her strength and mobility independence. Goals Bed Mobility Goal Standby Assistance Transfer Goal Standby Assistance,Front Wheeled Walker Gait Goal Standby Assistance,Front Wheel Walker Gait Distance 50 Other Goals up/down 6 steps R rail ascending CGA Days to Meet Goals 10 Frequency of Treatment Frequency Of Treatment Twice a Day Treatment Plan Physical Therapy Treatment Plan Bed Mobility Training,Transfer Training,Gait Training, Therapeutic Exercise,Balance Retraining,Post Op Education, Discharge Planning,Hot or Cold Pack,Neuromuscular Re-ed, Coordination Retraining,Manual Therapy Other Recommendations and Next Treatment gait with chair follow Focus Precautions Posterior Hip Precautions No Hip Flexion > 90 degrees,No Hip Internal Rotation,No Hip Adduction Weight Bearing Status Weight Bearing Status Weight Bear as Tolerated Allowed Weight Bearing Amount (enter % LLE WBAT or #) (%) Recommendations To Nursing Amount of Assist Needed 1 Person Assist Discharge Recommendations PT Discharge Recommendations SNF Rehab Transportation Needs at Discharge Wheelchair/Cabulance
--- NOTE | 2022-04-21 12:12 | CM.DPC ---
DCP SNF Planning: Per MD, pt has had some hallucinations at night due to her blood gas levels and getting a blood gas today and her H&H has been off so MD anticipates another couple days before stable for d/c to SNF. Per PT, still recommending SNF at d/c. SW followed up on prior referrals: [facility]- can accept [facility]- can accept [facility]- currently full SW met bedside with pt and spouse and explained role and they confirm they feel SNF still needed at d/c and do not feel pt yet stable for d/c today and thankful pt does not have d/c orders yet. SW updated on the above SNF referrals and preference at this time is 1) [facility] 2) [facility]. Spouse states he also has a Cardiology appointment for himself tomorrow at [facility] around 1300 and SW discussed that SNF facility would provide transport via cabulance at d/c and he was thankful not to have to transport himself and PT confirmed pt safe for cabulance transport at d/c. SW called [facility] and updated on their facility being the preference and confirmed they can accept tomorrow or when pt stable for discharge. Plan: SW to follow for plan of d/c to [facility] when medically stable and pt will need updated COVID swab closer to discharge. ALCIDES Delgado
[2022-04-21] MEDS: ACETAMINOPHEN 325 MG TABLET 650 MG PO ×2 (12:40→17:45)
[2022-04-21 12:41] LABS: Clostridium Difficile Tox PCR Negative for C. diff (Negative)
[2022-04-21 14:32] LABS: Fractionated Inspired Oxygen 24; HCO3 ABG 36 mmol/L (22-26); Oxygen Saturation ABG 89 % (95-100); PCO2 ABG 50.5 mmHg (35-45); PO2 ABG 56 mmHg (80-100); TCO2 ABG 37 mmol/L (21-31)
[2022-04-21 14:33] LABS: pH ABG 7.45 (7.35-7.45)
--- NOTE | 2022-04-21 15:01 | PT-IP ANOTE ---
Attemptd to see pt from [phone] but had someone in there trying to get US guided IV in during the entire time.
--- NOTE | 2022-04-21 15:17 | PM.PN.1 ---
Subjective Subjective Date Patient Seen: 04/21/22 Interval history: Patient was again confused overnight temporarily, improved this morning. She complained of stomach discomfort and loose stools this morning. C. diff testing was negative. Hg went from 9 yesterday to 8 today. Remains on PPI but stools are not bloody or melenotic. Blood gas today did not show any hypercarbia as source of confusion. Exam Vital Signs (past 8 hours): - 04/21/22 08:00 04/21/22 12:00 Temperature 97.6 F 97.3 F L Pulse Rate 89 102 H Respiratory Rate 17 17 Blood Pressure 143/54 H 148/55 H Pulse Oximetry 91 91 Oxygen Flow Rate 1 1 Fraction of Inspired Oxygen 24 SaO2/FiO2 Ratio 383 Oxygen Delivery Method Nasal Cannula Oxygen Flow Rate 1 Narrative Exam Narrative: GEN: alert and oriented, fatigued HEENT: moist mucous membranes, PERRL NECK: trachea midline, no JVD PULM: clear bilaterally, no wheezes, rhonchi, rales CV: normal rhythm and normal rate, no murmurs ABD: soft, mild tenderness in the epigastrium, nondistended, no organomegaly EXT: warm and well perfused, b/l le non pitting edema SKIN: scattered bruises on extremities NEURO: awake, alert, no focal deficits noted Objective Labs Result Diagrams: 04/21/22 04:57 04/21/22 04:57 Labs: Laboratory Results - last 24 hr 04/21/22 04/21/22 04/21/22 04:57 04:57 11:45 WBC 12.1 H RBC 2.96 L Hgb 8.1 L Hct 25.0 L MCV 84.5 MCH 27.3 MCHC 32.4 RDW 17.1 H Plt Count 249 Neut % (Auto) 79.1 H Lymph % (Auto) 10.7 L [place] % (Auto) 9.5 Eos % (Auto) 0.6 L Baso % (Auto) 0.1 Neut # (Auto) 9600 H Lymph # (Auto) 1300 [place] # (Auto) 1200 H Eos # (Auto) 100 Baso # (Auto) 0 ABG pH ABG pCO2 ABG pO2 ABG HCO3 ABG Total CO2 ABG O2 Saturation ABG Base Excess FiO2 Sodium 137 Potassium 2.9 L Chloride 95 L Carbon Dioxide 37 H BUN 23 H Creatinine 1.03 Estimated GFR 56 L BUN/Creatinine Ratio 22.3 H Glucose 102 Calcium 8.2 L C. difficile Tox (PCR) Negative for c. diff 04/21/22 14:04 WBC RBC Hgb Hct MCV MCH MCHC RDW Plt Count Neut % (Auto) Lymph % (Auto) [place] % (Auto) Eos % (Auto) Baso % (Auto) Neut # (Auto) Lymph # (Auto) [place] # (Auto) Eos # (Auto) Baso # (Auto) ABG pH 7.45 ABG pCO2 50.5 H ABG pO2 56 L ABG HCO3 36 H ABG Total CO2 37 H ABG O2 Saturation 89 L ABG Base Excess 12.0 H FiO2 24 Sodium Potassium Chloride Carbon Dioxide BUN Creatinine Estimated GFR BUN/Creatinine Ratio Glucose Calcium C. difficile Tox (PCR) PFSH Medical History Chronic kidney disease, stage III (moderate) COPD (chronic obstructive pulmonary disease) Depression Glaucoma Lung nodule Morbid obesity with BMI of 40.0-44.9, adult Osteoarthritis Paroxysmal atrial fibrillation Severe mitral valve stenosis Surgical History H/O foot surgery H/O neck surgery H/O rotator cuff surgery History of hysterectomy Hx of cataract surgery Knee joint replacement by other means S/P laparoscopic sleeve gastrectomy Status post cholecystectomy Family History Father Alcoholic Mother Arthritis Renal failure Cancer Brother Alcoholic Social History household members: spouse Smoking Status: Former smoker alcohol intake: former Assessment & Plan Assessment & Plan narrative: # Acute on chronic hypoxic and hypercapnic respiratory failure, improving. COPD with exacerbation -patient has known COPD on 1.5L baseline, overnight on 04/17 and again after surgery on 04/18 developed worsening hypercapnia likely from opiates. Less likely aspiration but remains on antibiotics with anaerobic coverage. -now off bipap again, near baseline O2 use today and repeat blood gas shows marked improvement. -continue nebs -avoid narcotics as much as possible -prednisone continued x5 days given copd -was in ICU but then downgraded to the floor once no longer on BiPAP. #paroxysmal Atrial fibrillation with RVR not present on admission, now resolved -morning of 04/17 developed HR 170's with BP 85/50 -amiodarone drip completed, converted to sinus at approx 1600 on 04/17 but reverted after OR, improved with amiodarone and bipap. -has watchmen device, not on anticoag -is taking both aspirin, plavix, last took on 04/15 -resumed home flecainide and rate is currently controlled. #acute anemia with acute metabolic encephalopathy, possibly due to acute blood loss - possibly acute blood loss after surgery, no signs or symptoms of active bleeding, compartments are soft after surgery. Hg responded appropriately to 1U PRBC. No current signs or symptoms of bleeding. - continue to follow h/h - started PPI for possible stress ulcer though no melena or hematochesia, she does have some stomach discomfort. - encephalopathy may be hospital delirium now given extended stay. Okay to allow sleep overnight, skip overnight vitals if she is already asleep, and will start melatonin in addition to bedtime trazodone to encourage sleep. # Left hip fracture -occurred s/p mechanical fall -hip xray shows left hip fracture -surgery perfromed 04/18 -ordered for oral and IV pain medications -orthopedic surgery is consulted # Community acquired bacterial pneumonia -CXR with mild atypical pneumonia -CTA without PE, but RLL consolidation and multifocal peripheral opacities -continue zosyn y x5 days, MRSA screen negative so vancomycin discontinued. Antibiotics to end on 04/23, can transition to oral if stable for SNF otherwise. # UTI ruled out -UA with pyuria, culture with no growth. Adequately treated with above antibiotic therapies. # 1.6cm RLL lung nodule suspicious for malignancy -noted on CTA chest, spiculated -rec outpatient CT chest after discharge for follow up # Hypokalemia -likely secondary to diuretics -replete as needed # Hypotension, resolved -suspect secondary to dehydration from diuretics. Now resolved. # Chronic CHFpEF -resumed toresemide at 20 mg instead of home 40 for now. CODE: Full Proxy: Gerry Ayala, Dispo: Will transfer to SNF when medically stable, possibly in 1-2 days depending on encephalopathy and stabilization of her h/h. Time Spent With Patient Critical Care time: I spent a total of [] minutes of critical care time on this patient's care today; this time is exclusive of procedural time.
[2022-04-21] MEDS: DULOXETINE 30 MG CAPSULE PO (16:01)
--- NOTE | 2022-04-21 16:25 | PT.IPTN ---
Current Diagnoses Obesity, unspecified (04/16/22) Unspecified atrial fibrillation (04/16/22) Fracture of unspecified part of neck of unspecified femur, initial encounter for closed fracture (04/16/22) Surgery Performed Operation Date: 04/18/22 11:15 Actual Procedures p LEFT HEMIARTHROPLASTY(Left) - Pily Godoy MD Physical Therapy Treatment Note M2 PT-IP Current Condition Start: 04/19/22 12:58 Freq: NEEDED Status: Active Protocol: Document 04/19/22 11:10 AB (Rec: 04/19/22 13:10 AB [email or web address]) Physical Therapy Current Condition Current Condition Evaluation Date 04/19/22 Treatment Diagnosis GLF; L hip fx s/p hemiarthroplasty; difficulty in walking Onset Date 04/16/22 M3 PT-IP Subjective Start: 04/19/22 12:58 Freq: NEEDED Status: Active Protocol: Document 04/21/22 16:25 AW (Rec: 04/21/22 16:33 AW [id number]) Subjective Physical Therapy Visit Type Type Treatment Note Visit Start Time 16:00 Visit Stop Time 16:25 Total Visit Minutes 25 Physical Therapy Visit Comments Patient Comments Pt is willing to work with PT Therapy Pain Assessment Pain When Pain Assessed During Mobility Pain Present Pain Present Pain Reported Location left hip Intensity 4 Pain Management Techniques Distraction,Modification of Treatment,Re-positioning, Timing of Activity with Medications M4 PT-IP Mobility and Gait Start: 04/19/22 12:58 Freq: NEEDED Status: Active Protocol: Document 04/21/22 16:25 AW (Rec: 04/21/22 16:33 AW [id number]) PT-Transfer Assessment Sit to and From Stand Sit to and from Stand Minimal Assistance,Moderate Assistance,1 Person Assistance ,Use of Upper Extremities Equipment Transfer Assistive Device Gait Belt,Front Wheeled Walker Orthotic/Prosthetic Devices or Brace: No Transfers Transfer Destination Chair Transfer Technique pt ambulated with FWW Transfer Ability Level of Assist Moderate Assistance,1 Person Assistance,Use of Upper Extremities Comments Mobility Comments Pt was sitting up on the chair as PT arrived. Pt stood mod A and cues for precautions. She used FWW to ambulate 15 feet in the room before returning to the chair. Pt was left with call light and tray table in reach. Chair alarm was on for safety. Gait Assessment Gait Gait Assistance Required: Minimum Assistance,Moderate Assistance,1 Person Assist Distance (Feet) 15 Able to Maintain Weight Bearing Status Yes During Gait Assistive Devices Assistive Device Gait Belt,Front Wheeled Walker Orthotic/Prosthetic Devices or Brace: No Gait Deviations General Gait Pattern Antalgic,Decreased Stride Length,Decreased Feet Clearance,Lateral Trunk Lean, Step-to Gait Factors Limiting Gait Function Factors Limiting Gait Function Decreased Activity Tolerance, Decreased Strength,Difficulty Following Directions,Limited Range of Motion,Pain,Poor Balance,Poor Safety Awareness Comments Gait Comments Gait was slow with feet not passing one another in stride. Pt did have fair elevation of LLE. Practiced turns to the right and to the left, emphasizing awareness of hip rotation throughout. PT-Balance Assessment Sitting Balance and Reactions Static Sitting Balance Ability Good Dynamic Sitting Balance Ability Fair Standing Balance and Reactions Static Standing Balance Ability Fair Dynamic Standing Balance Ability Fair Device Used FWW M5 PT-IP Objective Assessments Start: 04/19/22 12:58 Freq: NEEDED Status: Active Protocol: Document 04/19/22 11:10 AB (Rec: 04/19/22 13:10 AB [email or web address]) Orientation Orientation/Cognition Level of Alertness Confusional State Orientation Name,Place,Situation Safety Awareness Decreased Safety Awareness Memory Description Short Term Impaired,[employer] Impaired Gross Range of Motion Lower Extremity ROM Assessment Within Functional Limits Strength Lower Extremity Strength Assessment Bilaterally Impaired Comments Strength Comments LLE: 3+/5 RLE 4-/5 Sensation Assessment Sensation Gross Sensation WNL Muscle Tone Muscle Tone WNL Yes M6 PT-IP Treatment Start: 04/19/22 12:58 Freq: NEEDED Status: Active Protocol: Document 04/21/22 16:25 AW (Rec: 04/21/22 16:33 AW [id number]) Physical Therapy Treatment Education Education Provided Precautions,Weight Bearing Status,Safety M7 PT-IP Assessment and Plan Start: 04/19/22 12:58 Freq: NEEDED Status: Active Protocol: Document 04/21/22 16:25 AW (Rec: 04/21/22 16:33 AW [id number]) PT Summary Assessment and Plan Potential Rehabilitation Potential Good Summary Impairments Pain,ROM,Strength,Balance, Coordination,Sensation,Tone, Cognition,Bed Mobility, Transfers,Gait,Activity Tolerance Progress Towards Goals Progressing Toward Goals,Slow Progress due to Medical Issues ,Slow Progress due to Activity Tolerance Assessment Summary Colleen was able to progress to gait today, completing 15' min /mod A with FWW. She continues to require cues for hip precautions. Pt will require SNF rehab to assist with her functional recovery and improve her strength and mobility independence. Goals Bed Mobility Goal Standby Assistance Transfer Goal Standby Assistance,Front Wheeled Walker Gait Goal Standby Assistance,Front Wheel Walker Gait Distance 50 Other Goals up/down 6 steps R rail ascending CGA Days to Meet Goals 10 Frequency of Treatment Frequency Of Treatment Twice a Day Treatment Plan Physical Therapy Treatment Plan Bed Mobility Training,Transfer Training,Gait Training, Therapeutic Exercise,Balance Retraining,Post Op Education, Discharge Planning,Hot or Cold Pack,Neuromuscular Re-ed, Coordination Retraining,Manual Therapy Other Recommendations and Next Treatment progress gait; reinforce Focus precautions Precautions Posterior Hip Precautions No Hip Flexion > 90 degrees,No Hip Internal Rotation,No Hip Adduction Weight Bearing Status Weight Bearing Status Weight Bear as Tolerated Allowed Weight Bearing Amount (enter % LLE WBAT or #) (%) Recommendations To Nursing Amount of Assist Needed 1 Person Assist Discharge Recommendations PT Discharge Recommendations SNF Rehab Transportation Needs at Discharge Wheelchair/Cabulance
[2022-04-21] MEDS: MELATONIN 3 MG TABLET 6 MG PO (21:40)
[2022-04-21] MEDS: TRAZODONE 50 MG TABLET PO (21:40)
[2022-04-21] MEDS: BIMATOPROST 0.01% 1 EACH EYE-BOTH (22:50)
[2022-04-22] MEDS: OXYCODONE IR 5 MG TABLET PO (02:18)
[2022-04-22] MEDS: ACETAMINOPHEN 325 MG TABLET 650 MG PO ×3 (02:19→18:04)
[2022-04-22] MEDS: PIPERACILLIN/TAZO 3.375 GM in SODIUM CHLORIDE 0.9% 100 ML IV (02:21)
[2022-04-22 05:46] VITALS: BP 158/67; PULSE 76; RESP 18; TEMP 36.5; O2SAT 96
[2022-04-22 06:29] LABS: Hemoglobin 8.1 g/dL (12.0-16.0); Mean Corpuscular HGB Conc 32.6 % (30-36); Mean Corpuscular Hemoglobin 27.7 PG (26-34); Platelet Count 276 X10^3/uL (150-400); Red Blood Cell Count 2.94 X10^6/uL (4.0-5.2); Red Cell Distribution Width 17.2 % (11.6-14.8); White Blood Cell Count 11.3 X10^3/uL (4.5-11.0)
[2022-04-22 06:33] LABS: Add Manual Diff / Slide Review YES
[2022-04-22 06:36] LABS: BUN Creatinine Ratio 22.9 (6-22); Blood Urea Nitrogen 24 mg/dL (7-17); Carbon Dioxide 38 mmol/L (22-32); Chloride 95 mmol/L (98-107); Estimated Glomerular Filt Rate 55 mL/min (>60); Glucose 89 mg/dL (80-110); HEMOLYSIS < 15 (0-50); Potassium 3.6 mmol/L (3.4-5.1); Sodium 137 mmol/L (137-145)
[2022-04-22 07:42] LABS: Anisocytosis 1+; Neutrophils Absolute Manual 8588 /uL (3000-5900); Total Cells Counted 100
[2022-04-22 08:00] VITALS: BP 127/57; PULSE 78; RESP 17; TEMP 36.2; O2SAT 94
[2022-04-22] MEDS: DORZOLAMIDE 2% OPHTH 10 ML 1 DROPS EYE-BOTH ×2 (08:27→20:50)
[2022-04-22] MEDS: TORSEMIDE 10 MG TABLET 20 MG PO (08:31)
[2022-04-22] MEDS: MAGNESIUM OXIDE 400 MG TABLET PO (08:32)
[2022-04-22] MEDS: AMOXICILLIN/CLAV 875/125 MG 1 TAB PO ×2 (08:32→20:47)
[2022-04-22] MEDS: estradioL 1 MG TABLET 2 MG PO (08:32)
[2022-04-22] MEDS: MULTIVITAMIN 1 TABLET 2 TAB PO (08:32)
[2022-04-22] MEDS: FERROUS SULFATE 325 MG TABLET PO (08:32)
[2022-04-22] MEDS: PANTOPRAZOLE 40 MG VIAL IV ×2 (08:32→20:46)
[2022-04-22] MEDS: CHOLECALCIFEROL (VITAMIN D3) 1,000 UNIT TABLET 2000 UNIT PO (08:33)
[2022-04-22] MEDS: POTASSIUM CHLORIDE 10 MEQ TAB PO (08:33)
[2022-04-22] MEDS: BUSPIRONE 5 MG TABLET 10 MG PO ×3 (08:33→20:47)
[2022-04-22] MEDS: ASCORBIC ACID 500 MG TABLET PO (08:33)
[2022-04-22] MEDS: DICYCLOMINE 10 MG CAPSULE PO ×3 (08:33→20:49)
[2022-04-22] MEDS: ASPIRIN EC 81 MG TABLET PO ×2 (08:33→20:49)
[2022-04-22] MEDS: FLECAINIDE 100 MG TABLET 25 MG PO ×2 (08:34→20:49)
[2022-04-22] MEDS: SYSTANE 1 EACH EYE-BOTH ×3 (08:47→20:49)
--- NOTE | 2022-04-22 10:59 | PT.IPTN ---
Current Diagnoses Obesity, unspecified (04/16/22) Unspecified atrial fibrillation (04/16/22) Fracture of unspecified part of neck of unspecified femur, initial encounter for closed fracture (04/16/22) Surgery Performed Operation Date: 04/18/22 11:15 Actual Procedures p LEFT HEMIARTHROPLASTY(Left) - Pily Godoy MD Physical Therapy Treatment Note M2 PT-IP Current Condition Start: 04/19/22 12:58 Freq: NEEDED Status: Active Protocol: Document 04/19/22 11:10 AB (Rec: 04/19/22 13:10 AB [email or web address]) Physical Therapy Current Condition Current Condition Evaluation Date 04/19/22 Treatment Diagnosis GLF; L hip fx s/p hemiarthroplasty; difficulty in walking Onset Date 04/16/22 M3 PT-IP Subjective Start: 04/19/22 12:58 Freq: NEEDED Status: Active Protocol: Document 04/22/22 10:59 AB (Rec: 04/22/22 12:26 AB [email or web address]) Subjective Physical Therapy Visit Type Type Treatment Note Visit Start Time 10:59 Visit Stop Time 11:20 Total Visit Minutes 21 Number of SQL DBA Visits 0 Physical Therapy Visit Comments Patient Comments agreeable to do PT M4 PT-IP Mobility and Gait Start: 04/19/22 12:58 Freq: NEEDED Status: Active Protocol: Document 04/22/22 10:59 AB (Rec: 04/22/22 12:26 AB [email or web address]) PT-Bed Mobility Assessment Supine to Sit Supine to Sit Maximum Assistance,1 Person Assistance,Head of Bed Elevated,Bedrails PT-Transfer Assessment Sit to and From Stand Sit to and from Stand Minimal Assistance,Moderate Assistance,1 Person Assistance Equipment Transfer Assistive Device Gait Belt,Front Wheeled Walker Orthotic/Prosthetic Devices or Brace: No Transfers Transfer Destination Bedside Commode Transfer Ability Level of Assist Minimal Assistance,Moderate Assistance,1 Person Assistance ,Use of Upper Extremities Comments Mobility Comments reviewed hip precautions with pt and pt only able to recall 1/3. spouse in room with pt. pt completed supine to sit max A and max cues with HOB elevated and pt used bed rail. pt able to move LE towards EOB but has be reminded of her hip precautions as pt was rotating towards affecting LE. pt able to sit on EOB CGA. completed sit to stand min to mod A and cues for hip precautions. pt requested to use the toilet. bedside commode positioned and was able to ambulate ~ 3 ft to bedside commode using FWW min to mod A and max cues. required mod A for standing balance using fWW while assisted with brief management . call light placed next to pt and instructed to ask for assitance when ready. spouse in room with pt. informed nurse. Gait Assessment Gait Gait Assistance Required: Minimum Assistance,Moderate Assistance Distance (Feet) 3 Able to Maintain Weight Bearing Status Yes During Gait Assistive Devices Assistive Device Gait Belt,Front Wheeled Walker Orthotic/Prosthetic Devices or Brace: No Gait Deviations General Gait Pattern Antalgic,Decreased Stride Length,Decreased Feet Clearance Factors Limiting Gait Function Factors Limiting Gait Function Decreased Activity Tolerance, Decreased Strength,Difficulty Following Directions,Limited Range of Motion,Pain,Poor Balance,Poor Safety Awareness M5 PT-IP Objective Assessments Start: 04/19/22 12:58 Freq: NEEDED Status: Active Protocol: Document 04/19/22 11:10 AB (Rec: 04/19/22 13:10 [email or web address] Orientation Orientation/Cognition Level of Alertness Confusional State Orientation Name,Place,Situation Safety Awareness Decreased Safety Awareness Memory Description Short Term Impaired,Custodial Impaired Gross Range of Motion Lower Extremity ROM Assessment Within Functional Limits Strength Lower Extremity Strength Assessment Bilaterally Impaired Comments Strength Comments LLE: 3+/5 RLE 4-/5 Sensation Assessment Sensation Gross Sensation WNL Muscle Tone Muscle Tone WNL Yes M6 PT-IP Treatment Start: 04/19/22 12:58 Freq: NEEDED Status: Active Protocol: Document 04/22/22 10:59 AB (Rec: 04/22/22 12:26 AB [email or web address]) Physical Therapy Treatment Education Education Provided Precautions,Safety M7 PT-IP Assessment and Plan Start: 04/19/22 12:58 Freq: NEEDED Status: Active Protocol: Document 04/22/22 10:59 AB (Rec: 04/22/22 12:26 AB [email or web address]) PT Summary Assessment and Plan Summary Impairments Pain,ROM,Strength,Balance, Coordination,Sensation,Tone, Cognition,Bed Mobility, Transfers,Gait,Activity Tolerance Progress Towards Goals Slow Progress due to Activity Tolerance,Slow Progress - Other Assessment Summary pt continues to require min to mod A with mobility and max cues with all tasks. pt will require SNF rehab to improve strength and mobility. Goals Bed Mobility Goal Standby Assistance Transfer Goal Standby Assistance,Front Wheeled Walker Gait Goal Standby Assistance,Front Wheel Walker Gait Distance 50 Other Goals up/down 6 steps R rail ascending CGA Days to Meet Goals 10 Frequency of Treatment Frequency Of Treatment Twice a Day Treatment Plan Physical Therapy Treatment Plan Bed Mobility Training,Transfer Training,Gait Training, Therapeutic Exercise,Balance Retraining,Post Op Education, Discharge Planning,Hot or Cold Pack,Neuromuscular Re-ed, Coordination Retraining,Manual Therapy Precautions Posterior Hip Precautions No Hip Flexion > 90 degrees,No Hip Internal Rotation,No Hip Adduction Weight Bearing Status Weight Bearing Status Weight Bear as Tolerated Allowed Weight Bearing Amount (enter % LLE WBAT or #) (%) Recommendations To Nursing Amount of Assist Needed 1 Person Assist Discharge Recommendations PT Discharge Recommendations SNF Rehab Transportation Needs at Discharge Wheelchair/Cabulance
[2022-04-22 12:00] VITALS: BP 135/57; PULSE 94; RESP 17; TEMP 36.2; O2SAT 102
--- NOTE | 2022-04-22 14:15 | PT.IPTN ---
Current Diagnoses Obesity, unspecified (04/16/22) Unspecified atrial fibrillation (04/16/22) Fracture of unspecified part of neck of unspecified femur, initial encounter for closed fracture (04/16/22) Surgery Performed Operation Date: 04/18/22 11:15 Actual Procedures p LEFT HEMIARTHROPLASTY(Left) - Pily Godoy MD Physical Therapy Treatment Note M2 PT-IP Current Condition Start: 04/19/22 12:58 Freq: NEEDED Status: Active Protocol: Document 04/19/22 11:10 AB (Rec: 04/19/22 13:10 AB [email or web address]) Physical Therapy Current Condition Current Condition Evaluation Date 04/19/22 Treatment Diagnosis GLF; L hip fx s/p hemiarthroplasty; difficulty in walking Onset Date 04/16/22 M3 PT-IP Subjective Start: 04/19/22 12:58 Freq: NEEDED Status: Active Protocol: Document 04/22/22 14:15 AB (Rec: 04/22/22 15:44 AB [email or web address]) Subjective Physical Therapy Visit Type Type Treatment Note Visit Start Time 14:15 Visit Stop Time 14:36 Total Visit Minutes 21 Number of FEATHER STITCHER Visits 0 Physical Therapy Visit Comments Patient Comments agreeable to do PT; requesting to go back to bed M4 PT-IP Mobility and Gait Start: 04/19/22 12:58 Freq: NEEDED Status: Active Protocol: Document 04/22/22 14:15 AB (Rec: 04/22/22 15:44 AB [email or web address]) PT-Bed Mobility Assessment Sit to Supine Sit to Supine Maximum Assistance,1 Person Assistance,Bedrails PT-Transfer Assessment Sit to and From Stand Sit to and from Stand Moderate Assistance,1 Person Assistance,Use of Upper Extremities Equipment Transfer Assistive Device Gait Belt,Front Wheeled Walker Orthotic/Prosthetic Devices or Brace: No Transfers Transfer Destination Bed Transfer Technique ambulated Transfer Ability Level of Assist Minimal Assistance,Moderate Assistance,1 Person Assistance ,Use of Upper Extremities Comments Mobility Comments pt sitting on the chair and agreeable to do PT. pt requesting to go back to bed afterwards. completed sit to stand mod A and max cues for hip precautions. ambulated in room ~ 20 ft using FWW min to mod A and max cues. Sat on EOB. completed sit to supine max A with LE elevation to bed . positioned pt in bed max A. call light and table placed within reach. Gait Assessment Gait Gait Assistance Required: Minimum Assistance,Moderate Assistance Distance (Feet) 20 Able to Maintain Weight Bearing Status Yes During Gait Assistive Devices Assistive Device Gait Belt,Front Wheeled Walker Orthotic/Prosthetic Devices or Brace: No Gait Deviations General Gait Pattern Antalgic,Decreased Stride Length,Decreased Feet Clearance,Step-to Gait Factors Limiting Gait Function Factors Limiting Gait Function Decreased Activity Tolerance, Decreased Strength,Difficulty Following Directions,Limited Range of Motion,Pain,Poor Balance,Poor Safety Awareness, Respiratory Distress M5 PT-IP Objective Assessments Start: 04/19/22 12:58 Freq: NEEDED Status: Active Protocol: Document 04/19/22 11:10 AB (Rec: 04/19/22 13:10 AB [email or web address]) Orientation Orientation/Cognition Level of Alertness Confusional State Orientation Name,Place,Situation Safety Awareness Decreased Safety Awareness Memory Description Short Term Impaired,[facility] Impaired Gross Range of Motion Lower Extremity ROM Assessment Within Functional Limits Strength Lower Extremity Strength Assessment Bilaterally Impaired Comments Strength Comments LLE: 3+/5 RLE 4-/5 Sensation Assessment Sensation Gross Sensation WNL Muscle Tone Muscle Tone WNL Yes M6 PT-IP Treatment Start: 04/19/22 12:58 Freq: NEEDED Status: Active Protocol: Document 04/22/22 14:15 AB (Rec: 04/22/22 15:44 AB [email or web address]) Physical Therapy Treatment Education Education Provided Precautions,Safety M7 PT-IP Assessment and Plan Start: 04/19/22 12:58 Freq: NEEDED Status: Active Protocol: Document 04/22/22 14:15 AB (Rec: 04/22/22 15:44 AB [email or web address]) PT Summary Assessment and Plan Potential Rehabilitation Potential Fair Summary Impairments Pain,ROM,Strength,Balance, Coordination,Sensation,Tone, Cognition,Bed Mobility, Transfers,Gait,Activity Tolerance Progress Towards Goals Slow Progress due to Activity Tolerance,Slow Progress - Other Assessment Summary pt continues to require min to mod A with mobility using FWW and has decrease activity tolerance affecting function and independence. pt will require SNF rehab to improve strength adn mobility. Goals Bed Mobility Goal Standby Assistance Transfer Goal Standby Assistance,Front Wheeled Walker Gait Goal Standby Assistance,Front Wheel Walker Gait Distance 50 Other Goals up/down 6 steps R rail ascending CGA Days to Meet Goals 10 Frequency of Treatment Frequency Of Treatment Twice a Day Treatment Plan Physical Therapy Treatment Plan Bed Mobility Training,Transfer Training,Gait Training, Therapeutic Exercise,Balance Retraining,Post Op Education, Discharge Planning,Hot or Cold Pack,Neuromuscular Re-ed, Coordination Retraining,Manual Therapy Precautions Posterior Hip Precautions No Hip Flexion > 90 degrees,No Hip Internal Rotation,No Hip Adduction Weight Bearing Status Weight Bearing Status Weight Bear as Tolerated Allowed Weight Bearing Amount (enter % LLE WBAT or #) (%) Recommendations To Nursing Amount of Assist Needed 1 Person Assist Discharge Recommendations PT Discharge Recommendations SNF Rehab Transportation Needs at Discharge Wheelchair/Cabulance
--- NOTE | 2022-04-22 14:34 | P.PN_ITS ---
Subjective Subjective Date Patient Seen: 04/22/22 Time Patient Seen: 11:00 Interval history: Patient is complaining of mild left hip pain. Her main concern is her diarrhea. She has a history of IBS. She is working with the hospitalist for workup. Her is at bedside. Current hemoglobin is stable at 8.1, same as yesterday. Exam Vital Signs (past 8 hours): - 04/22/22 08:00 04/22/22 08:30 04/22/22 12:00 Temperature 97.2 F L 97.1 F L Pulse Rate 78 94 H Respiratory Rate 17 17 Blood Pressure 127/57 L 135/57 L Pulse Oximetry 94 102 H Oxygen Delivery Method Nasal Cannula Oxygen Flow Rate 0 1 Fraction of Inspired Oxygen 24 SaO2/FiO2 Ratio 391 Oxygen Delivery Method Nasal Cannula Oxygen Flow Rate 1 Narrative Exam Narrative: Pleasant 76-year-old female, resting comfortably in bed, no acute distress. Left posterior hip dressing is clean, dry, intact. No surrounding erythema, induration, or john pus. Bilateral lower extremity: Motor functions are grossly intact, sensation is grossly intact to light touch, calves are soft and nontender to palpation. Objective Labs Result Diagrams: 04/22/22 05:40 04/22/22 05:40 Labs: Laboratory Results - last 24 hr 04/22/22 04/22/22 05:40 05:40 WBC 11.3 H RBC 2.94 L Hgb 8.1 L Hct 25.0 L MCV 85.0 MCH 27.7 MCHC 32.6 RDW 17.2 H Plt Count 276 Neut % (Auto) Not Reportable Lymph % (Auto) Not Reportable [place] % (Auto) Not Reportable Eos % (Auto) Not Reportable Baso % (Auto) Not Reportable Lymph # (Auto) Not Reportable [place] # (Auto) Not Reportable Baso # (Auto) Not Reportable Total Counted 100 Seg Neutrophils % 76.0 H Lymphocytes % (Manual) 15.0 L Atypical Lymphs % 1.0 H Monocytes % (Manual) 8.0 Neutrophils # (Manual) 8588 H RBC Morphology Not Reportable Anisocytosis 1+ H Sodium 137 Potassium 3.6 Chloride 95 L Carbon Dioxide 38 H BUN 24 H Creatinine 1.05 H Estimated GFR 55 L BUN/Creatinine Ratio 22.9 H Glucose 89 Calcium 8.0 L Magnesium 2.0 PFSH Medical History Chronic kidney disease, stage III (moderate) COPD (chronic obstructive pulmonary disease) Depression Glaucoma Lung nodule Morbid obesity with BMI of 40.0-44.9, adult Osteoarthritis Paroxysmal atrial fibrillation Severe mitral valve stenosis Surgical History H/O foot surgery H/O neck surgery H/O rotator cuff surgery History of hysterectomy Hx of cataract surgery Knee joint replacement by other means S/P laparoscopic sleeve gastrectomy Status post cholecystectomy Family History Father Alcoholic Mother Arthritis Renal failure Cancer Brother Alcoholic Social History household members: spouse Smoking Status: Former smoker alcohol intake: former Assessment & Plan Post-op Postoperative Procedures: Procedures Operation Date: 04/18/22 11:15 Actual Procedure Side Surgeon p LEFT HEMIARTHROPLASTY Left Pily Godoy MD Postoperative day: 4 Postoperative status narrative: -stable status post left hip hemiarthroplasty -diarrhea, history of IBS Postoperative plan narrative: -mobilize with physical therapy. Weightbearing as tolerated with front wheel walker. Maintain posterior hip precautions x6 weeks -aspirin 81 mg b.i.d. x6 weeks for DVT prophylaxis -continue with multimodal pain management -follow-up with orthopedics in 10-14 days for postoperative visit and x-rays at that time -appreciate the hospitalist's help in managing her diarrhea -orthopedics to sign off at this point, please do not hesitate to re-consult wit h any questions or concerns.
[2022-04-22 16:00] VITALS: PULSE 95; RESP 17; TEMP 36.4; O2SAT 90
[2022-04-22] MEDS: DULOXETINE 30 MG CAPSULE PO (16:00)
--- NOTE | 2022-04-22 16:50 | P.PN_ITS ---
Subjective Subjective Date Patient Seen: 04/22/22 Interval history: Patient is complaining of mild left hip pain. Her main concern is her diarrhea today, C. diff testing was negative. Hg stable at 8.1 today. Changed antibiotics to oral in case of antibiotic associate diarrhea, with C. diff negative also started as needed imodium Exam Vital Signs (past 8 hours): - 04/22/22 12:00 Temperature 97.1 F L Pulse Rate 94 H Respiratory Rate 17 Blood Pressure 135/57 L Pulse Oximetry 102 H Oxygen Flow Rate 1 Fraction of Inspired Oxygen 24 SaO2/FiO2 Ratio 391 Oxygen Delivery Method Nasal Cannula Oxygen Flow Rate 1 Narrative Exam Narrative: GEN: alert and oriented, fatigued HEENT: moist mucous membranes, PERRL NECK: trachea midline, no JVD PULM: clear bilaterally, no wheezes, rhonchi, rales CV: normal rhythm and normal rate, no murmurs ABD: soft, mild tenderness in the epigastrium, nondistended, no organomegaly EXT: warm and well perfused, b/l le non pitting edema SKIN: scattered bruises on extremities NEURO: awake, alert, no focal deficits noted Objective Labs Result Diagrams: 04/22/22 05:40 04/22/22 05:40 Labs: Laboratory Results - last 24 hr 04/22/22 04/22/22 05:40 05:40 WBC 11.3 H RBC 2.94 L Hgb 8.1 L Hct 25.0 L MCV 85.0 MCH 27.7 MCHC 32.6 RDW 17.2 H Plt Count 276 Neut % (Auto) Not Reportable Lymph % (Auto) Not Reportable [place] % (Auto) Not Reportable Eos % (Auto) Not Reportable Baso % (Auto) Not Reportable Lymph # (Auto) Not Reportable [place] # (Auto) Not Reportable Baso # (Auto) Not Reportable Total Counted 100 Seg Neutrophils % 76.0 H Lymphocytes % (Manual) 15.0 L Atypical Lymphs % 1.0 H Monocytes % (Manual) 8.0 Neutrophils # (Manual) 8588 H RBC Morphology Not Reportable Anisocytosis 1+ H Sodium 137 Potassium 3.6 Chloride 95 L Carbon Dioxide 38 H BUN 24 H Creatinine 1.05 H Estimated GFR 55 L BUN/Creatinine Ratio 22.9 H Glucose 89 Calcium 8.0 L Magnesium 2.0 PFSH Medical History Chronic kidney disease, stage III (moderate) COPD (chronic obstructive pulmonary disease) Depression Glaucoma Lung nodule Morbid obesity with BMI of 40.0-44.9, adult Osteoarthritis Paroxysmal atrial fibrillation Severe mitral valve stenosis Surgical History H/O foot surgery H/O neck surgery H/O rotator cuff surgery History of hysterectomy Hx of cataract surgery Knee joint replacement by other means S/P laparoscopic sleeve gastrectomy Status post cholecystectomy Family History Father Alcoholic Mother Arthritis Renal failure Cancer Brother Alcoholic Social History household members: spouse Smoking Status: Former smoker alcohol intake: former Assessment & Plan Assessment & Plan narrative: # Acute on chronic hypoxic and hypercapnic respiratory failure, improving. COPD with exacerbation -patient has known COPD on 1.5L baseline, overnight on 04/17 and again after surgery on 04/18 developed worsening hypercapnia likely from opiates. Less likely aspiration but remains on antibiotics with anaerobic coverage. -now off bipap again, near baseline O2 use today and repeat blood gas shows marked improvement. -continue nebs -avoid narcotics as much as possible -prednisone continued x5 days given copd -was in ICU but then downgraded to the floor once no longer on BiPAP. #paroxysmal Atrial fibrillation with RVR not present on admission, now resolved -morning of 04/17 developed HR 170's with BP 85/50 -amiodarone drip completed, converted to sinus at approx 1600 on 04/17 but reverted after OR, improved with amiodarone and bipap. -has watchmen device, not on anticoag -is taking both aspirin, plavix, last took on 04/15 -resumed home flecainide and rate is currently controlled. #acute anemia with acute metabolic encephalopathy, possibly due to acute blood l oss - possibly acute blood loss after surgery, no signs or symptoms of active bleeding, compartments are soft after surgery. Hg responded appropriately to 1U PRBC. No current signs or symptoms of bleeding. - continue to follow h/h - started PPI for possible stress ulcer though no melena or hematochesia, she does have some stomach discomfort. Hg stable at 8.1 today. - encephalopathy may be hospital delirium now given extended stay. Okay to allow sleep overnight, skip overnight vitals if she is already asleep, and will start melatonin in addition to bedtime trazodone to encourage sleep. # Left hip fracture -occurred s/p mechanical fall -hip xray shows left hip fracture -surgery perfromed 04/18 -ordered for oral and IV pain medications -orthopedic surgery is consulted # Community acquired bacterial pneumonia -CXR with mild atypical pneumonia -CTA without PE, but RLL consolidation and multifocal peripheral opacities -continue zosyn x5 days, MRSA screen negative so vancomycin discontinued. Antibiotics to end on 04/23, can transition to oral if stable for SNF otherwise. # UTI ruled out -UA with pyuria, culture with no growth. Adequately treated with above antibiotic therapies. # 1.6cm RLL lung nodule suspicious for malignancy -noted on CTA chest, spiculated -rec outpatient CT chest after discharge for follow up # Hypokalemia -likely secondary to diuretics -replete as needed # Hypotension, resolved -suspect secondary to dehydration from diuretics. Now resolved. # Chronic CHFpEF -resumed toresemide at 20 mg instead of home 40 for now. #diarrhea - c. diff ruled out with negative toxin by PCR - start imodium 2mg prn. CODE: Full Proxy: Gerry Ayala, Dispo: Will transfer to SNF when medically stable, possibly in 1-2 days depending on encephalopathy and stabilization of her h/h. Time Spent With Patient Critical Care time: I spent a total of [] minutes of critical care time on this patient's care today; this time is exclusive of procedural time.
[2022-04-22] MEDS: ONDANSETRON 4 MG ODT PO (20:47)
[2022-04-22] MEDS: TRAZODONE 50 MG TABLET PO (20:47)
[2022-04-22] MEDS: TRAMADOL 50 MG TABLET PO (20:48)
[2022-04-22] MEDS: MELATONIN 3 MG TABLET 6 MG PO (20:48)
[2022-04-22] MEDS: GABAPENTIN 300 MG CAPSULE PO (20:49)
[2022-04-22] MEDS: BIMATOPROST 0.01% 1 EACH EYE-BOTH (20:50)
[2022-04-22 21:02] VITALS: BP 136/45; PULSE 75; RESP 18; TEMP 36.5; O2SAT 95
[2022-04-22 23:48] VITALS: O2SAT 95
[2022-04-23 05:15] VITALS: BP 121/50; PULSE 76; RESP 18; TEMP 36.6; O2SAT 93
[2022-04-23] MEDS: ACETAMINOPHEN 325 MG TABLET 650 MG PO ×4 (05:28→23:45)
[2022-04-23 06:28] LABS: Add Manual Diff / Slide Review NO; Basophils Absolute Auto 0 /uL (0-100); Basophils Percent Auto 0.4 % (0-2); Eosinophils Absolute Auto 1000 /uL (0-450); Eosinophils Percent Auto 9.4 % (2-4); Hematocrit 26.5 % (36-46); Hemoglobin 8.4 g/dL (12.0-16.0); Lymphocytes Absolute Auto 2300 /uL (1100-4500); Lymphocytes Percent Auto 22.6 % (25-40); Mean Corpuscular HGB Conc 31.6 % (30-36); Mean Corpuscular Hemoglobin 27.2 PG (26-34); Mean Corpuscular Volume 86.1 fL (80-100); Monocytes Absolute Auto 900 /uL (0-900); Monocytes Percent Auto 8.7 % (3-14); Neutrophils Absolute Auto 6000 /uL (1500-7000); Neutrophils Percent Auto 58.9 % (50-75); Platelet Count 327 X10^3/uL (150-400); Red Blood Cell Count 3.08 X10^6/uL (4.0-5.2); Red Cell Distribution Width 17.1 % (11.6-14.8); White Blood Cell Count 10.1 X10^3/uL (4.5-11.0)
[2022-04-23 06:38] LABS: BUN Creatinine Ratio 18.4 (6-22); Blood Urea Nitrogen 18 mg/dL (7-17); Calcium 8.2 mg/dL (8.4-10.2); Chloride 93 mmol/L (98-107); Estimated Glomerular Filt Rate 59 mL/min (>60); Glucose 82 mg/dL (80-110); HEMOLYSIS < 15 (0-50); Magnesium 1.8 mg/dL (1.6-2.3); Sodium 139 mmol/L (137-145)
[2022-04-23 06:44] LABS: Carbon Dioxide 38 mmol/L (22-32)
[2022-04-23] MEDS: PANTOPRAZOLE 40 MG VIAL IV ×2 (08:17→21:08)
[2022-04-23] MEDS: POTASSIUM CHLORIDE IN WATER 10 MEQ/100 ML PIGGYBACK 100 MEQ IV ×4 (08:25→12:16)
[2022-04-23] MEDS: FLECAINIDE 100 MG TABLET 25 MG PO ×2 (08:29→21:30)
[2022-04-23] MEDS: DOCUSATE 100 MG CAPSULE PO ×2 (08:29→21:04)
[2022-04-23] MEDS: AMOXICILLIN/CLAV 875/125 MG 1 TAB PO ×2 (08:29→21:02)
[2022-04-23] MEDS: MULTIVITAMIN 1 TABLET 2 TAB PO (08:29)
[2022-04-23] MEDS: FERROUS SULFATE 325 MG TABLET PO (08:29)
[2022-04-23] MEDS: CHOLECALCIFEROL (VITAMIN D3) 1,000 UNIT TABLET 2000 UNIT PO (08:30)
[2022-04-23] MEDS: TORSEMIDE 10 MG TABLET 20 MG PO (08:30)
[2022-04-23] MEDS: ASPIRIN EC 81 MG TABLET PO ×2 (08:30→21:03)
[2022-04-23] MEDS: estradioL 1 MG TABLET 2 MG PO (08:30)
[2022-04-23] MEDS: ASCORBIC ACID 500 MG TABLET PO (08:31)
[2022-04-23] MEDS: DICYCLOMINE 10 MG CAPSULE PO ×3 (08:31→21:03)
[2022-04-23] MEDS: BUSPIRONE 5 MG TABLET 10 MG PO ×3 (08:31→21:30)
[2022-04-23] MEDS: MAGNESIUM OXIDE 400 MG TABLET PO (08:32)
[2022-04-23] MEDS: GABAPENTIN 300 MG CAPSULE PO ×2 (08:32→21:06)
[2022-04-23] MEDS: POTASSIUM CHLORIDE 10 MEQ TAB PO (08:33)
[2022-04-23] MEDS: TRAMADOL 50 MG TABLET PO ×2 (08:41→22:14)
[2022-04-23] MEDS: LOPERAMIDE 2 MG CAPSULE PO ×3 (08:42→21:30)
[2022-04-23] MEDS: DORZOLAMIDE 2% OPHTH 10 ML 1 DROPS EYE-BOTH ×2 (08:45→21:05)
[2022-04-23] MEDS: SYSTANE 1 EACH EYE-BOTH ×4 (08:45→21:37)
[2022-04-23 09:00] VITALS: BP 132/56; PULSE 71; RESP 17; TEMP 36.2; O2SAT 96
[2022-04-23 09:32] VITALS: O2SAT 90
--- NOTE | 2022-04-23 10:19 | PM.PN.1 ---
Subjective Subjective Interval history: She has continued diarrhea and abdomen cramps. No chest pain or dyspnea. No rectal bleeding. Exam Vital Signs (past 8 hours): - 04/23/22 05:15 04/23/22 09:32 Temperature 97.9 F Pulse Rate 76 Respiratory Rate 18 Blood Pressure 121/50 L Pulse Oximetry 93 90 L Oxygen Delivery Method Nasal Cannula Oxygen Flow Rate 1 1 Fraction of Inspired Oxygen 24 SaO2/FiO2 Ratio 391 Oxygen Delivery Method Nasal Cannula Oxygen Flow Rate 1 Const General: cooperative, comfortable and well developed Orientation: alert and awake [facility] Head: normal to inspection Face and sinus: normal facial exam Eyes General: appearance normal, both eyes and all related structures Sclera: sclerae normal Neck Neck: normal visual inspection and No anterior neck swelling Thyroid: thyroid normal Chest Chest: normal inspection of the chest Resp Effort & Inspection: normal respiratory effort Auscultation: clear to auscultation bilaterally Cardio Rate: regular rate Rhythm: regular rhythm Heart Sounds: S1 normal and S2 normal Pulses: radial pulses present GI Inspection: normal to inspection Palpation: soft and no hepatosplenomegaly Auscultation: normal bowel sounds Skin General: no rashes or lesions noted Neuro General: patient alert, patient awake and patient oriented x3 Extrem General: normal to inspection Psych Appearance: grossly normal Objective Labs Result Diagrams: 04/23/22 05:50 04/23/22 05:50 Labs: Laboratory Results - last 24 hr 04/23/22 04/23/22 05:50 05:50 WBC 10.1 RBC 3.08 L Hgb 8.4 L Hct 26.5 L MCV 86.1 MCH 27.2 MCHC 31.6 RDW 17.1 H Plt Count 327 Neut % (Auto) 58.9 Lymph % (Auto) 22.6 L [place] % (Auto) 8.7 Eos % (Auto) 9.4 H Baso % (Auto) 0.4 Neut # (Auto) 6000 Lymph # (Auto) 2300 [place] # (Auto) 900 Eos # (Auto) 1000 H Baso # (Auto) 0 Sodium 139 Potassium 3.0 L Chloride 93 L Carbon Dioxide 38 H BUN 18 H Creatinine 0.98 Estimated GFR 59 L BUN/Creatinine Ratio 18.4 Glucose 82 Calcium 8.2 L Magnesium 1.8 PFSH Medical History Chronic kidney disease, stage III (moderate) COPD (chronic obstructive pulmonary disease) Depression Glaucoma Lung nodule Morbid obesity with BMI of 40.0-44.9, adult Osteoarthritis Paroxysmal atrial fibrillation Severe mitral valve stenosis Surgical History H/O foot surgery H/O neck surgery H/O rotator cuff surgery History of hysterectomy Hx of cataract surgery Knee joint replacement by other means S/P laparoscopic sleeve gastrectomy Status post cholecystectomy Family History Father Alcoholic Mother Arthritis Renal failure Cancer Brother Alcoholic Social History household members: spouse Smoking Status: Former smoker alcohol intake: former Assessment & Plan Assessment & Plan narrative: 1. Acute on chronic hypoxic and hypercapnic respiratory failure, present on admission and improving. -patient has known COPD on 1.5L baseline, overnight on 04/17 and again after surgery on 04/18 developed worsening hypercapnia likely from opiates. Less likely aspiration but remains on antibiotics with anaerobic coverage. -near baseline O2 use today and repeat blood gas shows marked improvement. -continue nebs -avoid narcotics as much as possible -prednisone continued x5 days 2. COPD with exacerbation, present on admission and improving. 3. Paroxysmal Atrial fibrillation with RVR not present on admission, now resolved -morning of 04/17 developed HR 170's with BP 85/50 -amiodarone drip completed, converted to sinus at approx 1600 on 04/17 but reverted after OR, improved with amiodarone and bipap. -has watchmen device, not on anticoag -is taking both aspirin, plavix, last took on 04/15 -resumed home flecainide and rate is currently controlled. 4. Acute blood loss anemia, .present on admission and active. ?- possibly acute blood loss after surgery, no signs or symptoms of active bleeding, compartments are soft after surgery. Hg responded appropriately to 1U PRBC. No current signs or symptoms of bleeding. ?- continue to follow h/h ?- started PPI for possible stress ulcer though no melena or hematochesia 5. Acute encephalopathy, not present on admission and improved. 6. Left hip fracture, present on admission and active. - occurred s/p mechanical fall - hip xray shows left hip fracture - ORIF 04/18 - for oral and IV pain medications 7. Community acquired pneumonia, present on admisson and improving. - CXR with mild atypical pneumonia - CTA without PE, but RLL consolidation and multifocal peripheral opacities -c ontinue zosyn x5 days, MRSA screen negative so vancomycin discontinued. Antibiotics to end on 04/23 8. RLL lung nodule suspicious for malignancy (1.6cm ), present on admission and active, - noted on CTA chest, spiculated - rec outpatient CT chest after discharge for follow up 9. Hypokalemia, present on admission and active - likely secondary to diuretics and diarrhea - replete as needed 10. Hypovolemic hypotension, present on admission and resolved -suspect secondary to dehydration from diuretics. Now resolved. ? 11. Chronic CHFpEF, present on admission and stable -resumed toresemide at 20 mg instead of home 40 for now. 12. Diarrhea, NPOA and active. - c. diff ruled out with negative toxin by PCR - start imodium 2mg prn. Continue today. CODE: Full Proxy: Gerry Ayala, Time Spent With Patient Critical Care time: I spent a total of [] minutes of critical care time on this patient's care today; this time is exclusive of procedural time.
--- NOTE | 2022-04-23 12:29 | PT-IP ANOTE ---
Pt refused in am due to having diarrhea. States she would like to wait until the afternoon.
[2022-04-23 13:00] VITALS: BP 100/37; PULSE 68; RESP 17; TEMP 36.2; O2SAT 96
[2022-04-23 15:00] VITALS: BP 132/49; PULSE 77; RESP 17; TEMP 36.3; O2SAT 97
--- NOTE | 2022-04-23 16:05 | CM.DPNOTE ---
Discharge Planning Note: [facility] can accept patient tomorrow if medically stable. Covid swab ordered. Aide Zaldivar RN/DCP
--- NOTE | 2022-04-23 16:08 | PT-IP ANOTE ---
Pt rrefused treatment x3 in afternoon. Statted she still was having diarrhea and could not get up.
[2022-04-23] MEDS: DULOXETINE 30 MG CAPSULE PO (18:13)
[2022-04-23 20:52] VITALS: BP 109/40; PULSE 76; RESP 16; TEMP 36.2; O2SAT 98
[2022-04-23] MEDS: TRAZODONE 50 MG TABLET PO (21:06)
[2022-04-23] MEDS: MELATONIN 3 MG TABLET 6 MG PO (21:07)
[2022-04-23] MEDS: LATANOPROST 0.005% OPHTH 2.5 ML 1 DROPS EYE-BOTH (21:08)
[2022-04-23] MEDS: ONDANSETRON 4 MG ODT PO (22:13)
[2022-04-24] VITALS: BP 117/47; PULSE 82; RESP 19; TEMP 36.2; O2SAT 95
[2022-04-24] MEDS: TRAMADOL 50 MG TABLET PO ×3 (04:50→14:43)
[2022-04-24] MEDS: ACETAMINOPHEN 325 MG TABLET 650 MG PO ×3 (05:00→18:40)
[2022-04-24 05:22] VITALS: BP 103/40; PULSE 64; RESP 16; TEMP 36; O2SAT 95
[2022-04-24 05:42] LABS: Basophils Absolute Auto 100 /uL (0-100); Basophils Percent Auto 0.7 % (0-2); Eosinophils Absolute Auto 900 /uL (0-450); Eosinophils Percent Auto 7.1 % (2-4); Hematocrit 26.6 % (36-46); Hemoglobin 8.5 g/dL (12.0-16.0); Lymphocytes Absolute Auto 2200 /uL (1100-4500); Lymphocytes Percent Auto 17.1 % (25-40); Mean Corpuscular HGB Conc 31.9 % (30-36); Mean Corpuscular Hemoglobin 27.3 PG (26-34); Mean Corpuscular Volume 85.4 fL (80-100); Monocytes Absolute Auto 1100 /uL (0-900); Monocytes Percent Auto 8.4 % (3-14); Neutrophils Absolute Auto 8600 /uL (1500-7000); Neutrophils Percent Auto 66.7 % (50-75); Red Blood Cell Count 3.11 X10^6/uL (4.0-5.2); Red Cell Distribution Width 16.9 % (11.6-14.8); White Blood Cell Count 12.9 X10^3/uL (4.5-11.0)
[2022-04-24 05:43] LABS: BUN Creatinine Ratio 17.6 (6-22); Blood Urea Nitrogen 16 mg/dL (7-17); Chloride 94 mmol/L (98-107); Estimated Glomerular Filt Rate > 60 mL/min (>60); Glucose 89 mg/dL (80-110); HEMOLYSIS < 15 (0-50); Magnesium 1.9 mg/dL (1.6-2.3); Potassium 3.3 mmol/L (3.4-5.1); Sodium 136 mmol/L (137-145)
[2022-04-24 05:50] LABS: Carbon Dioxide 39 mmol/L (22-32)
[2022-04-24 06:36] LABS: COVID19 -Nasal RAPID Negative (Negative)
[2022-04-24 06:51] LABS: Add Manual Diff / Slide Review SLIDE REVIEW
[2022-04-24 06:54] LABS: Anisocytosis 1+; Hypochromasia 1+; Platelet Estimate Adequate on smear
[2022-04-24] MEDS: GABAPENTIN 300 MG CAPSULE PO ×2 (09:59→21:37)
[2022-04-24] MEDS: TORSEMIDE 10 MG TABLET 20 MG PO (09:59)
[2022-04-24] MEDS: FLECAINIDE 100 MG TABLET 25 MG PO ×2 (09:59→21:35)
[2022-04-24] MEDS: AMOXICILLIN/CLAV 875/125 MG 1 TAB PO (09:59)
[2022-04-24] MEDS: FERROUS SULFATE 325 MG TABLET PO (09:59)
[2022-04-24] MEDS: POTASSIUM CHLORIDE 10 MEQ TAB PO (09:59)
[2022-04-24] MEDS: ASPIRIN EC 81 MG TABLET PO ×2 (09:59→21:37)
[2022-04-24] MEDS: ASCORBIC ACID 500 MG TABLET PO (09:59)
[2022-04-24] MEDS: MAGNESIUM OXIDE 400 MG TABLET PO (09:59)
[2022-04-24] MEDS: PANTOPRAZOLE 40 MG VIAL IV (09:59)
[2022-04-24] MEDS: SYSTANE 1 EACH EYE-BOTH ×3 (10:00→16:23)
[2022-04-24] MEDS: BUSPIRONE 5 MG TABLET 10 MG PO ×3 (10:00→21:34)
[2022-04-24] MEDS: DORZOLAMIDE 2% OPHTH 10 ML 1 DROPS EYE-BOTH ×2 (10:00→21:38)
[2022-04-24] MEDS: DICYCLOMINE 10 MG CAPSULE PO ×3 (10:00→21:33)
[2022-04-24] MEDS: CHOLECALCIFEROL (VITAMIN D3) 1,000 UNIT TABLET 2000 UNIT PO (10:00)
[2022-04-24] MEDS: MULTIVITAMIN 1 TABLET 2 TAB PO (10:00)
[2022-04-24] MEDS: estradioL 1 MG TABLET 2 MG PO (10:00)
[2022-04-24] MEDS: LOPERAMIDE 2 MG CAPSULE PO ×2 (10:35→14:41)
[2022-04-24] MEDS: POTASSIUM CHLORIDE 20 MEQ TAB 40 MEQ PO (10:42)
[2022-04-24 10:44] VITALS: BP 132/50; PULSE 84; RESP 18; O2SAT 96
--- NOTE | 2022-04-24 12:30 | PT.IPTN ---
Current Diagnoses Obesity, unspecified (04/16/22) Unspecified atrial fibrillation (04/16/22) Fracture of unspecified part of neck of unspecified femur, initial encounter for closed fracture (04/16/22) Surgery Performed Operation Date: 04/18/22 11:15 Actual Procedures p LEFT HEMIARTHROPLASTY(Left) - Pily Godoy MD Physical Therapy Treatment Note M2 PT-IP Current Condition Start: 04/19/22 12:58 Freq: NEEDED Status: Active Protocol: Document 04/24/22 11:48 SP (Rec: 04/24/22 16:39 SP [id number]) Physical Therapy Current Condition Current Condition Evaluation Date 04/19/22 Treatment Diagnosis GLF; L hip fx s/p hemiarthroplasty; difficulty in walking Onset Date 04/16/22 M3 PT-IP Subjective Start: 04/19/22 12:58 Freq: NEEDED Status: Active Protocol: Document 04/24/22 11:48 SP (Rec: 04/24/22 16:39 SP [id number]) Subjective Physical Therapy Visit Type Type Treatment Note Visit Start Time 11:48 Visit Stop Time 12:30 Total Visit Minutes 42 Notes Vitals: seated in chair: BP 122/44 HR 83 SaO2 97% on 1.5 L, SaO2 decreased to 88% on 1.5 L during gait, recovers low 90s sit rest bed. Number of MANAGER APPLIED Visits 1 Physical Therapy Visit Comments Patient Comments agreeable to do PT Therapy Pain Assessment Pain When Pain Assessed During Mobility Pain Present Pain Present Pain Reported Location left hip Intensity 4 Scale Used Numeric (0 - 10) Description With Movement Pain Behaviors Facial Grimacing Pain Management Techniques Distraction,Elevation, Modification of Treatment,Re- positioning,Timing of Activity with Medications M4 PT-IP Mobility and Gait Start: 04/19/22 12:58 Freq: NEEDED Status: Active Protocol: Document 04/24/22 11:48 SP (Rec: 04/24/22 16:39 SP [id number]) PT-Bed Mobility Assessment Sit to Supine Sit to Supine Minimal Assistance,Moderate Assistance,2 Person Assistance ,Bedrails PT-Transfer Assessment Sit to and From Stand Sit to and from Stand Minimal Assistance,1 Person Assistance,Use of Upper Extremities Equipment Transfer Assistive Device Gait Belt,Front Wheeled Walker Orthotic/Prosthetic Devices or Brace: No Transfers Transfer Destination Bed,Chair Transfer Technique ambulated w/FWW Transfer Ability Level of Assist Minimal Assistance,Moderate Assistance,1 Person Assistance ,Use of Upper Extremities Comments Mobility Comments Pt seated in chair when arrived. in room. Donned gait belt at trunk. STS from chair Min A w/ FWW, cues push from chair. CG- Min A step to stagger stepping min/ mod UE WB on FWW during LLE WB stance phase gait to door, stated little dizzy, cued pivot/ back step to sit on bed . CG- Min A sit on bed, cued reach back. Brief rest recovery cued breath due to SaO2 88% on 1.5 L. recovered 1 min. STS from R EOB gait w/ FWW CGA to L side bed, lateral / back step toward HOB w/FWW, cued reach back slow descent CGA. Sit>supine Mod A x1 for BLE into bed and trunk support . Pt able to lateral scoot to center self in bed. Placed pillow under BLEs for LS support. Pt had call light and all needs in reach. Pt unableto complete stair mgt at this time for safety enter her home. Will continue to assess progress Gait Assessment Gait Gait Assistance Required: Contact Guard Assist,Minimum Assistance,1 Person Assist Distance (Feet) 30 Able to Maintain Weight Bearing Status Yes During Gait Assistive Devices Assistive Device Gait Belt,Front Wheeled Walker Orthotic/Prosthetic Devices or Brace: No Gait Deviations General Gait Pattern Antalgic,Decreased Stride Length,Decreased Feet Clearance,Narrow Based Gait, Step-to Gait Factors Limiting Gait Function Factors Limiting Gait Function Decreased Activity Tolerance, Decreased Strength,Difficulty Following Directions,Limited Range of Motion,Pain,Poor Safety Awareness,Respiratory Distress Comments Gait Comments See mobility comments Stair Climbing Assessment Comments Stair Climbing Comments Unable to assess due to decrease endurance, dizziness, activitiy tolerance strength. PT-Balance Assessment Sitting Balance and Reactions Static Sitting Balance Ability Good Dynamic Sitting Balance Ability Fair Standing Balance and Reactions Static Standing Balance Ability Good Dynamic Standing Balance Ability Fair Device Used FWW M5 PT-IP Objective Assessments Start: 04/19/22 12:58 Freq: NEEDED Status: Active Protocol: Document 04/19/22 11:10 AB (Rec: 04/19/22 13:10 AB [id number]) Orientation Orientation/Cognition Level of Alertness Confusional State Orientation Name,Place,Situation Safety Awareness Decreased Safety Awareness Memory Description Short Term Impaired,Half-Way Impaired Gross Range of Motion Lower Extremity ROM Assessment Within Functional Limits Strength Lower Extremity Strength Assessment Bilaterally Impaired Comments Strength Comments LLE: 3+/5 RLE 4-/5 Sensation Assessment Sensation Gross Sensation WNL Muscle Tone Muscle Tone WNL Yes M6 PT-IP Treatment Start: 04/19/22 12:58 Freq: NEEDED Status: Active Protocol: Document 04/24/22 11:48 SP (Rec: 04/24/22 16:39 SP [id number]) Physical Therapy Treatment Exercises Exercises Ankle Pumps,Gluteal Sets,Quad Sets,Heel Slides Education Education Provided Precautions,Safety Other Treatments Other Treatment Performed Pt recalled 2/3 precautions: hinted no bending >90 deg. Instruction on postop ex, used HOs for recall, no cues required during mobility precautions. M7 PT-IP Assessment and Plan Start: 04/19/22 12:58 Freq: NEEDED Status: Active Protocol: Document 04/24/22 11:48 SP (Rec: 04/24/22 16:39 SP [id number]) PT Summary Assessment and Plan Potential Rehabilitation Potential Fair Status of Condition at Evaluation Stable Summary Impairments Pain,ROM,Strength,Balance, Coordination,Sensation,Tone, Cognition,Bed Mobility, Transfers,Gait,Activity Tolerance Progress Towards Goals Slow Progress due to Pain,Slow Progress due to Medical Issues,Slow Progress due to Activity Tolerance,Slow Progress - Other Assessment Summary Pt CG/ Min A for transfers/ gait w/ FWW, dizziness, stable BP but decrease O2 88% on 1.5 L, rest/breath recovered low 90s. Gait in room slow pacing 15 ft x2. Mod A for bed mobillitiy able to assist her LEs, MANAGER APPLIED supported Upper body CCG- Min A. Pt Will need to complete stair mgt if able to allow going home vs SNF. Unable to attempt this tx . Continue to assess vitals/ O2. Caregiver training if appropriate. Goals Bed Mobility Goal Standby Assistance Transfer Goal Standby Assistance,Front Wheeled Walker Gait Goal Standby Assistance,Front Wheel Walker Gait Distance 50 Other Goals up/down 6 steps R rail ascending CGA Days to Meet Goals 10 Frequency of Treatment Frequency Of Treatment Twice a Day Treatment Plan Physical Therapy Treatment Plan Bed Mobility Training,Transfer Training,Gait Training, Therapeutic Exercise,Balance Retraining,Post Op Education, Discharge Planning,Hot or Cold Pack,Neuromuscular Re-ed, Coordination Retraining,Manual Therapy Other Recommendations and Next Treatment check vitals, precautions, Focus post op ex, bed mob , transfers and gait w/ FWW safety HP. Stairs if able x6 to enter home. Precautions Posterior Hip Precautions No Hip Flexion > 90 degrees,No Hip Internal Rotation,No Hip Adduction Weight Bearing Status Weight Bearing Status Weight Bear as Tolerated Allowed Weight Bearing Amount (enter % LLE WBAT or #) (%) Recommendations To Nursing Amount of Assist Needed 1 Person Assist Discharge Recommendations PT Discharge Recommendations SNF Rehab Transportation Needs at Discharge Wheelchair/Cabulance
[2022-04-24] MEDS: NYSTATIN OINTMENT 15 APPLIC/TUBE OINT...G. TOP ×3 (12:58→21:40)
--- NOTE | 2022-04-24 13:39 | P.PN_ITS ---
Subjective Subjective Interval history: Diarrhea and cramping is improving. No dyspnea. Exam Vital Signs (past 8 hours): Fraction of Inspired Oxygen 24 SaO2/FiO2 Ratio 391 Oxygen Delivery Method Nasal Cannula Oxygen Flow Rate 2 Const General: cooperative Nutritional Appearance: average body habitus Orientation: alert and awake [facility] Head: normal to inspection Eyes General: appearance normal, both eyes and all related structures Sclera: sclerae normal EOM: EOM intact bilaterally Resp Effort & Inspection: normal respiratory effort Auscultation: clear to auscultation bilaterally Cardio Rate: regular rate Heart Sounds: S1 normal and S2 normal Pulses: radial pulses present GI Inspection: normal to inspection Palpation: soft and no hepatosplenomegaly Skin General: no rashes or lesions noted Neuro General: patient alert and patient awake Objective Labs 04/24/22 05:10 04/24/22 05:10 [facility] Medical History Chronic kidney disease, stage III (moderate) COPD (chronic obstructive pulmonary disease) Depression Glaucoma Lung nodule Morbid obesity with BMI of 40.0-44.9, adult Osteoarthritis Paroxysmal atrial fibrillation Severe mitral valve stenosis Surgical History H/O foot surgery H/O neck surgery H/O rotator cuff surgery History of hysterectomy Hx of cataract surgery Knee joint replacement by other means S/P laparoscopic sleeve gastrectomy Status post cholecystectomy Family History Father Alcoholic Mother Arthritis Renal failure Cancer Brother Alcoholic Social History household members: spouse Smoking Status: Former smoker alcohol intake: former Assessment & Plan Assessment & Plan narrative: Assessment & Plan narrative: 1.? Acute on chronic hypoxic and hypercapnic respiratory failure, present on admission and improving. -patient has known COPD on 1.5L baseline, overnight on 04/17 and again after surgery on 04/18 developed worsening hypercapnia likely from opiates. Less likely aspiration but remains on antibiotics with anaerobic coverage. -near baseline O2 use today and repeat blood gas shows marked improvement. -continue nebs -avoid narcotics as much as possible -prednisone continued x5 days -will wean off O2 2. COPD with exacerbation, present on admission and improving. 3. Paroxysmal Atrial fibrillation with RVR not present on admission, now resolved -morning of 04/17 developed HR 170's with BP 85/50 -amiodarone drip completed, converted to sinus at approx 1600 on 04/17 but reverted after OR, improved with amiodarone and bipap. -has watchmen device, not on anticoag -resumed home flecainide and rate is currently controlled. 4. Acute blood loss anemia, .present on admission and stable. ?- possibly acute blood loss after surgery, no signs or symptoms of active bleeding, compartments are soft after surgery. Hg responded appropriately to 1U PRBC. No current signs or symptoms of bleeding. ?- continue PPI 5. Acute encephalopathy, not present on admission and resolved. 6.? Left hip fracture, present on admission and active. - occurred s/p mechanical fall - hip xray shows left hip fracture - ORIF 04/18 -? for oral and IV pain medications 7. Community acquired pneumonia, present on admisson and improving. - CXR with mild atypical pneumonia - continued antibiotics x5 days, ended on 04/23 8.?RLL lung nodule suspicious for malignancy (1.6cm ), present on admission and active, - noted on CTA chest, spiculated - rec outpatient CT chest after discharge for follow up 9. Hypokalemia, present on admission and resolved. - likely secondary to diuretics and diarrhea - replete as needed 10. Hypovolemic hypotension, present on admission and resolved ? 11. Chronic CHFpEF, present on admission and stable -resumed toresemide at 20 mg instead of home 40 for now. 12. Diarrhea, NPOA and improving. - c. diff ruled out with negative toxin by PCR - continue imodium 2mg prn. . CODE: Full
[2022-04-24 15:45] VITALS: BP 103/43; PULSE 81; RESP 18; TEMP 36.3; O2SAT 95
[2022-04-24] MEDS: DULOXETINE 30 MG CAPSULE PO (16:22)
--- NOTE | 2022-04-24 16:29 | PT-IP ANOTE ---
attempted to work with pt however she refused due to having diarrhea and not wanting to have a accident when up moving. Nursing was present for conversation. Continue PT in the AM
[2022-04-24 21:21] VITALS: BP 141/51; PULSE 85; RESP 16; TEMP 36.1; O2SAT 94
[2022-04-24] MEDS: TRAZODONE 50 MG TABLET PO (21:34)
[2022-04-24] MEDS: MELATONIN 3 MG TABLET 6 MG PO (21:39)
[2022-04-24] MEDS: LATANOPROST 0.005% OPHTH 2.5 ML 1 DROPS EYE-BOTH (21:39)
[2022-04-25] MEDS: ACETAMINOPHEN 325 MG TABLET 650 MG PO ×2 (00:36→06:29)
[2022-04-25 01:00] VITALS: BP 136/59; PULSE 78; RESP 16; TEMP 36.2; O2SAT 97
[2022-04-25 05:32] VITALS: BP 132/55; PULSE 85; RESP 16; TEMP 36; O2SAT 95
[2022-04-25 08:40] VITALS: O2SAT 96
[2022-04-25 09:00] VITALS: BP 140/56; PULSE 87; RESP 18; TEMP 35.7; O2SAT 98
[2022-04-25] MEDS: GABAPENTIN 300 MG CAPSULE PO (09:56)
[2022-04-25] MEDS: ASPIRIN EC 81 MG TABLET PO (09:56)
[2022-04-25] MEDS: FLECAINIDE 100 MG TABLET 25 MG PO (09:56)
[2022-04-25] MEDS: SYSTANE 1 EACH EYE-BOTH (09:56)
[2022-04-25] MEDS: TORSEMIDE 10 MG TABLET 20 MG PO (09:56)
[2022-04-25] MEDS: POTASSIUM CHLORIDE 10 MEQ TAB PO (09:56)
[2022-04-25] MEDS: MAGNESIUM OXIDE 400 MG TABLET PO (09:56)
[2022-04-25] MEDS: FERROUS SULFATE 325 MG TABLET PO (09:56)
[2022-04-25] MEDS: estradioL 1 MG TABLET 2 MG PO (09:57)
[2022-04-25] MEDS: ASCORBIC ACID 500 MG TABLET PO (09:57)
[2022-04-25] MEDS: BUSPIRONE 5 MG TABLET 10 MG PO (09:57)
[2022-04-25] MEDS: DICYCLOMINE 10 MG CAPSULE PO (09:57)
[2022-04-25] MEDS: MULTIVITAMIN 1 TABLET 2 TAB PO (09:58)
[2022-04-25] MEDS: DORZOLAMIDE 2% OPHTH 10 ML 1 DROPS EYE-BOTH (09:58)
[2022-04-25] MEDS: CHOLECALCIFEROL (VITAMIN D3) 1,000 UNIT TABLET 2000 UNIT PO (09:58)
[2022-04-25] MEDS: NYSTATIN OINTMENT 15 APPLIC/TUBE OINT...G. TOP (09:59)
[2022-04-25] MEDS: LOPERAMIDE 2 MG CAPSULE PO (10:00)
--- NOTE | 2022-04-25 10:10 | PT.IPTN ---
Current Diagnoses Obesity, unspecified (04/16/22) Unspecified atrial fibrillation (04/16/22) Fracture of unspecified part of neck of unspecified femur, initial encounter for closed fracture (04/16/22) Surgery Performed Operation Date: 04/18/22 11:15 Actual Procedures p LEFT HEMIARTHROPLASTY(Left) - Pily Godoy MD Physical Therapy Treatment Note M2 PT-IP Current Condition Start: 04/19/22 12:58 Freq: NEEDED Status: Active Protocol: Document 04/25/22 09:17 SP (Rec: 04/25/22 10:31 SP [id number]) Physical Therapy Current Condition Current Condition Evaluation Date 04/19/22 Treatment Diagnosis GLF; L hip fx s/p hemiarthroplasty; difficulty in walking Onset Date 04/16/22 M3 PT-IP Subjective Start: 04/19/22 12:58 Freq: NEEDED Status: Active Protocol: Document 04/25/22 09:17 SP (Rec: 04/25/22 10:31 SP [id number]) Subjective Physical Therapy Visit Type Type Treatment Note Visit Start Time 09:17 Visit Stop Time 10:10 Total Visit Minutes 53 Notes Vitals: supine BP 113/41HR 88 SaO2 97% on 2 L, with mobility SaO2 decreased to 82-83% on 2 L during gait 4 min seated rest increases to 92% on 2L BP 144/ 47 HR 112> 10bpm. Number of CODING COORDINATOR Visits 2 Physical Therapy Visit Comments Patient Comments agreeable to do PT Therapy Pain Assessment Pain When Pain Assessed At Rest Location coccyx Intensity 8 Scale Used Numeric (0 - 10) Pain Behaviors Facial Grimacing,Wincing Pain Management Techniques Distraction,Modification of Treatment,Re-positioning M4 PT-IP Mobility and Gait Start: 04/19/22 12:58 Freq: NEEDED Status: Active Protocol: Document 04/25/22 09:17 SP (Rec: 04/25/22 10:31 SP [id number]) PT-Bed Mobility Assessment Supine to Sit Supine to Sit Maximum Assistance,1 Person Assistance,Bedrails Scooting Scooting to Edge of Bed Minimal Assistance,Moderate Assistance PT-Transfer Assessment Sit to and From Stand Sit to and from Stand Contact Guard Assistance, Minimal Assistance,1 Person Assistance,Use of Upper Extremities Equipment Transfer Assistive Device Gait Belt,Front Wheeled Walker Orthotic/Prosthetic Devices or Brace: No Transfers Transfer Destination Chair,Bedside Commode Transfer Technique ambulated w/FWW Transfer Ability Level of Assist Contact Guard Assistance, Minimal Assistance,1 Person Assistance,Use of Upper Extremities Comments Mobility Comments Pt supine in bed when arrived. Sup>sit pt able get BLE to EOB Max A trunk right sit, scoot CG/ Min support for pelvis advancement each side time, BUE self support. STS w FWW, cued 1 UE push from bed, CG/ Min A, SPT w/ FWW to C CGA x1 assist brief mgt, completed BM (see JAMMER OPERATOR note), CGA during standing JAMMER OPERATOR assisted pericare in standing, CODING COORDINATOR assisted brief mgt. SPT to chair CGA w/ FWW. Pt after rest in chair, STS and gait across room to door and back to chair small stagger stepping, slow endurance/ pacing/ moderate UE WB support on FWW, cued breath and upright posturing. 3 min rest in chair SaO2 88% on 2L, recovered in1 min with breath. Pt gait to sink w/ FWW, trial awareness in strengthe complete ascend/ back step descend 3 portable stepping, requires B UE down pressure assimulate FWW (home only 1 HR onR, unable to complete). Pt unable progress >3 steps that 's all I can do, I fell like my legs might fall, I am very weak, I can not make it in my home. Pt returned to chair, demonstrated +SOB, SaO2 decreased 82% on 2L, took 2 min of breathing improved 93% on 2L. Gait Assessment Gait Gait Assistance Required: Contact Guard Assist,Minimum Assistance,1 Person Assist Distance (Feet) 46 Able to Maintain Weight Bearing Status Yes During Gait Assistive Devices Assistive Device Gait Belt,Front Wheeled Walker Orthotic/Prosthetic Devices or Brace: No Gait Deviations General Gait Pattern Antalgic,Decreased Stride Length,Decreased Feet Clearance,Wide Based Gait Factors Limiting Gait Function Factors Limiting Gait Function Decreased Activity Tolerance, Decreased Strength,Difficulty Following Directions,Limited Range of Motion,Pain,Poor Safety Awareness,Respiratory Distress Comments Gait Comments Cued tall posturing, breath and UE WB needed. Stair Climbing Assessment Evaluation Level of Assist On Stairs Moderate Assistance,Maximal Assistance,1 Person Assistance Devices Stair Climbing Assistive Devices Four Wheel Walker,Right Railing Technique/Endurance Stair Climbing Direction Ascend and Descend Stair Climbing Technique Step to Step Number of Steps Climbed 1 Stair Climbing Set # Repetitions (reps) 3 Comments Stair Climbing Comments Trialed 4 portable step front sink, use R rail and sink/L handle FWW, therapist stabilized R side FWW cued step to lead RLE ascend/ LLE descend back step down Mod/Max A x1 PT-Balance Assessment Sitting Balance and Reactions Static Sitting Balance Ability Normal Dynamic Sitting Balance Ability Good Standing Balance and Reactions Static Standing Balance Ability Good Dynamic Standing Balance Ability Fair Device Used FWW M5 PT-IP Objective Assessments Start: 04/19/22 12:58 Freq: NEEDED Status: Active Protocol: Document 04/19/22 11:10 AB (Rec: 04/19/22 13:10 AB [id number]) Orientation Orientation/Cognition Level of Alertness Confusional State Orientation Name,Place,Situation Safety Awareness Decreased Safety Awareness Memory Description Short Term Impaired,Tea Blender Impaired Gross Range of Motion Lower Extremity ROM Assessment Within Functional Limits Strength Lower Extremity Strength Assessment Bilaterally Impaired Comments Strength Comments LLE: 3+/5 RLE 4-/5 Sensation Assessment Sensation Gross Sensation WNL Muscle Tone Muscle Tone WNL Yes M6 PT-IP Treatment Start: 04/19/22 12:58 Freq: NEEDED Status: Active Protocol: Document 04/25/22 09:17 SP (Rec: 04/25/22 10:31 SP [id number]) Physical Therapy Treatment Exercises Exercises Ankle Pumps,Gluteal Sets,Quad Sets,Heel Slides,Supine Hip Abduction Education Education Provided Precautions,Weight Bearing Status,Post-Op Packet,Safety M7 PT-IP Assessment and Plan Start: 04/19/22 12:58 Freq: NEEDED Status: Active Protocol: Document 04/25/22 09:17 SP (Rec: 04/25/22 10:31 SP [id number]) PT Summary Assessment and Plan Potential Rehabilitation Potential Fair Status of Condition at Evaluation Stable Summary Impairments Pain,ROM,Strength,Balance, Coordination,Sensation,Tone, Cognition,Bed Mobility, Transfers,Gait,Activity Tolerance Progress Towards Goals Slow Progress due to Pain,Slow Progress due to Medical Issues,Slow Progress due to Activity Tolerance Assessment Summary Pt continues to have intestinal loose bowels, pain primarily over antonella area from this. States use of waffle cushion has been helpful when remembers to use, CODING COORDINATOR provided yesterday. Pt requires Max A bed mob with HOB flat ( assimulate home), low endurance short distance gait w/ FWW cues breath for safety O2, requires rest breaks between activities for breath recovery, SaO2 >90 on 2L, Only able completed 3 4 step BHR support Mod/ Max A. CODING COORDINATOR recommending SNF for progressing strength and functional mobility I. WIll continue to assess progress. Goals Bed Mobility Goal Standby Assistance Transfer Goal Standby Assistance,Front Wheeled Walker Gait Goal Standby Assistance,Front Wheel Walker Gait Distance 50 Other Goals up/down 6 steps R rail ascending CGA Days to Meet Goals 10 Frequency of Treatment Frequency Of Treatment Twice a Day Treatment Plan Physical Therapy Treatment Plan Bed Mobility Training,Transfer Training,Gait Training, Therapeutic Exercise,Balance Retraining,Post Op Education, Discharge Planning,Hot or Cold Pack,Neuromuscular Re-ed, Coordination Retraining,Manual Therapy Other Recommendations and Next Treatment check vitals (citlali O2), Focus precautions, post op ex w/ HOs , bed mob, transfers, further distance room gait w/check O2 and breath. Precautions Posterior Hip Precautions No Hip Flexion > 90 degrees,No Hip Internal Rotation,No Hip Adduction Other Precautions Pt recalled 1/3 precautions, showed HOs and recalled no bed >90 deg and no IR. Weight Bearing Status Weight Bearing Status Weight Bear as Tolerated Allowed Weight Bearing Amount (enter % LLE WBAT or #) (%) Recommendations To Nursing Amount of Assist Needed 1 Person Assist Discharge Recommendations PT Discharge Recommendations SNF Rehab Transportation Needs at Discharge Wheelchair/Cabulance
--- NOTE | 2022-04-25 10:15 | P.DS_ITS ---
History of Present Illness History of Present Illness Date Patient Seen: 04/25/22 Time Patient Seen: 10:15 Chief complaint: GLF,L hip fracture,on thinners,mod trauma Narrative: Per admitting provider, Ms. Ayala is a 76W with PMH CKD stage 3, COPD on 1.5L O2 at home, severe mitral stenosis, atrial fibrillation s/p watchmen device who presents to the hospital after a fall. This morning she was getting up to go to the bathroom and felt some weakness and buckling of her legs and fell and landed on her left hip. She had immediate left hip pain, and was unable to ambulate. She did not hit her head. Otherwise before this event she was feeling in her normal state of health. EMS arrived and noted she had shortened leg, she received fentanyl In the ED workup was done, vitals notable for afebrile, tachycardic in the 110s, blood pressure 80s/50s, sats in the 90s on 2L. Labs notable for WBC 16.6. hgb 10.7, plts 173, k 3.2, creatinine 1.01. INR 1.0. CT head with no acute process. Hip xray shows left femoral neck fracture. I did discuss her care with the ED physician, and did discuss with her at bedside who provided additional history. I reviewed her telemetry and noted heart rate in the 100s. She was given pain medications which were helpful, though wearing off when I saw her. She was admitted for further treatment. Discharge Providers Provider Date of admission: 04/16/22 11:06 Discharge Date: 04/25/22 Primary care physician: Maryuri Child MD Consults: 04/16/22 10:54 Consult to Orthopedic Surgery Stat Comment: Consulting Provider: Pily Godoy Reason for consultation: Femoral neck fracture Has provider been notified: Yes 04/17/22 05:31 Consult to Tele-photographer's assistant Routine Comment: Consulting Provider: Terri Tele-intensivists Reason for consultation: Remote [employer] Manager services Has provider been notified: Yes 04/18/22 11:42 Consult to Anesthesiology Routine Comment: Consulting Provider: Anesthesiologist Reason for consultation: Regional block for post operative pain control 04/18/22 15:05 Consult to Discharge Planning Routine Comment: Consult to Physical Therapy Evaluate & Treat Comment: Physician Instructions: post op BEBETO protocol Consult to Tele-photographer's assistant Routine Comment: Consulting Provider: Terri Tele-intensivists Reason for consultation: Remote En[employer] Manager services Discharge provider: Gerry Rooney DO Summary Hospital Course Discharge Diagnosis: Please see hospital course by problem list noted below Hospital Course: 1.? Acute on chronic hypoxic and hypercapnic respiratory failure, present on admission and improving. -patient has known COPD on 1.5L baseline, overnight on 04/17 and again after surgery on 04/18 developed worsening hypercapnia likely from opiates. Less likely aspiration but remained on antibiotics with anaerobic coverage during her stay. She completed course of antibiotics during her hospitalization. -She quickly improved and was stable for multiple days without developing hypercapnea prior to discharge. -continue nebs -limited narcotics as much as possible during her stay. -prednisone continued x5 days during the course of her stay for probable COPD exacerbation. 2. COPD with exacerbation, present on admission and resolved - as noted above patient completed course of prednisone during her stay. 3. Paroxysmal Atrial fibrillation with RVR not present on admission, now resolved -morning of 04/17 developed HR 170's with BP 85/50. Was started on amiodarone intitially. -amiodarone drip completed, converted to sinus at approx 1600 on 04/17 but reverted after OR, improved with amiodarone and bipap. Both events seemed to occur with hypercarbia. -has watchmen device, not on anticoag -is taking both aspirin, plavix, last took on 04/15 -resumed home flecainide after amiodarone. Suspect afib in the setting of hypercarbia and she had no recurrence of RVR with resumption of her home flecai nide. 4. Acute blood loss anemia, .present on admission and active. ?- likely due to acute blood loss after surgery, no signs or symptoms of active bleeding, compartments were soft after surgery. Hg responded appropriately to 1U PRBC. No current signs or symptoms of bleeding. ?- continued to follow h/h and was stable. ?- started PPI for possible stress ulcer though no melena or hematochesia. She will resume home omeprazole 40 mg on discharge. 5. Acute encephalopathy, not present on admission and improved. - developed encephalopathy related to hypercarbia, which improved over the course of her stay and continues to improve currently. - PT / OT recommending SNF, transfer to SNF for continued therapies. 6.? Left hip fracture, pathologic, present on admission and active. - occurred s/p mechanical fall - hip xray shows left hip fracture - ORIF 04/18 performed by orthopedic surgery - PT / OT to continue at SNF, outpatient follow up with orthopedics per their documentation - asa BID x6 weeks for DVT prevention, then back to home asa daily. 7. Community acquired pneumonia, present on admisson and improving. - CXR with mild atypical pneumonia - CTA without PE, but RLL consolidation and multifocal peripheral opacities -continued zosyn x5 days, MRSA screen negative so vancomycin discontinued. Antibiotics completed on 04/23/22. 8.?RLL lung nodule suspicious for malignancy (1.6cm ), present on admission and active, - noted on CTA chest, spiculated - rec outpatient CT chest after discharge for follow up 9. Hypokalemia, present on admission and active - likely secondary to diuretics and diarrhea - replete as needed 10. Hypovolemic hypotension, present on admission and resolved -suspect secondary to dehydration from diuretics. Now resolved. ? 11. Chronic CHFpEF, present on admission and stable -resumed toresemide at 20 mg instead of home 40 for now after initially holding given dehydration on admission. Can increase as needed as an outpatient with PCP follow up. 12. Diarrhea, NPOA and active. - c. diff ruled out with negative toxin by PCR, likely secondary to antibiotics required for treatment of pneumonia. - started imodium 2mg prn. Time Spent with Patient Time spent: Greater than 30 minutes Exam Vital Signs (past 8 hours): - 04/25/22 05:32 04/25/22 08:40 04/25/22 09:00 Temperature 96.8 F L 96.2 F L Pulse Rate 85 87 Respiratory Rate 16 18 Blood Pressure 132/55 L 140/56 L Pulse Oximetry 95 96 98 Oxygen Delivery Method Nasal Cannula Oxygen Flow Rate 2 1 2 Fraction of Inspired Oxygen 24 SaO2/FiO2 Ratio 391 Oxygen Delivery Method Nasal Cannula Oxygen Flow Rate 2 Narrative Exam Narrative: GEN: alert and oriented, fatigued HEENT: moist mucous membranes, PERRL NECK: trachea midline, no JVD PULM: clear bilaterally, no wheezes, rhonchi, rales CV: normal rhythm and normal rate, no murmurs ABD: soft, nontender, nondistended, no organomegaly EXT: warm and well perfused, b/l le non pitting edema SKIN: scattered bruises on extremities NEURO: awake, alert, no focal deficits noted Objective Labs Result Diagrams: 04/24/22 05:10 04/24/22 05:10 PFS Medical History Chronic kidney disease, stage III (moderate) COPD (chronic obstructive pulmonary disease) Depression Glaucoma Lung nodule Morbid obesity with BMI of 40.0-44.9, adult Osteoarthritis Paroxysmal atrial fibrillation Severe mitral valve stenosis Surgical History H/O foot surgery H/O neck surgery H/O rotator cuff surgery History of hysterectomy Hx of cataract surgery Knee joint replacement by other means S/P laparoscopic sleeve gastrectomy Status post cholecystectomy Family History Father Alcoholic Mother Arthritis Renal failure Cancer Brother Alcoholic Social History household members: spouse Smoking Status: Former smoker alcohol intake: former Discharge Plan Discharge Plan Patient Disposition: SNF Transfer to: [facility] Provider Discharge Comment: 77 F admitted with hip fracture, course complicated by COPD exacerbation, pneumonia, anemia. Now improved but remains weak, transfer to SNF for continued therapies prior to home . Discharge orders & Medications Prescriptions: New acetaminophen 325 mg Tablet 650 mg PO Q6HR Qty: 60 0RF tramadol 50 mg Tablet 50 mg PO Q4H PRN (Reason: Pain (Scale Score 1-3)) Qty: 20 0RF aspirin 81 mg Tablet,Delayed Release (Dr/Ec) 81 mg PO BID Qty: 60 0RF docusate sodium 100 mg Capsule 100 mg PO BID Qty: 14 0RF loperamide 2 mg Capsule 2 mg PO QID PRN (Reason: Diarrhea) Qty: 30 0RF polyethylene glycol 3350 17 gram Powder In Packet 17 g PO DAILY PRN (Reason: Constipation) Qty: 14 0RF nystatin 100,000 unit/gram Ointment 1 applic topical TID Qty: 17 0RF gabapentin [Neurontin] 300 mg Capsule 300 mg PO BID Qty: 60 0RF oxycodone 5 mg Tablet 5 mg PO Q3HR PRN (Reason: Pain, Moderate (4-6)) 7 Days Qty: 30 0RF torsemide 20 mg tablet 20 mg PO DAILY Qty: 30 0RF Continued buspirone 10 mg Tablet 10 mg PO TID potassium chloride 10 mEq Capsule, Extended Release 10 meq PO DAILY trazodone 50 mg Tablet 50 mg PO BEDTIME diazepam 5 mg Tablet 2.5 mg PO BID PRN (Reason: Anxiety) ursodiol 500 mg Tablet 1,000 mg PO QPM Atrovent HFA 17 mcg/actuation Hfa Aerosol Inhaler 2 puff INHALATION DAILY PRN (Reason: breathing) Systane (PF) 1 drp EYE-BOTH 4XD Rx Instructions: takes 4 times a day. ascorbic acid (vitamin C) [Vitamin C] 1,000 mg Tablet 500 mg PO DAILY brinzolamide [Azopt] 1 % Drops,Suspension 1 drp OPHTHALMIC (EYE) DAILY omeprazole 40 mg Capsule,Delayed Release(Dr/Ec) 40 mg PO DAILY estradiol 1 mg Tablet 2 mg PO DAILY ferrous sulfate 325 mg (65 mg iron) Tablet 325 mg PO DAILY flecainide 50 mg Tablet 25 mg PO BID Rx Instructions: 1/2 tab am and 1 tab pm albuterol sulfate [ProAir HFA] 90 mcg/actuation Hfa Aerosol Inhaler 2 puff INHALATION BID dicyclomine 10 mg Capsule 10 mg PO TID multivitamin Tablet,Chewable 2 tab PO DAILY duloxetine [Cymbalta] 60 mg Capsule,Delayed Release(Dr/Ec) 30 mg PO QPM cholecalciferol (vitamin D3) [Vitamin D3] 2,000 unit Tablet 2,000 unit PO DAILY Lumigan 0.01 % Drops 1 drp OPHTHALMIC (EYE) QPM magnesium oxide 400 mg magnesium Capsule 400 mg PO DAILY Anoro Ellipta 62.5-25 mcg/actuation Blister With Device 1 inh INHALATION DAILY Cranberry W/D Mannose 1 cap PO DAILY Discontinued clopidogrel 75 mg Tablet 75 mg PO DAILY Adult Low Dose Aspirin 81 mg Tablet 81 mg PO DAILY torsemide 40 mg Tablet 40 mg PO QPM tramadol 50 mg Tablet 50 mg PO Q4H PRN (Reason: Pain (Scale Score 1-3)) Follow up/Referrals: Maryuri Child MD [Primary Care Provider] - Pily Godoy MD [Physician] - (Please call to make a postoperative visit in 10-14 days from surgery) Diet/Activity/Treatments Diet: Diet as Tolerated Liquid consistency: Normal/Thin Food texture: Regular Activity: As tolerated Oxygen: as needed to keep O2 >89%, home amount 2L Other treatments: -Aspirin 81mg twice daily x6 weeks to prevent blood clots. Dressing/Wound care: -Keep Aquacell dressing in place until postoperative follow-up office visit. -Okay to shower. Keep wound out of direct water stream. No soaking or sub merging until all the scabs fall off (approximately 6 weeks). -No lotions, ointments, or scar creams directly to the incision until the wound is healed (4-6 weeks), -Please call the office if dressing becomes wet, soiled, or saturated. Activities: -Maintain posterior hip precautions x6 weeks. -Weight-bearing as tolerated. Use front wheeled walker, and progress to cane when safe. -Continue with home exercises as directed by your physical therapist. -Elevate ?toes above the nose if you have significant swelling in your lower leg. (A wedge pillow is easiest.) -Ice your incision as needed for pain/inflammation/swelling. Protect your skin with a folded pillowcase. Follow-up: -Follow-up with your surgeon or PA in the office in 10-14 days after surgery. -Follow-up with your surgeon 6 weeks postoperatively. Call the office if you have chest pain, shortness of breath, significant swelling that will not resolve with elevating, fever over 101?, significantly worsening pain, or are concerned you might need to go to the Emergency Room. [facility]: [phone] Skin/Wound/Dressing Care Report to your healthcare provider any signs of infection, such as:: chills, fever, night sweats, unusual drainage and unusual redness [facility] Reason for rehabilitation: Post-operative therapy Rehab type: Physical therapy and Occupational therapy Visit Report/Discharge Packet Instructions: DI for Hip Replacement Stand Alone Forms: Patient Portal/API, Surgery Discharge Discharge Data Primary Care Provider: Maryuri Child
[2022-04-25 10:18] LABS: Smooth Muscle Antibody 10 Units (0-19)
[2022-04-25] MEDS: ONDANSETRON 4 MG ODT PO (11:54)
--- NOTE | 2022-04-25 12:47 | CM.DPNOTE ---
DC Note DC to [facility] today, patient remains agreeable to plan. SENA Macias, following closely to assist in coordination; DC ppk to be faxed w/completed SATYA BOTELLO PCR updated, RN provided with peanut picker time, 1400, and contact number to call report to CYNTHIA Corado at [facility]
[2022-04-25 13:00] VITALS: BP 141/57; PULSE 81; RESP 16; TEMP 35.9; O2SAT 97
[2022-04-25 13:44] LABS: COVID19 -Nasal RAPID Negative (Negative)
--- NOTE | 2022-04-25 15:29 | PC.NURSE ---
Pt is A&OX3 today VSS, afebrile on 1.5 L NC. Pt is able to participate with therapy today. She is still complaining of diarrhea, and is able to use BSC. She has x2 loose stool this a.m. and is given loperamide prn. She calls appropriately for assistance. She has excoriation to her vaginal folds and buttocks and cream applied as well as scheduled nystatin. Aquacel dressing to L hip is c/d/i with scant see through blood. She is medically cleared for discharge to [facility] this afternoon. She reports some nervousness and anxiety about discharge and is given zofran for c/o nausea with minimal effect. She states she still feels anxious and medicated with prn 0.5mg valium per request with good effect. COVID swab results negative. Report called to Mickie at 1400 and transporter arrived and returned with portable 02 tank to transport patient to [facility] by W/LEXA at 1430.
[2022-05-28 12:58] LABS: PCO2 ABG 68.6 mmHg (35-45)
== END 2022-04-25 14:35 | DRG 521 ==
LOC: ED 10:39 → AC 11:07 → ICU 04-17 05:30 → AC 04-20 15:26
PROVIDERS: Hospitalist; Internal Medicine; Internal Medicine Critical Care Medicine; Internal Medicine Pulmonary Disease; Orthopaedic Surgery; Admitting Provider Student in an Organized Health Care Education/Training Program; Emergency Provider Emergency Medicine; PCP Family Medicine; Referring Provider Emergency Medicine; Visit Provider Student in an Organized Health Care Education/Training Program
PROC: 0SRS0JZ Replacement of Left Hip Joint, Femoral Surface with Synthetic Substitute, Open Approach (ICD-10-PCS; CPT 27125; principal; 2022-04-18 11:15)
DX: M84.452A Pathological fracture, left femur, initial encounter for fracture (principal); G93.41 Metabolic encephalopathy; J18.9 Pneumonia, unspecified organism; J96.21 Acute and chronic respiratory failure with hypoxia; J96.22 Acute and chronic respiratory failure with hypercapnia; I50.32 Chronic diastolic (congestive) heart failure; J44.1 Chronic obstructive pulmonary disease with (acute) exacerbation; D62 Acute posthemorrhagic anemia; Z99.81 Dependence on supplemental oxygen; Z87.891 Personal history of nicotine dependence; Z20.822 Contact with and (suspected) exposure to COVID-19; W18.30XA Fall on same level, unspecified, initial encounter; E87.6 Hypokalemia; Z95.818 Presence of other cardiac implants and grafts; I48.0 Paroxysmal atrial fibrillation; R19.7 Diarrhea, unspecified; R91.1 Solitary pulmonary nodule; T40.605A Adverse effect of unspecified narcotics, initial encounter; E86.1 Hypovolemia; F32.A Depression, unspecified; K21.9 Gastro-esophageal reflux disease without esophagitis
CPT/HCPCS: 36415; 36430; 36569; 36600; 70450; 71045; 71275; 73502; 80048; 80053; 80069; 81001; 82805; 82962; 83036; 83516; 83605; 83690; 83735; 84145; 84484; 85007; 85014; 85018; 85025; 85610; 85730; 86850; 86900; 86901; 87086; 87493; 87635; 87797; 93005; 93010; 94640; 94660; 94760; 97110; 97116; 97163; 97530; 99231; 99233; 99285; 99291; C1776; C9803; P9016; C9113; J0282; J1170; J1642; J2250; J2310; J2405; J2543; J2704; J2930; J3010